=== PATIENT | female | born 1945 | race Caucasian/White ===

== ENCOUNTER → 2016-10-04 | Outpatient (CLI) | payer OTHER, BC ==
[~2016-10-04] MED LIST: ASCAUNK PO; ASCO100061 PO; ASCO500T16 PO; ASPI-461 PO; ATOR-22 PO; B-COTAB18 PO; BNC/20125 PO; CALCTAB65 PO; CARB1TAB15 PO; CHOL100027 PO; CIPR-255 PO; COEN10CA5 PO; FERR1TAB13 PO; FERR325T18 PO; HYDR-3983 PO; KLN5X PO; MELO7.5T5 PO; OXYC1TAB3 PO; SULF800T23 PO; TRAZ50TA35 PO; VITA400C3 PO; ZOLE5INJ INJ
--- NOTE | 2016-10-06 14:33 | EEG Procedure Note ---
EEG Procedure Note Date of Service Oct 04, 2016. Start / End Times Start Time: 2:24 PM End Time: 2:45 PM Referring Physician Jennifer Welch History This is a 71-year-old female with focal epilepsy with impairment of consciousness. EEG for further evaluation of seizures. Home Medication List Scheduled Ascorbic Acid (Vitamin C Unknown Dose), 1,000 MG PO DAILY Aspirin (Aspirin), 81 MG PO DAILY Carbamazepine (Tegretol Xr), 400 MG PO HS Cholecalciferol (Vitamin D 1000 Unit), 5,000 INTER.UNIT PO DAILY Ciprofloxacin Hcl (Cipro), 500 MG PO BID Clonazepam (Clonazepam), 0.5 MG PO BID Coenzyme Q10 (Ubidecarenone) (Co Q 10), Unknown Dose PO Q2D Ferrous Gluconate (Ferrous Gluconate), 324 MG PO DAILY Meloxicam (Mobic), 7.5 MG PO prn Olmesartan/Hctz (Benicar Hct 20/12.5), 1 TAB PO DAILY Vitamin E (Vitamin E 400 Iu), 400 INTER.UNIT PO DAILY Scheduled PRN Hydrocodone/Acetaminophen 7.5MG/325MG ([place] 7.5MG/325MG), 1 TAB PO for Pain Description This is a 21 electrode EEG with a single channel dedicated to limited EKG. The electrodes were placed in accordance with the International 10-20 system. At the start of the recording the patient was in an awake state. Background was well organized and composed of symmetric mixed alpha and beta frequencies. There was a symmetric well-formed moderate amplitude 8-9 Hz posterior dominant rhythm that was reactive to eye opening and closure. Hyperventilation was not done. Intermittent photic stimulation at various frequencies produced no abnormalities. There was no state changes or sleep transients. Interpretation This is a normal awake only routine EEG. There was no electrographic seizures or epileptiform discharges. Clinical Correlation A normal EEG does not rule out epilepsy if there is a strong clinical suspicion.
== END | disposition home or self-care (01) ==
LOC: C.NEUR 14:04
PROVIDERS: ATTEND Psychiatry & Neurology Neurology
DX: G40.109 Localization-related (focal) (partial) symptomatic epilepsy and epileptic syndromes with simple partial seizures, not intractable, without status epilepticus (principal)

== ENCOUNTER → 2016-11-24 | Outpatient (CLI) | payer OTHER, BC | END | disposition home or self-care (01) | LOC: C.NEUR 09:27 | PROVIDERS: ATTEND Psychiatry & Neurology Neurology | DX: G40.109 Localization-related (focal) (partial) symptomatic epilepsy and epileptic syndromes with simple partial seizures, not intractable, without status epilepticus (principal) ==

== ENCOUNTER 2017-01-21 19:45 | Emergency (ER) | payer OTHER, BC ==
[~2017-01-21] VITALS: Ht 152.4 cm; Wt 55.3 kg
[~2017-01-21 19:45] MED LIST changes: -ASCO100061 PO; -ASCO500T16 PO; -ASPI-461 PO; -ATOR-22 PO; -B-COTAB18 PO; -CALCTAB65 PO; -FERR1TAB13 PO; -OXYC1TAB3 PO; -SULF800T23 PO; -TRAZ50TA35 PO; -ZOLE5INJ INJ
[2017-01-21 19:50] VITALS: TEMP 36.9; Ht 152.4 cm; Wt 55.3 kg
[2017-01-21] MEDS ORDERED: OXYCODONE HCL IR 5 MG TAB (IMMEDIATE RELEASE) PO STA (21:10)
--- NOTE | 2017-01-21 21:12 | EMERGENCY ROOM VISIT NOTE ---
History Report prepared by Serena: Melody Brock Under the Supervision of: Dr. Derick Phillips M.D. First contact with patient: 20:59 Chief Complaint: FALL Stated Complaint: FALL, HEAD INJURY History of Present Illness The patient is a 71 year old female who presents to the Emergency Room with complaints of constant head pain from fall that occurred just prior to arrival. Per the patient's family, the patient was walking out to her car when she lost her balance. The patient does have bad balance and uses a cane. She fell backwards and hit her head. She complains of a headache at this time and has an abrasion to the top of the head. The patient denies any other symptoms at this time. Source of History: patient Onset: just W[employer] Position: head Timing: constant Associated Symptoms: + headache Note: The patient denies any other symptoms at this time. Review of Systems See HPI for pertinent positives & negatives. A total of 10 systems reviewed and were otherwise negative. Past Medical & Surgical Medical Problems: (1) Anxiety (2) Depressive Disorder Nec (3) Hypertension (4) Intestinal Infection Due To Clostridium Difficile (5) Osteoporosis (6) Seizure disorder (7) Syncope Surgical Problems: (1) H/O ileostomy Family History Omitted secondary to age. Social History Smoking Status: Former Smoker Alcohol Use: none Marital Status: Housing Status: lives with family Occupation Status: retired Current/Historical Medications Scheduled Ascorbic Acid (Vitamin C Unknown Dose), 1,000 MG PO DAILY Aspirin (Aspirin), 81 MG PO DAILY Carbamazepine (Tegretol Xr), 400 MG PO HS Cholecalciferol (Vitamin D 1000 Unit), 5,000 INTER.UNIT PO DAILY Ciprofloxacin Hcl (Cipro), 500 MG PO BID Clonazepam (Clonazepam), 0.5 MG PO BID Coenzyme Q10 (Ubidecarenone) (Co Q 10), Unknown Dose PO Q2D Ferrous Gluconate (Ferrous Gluconate), 324 MG PO DAILY Meloxicam (Mobic), 7.5 MG PO prn Olmesartan/Hctz (Benicar Hct 20/12.5), 1 TAB PO DAILY Vitamin E (Vitamin E 400 Iu), 400 INTER.UNIT PO DAILY Scheduled PRN Hydrocodone/Acetaminophen 7.5MG/325MG ([place] 7.5MG/325MG), 1 TAB PO for Pain Allergies Coded Allergies: Fentanyl (Verified Adverse Reaction, Unknown, nausea, fearfulness, unsettled thoughts, 08/13/16) Physical Exam Vital Signs Date Time Temp Pulse Resp B/P Pulse Ox O2 Delivery O2 Flow Rate FiO2 01/21/17 22:32 78 18 156/80 96 Room Air 01/21/17 21:29 90 18 147/85 98 Room Air 01/21/17 19:50 36.9 99 18 178/88 98 Room Air Physical Exam GENERAL: Patient is elderly appearing, kyphotic and in no acute distress. HEENT: 2.5 cm curving laceration left posterior scalp with underlying hematoma and surrounding abrasion, mucous membranes moist, no nasal congestion, no scleral icterus. NECK: No stridor, no adenopathy, no meningismus, trachea is midline. LUNGS: No dyspnea. Clear to auscultation and equal bilaterally. No wheeze, no rhonchi. HEART: Regular rate and rhythm. No murmurs, rubs, gallops appreciated. ABDOMEN: Soft, nontender, bowel sounds positive, no masses appreciated, no peritonitis. BACK: No midline tenderness, no CVA tenderness EXTREMITIES: Frozen left shoulder chronic, unremarkable otherwise. no cyanosis, no edema. NEUROLOGIC: Alert and oriented, no acute motor or sensory deficits, no focal weakness, cranial nerves grossly intact. SKIN: No rash, no jaundice, no diaphoresis. Medical Decision & Procedures ER Provider Diagnostic Interpretation: CT results as stated below per interpretation by me and the radiologist: HEAD CT NONCONTRAST CT DOSE: HISTORY: Fall. posterior head injury TECHNIQUE: Multiaxial CT images of the head were performed without the use of intravenous contrast. Automated exposure control was utilized for this study. Comparison: Head CT 06/12/2016. Findings: Paranasal sinuses are clear. There are few chronically opacified bilateral inferior mastoid air cells. The calvarium and skull base are intact. There is no mass, hematoma, midline shift, acute infarct. White matter hypodensity is nonspecific but suggestive of microvascular ischemic change. The ventricles and sulci demonstrate mild age-related involutional changes. Old right-sided post craniotomy changes with stable encephalomalacia within the right posterior temporal lobe. Left posterior scalp swelling. Impression: Left posterior scalp swelling. Otherwise, no significant change compared to the prior study. No acute intracranial abnormality. Electronically signed by: Lino Julian M.D. 01/21/2017 9:34 PM Dictated Date/Time: 01/21/2017 9:[address] DOSE: 1035.66 mGy.cm HISTORY: Neck pain. Fall. posterior head injury TECHNIQUE: Multiaxial CT images of the cervical spine were performed and reformatted in the sagittal and coronal plane without the use of contrast. COMPARISON: None. FINDINGS: Mild anterior wedge-shaped compression deformities at C4, C7, T1, T2, T3, T4. These are technically age indeterminate but likely represent old fractures given the lack of significant paravertebral soft tissue swelling. No definite acute fractures identified within the cervical spine. Small lucent lesions at the C5 vertebral body favors hemangiomas. No subluxation. Prevertebral soft tissues and the C1-C2 interval are intact. No pneumothorax. Mild disc space narrowing within the mid to lower cervical spine. IMPRESSION: Multiple mild compression deformities within the cervical and upper thoracic spine as described above. These are technically age indeterminate but likely represent old fractures given the lack of paravertebral soft tissue swelling. No definite acute fracture or subluxation within the cervical spine. Electronically signed by: Lino Julian M.D. 01/21/2017 9:43 PM Dictated Date/Time: 01/21/2017 9:34 PM Medications Administered Medications (Trade) Dose Ordered Sig/Ba Route Start Time Stop Time Status Last Admin Dose Admin Oxycodone HCl (Roxicodone Immediate Rel Tab) 5 mg NOW STAT PO 01/21/17 21:10 01/21/17 21:11 DC 01/21/17 21:29 5 MG Procedure Location: Posterior Left Scalp Total length: 2.5 cm curve Complexity: Simple Verbal consent was obtained after the risks and benefits were explained, including but not limited to bleeding, scarring, infection, pain, and bone/ nerve damage. At this time, the risks of the procedure are less than the risks of NOT performing the procedure. A time out was taken and the correct patient and site identified. The scalp was prepped with betadine. Copious irrigation was performed using saline. The skin was re-prepped with betadine, the hair cleared from the wound, and a sterile field set. The wound was explored for foreign bodies and none found. Debridement was not performed. The wound edges were approximated using 3 surgical zia in the standard fashion. Hemostasis and excellent approximation was achieved. Antibacterial ointment and a sterile dressing applied. Detailed wound care instructions and signs and symptoms of infection reviewed with the the patient. No complications and the patient tolerated the procedure well. ED Course 2102: The patient was evaluated in room C12. A complete history and physical exam was performed. 2109: Roxicodone Immediate Rel Tab 5 mg PO. 2224: Reevaluated the patient. Discussed results and discharge instructions: She verbalized understanding and agreement. The patient is ready for discharge. Medical Decision Very pleasant 71 yr old female with chronic issues with ambulation who had mechanical fall at home. Small lac to back of head. No acute injury found. No midline neck TTP and I do not feel that these are acute compression fractures given her chronic spine issues. Stables to scalp. CT's negative for acute findings. Comfortable and wanting to get home. Impression Primary Impression: Fall Additional Impressions: Head injury, closed Scalp laceration Scribe Attestation The scribe's documentation has been prepared under my direction and personally reviewed by me in its entirety. I confirm that the note above accurately reflects all work, treatment, procedures, and medical decision making performed by me. Departure Information Dispostion Home / Self-Care Referrals Ulises Chowdary M.D. (PCP) Forms HOME CARE DOCUMENTATION FORM, IMPORTANT VISIT INFORMATION Patient Instructions ED Laceration Scalp Stitch Or Stap, [facility] Additional Instructions Zia will need to be removed in 1 week by either ED or your PCP. Problem Qualifiers Primary Impression: Fall Encounter type: initial encounter Qualified Codes: W19.XXXA - Unspecified fall, initial encounter Additional Impressions: Head injury, closed Encounter type: initial encounter Qualified Codes: S09.90XA - Unspecified injury of head, initial encounter Scalp laceration Encounter type: initial encounter Qualified Codes: S01.01XA - Laceration without foreign body of scalp, initial encounter
--- NOTE | 2017-01-21 21:35 | DIAGNOSTIC IMAGING REPORT ---
HEAD CT NONCONTRAST CT DOSE: HISTORY: Fall. posterior head injury TECHNIQUE: Multiaxial CT images of the head were performed without the use of intravenous contrast. Automated exposure control was utilized for this study. Comparison: Head CT 06/12/2016. Findings: Paranasal sinuses are clear. There are few chronically opacified bilateral inferior mastoid air cells. The calvarium and skull base are intact. There is no mass, hematoma, midline shift, acute infarct. White matter hypodensity is nonspecific but suggestive of microvascular ischemic change. The ventricles and sulci demonstrate mild age-related involutional changes. Old right-sided post craniotomy changes with stable encephalomalacia within the right posterior temporal lobe. Left posterior scalp swelling. Impression: Left posterior scalp swelling. Otherwise, no significant change compared to the prior study. No acute intracranial abnormality. Electronically signed by: Lino Julian M.D. 01/21/2017 9:34 PM Dictated Date/Time: 01/21/2017 9:29 PM
--- NOTE | 2017-01-21 21:45 | DIAGNOSTIC IMAGING REPORT ---
CERVICAL SPINE CT CT DOSE: 1035.66 mGy.cm HISTORY: Neck pain. Fall. posterior head injury TECHNIQUE: Multiaxial CT images of the cervical spine were performed and reformatted in the sagittal and coronal plane without the use of contrast. COMPARISON: None. FINDINGS: Mild anterior wedge-shaped compression deformities at C4, C7, T1, T2, T3, T4. These are technically age indeterminate but likely represent old fractures given the lack of significant paravertebral soft tissue swelling. No definite acute fractures identified within the cervical spine. Small lucent lesions at the C5 vertebral body favors hemangiomas. No subluxation. Prevertebral soft tissues and the C1-C2 interval are intact. No pneumothorax. Mild disc space narrowing within the mid to lower cervical spine. IMPRESSION: Multiple mild compression deformities within the cervical and upper thoracic spine as described above. These are technically age indeterminate but likely represent old fractures given the lack of paravertebral soft tissue swelling. No definite acute fracture or subluxation within the cervical spine. Electronically signed by: Lion Julian M.D. 01/21/2017 9:43 PM Dictated Date/Time: 01/21/2017 9:34 PM
[2017-01-21 22:32] VITALS: BP 156/80; PULSE 78; O2SAT 96
[2017-03-06] MEDS ORDERED: SULF800T23 PO (11:10)
[2017-06-13] MEDS ORDERED: QUET1TAB91 PO (09:45)
[2017-08-05] MEDS ORDERED: LACT1CAP6 PO (01:05)
[2017-08-05] MEDS ORDERED: CRAN1TAB4 PO (01:05)
[2017-08-05] MEDS ORDERED: ZOLE5INJ INJ (03:50)
[2017-08-05] MEDS ORDERED: ATOR-22 PO ×2 (04:49→17:32)
[2017-08-05] MEDS ORDERED: ASCO100061 PO (04:52)
[2017-08-05] MEDS ORDERED: CALCTAB65 PO (04:55)
[2017-08-05] MEDS ORDERED: FERR1TAB13 PO (05:00)
[2017-08-05] MEDS ORDERED: ASPI-461 PO (16:01)
[2017-08-12] MEDS ORDERED: DIVA1CAP PO (13:57)
[2017-08-12] MEDS ORDERED: LPR25 PO (13:57)
[2017-08-12] MEDS ORDERED: CIPR250T3 PO (13:57)
== END 2017-01-21 23:14 | disposition home or self-care (01) ==
LOC: C.EDC 19:45 → EDBD 19:45 → C.EDC 23:14
DX: S01.01XA Laceration without foreign body of scalp, initial encounter (principal); S00.01XA Abrasion of scalp, initial encounter; S09.8XXA Other specified injuries of head, initial encounter; R51 Headache; W18.39XA Other fall on same level, initial encounter; Y93.01 Activity, walking, marching and hiking; I10 Essential (primary) hypertension; G40.909 Epilepsy, unspecified, not intractable, without status epilepticus; M81.0 Age-related osteoporosis without current pathological fracture

== ENCOUNTER 2017-01-28 18:18 | Emergency (ER) | payer OTHER, BC ==
[~2017-01-28] VITALS: Ht 149.9 cm; Wt 56.0 kg
[2017-01-28 18:28] VITALS: Ht 149.9 cm; Wt 56.0 kg
--- NOTE | 2017-01-28 18:36 | EMERGENCY ROOM VISIT NOTE ---
ED Visit Note First contact with patient: 18:31 CHIEF COMPLAINT: Staple removal HISTORY OF PRESENT ILLNESS: This 71-year-old female patient returns to the ED today for removal of margarito that were placed 7 days ago. There has been no swelling, redness, or drainage from the wound. The patient feels like the laceration is healing well. REVIEW OF SYSTEMS: A 6 system review of systems was completed with positives and pertinent negatives listed in the HPI. PMH: Unchanged from previous visit. ALLERGIES: Fentanyl PHYSICAL EXAM: Vital Signs: Reviewed Nurse's notes, vital signs stable. GENERAL : This is a 71-year-old female, in no acute distress. SKIN: There is a stapled wound on the scalp with no signs of infection. There is no erythema, swelling, or tenderness. EMERGENCY DEPARTMENT COURSE: 3 margarito were removed without any difficulty and there was no separation of the wound edges. The patient was discharged home in good condition. DIAGNOSIS: Healing laceration and staple removal DISCHARGE INSTRUCTIONS AND TREATMENT: Wash any remaining crusts off of the wound today and resume your normal activities. Problem List Medical Problems: (1) Anxiety Status: Chronic (2) Depressive Disorder Nec Status: Chronic (3) Hypertension Status: Chronic (4) Intestinal Infection Due To Clostridium Difficile Status: Resolved (5) Osteoporosis Status: Chronic (6) Seizure disorder Status: Chronic Surgical Problems: (1) H/O ileostomy Status: Resolved Current/Historical Medications Scheduled Ascorbic Acid (Vitamin C Unknown Dose), 1,000 MG PO DAILY Aspirin (Aspirin), 81 MG PO DAILY Carbamazepine (Tegretol Xr), 400 MG PO HS Cholecalciferol (Vitamin D 1000 Unit), 5,000 INTER.UNIT PO DAILY Ciprofloxacin Hcl (Cipro), 500 MG PO BID Clonazepam (Clonazepam), 0.5 MG PO BID Coenzyme Q10 (Ubidecarenone) (Co Q 10), Unknown Dose PO Q2D Ferrous Gluconate (Ferrous Gluconate), 324 MG PO DAILY Meloxicam (Mobic), 7.5 MG PO prn Olmesartan/Hctz (Benicar Hct 20/12.5), 1 TAB PO DAILY Vitamin E (Vitamin E 400 Iu), 400 INTER.UNIT PO DAILY Scheduled PRN Hydrocodone/Acetaminophen 7.5MG/325MG ([place] 7.5MG/325MG), 1 TAB PO for Pain Allergies Coded Allergies: Fentanyl (Verified Adverse Reaction, Unknown, nausea, fearfulness, unsettled thoughts, 08/13/16) Vital Signs Date Time Temp Pulse Resp B/P Pulse Ox O2 Delivery O2 Flow Rate FiO2 01/28/17 18:43 36.3 78 20 100 01/28/17 18:28 36.3 78 20 165/80 100 Room Air Departure Information Impression Primary Impression: Encounter for removal of margarito Dispostion Home / Self-Care Condition GOOD Referrals Ulises Chowdary M.D. (PCP) Patient Instructions My [facility] Additional Instructions Wash any remaining crusts off of the wound today and resume your normal activities.
[2017-01-28 18:43] VITALS: BP 165/80; PULSE 78; TEMP 36.3; O2SAT 100
[2017-03-06] MEDS ORDERED: SULF800T23 PO (11:10)
[2017-06-13] MEDS ORDERED: QUET1TAB91 PO (09:45)
[2017-08-05] MEDS ORDERED: LACT1CAP6 PO (01:05)
[2017-08-05] MEDS ORDERED: CRAN1TAB4 PO (01:05)
[2017-08-05] MEDS ORDERED: ZOLE5INJ INJ (03:50)
[2017-08-05] MEDS ORDERED: ATOR-22 PO ×2 (04:49→17:32)
[2017-08-05] MEDS ORDERED: ASCO100061 PO (04:52)
[2017-08-05] MEDS ORDERED: CALCTAB65 PO (04:55)
[2017-08-05] MEDS ORDERED: FERR1TAB13 PO (05:00)
[2017-08-05] MEDS ORDERED: ASPI-461 PO (16:01)
[2017-08-12] MEDS ORDERED: DIVA1CAP PO (13:57)
[2017-08-12] MEDS ORDERED: CIPR250T3 PO (13:57)
[2017-08-12] MEDS ORDERED: LPR25 PO (13:57)
== END 2017-01-28 18:42 | disposition home or self-care (01) ==
LOC: C.EDB 18:19 → C.EDD 18:42
DX: S01.01XD Laceration without foreign body of scalp, subsequent encounter (principal); X58.XXXD Exposure to other specified factors, subsequent encounter; F41.9 Anxiety disorder, unspecified; F32.9 Major depressive disorder, single episode, unspecified; I10 Essential (primary) hypertension; M81.0 Age-related osteoporosis without current pathological fracture; G40.909 Epilepsy, unspecified, not intractable, without status epilepticus; Z79.82 Long term (current) use of aspirin

== ENCOUNTER 2017-03-04 03:26 | Inpatient (IN) | payer OTHER, BC ==
[~2017-03-04] VITALS: Ht 149.9 cm; Wt 52.8 kg
[~2017-03-04 03:26] MED LIST changes: +ASPI-461 PO
[2017-03-04] MEDS ORDERED: ZOLE5INJ INJ (03:50)
--- NOTE | 2017-03-04 04:31 | EMERGENCY ROOM VISIT NOTE ---
History Report prepared by Serena: Catrina Skaggs Under the Supervision of: Dr. Radha Alvares D.O. First contact with patient: 03:31 Chief Complaint: OTHER COMPLAINT Stated Complaint: OTHER COMPLAINT History of Present Illness The patient is a 71 year old female who presents to the Emergency Room with a persistent change in mental status that began several hours prior to arrival. The patient's daughter reports that the patient has a history of seizures and has been on Tegretol for several years. She states that the patient was recently started on Trazodone for her sleeping disturbances. The patient's daughter states that the patient was found this evening sitting in a chair on- top of clothes. She states that this was abnormal for the patient. The patient 's daughter states that typically the patient is independent about taking her medications, but states that over the last several days the patient has not been fully compliant with her medications. She states that the patient appears very tired and fatigued this morning. The patient states that she doesn't remember sitting in the chair this evening and is unsure if she went to sleep in her bed this evening. The patient's daughter states that the patient was still up around midnight this evening. She additionally notes that the patient has been increasingly forgetful. The patient's daughter states that the patient has had spells similar to this in the past, but notes that today is much more intense. She states that the spell would only last a short amount of time and notes that the patient would be back to normal in a few minutes. The patient's daughter denies the patient having any other medication change. The patient notes that she has been recently constipated, but denies any chest pain , shortness of breath, headache, or urinary symptoms. Source of History: patient, family (daughter) Onset: several hours prior to arrival Position: other (global) Quality: other (change in mental status) Timing: other (persistent) Associated Symptoms: + fatigue, No headache, No chest pain, No SOB, No urinary symptoms Note: Associated Symptoms: forgetful, constipated, tired Review of Systems See HPI for pertinent positives & negatives. A total of 10 systems reviewed and were otherwise negative. Past Medical & Surgical Medical Problems: (1) Anxiety (2) Depressive Disorder Nec (3) Hypertension (4) Intestinal Infection Due To Clostridium Difficile (5) Osteoporosis (6) Seizure disorder (7) Syncope Surgical Problems: (1) H/O ileostomy Family History Omitted secondary to age. Social History Smoking Status: Former Smoker Alcohol Use: none Marital Status: Housing Status: lives with family Occupation Status: retired Current/Historical Medications Scheduled Ascorbic Acid (Ascorbic Acid), 1,000 MG PO DAILY Aspirin (Aspirin), 81 MG PO DAILY Atorvastatin (Lipitor), 20 MG PO DAILY B-Complex Vitamins (Vitamin B Complex), 1 TAB PO DAILY Calcium Carbonate-Vitamin D (Calcium 500 + D), 1 TAB PO DAILY Carbamazepine (Tegretol Xr), 400 MG PO HS Cholecalciferol (Vitamin D 1000 Unit), 5,000 INTER.UNIT PO DAILY Clonazepam (Clonazepam), 1 MG PO HS Ferrous Sulfate (Kp Ferrous Sulfate), 325 MG PO DAILY Meloxicam (Mobic), 7.5 MG PO prn Olmesartan/Hctz (Benicar Hct 20/12.5), 1 TAB PO DAILY Trazodone Hcl (Trazodone), 50 MG PO HS Vitamin E (Vitamin E 400 Iu), 400 INTER.UNIT PO DAILY Zoledronic Acid (Reclast), 5 MG INJ YEARLY Scheduled PRN Oxycodone Ir (Roxicodone Ir), 10 MG PO Q8 PRN for Pain Allergies Coded Allergies: Fentanyl (Verified Adverse Reaction, Unknown, nausea, fearfulness, unsettled thoughts, 08/13/16) Physical Exam Vital Signs Date Time Temp Pulse Resp B/P (MAP) Pulse Ox O2 Delivery O2 Flow Rate FiO2 03/04/17 09:22 82 18 111/56 97 Room Air 03/04/17 08:41 99 123/61 97 Room Air 03/04/17 07:01 83 14 93/55 96 Room Air 03/04/17 07:00 97 Room Air 03/04/17 06:52 80 03/04/17 06:06 86 15 98 03/04/17 06:01 94/56 03/04/17 05:51 86 10 96 03/04/17 05:46 116/63 03/04/17 05:40 126/72 03/04/17 05:36 91 17 03/04/17 05:25 95 03/04/17 05:21 99 16 03/04/17 05:16 105/59 03/04/17 05:11 102 14 03/04/17 05:01 115/60 03/04/17 04:56 100 12 03/04/17 04:46 118/62 03/04/17 04:41 98 15 03/04/17 04:39 125/67 03/04/17 04:19 117/67 03/04/17 04:11 96 15 03/04/17 04:08 97 Room Air 03/04/17 03:56 102 20 99 03/04/17 03:33 104 03/04/17 03:33 37.1 103 18 123/104 99 Room Air Physical Exam General: Appears slow to answer questions but would follow commands. HEENT: Head - normocephalic and atraumatic. Pupils are equal, round, and reactive to light. Extraocular eye muscles are intact and sclera are anicteric. Ears - bilaterally patent canals with noninjected tympanic membranes and no evidence of hemotympanum. Nose - moist nasal mucosa without discharge. Mouth - moist buccal mucosa. Oropharynx is nonerythematous and there is no tonsillar exudate or edema noted. Neck: Supple; no JVD, nuchal rigidity, cervical lymphadenopathy, or auscultated bruits. Heart: Regular rate and rhythm. There is a normal S1 and S2 with no murmurs, clicks, or gallops appreciated. Lungs: Clear to auscultation bilaterally with no wheezes, rales, or rhonchi. Abdomen: Soft, completely nontender, nondistended, with good bowel sounds. There are no palpable pulsatile masses or hepatosplenomegaly. There is no guarding, rigidity, or rebound noted. Extremities: No evidence of cyanosis, clubbing, or edema. There are easily palpable peripheral pulses. Skin: Turgor was poor, lower extremity skin changes consistent with peripheral vascular disease. Neuro:The patient is awake and alert, oriented to person and place, but not time. Muscle strength is 5/5 in all 4 extremities. 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 There are no cerebellar signs. Medical Decision & Procedures ER Provider Diagnostic Interpretation: CT results as stated below per my review and radiologist interpretation: CT HEAD: Compared to CT head 01/21/2017 No ICH, mass effect or edema. No evidence of acute cortical stroke. Other findings are similar to prior. Radiologist: Nighat Nj MD Study ready at [id number] and initial results transmitted at [id number] Laboratory Results Test 03/04/17 04:15 03/04/17 04:18 03/04/17 05:00 03/04/17 08:45 Bedside Glucose 109 mg/dl (70-90) Immature Granulocyte % (Auto) 0.2 % White Blood Count 9.63 K/uL (4.8-10.8) Red Blood Count 3.49 M/uL (4.2-5.4) Hemoglobin 12.1 g/dL (12.0-16.0) Hematocrit 34.8 % (37-47) Mean Corpuscular Volume 99.7 fL (80-100) Mean Corpuscular Hemoglobin 34.7 pg (25-34) Mean Corpuscular Hemoglobin Concent 34.8 g/dl (32-36) Platelet Count 198 K/uL (130-400) Mean Platelet Volume 8.3 fL (7.4-10.4) Neutrophils (%) (Auto) 87.2 % Lymphocytes (%) (Auto) 4.0 % Monocytes (%) (Auto) 8.1 % Eosinophils (%) (Auto) 0.3 % Basophils (%) (Auto) 0.2 % Neutrophils # (Auto) 8.39 K/uL (1.4-6.5) Lymphocytes # (Auto) 0.39 K/uL (1.2-3.4) Monocytes # (Auto) 0.78 K/uL (0.11-0.59) Eosinophils # (Auto) 0.03 K/uL (0-0.5) Basophils # (Auto) 0.02 K/uL (0-0.2) Immature Granulocyte # (Auto) 0.02 K/uL (0.00-0.02) Red Blood Cell Morphology Unremarkable Prothrombin Time 10.6 SECONDS (9.0-12.0) Prothromb Time International Ratio 1.0 (0.9-1.1) Activated Partial Thromboplast Time 25.7 SECONDS (21.0-31.0) Partial Thromboplastin Ratio 1.0 Phosphorus Level 4.1 mg/dl (2.5-4.9) Magnesium Level 2.3 mg/dl (1.8-2.4) Total Creatine Kinase 309 U/L (26-192) Creatine Kinase MB 4.2 ng/ml (0.5-3.6) Creatine Kinase MB Ratio 1.4 (0-3.0) Troponin I < 0.015 ng/ml (0-0.045) Thyroid Stimulating Hormone (TSH) 4.700 uIu/ml (0.300-4.500) Carbamazepine (Tegretol) Level 10.7 mcg/ml (4-12) Urine Color DK YELLOW Urine Appearance CLOUDY (CLEAR) Urine pH 6.0 (4.5-7.5) Urine Specific [place] 1.023 (1.000-1.030) Urine Protein 2+ (NEG) Urine Glucose (UA) NEG (NEG) Urine Ketones TRACE (NEG) Urine Occult Blood 1+ (NEG) Urine Nitrite NEG (NEG) Urine Bilirubin NEG (NEG) Urine Urobilinogen NEG (NEG) Urine Leukocyte Esterase TRACE (NEG) Urine WBC (Auto) 10-30 /hpf (0-5) Urine RBC (Auto) 0-4 /hpf (0-4) Urine Hyaline Casts (Auto) 10-30 /lpf (0-5) Urine Epithelial Cells (Auto) >30 /lpf (0-5) Urine Bacteria (Auto) 4+ (NEG) Urine Renal Epithelial Cells /lpf (0-5) Vitamin B12 Level 764 pg/mL (211-911) Folate 9.79 ng/mL (>5.38) Laboratory results per my review. Medications Administered Medications (Trade) Dose Ordered Sig/Ba Route Start Time Stop Time Status Last Admin Dose Admin Aspirin (Ecotrin Tab) 81 mg DAILY PO 03/04/17 09:00 04/03/17 08:59 03/04/17 11:14 81 MG Atorvastatin Calcium (Lipitor Tab) 20 mg DAILY PO 03/04/17 09:00 04/03/17 08:59 03/04/17 11:14 20 MG Cholecalciferol (Vitamin D Tab) 5,000 inter.unit DAILY PO 03/04/17 09:00 04/03/17 08:59 03/04/17 11:16 5,000 INTER.UNIT Olmesartan (Benicar Tab) 20 mg QAM PO 03/04/17 09:00 04/03/17 08:59 03/04/17 11:14 20 MG Hydrochlorothiazide (Hydrochlorothiazide Tab) 12.5 mg DAILY PO 03/04/17 09:00 04/03/17 08:59 03/04/17 11:14 12.5 MG ECG Indication: altered mental status Rate (beats per minute): 95 Rhythm: normal sinus Findings: no acute ischemic change, no ectopy ED Course 0344: Past medical records reviewed. The patient was evaluated in room A10. A complete history and physical exam was performed. The patient was evaluated in room A10. A complete history and physical examination were performed. Nursing notes ad previous electronic medical records were reviewed. IV lock was established and labs were drawn as above. Towards the end of the physical exam , the patient appeared to stave off into space and more confused. 0550: I reevaluated the patient and she is resting comfortably. 0600: I discussed the exam findings with the patients daughter and I discussed the treatment plan. She verbalized complete understanding and agreement. The patient will be evaluated for further treatment. 0722: I discussed the patients case with BRIAN Cardoso. He is going to evaluate the patient for further treatment. Medical Decision The patient is a 71 year old female who presents to the ED with a change in mental status. Differential diagnosis includes TIA, stroke, hypoglycemia, seizures, UTI, medication side effects. Lab interpretation: normal white count, stable H&H, sodium 130, chloride 93, glucose 124, normal renal function, normal phosphorus and magnesium, negative troponin, normal Tegretol level, urinalysis was positive 1+ blood and trace leukocyte esterase, ketones, 4+ bacteria and 10-30 white cells. I attest that I have personally reviewed the patient's current medication list. Patient was found to have low blood pressure on screening and does not require follow-up. This 71-year-old female patient was found by her daughter to have an altered mental status this morning. She believes that she has had some increased confusion and forgetfulness since starting trazodone. The patient does already take Tegretol as an anticonvulsant and Klonopin for anxiety. The patient has a normal-appearing CT scan. At this time, on physical exam, the patient appears sleepy. She is somewhat slow to answer questions. She had no further seizure activity here in the emergency department. At times, it seems that the patient might be having staring episodes or may have just been slow to answer questions. I discussed the case with the [facility]ist and they will evaluate for further management. Consults Time Called: 06 Consulting Physician: BRIAN Cardoso Returned Call: 07 I discussed the patients case with BRIAN Cardoso. He is going to evaluate the patient for further treatment. Impression Primary Impression: Altered mental status Additional Impression: Medication side effects Scribe Attestation The scribe's documentation has been prepared under my direction and personally reviewed by me in its entirety. I confirm that the note above accurately reflects all work, treatment, procedures, and medical decision making performed by me. Departure Information Dispostion Being Evaluated By Hospitalist Referrals Ulises Chowdary M.D. (PCP) Problem Qualifiers
[2017-03-04 04:44] LABS: PROTHROMBIN TIME (PATIENT) 10.6 SECONDS (9.0-12.0)
[2017-03-04] MEDS ORDERED: ATOR-22 PO (04:49)
[2017-03-04] MEDS ORDERED: ASCO500T16 PO (04:52)
[2017-03-04] MEDS ORDERED: ASCO100061 PO (04:52)
[2017-03-04] MEDS ORDERED: CALCTAB65 PO (04:55)
[2017-03-04 04:56] LABS: BLOOD UREA NITROGEN 15 mg/dl (7-18); BUN/CREATININE RATIO 14.7 (10-20); CALCIUM 9.5 mg/dl (8.5-10.1); CARBON DIOXIDE 30 mmol/L (21-32); CHLORIDE 93 mmol/L (98-107); GLUCOSE 124 mg/dl (70-99); POTASSIUM 4.3 mmol/L (3.5-5.1); SODIUM 130 mmol/L (136-145)
[2017-03-04] MEDS ORDERED: OXYC1TAB3 PO (04:56)
[2017-03-04] MEDS ORDERED: TRAZ50TA35 PO (04:57)
[2017-03-04] MEDS ORDERED: B-COTAB18 PO (04:58)
[2017-03-04] MEDS ORDERED: FERR1TAB13 PO (05:00)
[2017-03-04 05:01] LABS: CKMB/CK RATIO 1.4 (0-3.0)
[2017-03-04 05:42] LABS: URINE APPEARANCE CLOUDY (CLEAR); URINE BILIRUBIN NEG (NEG); URINE COLOR DK YELLOW; URINE EPITHELIAL CELL AUTO >30 /lpf (0-5); URINE NITRITE NEG (NEG); URINE SPECIFIC GRAVITY 1.023 (1.000-1.030); UROBILINOGEN NEG (NEG); ZZURINE CULT IF INDIC CATH YES
[2017-03-04 05:44] LABS: HEMATOCRIT 34.8 % (37-47); MEAN CELL VOLUME 99.7 fL (80-100); MEAN CORPUSCULAR HEMOGLOBIN 34.7 pg (25-34); MEAN CORPUSCULAR HGB CONC 34.8 g/dl (32-36); MEAN PLATELET VOLUME 8.3 fL (7.4-10.4); PLATELET COUNT 198 K/uL (130-400); RED BLOOD COUNT 3.49 M/uL (4.2-5.4); WHITE BLOOD COUNT 9.63 K/uL (4.8-10.8)
[2017-03-04 05:45] LABS: BASO % 0.2 %; BASO ABS # 0.02 K/uL (0-0.2); COMPLETE YES; EOS % 0.3 %; IG% 0.2 %; LYMPH ABS # 0.39 K/uL (1.2-3.4); MONO % 8.1 %; NEUT % 87.2 %
[2017-03-04 05:52] LABS: MAGNESIUM 2.3 mg/dl (1.8-2.4); PHOSPHORUS 4.1 mg/dl (2.5-4.9)
[2017-03-04 06:01] LABS: MANUAL MICROSCOPIC REQUIRED? NO; REVIEW REQ? YES
[2017-03-04 07:00] VITALS: O2SAT 97; Ht 149.9 cm; Wt 52.8 kg
--- NOTE | 2017-03-04 07:15 | DIAGNOSTIC IMAGING REPORT ---
HEAD CT NONCONTRAST CT DOSE: 614.27 mGy.cm HISTORY: Stroke symptoms. Stroke TECHNIQUE: Multiaxial CT images of the head were performed without the use of intravenous contrast. Automated exposure control was utilized for this study. Comparison: Head CT 01/21/2017. Findings: The paranasal sinuses and mastoid air cells are clear. The calvarium and skull base are intact. There is no mass, hematoma, midline shift, acute infarct. White matter hypodensity is nonspecific but suggestive of microvascular ischemic change. The ventricles and sulci demonstrate mild age-related involutional changes. Old right-sided post craniotomy changes with stable encephalomalacia within the right posterior temporal lobe. Impression: No significant change compared to the prior study. No acute intracranial abnormality. Electronically signed by: Lino Julian M.D. 03/04/2017 7:13 AM Dictated Date/Time: 03/04/2017 7:11 AM
[2017-03-04] MEDS ORDERED: POLYETHYLENE (MIRALAX) 17 GM PACK PO PRN (08:15)
[2017-03-04] MEDS ORDERED: ONDANSETRON INJ 2 MG/ML 2 ML VIAL IV PRN (08:15)
[2017-03-04] MEDS ORDERED: ALUMINUM/MAGNESIUM/SIMETH (MAALOX MAX) 30 ML UDC PO PRN (08:15)
[2017-03-04] MEDS ORDERED: MAGNESIUM HYDROXIDE SUSP 30 ML UDC PO PRN (08:15)
[2017-03-04] MEDS ORDERED: MELOXICAM 7.5 MG TAB PO PRN (08:15)
[2017-03-04] MEDS ORDERED: ACETAMINOPHEN 325 MG TAB PO PRN (08:15)
--- NOTE | 2017-03-04 08:47 | History and Physical ---
History & Physical Date & Time of Service: Mar 04, 2017 at 08:28 Chief Complaint: Other Complaint Primary Care Physician: Ulises Chowdary M.D. History of Present Illness Source: patient, family (daughter at bedside), clinic records, hospital records This is a 71 y/o female with a history of focal epilepsy, HTN, HLD, osteoporosis , osteoarthritis and chronic pain who presented to the ED on 03/04 with altered mental status. The patient lives with her daughter who provides most of the history. She states that the patient has been having intermittent episodes of altered mental status over the last 6 months. These episodes consist of the patient appearing to "space out" for a few minutes before resolving. The patient then becomes somewhat confused after these events before completely returning to normal. The patient does have a history of seizures and has been in the process of further working this up with outpatient neurology. The patient has also been having near falls recently, but the daughter has been able to catch her prior to falling. Last night the patient's daughter found her slumped awkwardly in a chair on top of a pile of clean clothes with her dentures still in, which is unusual for her. The patient does not recall this event or any associated symptoms at that time. The daughter states the patient has been increasingly forgetful the last 2 days. The daughter notes that the patient was recently started on trazodone 1 week ago to help her sleep, but this has not been effective. The patient has not been sleeping despite taking trazodone and clonazepam. She complains of fatigue. The patient denies fevers , chills, sweats, chest pain, palpitations, claudication, cough, wheezing, shortness of breath, nausea, vomiting, abdominal pain, dysuria, hematuria, urinary retention, paralysis, weakness, numbness and tingling. Past Medical/Surgical History Medical Problems: Hypertension Status: Chronic Intestinal Infection Due To Clostridium Difficile Status: Resolved Osteoporosis Status: Chronic Seizure disorder Status: Chronic HLD Chronic pain Surgical Problems: (1) H/O ileostomy Status: Resolved Family History Lung cancer Stroke Social History Smoking Status: Former Smoker Smokeless Tobacco Use: No Alcohol Use: none Drug Use: none Marital Status: Housing status: lives with family Occupational Status: retired Immunizations History of Influenza Vaccine: Yes Influenza Vaccine Date: January 25, 2012 History of Tetanus Vaccine?: Unknown History of Pneumococcal: Yes Pneumococcal Date: Aug 26, 2012 History of Hepatitis B Vaccine: Unknown Multi-Drug Resistant Organisms History of MDRO: No Allergies Coded Allergies: Fentanyl (Verified Adverse Reaction, Unknown, nausea, fearfulness, unsettled thoughts, 08/13/16) Home Medications Scheduled Ascorbic Acid (Ascorbic Acid), 1,000 MG PO DAILY Aspirin (Aspirin), 81 MG PO DAILY Atorvastatin (Lipitor), 20 MG PO DAILY B-Complex Vitamins (Vitamin B Complex), 1 TAB PO DAILY Calcium Carbonate-Vitamin D (Calcium 500 + D), 1 TAB PO DAILY Carbamazepine (Tegretol Xr), 400 MG PO HS Cholecalciferol (Vitamin D 1000 Unit), 5,000 INTER.UNIT PO DAILY Clonazepam (Clonazepam), 1 MG PO HS Ferrous Sulfate (Kp Ferrous Sulfate), 325 MG PO DAILY Meloxicam (Mobic), 7.5 MG PO prn Olmesartan/Hctz (Benicar Hct 20/12.5), 1 TAB PO DAILY Trazodone Hcl (Trazodone), 50 MG PO HS Vitamin E (Vitamin E 400 Iu), 400 INTER.UNIT PO DAILY Zoledronic Acid (Reclast), 5 MG INJ YEARLY Scheduled PRN Oxycodone Ir (Roxicodone Ir), 10 MG PO Q8 PRN for Pain Review of Systems Constitutional: + fatigue, No fever, No chills, No sweats, No weakness Eyes: No worsening of vision, No eye pain, No diplopia ENT: No hearing loss, No sore throat, No trouble swallowing Respiratory: No cough, No wheezing, No shortness of breath Cardiovascular: No chest pain, No claudication, No palpitations Abdomen: No pain, No nausea, No vomiting Musculoskeletal: + joint pain (chronic, arthritis), No muscle pain, No swelling Genitourinary - Female: No dysuria, No urinary frequency, No urinary urgency, No urinary retention, No hematuria Neurologic: No paralysis, No weakness, No numbness/tingling Integumentary: No rash, No itch, No color change Physical Exam Vital Signs Date Time Temp Pulse Resp B/P (MAP) Pulse Ox O2 Delivery O2 Flow Rate FiO2 03/04/17 07:01 83 14 93/55 96 Room Air 03/04/17 06:52 80 03/04/17 06:06 86 15 98 03/04/17 06:01 94/56 03/04/17 05:51 86 10 96 03/04/17 05:46 116/63 03/04/17 05:40 126/72 03/04/17 05:36 91 17 03/04/17 05:25 95 03/04/17 05:21 99 16 03/04/17 05:16 105/59 03/04/17 05:11 102 14 03/04/17 05:01 115/60 03/04/17 04:56 100 12 03/04/17 04:46 118/62 03/04/17 04:41 98 15 03/04/17 04:39 125/67 03/04/17 04:19 117/67 03/04/17 04:11 96 15 03/04/17 04:08 97 Room Air 03/04/17 03:56 102 20 99 03/04/17 03:33 104 03/04/17 03:33 37.1 103 18 123/104 99 Room Air General Appearance: WD/WN, no apparent distress Head: normocephalic, atraumatic Eyes: normal inspection, PERRL, EOMI ENT: normal ENT inspection, hearing grossly normal, pharynx normal Neck: supple, no JVD, trachea midline Respiratory/Chest: lungs clear, normal breath sounds, no respiratory distress Cardiovascular: regular rate, rhythm, no gallop, no murmur Abdomen/GI: normal bowel sounds, non tender, soft Extremities/Musculoskelatal: normal inspection, no calf tenderness, no pedal edema Neurologic/Psych: alert, normal mood/affect, + disoriented (disoriented to time ) Skin: normal color, warm/dry, no rash Diagnostics Laboratory Results Results Past 24 Hours Test 03/04/17 04:15 03/04/17 04:18 03/04/17 05:00 Range/Units Bedside Glucose 109 70-90 mg/dl White Blood Count 9.63 4.8-10.8 K/uL Red Blood Count 3.49 4.2-5.4 M/uL Hemoglobin 12.1 12.0-16.0 g/dL Hematocrit 34.8 37-47 % Mean Corpuscular Volume 99.7 80-100 fL Mean Corpuscular Hemoglobin 34.7 25-34 pg Mean Corpuscular Hemoglobin Concent 34.8 32-36 g/dl Platelet Count 198 130-400 K/uL Mean Platelet Volume 8.3 7.4-10.4 fL Neutrophils (%) (Auto) 87.2 % Lymphocytes (%) (Auto) 4.0 % Monocytes (%) (Auto) 8.1 % Eosinophils (%) (Auto) 0.3 % Basophils (%) (Auto) 0.2 % Neutrophils # (Auto) 8.39 1.4-6.5 K/uL Lymphocytes # (Auto) 0.39 1.2-3.4 K/uL Monocytes # (Auto) 0.78 0.11-0.59 K/uL Eosinophils # (Auto) 0.03 0-0.5 K/uL Basophils # (Auto) 0.02 0-0.2 K/uL RDW Standard Deviation 44.6 36.4-46.3 fL RDW Coefficient of Variation 12.3 11.5-14.5 % Immature Granulocyte % (Auto) 0.2 % Immature Granulocyte # (Auto) 0.02 0.00-0.02 K/uL Red Blood Cell Morphology Unremarkable Prothrombin Time 10.6 9.0-12.0 SECONDS Prothromb Time International Ratio 1.0 0.9-1.1 Activated Partial Thromboplast Time 25.7 21.0-31.0 SECONDS Partial Thromboplastin Ratio 1.0 Sodium Level 130 136-145 mmol/L Potassium Level 4.3 3.5-5.1 mmol/L Chloride Level 93 98-107 mmol/L Carbon Dioxide Level 30 21-32 mmol/L Anion Gap 7.0 3-11 mmol/L Blood Urea Nitrogen 15 7-18 mg/dl Creatinine 1.00 0.60-1.20 mg/dl Est Creatinine Clear Calc Drug Dose 39.3 ml/min Estimated GFR () 66.1 Estimated GFR (Non- 57.0 BUN/Creatinine Ratio 14.7 10-20 Random Glucose 124 70-99 mg/dl Calcium Level 9.5 8.5-10.1 mg/dl Phosphorus Level 4.1 2.5-4.9 mg/dl Magnesium Level 2.3 1.8-2.4 mg/dl Total Creatine Kinase 309 26-192 U/L Creatine Kinase MB 4.2 0.5-3.6 ng/ml Creatine Kinase MB Ratio 1.4 0-3.0 Troponin I < 0.015 0-0.045 ng/ml Carbamazepine (Tegretol) Level 10.7 4-12 mcg/ml Urine Color DK YELLOW Urine Appearance CLOUDY CLEAR Urine pH 6.0 4.5-7.5 Urine Specific [place] 1.023 1.000-1.030 Urine Protein 2+ NEG Urine Glucose (UA) NEG NEG Urine Ketones TRACE NEG Urine Occult Blood 1+ NEG Urine Nitrite NEG NEG Urine Bilirubin NEG NEG Urine Urobilinogen NEG NEG Urine Leukocyte Esterase TRACE NEG Urine WBC (Auto) 10-30 0-5 /hpf Urine RBC (Auto) 0-4 0-4 /hpf Urine Hyaline Casts (Auto) 10-30 0-5 /lpf Urine Epithelial Cells (Auto) >30 0-5 /lpf Urine Bacteria (Auto) 4+ NEG Urine Renal Epithelial Cells 0-5 /lpf Microbiology Results 03/04/17 Urine Culture, Received Pending Diagnostic Radiology Reviewed the following studies and agree with interpretation as follows: Patient Name: SARA HARTMAN Unit Number: [id number] Dictated: 03/04/17710 Transcribed: 03/04/17710 [facility] Printed Date/Time: [~ rep prt dt]/[~ rep prt tm] [~ rep ct labl] - [~ rep ct ivnm] [facility] [place] [address] Dictated: 03/04/17710 Transcribed: 03/04/17710 [facility] Printed Date/Time: [~ rep prt dt]/[~ rep prt tm] [~ rep ct labl] - [~ rep ct ivnm] Patient: SARA HARTMAN Address1: [address] [place] [address] 2012 Med Rec: [id number] Address2: Acct ID: [id number] [facility] Zip: [place] [address] Date: 1945 Sex: F Room/Bed: Ref Phy: Ulises Chowdary M.D. SC: MAI Forrester Phy: Report #: [id number] Demetria Phy: Ulises Chowdary M.D. Test: HWO Admit Phy: Podiatrist Orthopedic: NIDIA Interpreting Phy: Lino Julian MD Diagnosis: OTHER COMPLAINT Ordering Phy: Radha Alvares D.O. Service Date: 03/04/17 Admit Date: 03/04/17 MNE: [id number] CONF: DICTATED BY: Lino Julian M.D.]] CC: Radha Alvares D.O. Pandolph, Stephen J., M.D. Endcc: [~ rep ct add3]] HEAD CT NONCONTRAST CT DOSE: 614.27 mGy.cm HISTORY: Stroke symptoms. Stroke TECHNIQUE: Multiaxial CT images of the head were performed without the use of intravenous contrast. Automated exposure control was utilized for this study. Comparison: Head CT 01/21/2017. Findings: The paranasal sinuses and mastoid air cells are clear. The calvarium and skull base are intact. There is no mass, hematoma, midline shift, acute infarct. White matter hypodensity is nonspecific but suggestive of microvascular ischemic change. The ventricles and sulci demonstrate mild age-related involutional changes. Old right-sided post craniotomy changes with stable encephalomalacia within the right posterior temporal lobe. Impression: No significant change compared to the prior study. No acute intracranial abnormality. Electronically signed by: Lino Julian M.D. 03/04/2017 7:13 AM Dictated Date/Time: 03/04/2017 7:11 AM The status of this report is Signed. Draft = Not yet reviewed or approved by Radiologist. Signed = Reviewed and approved by Radiologist. <AttendingPhy></AttendingPhy> <FamilyPhy>Ulises Chowdary M.D.</FamilyPhy> < PrimaryPhy>Ulises Chowdary M.D.</PrimaryPhy> <UnitNumber>[id number]</ UnitNumber> <VisitNumber>[id number]</VisitNumber> <PatientName>SARA HARTMAN</PatientName> <DateOfBirth>1945</DateOfBirth> <Location>[facility]</ Location> <ServiceDate>03/04/17</ServiceDate> <MNE>ESINDI</MNE> <OrderingPhy> Radha Alvares D.O.</OrderingPhy> <OrderingPhyMNE>f rep ord dr chow</ OrderingPhyMNE> <DictatingPhyMNE>f rep dict dr chow</DictatingPhyMNE> <CCListMNE> f rep ct mne</CCListMNE> <AdmittingPhyMNE>f pt admit dr chow</AdmittingPhyMNE> < AttendingPhyMNE>f pt attend dr chow</AttendingPhyMNE> <ConsultingPhyMNE>f pt consult dr chow</ConsultingPhyMNE> <FamilyPhyMNE>f pt fam dr chow</FamilyPhyMNE> <OtherPhyMNE>f pt other dr chow</OtherPhyMNE> < PrimaryPhyMNE>f pt prim care dr chow</PrimaryPhyMNE> <ReferringPhyMNE>f pt referring dr chow</ReferringPhyMNE> EKG Reviewed EKG and agree with interpretation as follows: 95 bpm, NSR Impression Assessment and Plan 71 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 Head CT negative for acute intracranial findings. EKG NSR, no ischemic changes. Pt afebrile, VSS. No leukocytosis. Troponin negative. Sodium 130, which appears to be baseline. Carbamazepine level WNL. Altered mental status, possibly secondary to seizure activity--pt was supposed to get outpatient EEG, but daughter states there was "faulty equipment" -Admit to telemetry -Consult neurology, appreciate res. Pt follows with Dr. Welch -Awake/drowsy EEG -Check vitamin B12, folate, and TSH for other possible causes -UA dirty but with high epithelial cell count. Urine culture pending -Hold trazodone as can lower seizure threshold H/o focal epilepsy per outpatient neuro records -Continue carbamazepine 400 mg PO qhs and clonazepam 1 mg PO qhs HTN--stable -Continue olmesartan/HCTZ 20/12.5 mg PO qd HLD -Continue atorvastatin 20 mg PO qd Osteoarthritis/chronic pain -Continue oxycodone 10 mg PO q8h prn and Mobic 7.5 mg qd prn DVT prophylaxis -Enoxaparin 40 mg SC q24h -JAYDEN hose and SCDs Code Status -Level I, FULL RESUSCITATION STATUS Dispo -Pt lives with daughter, usually independent with ADLs but uses walker to get around -PT/OT evaluate and treat Level of Care Telemetry Resuscitation Status FULL RESUSCITATION VTE Prophylaxis VTE Risk Assessment Done? Y/N: Yes Risk Level: Moderate Given or contraindicated: Enoxaparin (Lovenox)SQ, T.E.D. Stockings, SCD's
[2017-03-04 10:09] VITALS: BP 123/74; PULSE 94; TEMP 37.4; O2SAT 98
[2017-03-04] MEDS: ASPIRIN 81 MG ECTAB PO SCH (11:14)
[2017-03-04] MEDS: OLMESARTAN MEDOXOMIL 20 MG TAB PO SCH (11:14)
[2017-03-04] MEDS: ATORVASTATIN 20 MG TAB PO SCH (11:14)
[2017-03-04] MEDS: HYDROCHLOROTHIAZIDE 25 MG TAB PO SCH (11:14)
[2017-03-04] MEDS: CHOLECALCIFEROL 1000 INTER.UNIT TAB PO SCH (11:16)
[2017-03-04] MEDS: ENOXAPARIN 40 MG/0.4 ML SYR SC SCH (11:21)
[2017-03-04 11:30] VITALS: BP 128/73; PULSE 88; TEMP 36.9; O2SAT 95
--- NOTE | 2017-03-04 12:14 | Neurology Consultation ---
Neurology Consultation Date of Consultation: Mar 04, 2017. Attending Physician: Navjot Reeves D.O. Primary Care Physician: Ulises Chowdary M.D. Reason for Consultation: Consultation for altered mental status and concern for seizures History of Present Illness Source: patient, clinic records, hospital records This is a 71-year-old female who has been evaluated by myself in August 2016 in October 2016 for unresponsive spells concerning for seizures. Spell history: The patient initially had what sounds like a generalized seizure in the after intraparenchymal brain hemorrhage. Daughter reports that the time the patient had a problem with alcoholism and is uncertain if the hemorrhage was due to head trauma or not. The patient had a single generalized seizure after the bleed. She was placed initially on Dilantin but had trouble with bleeding gums. After that she was placed on Tegretol and has been on that medication ever since then. She used to see Dr. Hays. No definitive seizures since she was initially put on Tegretol. She denies any medication side effects. Denies any significant dizziness. Patient's sodium has been noted to be on the low side. Last sodium level checked earlier this month was 130. Daughter reports unresponsive episodes that she has been evaluated for through the emergency room and cardiology. Daughter reports that much of the time the patient has had a UTI in association but is not clear if this is the cause or not. The daughter reports the first episode happened for 5 years ago. She reports that she was sitting in the chair. She had a stare. She seemed to pass out for a few minutes. By the time the daughter called 911, the patient had returned to consciousness and was responding appropriately. There has been no clear postictal confusion. She was taken in the emergency room and was felt to likely be secondary to UTI and dehydration. Second event happened in June 2016. She reports that the patient became unresponsive and had stare. She was not responding to the daughter. She was in a seated position in the car. She reports that then her head went back and her eyes closed. There was a couple of shoulder jerks. No clear seizure activity. Patient was evaluated by cardiology after the second episode. Patient had echocardiogram and LASHANDA performed. Mild atherosclerotic disease but otherwise no significant findings. Cardiology decreased her hypertensive medication in the event that these episodes were orthostatic. With the least a few of these episodes of the patient reports that she was feeling sweaty and clammy afterwards. Third episode happened Aug 2016. Again she had a stare. It was associated with severe back pain. The patient was found to have a UTI. She was unresponsive for a few seconds to minutes. Patient reports that she could hear her daughter talking to her but was not able to respond due to the pain. [place] sweaty and clammy afterwards. Denies any changes in her vision. [place] generally weak during many of these episodes. She denies any clear dizziness beforehand. She does report that she feels funny and feels like she may pass out. She denies any chest pain or heart palpitations. Denies any shortness of breath. No urinary incontinence. 4th episode on October 01 2016. Described as calling out for her daughter. Feeling weak all over. Feeling warm and flushed. Feeling nauseous. Daughter reports a few seconds of the stare response. She was responsive through the episode. Lasted a few minutes. She slowly fell to the floor. No syncope or presyncopal symptoms. [place] tired afterwards. MRI of the brain report and images from August 2016 were reviewed and noted right temporal encephalomalacia and T2 hyperintensities in the subcortical white matter but otherwise no acute findings EEG from September 2016 was a normal awake only. Past AED trials have included Dilantin and Tegretol Current presentation: Partially was not able to speak to the daughter about her most recent episodes. Per review of ER and admission notes, it appeared that the patient was having more episodes of altered mental status over the last 6 months. Spells described as spacing out for a few minutes. Also seems more forgetful over the last 2 days. Trazodone was recently started a week ago ( Patient also takes clonazepam). When I last saw the patient in October I had prescribed Keppra to empirically see if this would decrease her spells. The patient reports that she didn't take it because I had instructed her to start after she got the ambulatory EEG and she has not gotten the ambulatory EEG yet. Not clear why this is happened and will check with our staff. She continues on Tegretol XL 400 mg daily without any reported side effects. Mild hyponatremia remained stable. Labs reviewed. Mildly elevated TSH of 4.7. Folate and B12 were within normal limits. Carbamazepine level was 10.7 (4-12). UA had positive WBCs and trace leuk esterase. Culture is pending. CT of the head was unremarkable for any acute changes Past Medical/Surgical History Medical Problems: (1) Altered mental status Status: Acute (2) Anxiety Status: Chronic (3) Depressive Disorder Nec Status: Chronic (4) Encounter for removal of margarito Status: Acute (5) Fall Status: Acute (6) Head injury, closed Status: Acute (7) Hypertension Status: Chronic (8) Hyponatremia Status: Acute (9) Medication side effects Status: Acute (10) Near syncope Status: Acute (11) Osteoporosis Status: Chronic (12) Scalp laceration Status: Acute (13) Seizure disorder Status: Chronic (14) UTI (urinary tract infection) Status: Acute Significant for hypertension, single generalized seizure after brain hematoma in association with alcoholism at the time, left femur fracture and repair, multiple UTIs Family History Denies any family history of seizures or epilepsy. Social History Patient lives with her daughter. Walks with the assistance of a walker. No tobacco or alcohol use. (Patient has a remote past history of alcoholism), no illegal drug use or herbal supplement use. Smoking Status: Never smoker Smokeless Tobacco Use: No Alcohol Use: none Drug Use: none Marital Status: Housing Status: lives with family Occupation Status: retired Allergies Coded Allergies: Fentanyl (Verified Adverse Reaction, Unknown, nausea, fearfulness, unsettled thoughts, 08/13/16) Current Inpatient Medications Current Inpatient Medications Medications (Trade) Dose Ordered Sig/Ba Route Start Time Stop Time Status Last Admin Dose Admin Enoxaparin Sodium (Lovenox Inj) 40 mg Q24H SC 03/04/17 11:00 04/03/17 10:59 03/04/17 11:21 40 MG Acetaminophen (Tylenol Tab) 650 mg Q4H PRN PO 03/04/17 08:15 04/03/17 08:14 Al Hydrox/Mg Hydrox/Simethicone (Maalox Max Susp) 15 ml Q4H PRN PO 03/04/17 08:15 04/03/17 08:14 Magnesium Hydroxide (Milk Of Magnesia Susp) 30 ml Q12H PRN PO 03/04/17 08:15 04/03/17 08:14 Ondansetron HCl (Zofran Inj) 4 mg Q6H PRN IV 03/04/17 08:15 04/03/17 08:14 Polyethylene (Miralax Powder Packet) 17 gm DAILY PRN PO 03/04/17 08:15 04/03/17 08:14 Aspirin (Ecotrin Tab) 81 mg DAILY PO 03/04/17 09:00 04/03/17 08:59 03/04/17 11:14 81 MG Atorvastatin Calcium (Lipitor Tab) 20 mg DAILY PO 03/04/17 09:00 04/03/17 08:59 03/04/17 11:14 20 MG Cholecalciferol (Vitamin D Tab) 5,000 inter.unit DAILY PO 03/04/17 09:00 04/03/17 08:59 03/04/17 11:16 5,000 INTER.UNIT Clonazepam (Klonopin Tab) 1 mg HS PO 03/04/17 21:00 04/03/17 20:59 Meloxicam (Mobic Tab) 7.5 mg DAILY PRN PO 03/04/17 08:15 04/03/17 08:14 Oxycodone HCl (Roxicodone Immediate Rel Tab) 10 mg Q8 PRN PO 03/04/17 08:15 03/18/17 08:14 Carbamazepine (Tegretol-Xr (Do Not Crush)) 400 mg HS PO 03/04/17 21:00 04/03/17 20:59 Olmesartan (Benicar Tab) 20 mg QAM PO 03/04/17 09:00 04/03/17 08:59 03/04/17 11:14 20 MG Hydrochlorothiazide (Hydrochlorothiazide Tab) 12.5 mg DAILY PO 03/04/17 09:00 04/03/17 08:59 03/04/17 11:14 12.5 MG Review of Systems Complete review of systems otherwise negative except for the above noted Physical Exam Vital Signs (Past 24 Hrs): Date Time Temp Pulse Resp B/P (MAP) Pulse Ox O2 Delivery O2 Flow Rate FiO2 03/04/17 11:30 36.9 88 16 128/73 (91) 95 Room Air 03/04/17 10:09 37.4 94 18 123/74 (90) 98 03/04/17 09:22 82 18 111/56 97 Room Air 03/04/17 08:41 99 123/61 97 Room Air 03/04/17 07:01 83 14 93/55 96 Room Air 03/04/17 07:00 97 Room Air 03/04/17 06:52 80 03/04/17 06:06 86 15 98 03/04/17 06:01 94/56 03/04/17 05:51 86 10 96 03/04/17 05:46 116/63 03/04/17 05:40 126/72 03/04/17 05:36 91 17 03/04/17 05:25 95 03/04/17 05:21 99 16 03/04/17 05:16 105/59 03/04/17 05:11 102 14 03/04/17 05:01 115/60 03/04/17 04:56 100 12 03/04/17 04:46 118/62 03/04/17 04:41 98 15 03/04/17 04:39 125/67 03/04/17 04:19 117/67 03/04/17 04:11 96 15 03/04/17 04:08 97 Room Air 03/04/17 03:56 102 20 99 03/04/17 03:33 104 03/04/17 03:33 37.1 103 18 123/104 99 Room Air Gen.: Patient is alert and oriented in no acute distress lying in bed Heart: Regular rate and rhythm Extremities: No gross deformities or rashes noted Neurological examination: Mental status: Patient is alert and oriented to person and place only (stated that the year was 1969 ). Able to give her own history. Attention concentration normal for the situation. Speech is fluent without any dysarthria or aphasia noted Cranial nerves: Funduscopic examination was difficult to visualize. Pupils equally round and reactive to light. Extraocular muscles intact without nystagmus. No facial asymmetry noted. Facial sensation intact. Tongue midline. Good palatal elevation. Good shoulder shrug bilaterally. Hearing grossly intact voice. Strength: Strength 5/5 both proximal and distally with the exception of bilateral hip flexion 4/5. Patient also has some limitation in shoulder movement due to structural shoulder impingements. Sensation: Grossly intact to light touch in all extremities Deep tendon reflexes: +1 in bilateral biceps and patellar. Coordination: Patient has good finger to nose without dysmetria Station within the bed is normal. (does have a significant flexion posture) Laboratory Results Past 24 Hours: 03/04/17 04:18 Red Blood Count 3.49, Mean Corpuscular Volume 99.7, Mean Corpuscular Hemoglobin 34.7, Mean Corpuscular Hemoglobin Concent 34.8, Mean Platelet Volume 8.3, Neutrophils (%) (Auto) 87.2, Lymphocytes (%) (Auto) 4.0, Monocytes (%) (Auto) 8.1, Eosinophils (%) (Auto) 0.3, Basophils (%) (Auto) 0.2, Neutrophils # (Auto) 8.39, Lymphocytes # (Auto) 0.39, Monocytes # (Auto) 0.78, Eosinophils # (Auto) 0.03, Basophils # (Auto) 0.02 03/04/17 04:18 Test 03/04/17 04:15 03/04/17 04:18 03/04/17 05:00 03/04/17 08:45 Bedside Glucose 109 mg/dl (70-90) White Blood Count 9.63 K/uL (4.8-10.8) Red Blood Count 3.49 M/uL (4.2-5.4) Hemoglobin 12.1 g/dL (12.0-16.0) Hematocrit 34.8 % (37-47) Mean Corpuscular Volume 99.7 fL (80-100) Mean Corpuscular Hemoglobin 34.7 pg (25-34) Mean Corpuscular Hemoglobin Concent 34.8 g/dl (32-36) Platelet Count 198 K/uL (130-400) Mean Platelet Volume 8.3 fL (7.4-10.4) Neutrophils (%) (Auto) 87.2 % Lymphocytes (%) (Auto) 4.0 % Monocytes (%) (Auto) 8.1 % Eosinophils (%) (Auto) 0.3 % Basophils (%) (Auto) 0.2 % Neutrophils # (Auto) 8.39 K/uL (1.4-6.5) Lymphocytes # (Auto) 0.39 K/uL (1.2-3.4) Monocytes # (Auto) 0.78 K/uL (0.11-0.59) Eosinophils # (Auto) 0.03 K/uL (0-0.5) Basophils # (Auto) 0.02 K/uL (0-0.2) RDW Standard Deviation 44.6 fL (36.4-46.3) RDW Coefficient of Variation 12.3 % (11.5-14.5) Immature Granulocyte % (Auto) 0.2 % Immature Granulocyte # (Auto) 0.02 K/uL (0.00-0.02) Red Blood Cell Morphology Unremarkable Prothrombin Time 10.6 SECONDS (9.0-12.0) Prothromb Time International Ratio 1.0 (0.9-1.1) Activated Partial Thromboplast Time 25.7 SECONDS (21.0-31.0) Partial Thromboplastin Ratio 1.0 Anion Gap 7.0 mmol/L (3-11) Est Creatinine Clear Calc Drug Dose 39.3 ml/min Estimated GFR () 66.1 Estimated GFR (Non- 57.0 BUN/Creatinine Ratio 14.7 (10-20) Calcium Level 9.5 mg/dl (8.5-10.1) Phosphorus Level 4.1 mg/dl (2.5-4.9) Magnesium Level 2.3 mg/dl (1.8-2.4) Total Creatine Kinase 309 U/L (26-192) Creatine Kinase MB 4.2 ng/ml (0.5-3.6) Creatine Kinase MB Ratio 1.4 (0-3.0) Troponin I < 0.015 ng/ml (0-0.045) Thyroid Stimulating Hormone (TSH) 4.700 uIu/ml (0.300-4.500) Carbamazepine (Tegretol) Level 10.7 mcg/ml (4-12) Urine Color DK YELLOW Urine Appearance CLOUDY (CLEAR) Urine pH 6.0 (4.5-7.5) Urine Specific [place] 1.023 (1.000-1.030) Urine Protein 2+ (NEG) Urine Glucose (UA) NEG (NEG) Urine Ketones TRACE (NEG) Urine Occult Blood 1+ (NEG) Urine Nitrite NEG (NEG) Urine Bilirubin NEG (NEG) Urine Urobilinogen NEG (NEG) Urine Leukocyte Esterase TRACE (NEG) Urine WBC (Auto) 10-30 /hpf (0-5) Urine RBC (Auto) 0-4 /hpf (0-4) Urine Hyaline Casts (Auto) 10-30 /lpf (0-5) Urine Epithelial Cells (Auto) >30 /lpf (0-5) Urine Bacteria (Auto) 4+ (NEG) Urine Renal Epithelial Cells /lpf (0-5) Vitamin B12 Level 764 pg/mL (211-911) Folate 9.79 ng/mL (>5.38) Test 03/04/17 11:14 03/04/17 11:37 Ammonia < 10.0 umol/L (11-32) Imaging As noted above in history of present illness Impression This is an 71-year-old female with episodes of altered mental status/ unresponsiveness. Overall I'm not clear whether she is having focal seizures versus nonepileptic events (such as from cardiogenic source or some other metabolic source, (TSH is mildly elevated)). Potentially her worsening confusion could have been secondary to recent addition of trazodone. As far as I know the patient is only had one documented generalized seizure in the past in the setting of a brain hematoma and alcoholism. Aspects of her spells concerning for possible cardiogenic etiology include feeling sweaty, clamminess, and presyncopal symptoms before the events. Patient denies any side effects to Tegretol. Mild hyponatremia likely secondary to Tegretol. Plan I have ordered LFTs, ammonia level, alcohol and drug screen, thiamine for evaluation of other causes for acute encephalopathy EEG is pending I agree with stopping trazodone as this could be related to her worsening condition recently. Recommend obtaining an MRI of the brain to rule out stroke if family still feels that she is significantly different from her baseline. I will look into the reason why her ambulatory EEG was not done and we'll try to reschedule this for further evaluation as an outpatient If the above workup is unremarkable, I may empirically try starting Keppra to see if this improves or stops her unresponsive events. In the past I have also recommended considering a 30 day cardiac event monitor since some of her spells are concerning for possible cardiogenic source ( descriptions of sweating and diaphoresis). If there is any questions or concerns, feel free to call/page me
[2017-03-04 15:25] VITALS: BP 101/65; PULSE 83; TEMP 36.9; O2SAT 96
--- NOTE | 2017-03-04 17:40 | EEG Procedure Note ---
EEG Procedure Note Date of Service Mar 04, 2017. Start / End Times Start Time: 10:26 AM End Time: 10:47 AM Referring Physician Francisco History This is a 8-year-old female who presents with frequent episodes of altered mental status. EEG for further evaluation of possible seizure etiology. Home Medication List Scheduled Ascorbic Acid (Ascorbic Acid), 1,000 MG PO DAILY Aspirin (Aspirin), 81 MG PO DAILY Atorvastatin (Lipitor), 20 MG PO DAILY B-Complex Vitamins (Vitamin B Complex), 1 TAB PO DAILY Calcium Carbonate-Vitamin D (Calcium 500 + D), 1 TAB PO DAILY Carbamazepine (Tegretol Xr), 400 MG PO HS Cholecalciferol (Vitamin D 1000 Unit), 5,000 INTER.UNIT PO DAILY Clonazepam (Clonazepam), 1 MG PO HS Ferrous Sulfate (Kp Ferrous Sulfate), 325 MG PO DAILY Meloxicam (Mobic), 7.5 MG PO prn Olmesartan/Hctz (Benicar Hct 20/12.5), 1 TAB PO DAILY Trazodone Hcl (Trazodone), 50 MG PO HS Vitamin E (Vitamin E 400 Iu), 400 INTER.UNIT PO DAILY Zoledronic Acid (Reclast), 5 MG INJ YEARLY Scheduled PRN Oxycodone Ir (Roxicodone Ir), 10 MG PO Q8 PRN for Pain Inpatient Medication List Current Inpatient Medications Medications (Trade) Dose Ordered Sig/Ba Route Start Time Stop Time Status Last Admin Dose Admin Enoxaparin Sodium (Lovenox Inj) 40 mg Q24H SC 03/04/17 11:00 04/03/17 10:59 03/04/17 11:21 40 MG Acetaminophen (Tylenol Tab) 650 mg Q4H PRN PO 03/04/17 08:15 04/03/17 08:14 Al Hydrox/Mg Hydrox/Simethicone (Maalox Max Susp) 15 ml Q4H PRN PO 03/04/17 08:15 04/03/17 08:14 Magnesium Hydroxide (Milk Of Magnesia Susp) 30 ml Q12H PRN PO 03/04/17 08:15 04/03/17 08:14 Ondansetron HCl (Zofran Inj) 4 mg Q6H PRN IV 03/04/17 08:15 04/03/17 08:14 Polyethylene (Miralax Powder Packet) 17 gm DAILY PRN PO 03/04/17 08:15 04/03/17 08:14 Aspirin (Ecotrin Tab) 81 mg DAILY PO 03/04/17 09:00 04/03/17 08:59 03/04/17 11:14 81 MG Atorvastatin Calcium (Lipitor Tab) 20 mg DAILY PO 03/04/17 09:00 04/03/17 08:59 03/04/17 11:14 20 MG Cholecalciferol (Vitamin D Tab) 5,000 inter.unit DAILY PO 03/04/17 09:00 04/03/17 08:59 03/04/17 11:16 5,000 INTER.UNIT Clonazepam (Klonopin Tab) 1 mg HS PO 03/04/17 21:00 04/03/17 20:59 Meloxicam (Mobic Tab) 7.5 mg DAILY PRN PO 03/04/17 08:15 04/03/17 08:14 Oxycodone HCl (Roxicodone Immediate Rel Tab) 10 mg Q8 PRN PO 03/04/17 08:15 03/18/17 08:14 Carbamazepine (Tegretol-Xr (Do Not Crush)) 400 mg HS PO 03/04/17 21:00 04/03/17 20:59 Olmesartan (Benicar Tab) 20 mg QAM PO 03/04/17 09:00 04/03/17 08:59 03/04/17 11:14 20 MG Hydrochlorothiazide (Hydrochlorothiazide Tab) 12.5 mg DAILY PO 03/04/17 09:00 04/03/17 08:59 03/04/17 11:14 12.5 MG Description This is a 21 electrode EEG with a single channel dedicated to limited EKG. The electrodes were placed in accordance with the International 10-20 system. At the start of this recording the patient was in an awake state/altered mental status. Background was asymmetric and poorly organized with no well-formed anterior to posterior gradient. Background was composed of moderate amplitude predominantly 5-6 Hz theta frequencies with intermixed delta and alpha frequencies. There was near continuous slowing over the right hemisphere. Hyperventilation and photic stimulation were not done. There was no stage changes or sleep transients. Interpretation This is an abnormal routine EEG secondary to: 1) moderate diffuse background disorganization and slowing 2) moderate near continuous slowing over the right hemisphere There was no electrographic seizures or epileptiform discharges. Clinical Correlation This EEG indicates: 1) moderate encephalopathy of nonspecific etiology. 2) a structural or functional cerebral dysfunction over the right hemisphere.
[2017-03-04 18:03] LABS: BENZODIAZEPINE, URINE NEG (NEG); COCAINE,URINE NEG (NEG); PHENCYCLIDINE, URINE NEG (NEG)
[2017-03-04] MEDS: CARBAMAZEPINE 200 MG TABCR PO SCH (20:06)
[2017-03-04] MEDS: CLONAZEPAM 1 MG TAB PO SCH (20:07)
[2017-03-04 20:41] VITALS: BP 126/72; PULSE 87; TEMP 36.8; O2SAT 97
[2017-03-05] VITALS (8 sets, daily range): BP systolic 120–151; BP diastolic 69–78; PULSE 82–89; TEMP 36.7–37.5; O2SAT 94–97
[2017-03-05 05:48] LABS: BUN/CREATININE RATIO 24.4 (10-20); CREATININE 0.38 mg/dl (0.60-1.20); POTASSIUM 3.7 mmol/L (3.5-5.1)
[2017-03-05 05:53] LABS: HEMATOCRIT 30.8 % (37-47); MEAN CELL VOLUME 97.5 fL (80-100); MEAN CORPUSCULAR HEMOGLOBIN 34.2 pg (25-34); MEAN CORPUSCULAR HGB CONC 35.1 g/dl (32-36); MEAN PLATELET VOLUME 10.3 fL (7.4-10.4); PLATELET COUNT 189 K/uL (130-400); RED BLOOD COUNT 3.16 M/uL (4.2-5.4)
[2017-03-05 06:02] LABS: CALCIUM 8.7 mg/dl (8.5-10.1)
[2017-03-05] MEDS: ASPIRIN 81 MG ECTAB PO SCH (09:24)
[2017-03-05] MEDS: ATORVASTATIN 20 MG TAB PO SCH (09:24)
[2017-03-05] MEDS: HYDROCHLOROTHIAZIDE 25 MG TAB PO SCH (09:24)
[2017-03-05] MEDS: CHOLECALCIFEROL 1000 INTER.UNIT TAB PO SCH (09:24)
[2017-03-05] MEDS: OLMESARTAN MEDOXOMIL 20 MG TAB PO SCH (09:24)
[2017-03-05] MEDS: ENOXAPARIN 40 MG/0.4 ML SYR SC SCH (11:19)
--- NOTE | 2017-03-05 12:19 | Progress Note ---
Subjective Date of Service: Mar 05, 2017. Subjective Pt evaluation today including: conversation w/ patient, physical exam, chart review, lab review, review of studies, review of inpatient medication list Resting comfortably in bed Undergoing physical therapy No acute events overnight Problem List Medical Problems: (1) Altered mental status Status: Acute (2) Anxiety Status: Chronic (3) Depressive Disorder Nec Status: Chronic (4) Encounter for removal of margarito Status: Acute (5) Fall Status: Acute (6) Head injury, closed Status: Acute (7) Hypertension Status: Chronic (8) Hyponatremia Status: Acute (9) Medication side effects Status: Acute (10) Near syncope Status: Acute (11) Osteoporosis Status: Chronic (12) Scalp laceration Status: Acute (13) Seizure disorder Status: Chronic (14) UTI (urinary tract infection) Status: Acute Review of Systems Constitutional: + weakness, + fatigue, No fever, No chills, No sweats, No weight loss Eyes: No worsening of vision, No eye pain, No redness Respiratory: No cough, No sputum, No wheezing, No shortness of breath, No dyspnea on exertion Cardiac: No chest pain, No orthopnea, No PND, No edema Abdomen: No pain, No nausea, No vomiting, No diarrhea, No constipation Musculoskeletal: No joint pain, No muscle pain Female : No dysuria, No urinary frequency, No hematuria, No incontinence Psychiatric: No depression symptoms, No anhedonism, No anxiety, No insomnia Skin: No rash, No itch Objective Vital Signs Date Time Temp Pulse Resp B/P (MAP) Pulse Ox O2 Delivery O2 Flow Rate FiO2 03/05/17 11:42 36.7 87 18 137/78 (97) 94 Room Air 03/05/17 11:05 Room Air 03/05/17 07:45 Nasal Cannula 2.0 03/05/17 07:26 36.9 82 18 120/70 (87) 95 Room Air 03/05/17 04:08 37.0 83 17 146/72 (96) 94 Room Air 03/05/17 04:00 94 Room Air 03/05/17 00:00 94 Room Air 03/05/17 00:00 37.5 87 20 136/69 (91) 94 Room Air 03/04/17 20:41 36.8 87 16 126/72 (90) 97 Room Air 03/04/17 20:00 Room Air 03/04/17 16:00 Room Air 03/04/17 15:25 36.9 83 16 101/65 (77 96 Room Air Physical Exam General Appearance: WD/WN, no apparent distress Neck: supple, no adenopathy Respiratory/Chest: chest non-tender, lungs clear, normal breath sounds, no respiratory distress Cardiovascular: regular rate, rhythm, no gallop, no JVD, no murmur Abdomen: normal bowel sounds, non tender, soft, no organomegaly Extremities: normal range of motion, non-tender, normal inspection, no pedal edema Neurologic/Psychiatric: alert, normal mood/affect, + disoriented Laboratory Results Last 24 Hours Test 03/04/17 17:25 03/05/17 05:07 Urine Opiates Screen POS Urine Methadone, Qualitative NEG Urine Barbiturates NEG Urine Phencyclidine (PCP) Level NEG Ur Amphetamine/Methamphetamine NEG MDMA (Ecstasy) Screen NEG Urine Benzodiazepines Screen NEG Urine Cocaine Metabolite NEG Urine Marijuana (THC) NEG White Blood Count 7.00 K/uL Red Blood Count 3.16 M/uL Hemoglobin 10.8 g/dL Hematocrit 30.8 % Mean Corpuscular Volume 97.5 fL Mean Corpuscular Hemoglobin 34.2 pg Mean Corpuscular Hemoglobin Concent 35.1 g/dl RDW Standard Deviation 43.3 fL RDW Coefficient of Variation 12.0 % Platelet Count 189 K/uL Mean Platelet Volume 10.3 fL Sodium Level 131 mmol/L Potassium Level 3.7 mmol/L Chloride Level 97 mmol/L Carbon Dioxide Level 27 mmol/L Anion Gap 7.0 mmol/L Blood Urea Nitrogen 9 mg/dl Creatinine 0.38 mg/dl Est Creatinine Clear Calc Drug Dose 103.5 ml/min Estimated GFR () 124.4 Estimated GFR (Non- 107.3 BUN/Creatinine Ratio 24.4 Random Glucose 98 mg/dl Calcium Level 8.7 mg/dl Free Thyroxine 1.00 ng/dl Assessment and Plan 71 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 Head CT negative for acute intracranial findings. EKG NSR, no ischemic changes. Pt afebrile, VSS. No leukocytosis. Troponin negative. Sodium 130, which appears to be baseline. Carbamazepine level WNL. Altered mental status, possibly secondary to seizure activity, resolving - Likely still trazodone was contributing to AMS - EEG completed, abnormal, ?addition of mauricio -Consult neurology, appreciate res. Pt follows with Dr. Welch -B12, folate WNL and TSH increased but T4 WNL -UA dirty but with high epithelial cell count. Urine culture pending H/o focal epilepsy per outpatient neuro records -Continue carbamazepine 400 mg PO qhs and clonazepam 1 mg PO qhs HTN--stable -Continue olmesartan/HCTZ 20/12.5 mg PO qd HLD -Continue atorvastatin 20 mg PO qd Osteoarthritis/chronic pain -Continue oxycodone 10 mg PO q8h prn and Mobic 7.5 mg qd prn DVT prophylaxis -Enoxaparin 40 mg SC q24h -JAYDEN Elizondo Code Status -Level I, FULL RESUSCITATION STATUS
--- NOTE | 2017-03-05 12:27 | Neurology Progress Notes ---
Neurology Progress Note Date of Service Mar 05, 2017. Subjective No new complaints or neurological issues. EEG was similar to previous EEG with slowing over the right hemisphere. No epileptiform discharges. Tox screen negative. Negative alcohol. Carbamazepine level in therapeutic range of 10. Free T4 unremarkable. LFTs and ammonia unremarkable Objective Date Time Temp Pulse Resp B/P (MAP) Pulse Ox O2 Delivery O2 Flow Rate FiO2 03/05/17 11:42 36.7 87 18 137/78 (97) 94 Room Air 03/05/17 11:05 Room Air 03/05/17 07:45 Nasal Cannula 2.0 03/05/17 07:26 36.9 82 18 120/70 (87) 95 Room Air 03/05/17 04:08 37.0 83 17 146/72 (96) 94 Room Air 03/05/17 04:00 94 Room Air 03/05/17 00:00 94 Room Air 03/05/17 00:00 37.5 87 20 136/69 (91) 94 Room Air 03/04/17 20:41 36.8 87 16 126/72 (90) 97 Room Air 03/04/17 20:00 Room Air 03/04/17 16:00 Room Air 03/04/17 15:25 36.9 83 16 101/65 (77) 96 Room Air Last 24 Hours Test 03/04/17 17:25 03/05/17 05:07 Urine Opiates Screen POS Urine Methadone, Qualitative NEG Urine Barbiturates NEG Urine Phencyclidine (PCP) Level NEG Ur Amphetamine/Methamphetamine NEG MDMA (Ecstasy) Screen NEG Urine Benzodiazepines Screen NEG Urine Cocaine Metabolite NEG Urine Marijuana (THC) NEG White Blood Count 7.00 K/uL Red Blood Count 3.16 M/uL Hemoglobin 10.8 g/dL Hematocrit 30.8 % Mean Corpuscular Volume 97.5 fL Mean Corpuscular Hemoglobin 34.2 pg Mean Corpuscular Hemoglobin Concent 35.1 g/dl RDW Standard Deviation 43.3 fL RDW Coefficient of Variation 12.0 % Platelet Count 189 K/uL Mean Platelet Volume 10.3 fL Sodium Level 131 mmol/L Potassium Level 3.7 mmol/L Chloride Level 97 mmol/L Carbon Dioxide Level 27 mmol/L Anion Gap 7.0 mmol/L Blood Urea Nitrogen 9 mg/dl Creatinine 0.38 mg/dl Est Creatinine Clear Calc Drug Dose 103.5 ml/min Estimated GFR () 124.4 Estimated GFR (Non- 107.3 BUN/Creatinine Ratio 24.4 Random Glucose 98 mg/dl Calcium Level 8.7 mg/dl Free Thyroxine 1.00 ng/dl Exam: Gen.: Patient is alert and oriented in no acute distress lying in bed Extremities: No gross deformities or rashes noted Neurological examination: Mental status: Patient is alert and oriented to person and place only. Able to give her own history. Attention concentration normal for the situation. Speech is fluent without any dysarthria or aphasia noted Cranial nerves: No facial asymmetry noted. Hearing grossly intact voice. Strength: Moving all extremities antigravity Station within the bed is normal. (does have a significant flexion posture) Current Inpatient Medications Medications (Trade) Dose Ordered Sig/Ba Route Start Time Stop Time Status Last Admin Dose Admin Enoxaparin Sodium (Lovenox Inj) 40 mg Q24H SC 03/04/17 11:00 04/03/17 10:59 03/05/17 11:19 40 MG Acetaminophen (Tylenol Tab) 650 mg Q4H PRN PO 03/04/17 08:15 04/03/17 08:14 Al Hydrox/Mg Hydrox/Simethicone (Maalox Max Susp) 15 ml Q4H PRN PO 03/04/17 08:15 04/03/17 08:14 Magnesium Hydroxide (Milk Of Magnesia Susp) 30 ml Q12H PRN PO 03/04/17 08:15 04/03/17 08:14 Ondansetron HCl (Zofran Inj) 4 mg Q6H PRN IV 03/04/17 08:15 04/03/17 08:14 Polyethylene (Miralax Powder Packet) 17 gm DAILY PRN PO 03/04/17 08:15 04/03/17 08:14 Aspirin (Ecotrin Tab) 81 mg DAILY PO 03/04/17 09:00 04/03/17 08:59 03/05/17 09:24 81 MG Atorvastatin Calcium (Lipitor Tab) 20 mg DAILY PO 03/04/17 09:00 04/03/17 08:59 03/05/17 09:24 20 MG Cholecalciferol (Vitamin D Tab) 5,000 inter.unit DAILY PO 03/04/17 09:00 04/03/17 08:59 03/05/17 09:24 5,000 INTER.UNIT Clonazepam (Klonopin Tab) 1 mg HS PO 03/04/17 21:00 04/03/17 20:59 03/04/17 20:07 1 MG Meloxicam (Mobic Tab) 7.5 mg DAILY PRN PO 03/04/17 08:15 04/03/17 08:14 Oxycodone HCl (Roxicodone Immediate Rel Tab) 10 mg Q8 PRN PO 03/04/17 08:15 03/18/17 08:14 Carbamazepine (Tegretol-Xr (Do Not Crush)) 400 mg HS PO 03/04/17 21:00 04/03/17 20:59 03/04/17 20:06 400 MG Olmesartan (Benicar Tab) 20 mg QAM PO 03/04/17 09:00 04/03/17 08:59 03/05/17 09:24 20 MG Hydrochlorothiazide (Hydrochlorothiazide Tab) 12.5 mg DAILY PO 03/04/17 09:00 04/03/17 08:59 03/05/17 09:24 12.5 MG Impression This is an 71-year-old female with episodes of altered mental status/ unresponsiveness. Overall I'm not clear whether she is having focal seizures versus nonepileptic events (such as from cardiogenic source or some other metabolic source). Potentially her worsening confusion could have been secondary to recent addition of trazodone. As far as I know the patient has only had one documented generalized seizure in the past in the setting of a brain hematoma and alcoholism. Aspects of her spells concerning for possible cardiogenic etiology include feeling sweaty, clamminess, and presyncopal symptoms before the events. Patient denies any side effects to Tegretol. Mild hyponatremia likely secondary to Tegretol. Plan No additional neurological recommendations at this time. Patient should follow- up with myself in neurology clinic for further evaluation of these periodic unresponsive spells. Recommend obtaining an MRI of the brain to rule out stroke if family still feels that she is significantly different from her baseline. I will reschedule outpatient ambulatory EEG for further evaluation of unresponsive episodes If workup is unremarkable, I may empirically try starting Keppra to see if this improves or stops her unresponsive events. In the past I have also recommended considering a 30 day cardiac event monitor since some of her spells are concerning for possible cardiogenic source ( descriptions of sweating and diaphoresis). Thank you for allowing me to participate in this patient's care. If there is any questions or concerns, feel free to call/page me
[2017-03-05] MEDS: CLONAZEPAM 1 MG TAB PO SCH (20:57)
[2017-03-05] MEDS: OXYCODONE HCL IR 5 MG TAB (IMMEDIATE RELEASE) PO PRN (20:58)
[2017-03-05] MEDS: CARBAMAZEPINE 200 MG TABCR PO SCH (20:58)
[2017-03-06 03:19] VITALS: BP 145/81; PULSE 76; TEMP 36.7; O2SAT 97
[2017-03-06 06:48] LABS: BUN/CREATININE RATIO 19.8 (10-20); CALCIUM 8.5 mg/dl (8.5-10.1); CREATININE 0.38 mg/dl (0.60-1.20); POTASSIUM 3.2 mmol/L (3.5-5.1)
[2017-03-06 06:52] LABS: HEMATOCRIT 29.3 % (37-47); MEAN CORPUSCULAR HEMOGLOBIN 34.4 pg (25-34); MEAN CORPUSCULAR HGB CONC 35.5 g/dl (32-36); MEAN PLATELET VOLUME 10.4 fL (7.4-10.4); PLATELET COUNT 170 K/uL (130-400); RED BLOOD COUNT 3.02 M/uL (4.2-5.4); WHITE BLOOD COUNT 5.72 K/uL (4.8-10.8)
[2017-03-06 07:48] VITALS: BP 163/76; PULSE 82; TEMP 36.5; O2SAT 94
[2017-03-06] MEDS: ASPIRIN 81 MG ECTAB PO SCH (08:47)
[2017-03-06] MEDS: OLMESARTAN MEDOXOMIL 20 MG TAB PO SCH (08:47)
[2017-03-06] MEDS: ATORVASTATIN 20 MG TAB PO SCH (08:47)
[2017-03-06] MEDS: CHOLECALCIFEROL 1000 INTER.UNIT TAB PO SCH (08:48)
[2017-03-06] MEDS: HYDROCHLOROTHIAZIDE 25 MG TAB PO SCH (08:48)
[2017-03-06] MEDS: ENOXAPARIN 40 MG/0.4 ML SYR SC SCH (08:50)
[2017-03-06] MEDS: OXYCODONE HCL IR 5 MG TAB (IMMEDIATE RELEASE) PO PRN (08:56)
--- NOTE | 2017-03-06 09:55 | Discharge Instructions ---
Discharge Instructions Date of Service Mar 06, 2017. Admission Reason for Admission: Altered Mental Status Discharge Discharge Diagnosis / Problem: Altered mental status Discharge Goals Goal(s): Decrease discomfort, Improve function, Increase independence, Improve disease control, Learn about illness, Diagnostic testing, Therapeutic intervention Activity Recommendations Activity Limitations: resume your previous activity Shower/Bathe: no limitations . Instructions / Follow-Up Instructions / Follow-Up Patient to be discharged home Please stop taking trazodone Please note addition of antibiotic bactrim take twice a day for 5 days for urinary tract infection Will follow up with Dr Gardiner in 1-2 weeks Please follow up with Dr Chowdary in 1-2 weeks If worsening pain, fever, numbness or weakness please report to ER Current Hospital Diet Patient's current hospital diet: AHA Diet (Heart Healthy) Discharge Diet Recommended Diet: AHA Diet (Heart Healthy) Pending Studies Studies pending at discharge: no Medical Emergencies . Who to Call and When: Medical Emergencies: If at any time you feel your situation is an emergency, please call 911 immediately. . Non-Emergent Contact Non-Emergency issues call your: Primary Care Provider Call Non-Emergent contact if: you have a fever, your pain is worsening . . "Provider Documentation" section prepared by Navjot Reeves. . VTE Core Measure Inpt VTE Proph given/why not?: Enoxaparin (Lovenox)JAMIE, T.EErvin. Fouzia, SCD's
[2017-03-06 10:04] VITALS: BP 163/76; PULSE 82; TEMP 36.5; O2SAT 94
[2017-03-06] MEDS ORDERED: SULF800T23 PO (11:10)
--- NOTE | 2017-03-06 11:10 | Discharge Summary ---
Discharge Summary Date of Service Mar 06, 2017. Discharge Summary Admission Date: Mar 04, 2017 at 09:39 Discharge Date: Mar 06, 2017 Discharge Disposition: Home Principal Diagnosis: Altered mental status Problems/Secondary Diagnoses: (1) Anxiety Status: Chronic (2) Depressive Disorder Nec Status: Chronic (3) Hypertension Status: Chronic (4) Osteoporosis Status: Chronic (5) Seizure disorder Status: Chronic Immunizations: Have You Had Influenza Vaccine: Yes Influenza Vaccine Date: January 25, 2012 History of Tetanus Vaccine?: Unknown History of Pneumococcal: Yes Pneumococcal Date: Aug 26, 2012 History of Hepatitis B Vaccine: Unknown Consultations: Neurology Medication Reconciliation Continued Medications: Ascorbic Acid (Ascorbic Acid) 1,000 Mg Tab 1000 MG PO DAILY Aspirin (Aspirin) 81 Mg Tab 81 MG PO DAILY Atorvastatin (Lipitor) 20 Mg Tab 20 MG PO DAILY, TAB B-Complex Vitamins (Vitamin B Complex) 1 Tab Tab 1 TAB PO DAILY Calcium Carbonate-Vitamin D (Calcium 500 + D) 1 Tab Tab 1 TAB PO DAILY Carbamazepine (Tegretol Xr) 400 Mg Tab 400 MG PO HS Cholecalciferol (Vitamin D 1000 Unit) 1,000 Unit Cap 5000 INTER.UNIT PO DAILY, CAP Clonazepam (Clonazepam) 0.5 Mg Tab 1 MG PO HS Ferrous Sulfate (Kp Ferrous Sulfate) 325 Mg Tab 325 MG PO DAILY, TAB Meloxicam (Mobic) 7.5 Mg Tab 7.5 MG PO prn, TAB Olmesartan/Hctz (Benicar Hct 20/12.5) Tab 1 TAB PO DAILY, TAB Oxycodone Ir (Roxicodone Ir) 5 Mg Tab 10 MG PO Q8 PRN for Pain, TAB Vitamin E (Vitamin E 400 Iu) 400 Unit Cap 400 INTER.UNIT PO DAILY, CAP Zoledronic Acid (Reclast) 5 Mg/100 Ml Inj 5 MG INJ YEARLY Discontinued Medications: Trazodone Hcl (Trazodone) 50 Mg Tab 50 MG PO HS, TAB Discharge Exam Review of Systems: Constitutional: + fatigue, No fever, No chills, No sweats, No weakness ENT: No hearing loss, No unusual epistaxis, No nasal symptoms, No sore throat Respiratory: No cough, No sputum, No wheezing, No shortness of breath Cardiovascular: No chest pain, No orthopnea, No PND, No edema Abdomen: No pain, No nausea, No vomiting, No diarrhea Musculoskeletal: No joint pain, No muscle pain, No swelling, No calf pain Genitourinary - Female: No dysuria, No urinary frequency, No urinary urgency , No urinary incontinence Neurologic: No memory loss, No paralysis, No weakness, No numbness/tingling Psychiatric: No depression symptoms, No anhedonism, No anxiety, No insomnia Endocrine: No fatigue, No excessive thirst, No excessive urination Integumentary: No rash, No itch Physical Exam: General Appearance: WD/WN, no apparent distress Eyes: normal inspection, PERRL, EOMI, sclerae normal Neck: supple, no adenopathy, thyroid normal, no JVD Respiratory/Chest: chest non-tender, lungs clear, normal breath sounds, no respiratory distress Cardiovascular: regular rate, rhythm, no edema, no gallop, no JVD Abdomen / GI: normal bowel sounds, non tender, soft, no organomegaly Neurologic/Psychiatric: alert, normal mood/affect, normal reflexes, + depressed affect Skin: normal color, warm/dry, no rash Lymphatic: no adenopathy Hospital Course 71 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 Head CT negative for acute intracranial findings. EKG NSR, no ischemic changes. Pt afebrile, VSS. No leukocytosis. Troponin negative. Sodium 130, which appears to be baseline. Carbamazepine level WNL. Altered mental status, possibly secondary to seizure activity, resolved - Likely still trazodone was contributing to AMS - Will stop on discharge - EEG completed, abnormal, neurology consulted. Pt follows with Dr. Welch and will foloow on discharge -B12, folate WNL and TSH increased but T4 WNL -UA dirty but with high epithelial cell count. Urine culture pos for ecoli, tx with bactrim DS BID for 5 days total UTI see above H/o focal epilepsy per outpatient neuro records -Continue carbamazepine 400 mg PO qhs and clonazepam 1 mg PO qhs HTN--stable -Continue olmesartan/HCTZ 20/12.5 mg PO qd HLD -Continue atorvastatin 20 mg PO qd Osteoarthritis/chronic pain -Continue oxycodone 10 mg PO q8h prn and Mobic 7.5 mg qd prn DVT prophylaxis -Enoxaparin 40 mg SC q24h -JAYDEN hose and SCDs Code Status -Level I, FULL RESUSCITATION STATUS Total Time Spent: Greater than 30 minutes This includes examination of the patient, discharge planning, medication reconciliation, and communication with other providers. Discharge Instructions Please refer to the electronic Patient Visit Report (Discharge Instructions) for additional information. Additional Copies To Ulises Chowdary M.D.
[2017-03-07 01:07] LABS: COD UR NEGATIVE NG/ML (CUTOFF=50); HYDROCOD UR NEGATIVE NG/ML (CUTOFF=50); HYDROMOR UR NEGATIVE NG/ML (CUTOFF=50); MORPHINE UR NEGATIVE NG/ML (CUTOFF=50); NORHYDROCODONE CONF UR NEGATIVE NG/ML (CUTOFF=50); OXYMORPH UR 4930 NG/ML (CUTOFF=50)
[2017-06-13] MEDS ORDERED: QUET1TAB91 PO (09:45)
== END 2017-03-06 12:00 | disposition home or self-care (01) | DRG 101 ==
LOC: EDBD 03:26 → C.EDA 03:27 → EDBEDREQ 08:30 → ENRESERV 08:43 → UNDOADMIN 09:39 → C.2T 09:39
PROVIDERS: ADMIT Hospitalist; ATTEND Hospitalist
DX: G40.109 Localization-related (focal) (partial) symptomatic epilepsy and epileptic syndromes with simple partial seizures, not intractable, without status epilepticus (principal); N39.0 Urinary tract infection, site not specified; T43.215A Adverse effect of selective serotonin and norepinephrine reuptake inhibitors, initial encounter; R41.82 Altered mental status, unspecified; B96.20 Unspecified Escherichia coli [E. coli] as the cause of diseases classified elsewhere; I10 Essential (primary) hypertension; M19.90 Unspecified osteoarthritis, unspecified site; M81.0 Age-related osteoporosis without current pathological fracture; F32.9 Major depressive disorder, single episode, unspecified; F41.9 Anxiety disorder, unspecified; G89.29 Other chronic pain; Z51.81 Encounter for therapeutic drug level monitoring; Z79.899 Other long term (current) drug therapy; Z79.82 Long term (current) use of aspirin; Z79.1 Long term (current) use of non-steroidal anti-inflammatories (NSAID); Z86.19 Personal history of other infectious and parasitic diseases; Z87.891 Personal history of nicotine dependence

== ENCOUNTER 2017-06-11 00:11 | Emergency (ER) | payer OTHER, BC ==
[~2017-06-11] VITALS: Ht 147.3 cm; Wt 50.0 kg
[~2017-06-11 00:11] MED LIST changes: -ASCAUNK PO; +ASCO100061 PO; +ATOR-22 PO; +B-COTAB18 PO; +CALCTAB65 PO; -CIPR-255 PO; -COEN10CA5 PO; +FERR1TAB13 PO; -FERR325T18 PO; -HYDR-3983 PO; +OXYC1TAB3 PO; +ZOLE5INJ INJ
[2017-06-11 00:20] VITALS: TEMP 36.8; Ht 147.3 cm; Wt 50.0 kg
[2017-06-11] MEDS ORDERED: LACT1CAP6 PO (01:05)
[2017-06-11] MEDS ORDERED: CRAN1TAB4 PO (01:05)
[2017-06-11] MEDS ORDERED: MILK150C PO (01:05)
[2017-06-11 02:22] VITALS: BP 148/84; PULSE 85; O2SAT 96
--- NOTE | 2017-06-11 02:24 | EMERGENCY ROOM VISIT NOTE ---
History Report prepared by Serena: Tiffanie Cannon Under the Supervision of: Dr. Radha Pardo D.O. First contact with patient: 00:45 Chief Complaint: OVERDOSE (ACCIDENTAL) Stated Complaint: OVERDOSE Nursing Triage Summary: Pt accidently took double her bedtime medication tonight. Lipitor, tegretol, and Clonipin. Denies any side effects at this time. Daughter unable to monitor pt tomorrow. Requesting pt be admitted. History of Present Illness The patient is a 72 year old female who presents to the Emergency Room with complaints of an episode of unintentional overdose on her medication beginning 1 hour ago. The patient's daughter states that her mother experienced a previous overdose 5 days ago and became unstable the day following the incident. She states that she discovered her mother in the bathroom following the overdose, but was able to reach her in time before she fell and rushed her here. The daughter states that the patient has a history of balance issues but was more weak and unsteady after the fall and was seen in the ED multiple times for symptoms. She notes that her mother had another unintentional overdose on her medication tonight and took two times the number of pills that the was required to take. The daughter reports that the patient is on Klonopin, Benicar , Lipitor, and Tegretol. She states that the patient should take 1 pill of each of the medications but took 2 tonight instead by mistake after the pills were left on the counter in a weekly pill box. The patient denies any pain, nausea, lethargy, and dizziness following the overdose tonight. The daughter notes that the patient has a previous history of seizures. Source of History: patient Onset: 1 hour ago Position: other (global) Quality: other (medication overdose) Timing: other (episode) Associated Symptoms: No nausea Note: The patient denies any pain, lethargy, and dizziness following the overdose tonight. Review of Systems See HPI for pertinent positives & negatives. A total of 10 systems reviewed and were otherwise negative. Past Medical & Surgical Medical Problems: (1) Anxiety (2) Depressive Disorder Nec (3) Hypertension (4) Intestinal Infection Due To Clostridium Difficile (5) Lethargy (6) Osteoporosis (7) Seizure disorder (8) Syncope Surgical Problems: (1) H/O ileostomy Family History Lung cancer Stroke Social History Smoking Status: Never Smoker Alcohol Use: none Drug Use: none Marital Status: Housing Status: lives with family Occupation Status: retired Current/Historical Medications Scheduled Ascorbic Acid (Ascorbic Acid), 1,000 MG PO DAILY Aspirin (Aspirin), 81 MG PO DAILY Atorvastatin (Lipitor), 20 MG PO DAILY Calcium Carbonate-Vitamin D (Calcium 500 + D), 1 TAB PO DAILY Carbamazepine (Tegretol Xr), 400 MG PO HS Clonazepam (Clonazepam), 1 MG PO HS Cranberry (Vaccinium Macrocarp (Cranberry), 1 CAP PO DAILY Ferrous Sulfate (Kp Ferrous Sulfate), 325 MG PO DAILY Lactobacillus (Probiotic), 1 CAP PO DAILY Milk Thistle (Silybum Marianum (Milk Thistle), 1 CAP PO DAILY Olmesartan/Hctz (Benicar Hct 20/12.5), 1 TAB PO DAILY Zoledronic Acid (Reclast), 5 MG INJ YEARLY Scheduled PRN Meloxicam (Mobic), 7.5 MG PO DAILY PRN for Pain Oxycodone Ir (Roxicodone Ir), 10 MG PO Q8 PRN for Pain Allergies Coded Allergies: Fentanyl (Verified Adverse Reaction, Unknown, nausea, fearfulness, unsettled thoughts, 06/11/17) Physical Exam Vital Signs Date Time Temp Pulse Resp B/P (MAP) Pulse Ox O2 Delivery O2 Flow Rate FiO2 06/11/17 02:22 85 148/84 96 06/11/17 00:20 36.8 88 18 164/86 96 Room Air Physical Exam GENERAL: alert, well appearing, well nourished, no distress, non-toxic EYE EXAM: normal conjunctiva, PERRL and EOM's grossly intact OROPHARYNX: no exudate, no erythema, lips, buccal mucosa, and tongue normal and mucous membranes are moist NECK: supple, no nuchal rigidity, no adenopathy, non-tender LUNGS: Clear to auscultation. Normal chest wall mechanics HEART: no murmurs, S1 normal and S2 normal ABDOMEN: abdomen soft, non-tender, normo-active bowel sounds, no masses, no rebound or guarding. BACK: Back is symmetrical on inspection and there is no deformity, no midline tenderness, no CVA tenderness. SKIN: no rashes and no bruising UPPER EXTREMITIES: upper extremities are grossly normal. LOWER EXTREMITIES: No pitting edema. NEURO EXAM: Normal sensorium, cranial nerves II-XII grossly intact, normal speech, no gross weakness of arms, no gross weakness of legs. Medical Decision & Procedures ED Course 0045: The patient was evaluated in room C9. A complete history and physical exam was performed. 0214: I reevaluated and updated the patient. She is feeling fine and her blood pressure is okay. 0229: Upon reevaluation, the patient is feeling better. I discussed the findings and the treatment plan with the patient. She verbalizes agreement and understanding. The patient was discharged home. Medical Decision Differential diagnosis: Etiologies such as toxicologic, infection, hypoglycemia, electrolyte abnormalities, cardiac sources, intracerebral event, neurologic, as well as others were entertained. Pt well appearing here and without complaints. Monitored as a precaution. VS stable. Case discussed with poison control who agreed pt stable for dc and advised pt may be slightly more sleepy or feel weaker and shouldn't be alone as a precaution. Pt lives with daughter. She plans to have someone stay with her mom tomorrow while she is at work. Discussed ways to avoid accidental overdose with pt and family. Stressed importance of taking meds only as prescribed. Discussed sx to watch/return for, continued use of her walker at all times and especially if she feels weak/dizzy/drowsy. Pt and family verbalized understanding and were agreeable with plan. Medication Reconcilliation Current Medication List: was personally reviewed by me Blood Pressure Screening Patient's blood pressure: Elevated blood pressure Blood pressure disposition: Referred to PCP Impression Primary Impression: Contusion Additional Impression: Ambulatory dysfunction Scribe Attestation The scribe's documentation has been prepared under my direction and personally reviewed by me in its entirety. I confirm that the note above accurately reflects all work, treatment, procedures, and medical decision making performed by me. Departure Information Dispostion Home / Self-Care Referrals Ulises Chowdary M.D. (PCP) Patient Instructions My [facility] Additional Instructions Please do not take extra medications and only take the medications for one day at a time. Please eat and drink normally. Please use your walker at all times. If you have any dizziness, worsening difficulty walking, develop vision changes, trouble breathing, vomiting, chest pain, or you have any other new concerns, please return to the emergency room. Problem Qualifiers Primary Impression: Contusion Encounter type: initial encounter Contusion area: lower leg Laterality: left Qualified Codes: S80.12XA - Contusion of left lower leg, initial encounter
[2017-06-13] MEDS ORDERED: QUET1TAB91 PO (09:45)
== END 2017-06-11 02:34 | disposition home or self-care (01) ==
LOC: EDBD 00:11 → C.EDC 00:12
DX: S80.12XA Contusion of left lower leg, initial encounter (principal); R26.9 Unspecified abnormalities of gait and mobility; W19.XXXA Unspecified fall, initial encounter; Y92.012 Bathroom of single-family (private) house as the place of occurrence of the external cause; F41.9 Anxiety disorder, unspecified; F32.9 Major depressive disorder, single episode, unspecified; I10 Essential (primary) hypertension; M81.0 Age-related osteoporosis without current pathological fracture; G40.909 Epilepsy, unspecified, not intractable, without status epilepticus; Z80.9 Family history of malignant neoplasm, unspecified; Z82.49 Family history of ischemic heart disease and other diseases of the circulatory system; Z79.82 Long term (current) use of aspirin; Z79.899 Other long term (current) drug therapy

== ENCOUNTER 2017-06-11 12:01 | Observation (INO) | payer OTHER, BC ==
[~2017-06-11] VITALS: Ht 152.4 cm; Wt 51.6 kg
[~2017-06-11 12:01] MED LIST changes: +CRAN1TAB4 PO; +LACT1CAP6 PO; +MILK150C PO
[2017-06-11] MEDS ORDERED: SODIUM CHLORIDE 0.9% 1000ML 1,000 ML IV STA (12:58)
--- NOTE | 2017-06-11 13:06 | EMERGENCY ROOM VISIT NOTE ---
History Report prepared by Serena: Leonid Owen Under the Supervision of: Dr. Marcellus Frye M.D. First contact with patient: 12:39 Chief Complaint: LETHARGIC Stated Complaint: Lethargic Nursing Triage Summary: Pt here last night because DTR gave her an accidental double dose of her meds: benicar, tegretol. lipitor, and klonopin. Pt was watched and released last night after no change in mental status, now back in via ALS because pt is lethargic. Per dtr, this has happened in the past and it takes 12 hours for the meds to start affecting her. Pt is confused, slurred speech, lethargic. History of Present Illness The patient is a 72 year old female who presents to the Emergency Room with complaints of worsening lethargy starting last night. Per nursing, the patient was here last night because her daughter accidentally gave the patient an extra dose of Benicar, Tegretol, Lipitor, and Klonopin. They report that she was released after she was watched to make sure she was stable. The patient's daughter reports that the patient was lethargic and confused today, which prompted her to take the patient to the ED. She states that this has happened in the past and that it typically takes 12 hours to affect the patient. The patient denies any pain. The HPI is limited due to the patient's condition. Source of History: family, nursing staff Onset: yesterday Position: other (global) Quality: other (global) Timing: worsening Associated Symptoms: + fatigue Review of Systems The ROS is limited due to the patient's condition. Past Medical & Surgical Medical Problems: (1) Anxiety (2) Depressive Disorder Nec (3) Hypertension (4) Intestinal Infection Due To Clostridium Difficile (5) Lethargy (6) Osteoporosis (7) Seizure disorder (8) Syncope Surgical Problems: (1) H/O ileostomy Family History Lung cancer Stroke Social History Smoking Status: Unknown if Ever Smoked Alcohol Use: none Drug Use: none Marital Status: Housing Status: lives with family Occupation Status: retired Current/Historical Medications Scheduled Ascorbic Acid (Ascorbic Acid), 1,000 MG PO DAILY Aspirin (Aspirin), 81 MG PO DAILY Atorvastatin (Lipitor), 20 MG PO DAILY Calcium Carbonate-Vitamin D (Calcium 500 + D), 1 TAB PO DAILY Carbamazepine (Tegretol Xr), 400 MG PO HS Clonazepam (Clonazepam), 1 MG PO HS Cranberry (Vaccinium Macrocarp (Cranberry), 1 CAP PO DAILY Ferrous Sulfate (Kp Ferrous Sulfate), 325 MG PO DAILY Lactobacillus (Probiotic), 1 CAP PO DAILY Milk Thistle (Silybum Marianum (Milk Thistle), 1 CAP PO DAILY Olmesartan/Hctz (Benicar Hct 20/12.5), 1 TAB PO DAILY Zoledronic Acid (Reclast), 5 MG INJ YEARLY Scheduled PRN Meloxicam (Mobic), 7.5 MG PO DAILY PRN for Pain Oxycodone Ir (Roxicodone Ir), 10 MG PO Q8 PRN for Pain Allergies Coded Allergies: Fentanyl (Verified Adverse Reaction, Unknown, nausea, fearfulness, unsettled thoughts, 06/11/17) Physical Exam Vital Signs Date Time Temp Pulse Resp B/P (MAP) Pulse Ox O2 Delivery O2 Flow Rate FiO2 06/11/17 15:04 90 18 178/88 97 Room Air 06/11/17 13:21 76 18 137/75 94 Room Air 06/11/17 12:33 76 06/11/17 12:09 36.8 83 16 172/80 96 Room Air Physical Exam GENERAL: Awake, alert, chronically ill-appearing, in no distress HENT: Normocephalic, atraumatic. Oropharynx unremarkable. Dry mucous membranes. EYES: Normal conjunctiva. Sclera non-icteric. NECK: Supple. No nuchal rigidity. FROM. No JVD. RESPIRATORY: Clear to auscultation. CARDIAC: Regular rate, normal rhythm. Extremities warm and well perfused. Pulses equal. ABDOMEN: Soft, non-distended. No tenderness to palpation. No rebound or guarding. No masses. RECTAL: Deferred. MUSCULOSKELETAL: Chest examination reveals no tenderness. The back is symmetrical on inspection without obvious abnormality. There is no CVA tenderness to palpation. No joint edema. LOWER EXTREMITIES: Calves are equal size bilaterally and non-tender. No edema. No discoloration. NEURO: Alert to self. Moving all extremities. 4/5 generalized weakness SKIN: No rash or jaundice noted. Medical Decision & Procedures ER Provider Diagnostic Interpretation: X-ray: Per my interpretation, radiologist review. CHEST ONE VIEW PORTABLE HISTORY: 72 years-old Female malaise acute malaise COMPARISON: Chest radiograph 08/13/2016 TECHNIQUE: Portable upright AP view of the chest FINDINGS: Patient is rotated to the left and slightly side bent to the right. Left lung apex is partially obscured by patient's chin. Cardiac silhouette is mildly enlarged. There is atherosclerosis of the aorta. No pneumothorax, pleural effusion or focal airspace consolidation. Chronic interstitial coarsening. Bones are grossly intact. Severe degenerative changes of the left shoulder. Lateral plate and screw fixation of the proximal left humerus. IMPRESSION: Cardiomegaly without acute cardiopulmonary process. The above report was generated using voice recognition software. It may contain grammatical, syntax or spelling errors. Electronically signed by: Nicolas Mcnair M.D. 06/11/2017 2:02 PM Dictated Date/Time: 06/11/2017 1:59 PM Laboratory Results 06/11/17 13:35 Red Blood Count 3.20, Mean Corpuscular Volume 100.0, Mean Corpuscular Hemoglobin 34.4, Mean Corpuscular Hemoglobin Concent 34.4, Mean Platelet Volume 9.7, Neutrophils (%) (Auto) 67.6, Lymphocytes (%) (Auto) 12.9, Monocytes (%) ( Auto) 14.5, Eosinophils (%) (Auto) 1.3, Basophils (%) (Auto) 2.8, Neutrophils # (Auto) 2.15, Lymphocytes # (Auto) 0.41, Monocytes # (Auto) 0.46, Eosinophils # ( Auto) 0.04, Basophils # (Auto) 0.09 06/11/17 13:35 Test 06/11/17 13:34 06/11/17 13:35 06/11/17 13:40 Influenza Type A (RT-PCR) Neg for Influ A (NEG) Influenza Type A Antigen Neg for Influ A (NEG) Influenza Type B Antigen Neg for Influ B (NEG) Influenza Type B (RT-PCR) Neg for Influ B (NEG) White Blood Count 3.18 K/uL (4.8-10.8) Red Blood Count 3.20 M/uL (4.2-5.4) Hemoglobin 11.0 g/dL (12.0-16.0) Hematocrit 32.0 % (37-47) Mean Corpuscular Volume 100.0 fL (80-100) Mean Corpuscular Hemoglobin 34.4 pg (25-34) Mean Corpuscular Hemoglobin Concent 34.4 g/dl (32-36) Platelet Count 223 K/uL (130-400) Mean Platelet Volume 9.7 fL (7.4-10.4) Neutrophils (%) (Auto) 67.6 % Lymphocytes (%) (Auto) 12.9 % Monocytes (%) (Auto) 14.5 % Eosinophils (%) (Auto) 1.3 % Basophils (%) (Auto) 2.8 % Neutrophils # (Auto) 2.15 K/uL (1.4-6.5) Lymphocytes # (Auto) 0.41 K/uL (1.2-3.4) Monocytes # (Auto) 0.46 K/uL (0.11-0.59) Eosinophils # (Auto) 0.04 K/uL (0-0.5) Basophils # (Auto) 0.09 K/uL (0-0.2) RDW Standard Deviation 47.9 fL (36.4-46.3) RDW Coefficient of Variation 13.1 % (11.5-14.5) Immature Granulocyte % (Auto) 0.9 % Immature Granulocyte # (Auto) 0.03 K/uL (0.00-0.02) Anion Gap 7.0 mmol/L (3-11) Est Creatinine Clear Calc Drug Dose 86.2 ml/min Estimated GFR () 118.6 Estimated GFR (Non- 102.3 BUN/Creatinine Ratio 11.4 (10-20) Calcium Level 8.6 mg/dl (8.5-10.1) Total Bilirubin 0.3 mg/dl (0.2-1) Direct Bilirubin 0.1 mg/dl (0-0.2) Aspartate Amino Transf (AST/SGOT) 12 U/L (15-37) Alanine Aminotransferase (ALT/SGPT) 14 U/L (12-78) Alkaline Phosphatase 83 U/L (45-117) Total Protein 6.7 gm/dl (6.4-8.2) Albumin 3.7 gm/dl (3.4-5.0) Carbamazepine (Tegretol) Level 19.0 mcg/ml (4-12) Urine Color YELLOW Urine Appearance CLOUDY (CLEAR) Urine pH 7.5 (4.5-7.5) Urine Specific [place] 1.017 (1.000-1.030) Urine Protein NEG (NEG) Urine Glucose (UA) NEG (NEG) Urine Ketones NEG (NEG) Urine Occult Blood NEG (NEG) Urine Nitrite NEG (NEG) Urine Bilirubin NEG (NEG) Urine Urobilinogen NEG (NEG) Urine Leukocyte Esterase NEG (NEG) Urine WBC (Auto) 0 /hpf (0-5) Urine RBC (Auto) 0-4 /hpf (0-4) Urine Hyaline Casts (Auto) 1-5 /lpf (0-5) Urine Epithelial Cells (Auto) 10-20 /lpf (0-5) Urine Bacteria (Auto) NEG (NEG) Laboratory results reviewed by me Medications Administered Medications (Trade) Dose Ordered Sig/Ba Route Start Time Stop Time Status Last Admin Dose Admin Sodium Chloride 1,000 ml @ 999 mls/hr Q1H1M STAT IV 06/11/17 12:58 06/11/17 13:58 DC 06/11/17 13:48 999 MLS/HR ECG Indication: altered mental status Rate (beats per minute): 77 Rhythm: normal sinus Findings: nonspecific-ST abn (V2), no acute ischemic change, other (Normal axis and intervals) Comparison ECG Date: 03/06/17 Change: no significant change (Nonspecific-ST abnormality different) ED Course 1252: The patient was evaluated in room C04. A complete history and physical exam was performed. 1258: Ordered Sodium Chloride 1000 ml @ 999 mls/hr IV. 1508: I reevaluated the patient and her daughter reports that the patient is improved but not at baseline. 1520: I discussed the patient's case with Dr. Dodge, [facility] Hospitalist. She understands the patient's condition and agrees to accept the patient. The patient will be further evaluated. Medical Decision I reviewed the patient's past medical history, medications, and the nursing notes as described above. The patient's presentation and history were concerning for dehydration, electrolyte abnormality, PNA, bronchitis, UTI, accidental medication overdose. The patient is a 72-year-old woman with pmhx of sz d/o on tegretol who presents emergency Department after being seen yesterday for observation after daughter accidentally gave double dose of her medications including Tegretol and meloxicam this morning daughter felt patient was more fatigued than normal. History of present illness. On arrival the patient is alert to self but otherwise confused she is afebrile with stable vital signs. EKG unremarkable with normal intervals. Chest x-ray negative for pneumonia. UA negative for infection. Tegretol level returns supratherapeutic at 19. Of note, daughter reports a similar episode of a double dose last weekend that left her mother confused and weak but not as severe and resolved. Labs otherwise unremarkable. Patient reassessed and showed slight improvement from arrival however with daughter at the bedside she reports that she is still not at her baseline which is normally alert and oriented and able to function independently with her walker. Thus, given the unpredictability of Tegretol extended release metabolism in this elderly patient will admit the patient for further monitoring until returns to baseline. Case discussed with Yany Dodge, [facility] hospitalist, who will admit the patient for further management. Medication Reconcilliation Current Medication List: was personally reviewed by me Blood Pressure Screening Patient's blood pressure: Elevated blood pressure Blood pressure disposition: Elevated BP felt to be situational Consults Time Called: 1520 Consulting Physician: Dr. Dodge, [facility] Hospitalist Returned Call: 1520 I discussed the patient's case with Dr. Dodge, [facility] Hospitalist. She understands the patient's condition and agrees to accept the patient. The patient will be further evaluated. Impression Primary Impression: Accidental overdose Scribe Attestation The scribe's documentation has been prepared under my direction and personally reviewed by me in its entirety. I confirm that the note above accurately reflects all work, treatment, procedures, and medical decision making performed by me. Departure Information Dispostion Being Evaluated By Hospitalist Referrals Ulises Chowdary M.D. (PCP) Patient Instructions My [facility]
[2017-06-11 14:03] LABS: URINE APPEARANCE CLOUDY (CLEAR); URINE BILIRUBIN NEG (NEG); URINE COLOR YELLOW; URINE NITRITE NEG (NEG); URINE PH 7.5 (4.5-7.5); URINE SPECIFIC GRAVITY 1.017 (1.000-1.030); UROBILINOGEN NEG (NEG)
--- NOTE | 2017-06-11 14:03 | DIAGNOSTIC IMAGING REPORT ---
CHEST ONE VIEW PORTABLE HISTORY: 72 years-old Female malaise acute malaise COMPARISON: Chest radiograph 08/13/2016 TECHNIQUE: Portable upright AP view of the chest FINDINGS: Patient is rotated to the left and slightly side bent to the right. Left lung apex is partially obscured by patient's chin. Cardiac silhouette is mildly enlarged. There is atherosclerosis of the aorta. No pneumothorax, pleural effusion or focal airspace consolidation. Chronic interstitial coarsening. Bones are grossly intact. Severe degenerative changes of the left shoulder. Lateral plate and screw fixation of the proximal left humerus. IMPRESSION: Cardiomegaly without acute cardiopulmonary process. The above report was generated using voice recognition software. It may contain grammatical, syntax or spelling errors. Electronically signed by: Nicolas Mcnair M.D. 06/11/2017 2:02 PM Dictated Date/Time: 06/11/2017 1:59 PM
[2017-06-11 14:05] LABS: MANUAL MICROSCOPIC REQUIRED? NO; REVIEW REQ? NO
[2017-06-11 14:10] LABS: BUN/CREATININE RATIO 11.4 (10-20); CALCIUM 8.6 mg/dl (8.5-10.1); CREATININE 0.43 mg/dl (0.60-1.20); POTASSIUM 3.8 mmol/L (3.5-5.1)
[2017-06-11 14:34] LABS: BASO % 2.8 %; BASO ABS # 0.09 K/uL (0-0.2); COMPLETE YES; EOS % 1.3 %; IG% 0.9 %; LYMPH % 12.9 %; LYMPH ABS # 0.41 K/uL (1.2-3.4); MEAN CORPUSCULAR HEMOGLOBIN 34.4 pg (25-34); MEAN CORPUSCULAR HGB CONC 34.4 g/dl (32-36); MEAN PLATELET VOLUME 9.7 fL (7.4-10.4); MONO % 14.5 %; NEUT % 67.6 %; PLATELET COUNT 223 K/uL (130-400); WHITE BLOOD COUNT 3.18 K/uL (4.8-10.8)
[2017-06-11 16:16] LABS: INFLUENZA A PCR Neg for Influ A (NEG); INFLUENZA B PCR Neg for Influ B (NEG)
[2017-06-11] MEDS ORDERED: IV FLUIDS COMPLETED PRN (16:30)
[2017-06-11] MEDS ORDERED: MAGNESIUM HYDROXIDE SUSP 30 ML UDC PO PRN (16:30)
[2017-06-11] MEDS ORDERED: ACETAMINOPHEN 325 MG TAB PO PRN (16:30)
[2017-06-11] MEDS ORDERED: ONDANSETRON INJ 2 MG/ML 2 ML VIAL IV PRN (16:30)
[2017-06-11] MEDS ORDERED: MELOXICAM 7.5 MG TAB PO PRN (16:30)
--- NOTE | 2017-06-11 16:33 | History and Physical ---
History & Physical Date & Time of Service: Jun 11, 2017 at 16:20 Chief Complaint: Lethargic Primary Care Physician: Ulises Chowdary M.D. History of Present Illness Source: patient, family 72 y/o F who was brought here by her daughter for worsening fatigue and weakness. Daughter states that last week pt accidentally took her HS medications twice. This includes tegratol XR and klonipin. She seemed to recover the next day and had been her usual self. Pt did this again last night. This time, daughter brought pt to the ED. She was evaluated and it was felt that she was safe to return home, however this AM pt's mentation, ambulatory status, and general strength had worsened, so daughter brought the pt back to the ED for further evaluation given medication did not seem to be clearing as quickly. Pt has no other concerns at this time. Pt denies fever, SOB, chest pain, abd pain, n/v/c/d, LE pain or swelling. Daughter states that pt had recently been started on trazodone for sleep, but she stopped giving this to the pt a few weeks ago due to confusion and concerns that "it was too much for her". Daughter states that pt has been on tegratol for 30 years after developing seizures s/p a brain hematoma. She has also been on klonapin for about the same amount of time, however daughter is not certain if this is related to seizures or more for anxiety. Pt had been on vidodin for many years for many different [facility] issues including hardware placed for fractures at different points in life. Daughter had requested this be changed to oxy in the last few months, which PCP supplied. Daughter recently found out that oxy is stronger than vicodin and feels that this is too much for the pt as well. Daughter states she moved to [place] to help care for the pt after pt's . Daughter arranges the pt's pill box. Daughter does work during the day and pt is home alone. Daughter does not generally have concerns about this, however she is uncertain why pt would take her medications x2 on two separate occasions. Past Medical/Surgical History Medical Problems: (1) Anxiety Status: Chronic (2) Depressive Disorder Nec Status: Chronic (3) Hypertension Status: Chronic (4) Intestinal Infection Due To Clostridium Difficile Status: Resolved (5) Osteoporosis Status: Chronic (6) Seizure disorder Status: Chronic Surgical Problems: (1) H/O ileostomy Status: Resolved Hyperlipidemia Family History Family history was reviewed; no changes noted. Social History Smoking Status: Never Smoker Alcohol Use: hx of heavy use, quit 30 years ago Drug Use: none Marital Status: Housing status: lives with family Occupational Status: retired Immunizations History of Influenza Vaccine: Yes Influenza Vaccine Date: January 25, 2012 History of Tetanus Vaccine?: Unknown History of Pneumococcal: Yes Pneumococcal Date: Aug 26, 2012 History of Hepatitis B Vaccine: Unknown Multi-Drug Resistant Organisms History of MDRO: No Allergies Coded Allergies: Fentanyl (Verified Adverse Reaction, Unknown, nausea, fearfulness, unsettled thoughts, 06/11/17) Home Medications Scheduled Ascorbic Acid (Ascorbic Acid), 1,000 MG PO DAILY Aspirin (Aspirin), 81 MG PO DAILY Atorvastatin (Lipitor), 20 MG PO DAILY Calcium Carbonate-Vitamin D (Calcium 500 + D), 1 TAB PO DAILY Carbamazepine (Tegretol Xr), 400 MG PO HS Clonazepam (Clonazepam), 1 MG PO HS Cranberry (Vaccinium Macrocarp (Cranberry), 1 CAP PO DAILY Ferrous Sulfate (Kp Ferrous Sulfate), 325 MG PO DAILY Lactobacillus (Probiotic), 1 CAP PO DAILY Milk Thistle (Silybum Marianum (Milk Thistle), 1 CAP PO DAILY Olmesartan/Hctz (Benicar Hct 20/12.5), 1 TAB PO DAILY Zoledronic Acid (Reclast), 5 MG INJ YEARLY Scheduled PRN Meloxicam (Mobic), 7.5 MG PO DAILY PRN for Pain Oxycodone Ir (Roxicodone Ir), 10 MG PO Q8 PRN for Pain Review of Systems Pertinent positives and negatives reviewed in HPI--all others negative Physical Exam Vital Signs Date Time Temp Pulse Resp B/P (MAP) Pulse Ox O2 Delivery O2 Flow Rate FiO2 06/11/17 15:04 90 18 178/88 97 Room Air 06/11/17 13:21 76 18 137/75 94 Room Air 06/11/17 12:33 76 06/11/17 12:09 36.8 83 16 172/80 96 Room Air General Appearance: WD/WN, no apparent distress Head: normocephalic, atraumatic Eyes: normal inspection, EOMI ENT: hearing grossly normal Neck: supple Respiratory/Chest: normal breath sounds, no respiratory distress Cardiovascular: regular rate, rhythm, no edema Abdomen/GI: non tender, soft Extremities/Musculoskelatal: no calf tenderness, no pedal edema Neurologic/Psych: alert, + pertinent finding (oriented to person and place, knows the month but not the year, follows basic commands, speech is slow but not slurred) Skin: normal color, warm/dry Diagnostics Laboratory Results Results Past 24 Hours Test 06/11/17 13:34 06/11/17 13:35 06/11/17 13:40 Range/Units Influenza Type A (RT-PCR) Neg for Influ A NEG Influenza Type A Antigen Neg for Influ A NEG Influenza Type B Antigen Neg for Influ B NEG Influenza Type B (RT-PCR) Neg for Influ B NEG White Blood Count 3.18 4.8-10.8 K/uL Red Blood Count 3.20 4.2-5.4 M/uL Hemoglobin 11.0 12.0-16.0 g/dL Hematocrit 32.0 37-47 % Mean Corpuscular Volume 100.0 80-100 fL Mean Corpuscular Hemoglobin 34.4 25-34 pg Mean Corpuscular Hemoglobin Concent 34.4 32-36 g/dl Platelet Count 223 130-400 K/uL Mean Platelet Volume 9.7 7.4-10.4 fL Neutrophils (%) (Auto) 67.6 % Lymphocytes (%) (Auto) 12.9 % Monocytes (%) (Auto) 14.5 % Eosinophils (%) (Auto) 1.3 % Basophils (%) (Auto) 2.8 % Neutrophils # (Auto) 2.15 1.4-6.5 K/uL Lymphocytes # (Auto) 0.41 1.2-3.4 K/uL Monocytes # (Auto) 0.46 0.11-0.59 K/uL Eosinophils # (Auto) 0.04 0-0.5 K/uL Basophils # (Auto) 0.09 0-0.2 K/uL RDW Standard Deviation 47.9 36.4-46.3 fL RDW Coefficient of Variation 13.1 11.5-14.5 % Immature Granulocyte % (Auto) 0.9 % Immature Granulocyte # (Auto) 0.03 0.00-0.02 K/uL Sodium Level 131 136-145 mmol/L Potassium Level 3.8 3.5-5.1 mmol/L Chloride Level 97 98-107 mmol/L Carbon Dioxide Level 27 21-32 mmol/L Anion Gap 7.0 3-11 mmol/L Blood Urea Nitrogen 5 7-18 mg/dl Creatinine 0.43 0.60-1.20 mg/dl Est Creatinine Clear Calc Drug Dose 86.2 ml/min Estimated GFR () 118.6 Estimated GFR (Non- 102.3 BUN/Creatinine Ratio 11.4 10-20 Random Glucose 94 70-99 mg/dl Calcium Level 8.6 8.5-10.1 mg/dl Total Bilirubin 0.3 0.2-1 mg/dl Direct Bilirubin 0.1 0-0.2 mg/dl Aspartate Amino Transf (AST/SGOT) 12 15-37 U/L Alanine Aminotransferase (ALT/SGPT) 14 12-78 U/L Alkaline Phosphatase 83 45-117 U/L Total Protein 6.7 6.4-8.2 gm/dl Albumin 3.7 3.4-5.0 gm/dl Carbamazepine (Tegretol) Level 19.0 4-12 mcg/ml Urine Color YELLOW Urine Appearance CLOUDY CLEAR Urine pH 7.5 4.5-7.5 Urine Specific [place] 1.017 1.000-1.030 Urine Protein NEG NEG Urine Glucose (UA) NEG NEG Urine Ketones NEG NEG Urine Occult Blood NEG NEG Urine Nitrite NEG NEG Urine Bilirubin NEG NEG Urine Urobilinogen NEG NEG Urine Leukocyte Esterase NEG NEG Urine WBC (Auto) 0 0-5 /hpf Urine RBC (Auto) 0-4 0-4 /hpf Urine Hyaline Casts (Auto) 1-5 0-5 /lpf Urine Epithelial Cells (Auto) 10-20 0-5 /lpf Urine Bacteria (Auto) NEG NEG Microbiology Results 06/11/17 Urine Culture, Received Pending CXR normal Impression Assessment and Plan 72 y/o F who was admitted on 06/11 for observation after accidental overdose Weakness/confusion: Likely related to accidental overdose: tegratol XR and klonapin IVF and monitor Will hold both of these medications, as well as oxy IR No s/sx of infection Electrolytes WNL Flu neg PT/OT HTN: stable, continue home meds Seizure disorder: Will resume tegratorl if AM levels are WNL Chronic pain: Pt should likely be switched back to vicodin for her pain given current issues Anxiety: given pt's age, should likely attempt weaning from klonapin Other: Full code however does not want prolonged mechanical life support or feeding tubes Reg diet Ambulation for DVT proph given likely short duration of admission CM c/s for possible HH vs placement pending PT/OT Level of Care Med/Surg Resuscitation Status FULL RESUSCITATION VTE Prophylaxis VTE Risk Assessment Done? Y/N: Yes Risk Level: Low
[2017-06-11 20:13] VITALS: BP 178/63; PULSE 75; TEMP 36.5; O2SAT 98; Ht 152.4 cm; Wt 51.6 kg
[2017-06-11] MEDS: SODIUM CHLORIDE 0.9% 1000ML 1,000 ML IV SCH (21:17)
[2017-06-11] MEDS: ATORVASTATIN 20 MG TAB PO SCH (21:17)
[2017-06-12 00:21] VITALS: BP 161/82; PULSE 73; TEMP 36.7; O2SAT 97
[2017-06-12 00:25] VITALS: BP 147/70; PULSE 82; TEMP 36.9; O2SAT 98
[2017-06-12 07:39] VITALS: BP 154/80; PULSE 67; TEMP 36.4; O2SAT 95
[2017-06-12] MEDS: FERROUS SULFATE 325 MG TAB PO SCH (08:05)
[2017-06-12] MEDS: ASCORBIC ACID 500 MG TAB PO SCH (08:05)
[2017-06-12] MEDS: SODIUM CHLORIDE 0.9% 1000ML 1,000 ML IV SCH ×2 (08:05→21:26)
[2017-06-12] MEDS: ASPIRIN 81 MG ECTAB PO SCH (08:05)
[2017-06-12] MEDS: OLMESARTAN MEDOXOMIL 20 MG TAB PO SCH (08:05)
[2017-06-12] MEDS: HYDROCHLOROTHIAZIDE 25 MG TAB PO SCH (08:05)
[2017-06-12] MEDS: CALCIUM 600MG + VIT D 400 IU TAB PO SCH (08:05)
[2017-06-12] MEDS ORDERED: FERROUS SULFATE 325 MG TAB PO SCH (09:00)
[2017-06-12] MEDS ORDERED: NON-FORMULARY MEDICATION (Cranberry (Vaccinium Macrocarp (Cranberry) 1 CAP) PO SCH (09:00)
[2017-06-12] MEDS ORDERED: LACTOBACILLUS PO SCH (09:00)
[2017-06-12] MEDS ORDERED: MILK THISTLE PO SCH (09:00)
[2017-06-12] MEDS ORDERED: ACETAMINOPHEN 500 MG TAB PO PRN (13:45)
[2017-06-12] MEDS ORDERED: KETOROLAC TROMETHAMINE 15 MG/ML VIAL IV PRN (13:45)
--- NOTE | 2017-06-12 13:50 | Progress Note ---
Subjective Date of Service: Jun 12, 2017. Subjective this pt is laying in bed, has persona of being frail , states she feels weaker than her normal state and also feels is assured that she took too much of her scheduled medications at home, will need Pt /Ot evaluation today Problem List Medical Problems: (1) Accidental overdose Status: Acute (2) Altered mental status Status: Acute (3) Ambulatory dysfunction Status: Acute (4) Anxiety Status: Chronic (5) Contusion Status: Acute (6) Depressive Disorder Nec Status: Chronic (7) Encounter for removal of margarito Status: Acute (8) Fall Status: Acute (9) Head injury, closed Status: Acute (10) Hypertension Status: Chronic (11) Hyponatremia Status: Acute (12) Medication side effects Status: Acute (13) Near syncope Status: Acute (14) Osteoporosis Status: Chronic (15) Scalp laceration Status: Acute (16) Seizure disorder Status: Chronic (17) UTI (urinary tract infection) Status: Acute Review of Systems Constitutional: + weakness, No fever, No chills, No fatigue Respiratory: No cough, No shortness of breath Cardiac: No chest pain, No edema Abdomen: No pain, No nausea, No vomiting, No diarrhea Neurologic: + weakness, + balance problems Objective Vital Signs Date Time Temp Pulse Resp B/P (MAP) Pulse Ox O2 Delivery O2 Flow Rate FiO2 06/12/17 07:39 36.4 67 17 154/80 (104) 95 06/12/17 04:00 Room Air 06/12/17 00:21 36.7 73 17 161/82 (108) 97 Room Air 06/12/17 00:00 Room Air 06/11/17 20:13 36.5 75 16 178/63 98 Room Air 06/11/17 17:47 86 16 172/88 98 Room Air 06/11/17 17:02 63 18 146/73 98 Room Air 06/11/17 15:04 90 18 178/88 97 Room Air 06/11/17 13:21 76 18 137/75 94 Room Air 06/11/17 12:33 76 06/11/17 12:09 36.8 83 16 172/80 96 Room Air Physical Exam General Appearance: + mild distress, + thin Eyes: PERRL, EOMI Respiratory/Chest: chest non-tender, lungs clear, normal breath sounds Cardiovascular: regular rate, rhythm, no murmur Abdomen: normal bowel sounds, non tender, soft Extremities: no pedal edema, no calf tenderness Neurologic/Psychiatric: alert, oriented x 3 Laboratory Results Last 24 Hours Test 06/11/17 13:34 06/11/17 13:35 06/11/17 13:40 06/12/17 05:11 Influenza Type A (RT-PCR) Neg for Influ A Influenza Type A Antigen Neg for Influ A Influenza Type B Antigen Neg for Influ B Influenza Type B (RT-PCR) Neg for Influ B White Blood Count 3.18 K/uL Red Blood Count 3.20 M/uL Hemoglobin 11.0 g/dL Hematocrit 32.0 % Mean Corpuscular Volume 100.0 fL Mean Corpuscular Hemoglobin 34.4 pg Mean Corpuscular Hemoglobin Concent 34.4 g/dl Platelet Count 223 K/uL Mean Platelet Volume 9.7 fL Neutrophils (%) (Auto) 67.6 % Lymphocytes (%) (Auto) 12.9 % Monocytes (%) (Auto) 14.5 % Eosinophils (%) (Auto) 1.3 % Basophils (%) (Auto) 2.8 % Neutrophils # (Auto) 2.15 K/uL Lymphocytes # (Auto) 0.41 K/uL Monocytes # (Auto) 0.46 K/uL Eosinophils # (Auto) 0.04 K/uL Basophils # (Auto) 0.09 K/uL RDW Standard Deviation 47.9 fL RDW Coefficient of Variation 13.1 % Immature Granulocyte % (Auto) 0.9 % Immature Granulocyte # (Auto) 0.03 K/uL Sodium Level 131 mmol/L Potassium Level 3.8 mmol/L Chloride Level 97 mmol/L Carbon Dioxide Level 27 mmol/L Anion Gap 7.0 mmol/L Blood Urea Nitrogen 5 mg/dl Creatinine 0.43 mg/dl Est Creatinine Clear Calc Drug Dose 86.2 ml/min Estimated GFR () 118.6 Estimated GFR (Non- 102.3 BUN/Creatinine Ratio 11.4 Random Glucose 94 mg/dl Calcium Level 8.6 mg/dl Total Bilirubin 0.3 mg/dl Direct Bilirubin 0.1 mg/dl Aspartate Amino Transf (AST/SGOT) 12 U/L Alanine Aminotransferase (ALT/SGPT) 14 U/L Alkaline Phosphatase 83 U/L Total Protein 6.7 gm/dl Albumin 3.7 gm/dl Carbamazepine (Tegretol) Level 19.0 mcg/ml 10.4 mcg/ml Urine Color YELLOW Urine Appearance CLOUDY Urine pH 7.5 Urine Specific [place] 1.017 Urine Protein NEG Urine Glucose (UA) NEG Urine Ketones NEG Urine Occult Blood NEG Urine Nitrite NEG Urine Bilirubin NEG Urine Urobilinogen NEG Urine Leukocyte Esterase NEG Urine WBC (Auto) 0 /hpf Urine RBC (Auto) 0-4 /hpf Urine Hyaline Casts (Auto) 1-5 /lpf Urine Epithelial Cells (Auto) 10-20 /lpf Urine Bacteria (Auto) NEG Assessment and Plan 72 y/o F who was admitted on 06/11 for observation after accidental overdose Weakness/confusion: Likely related to accidental overdose: tegratol XR, klonapin, and oxy IR. her tegretol level has returned to normal will resume usual dose HTN: stable, continue home meds Seizure disorder: resume Tegretol as AM levels are WNL Chronic pain: may consider a less potent agent and pain management referral Anxiety: given pt's age, attempt weaning from klonapin Other: Full code however does not want prolonged mechanical life support or feeding tubes Ambulation for DVT proph given likely short duration of admission CM c/s for possible HH vs placement pending PT/OT
[2017-06-12 15:05] VITALS: BP 145/75; PULSE 70; TEMP 36.6; O2SAT 98
[2017-06-12 16:00] VITALS: O2SAT 98
[2017-06-12] MEDS ORDERED: CARBAMAZEPINE 200 MG TABCR PO SCH (21:00)
[2017-06-12] MEDS: ATORVASTATIN 20 MG TAB PO SCH (21:27)
[2017-06-12 23:59] VITALS: BP 156/80; PULSE 80; TEMP 36.4; O2SAT 97
[2017-06-13 07:19] VITALS: BP 153/80; PULSE 66; TEMP 36.5; O2SAT 94
[2017-06-13] MEDS: FERROUS SULFATE 325 MG TAB PO SCH (07:54)
[2017-06-13] MEDS: ASCORBIC ACID 500 MG TAB PO SCH (07:54)
[2017-06-13] MEDS: OLMESARTAN MEDOXOMIL 20 MG TAB PO SCH (07:54)
[2017-06-13] MEDS: HYDROCHLOROTHIAZIDE 25 MG TAB PO SCH (07:54)
[2017-06-13] MEDS: ASPIRIN 81 MG ECTAB PO SCH (07:54)
[2017-06-13] MEDS: CALCIUM 600MG + VIT D 400 IU TAB PO SCH (07:55)
[2017-06-13] MEDS ORDERED: QUET1TAB91 PO (09:45)
--- NOTE | 2017-06-13 09:46 | Discharge Instructions ---
Discharge Instructions Date of Service Jun 13, 2017. Admission Reason for Admission: Lethargy Discharge Discharge Diagnosis / Problem: un intentional overdose Discharge Goals Goal(s): Diagnostic testing, Therapeutic intervention Activity Recommendations Activity Limitations: resume your previous activity . Current Hospital Diet Patient's current hospital diet: Regular Diet, Low Lactose Diet Discharge Diet Recommended Diet: Regular Diet Pending Studies Studies pending at discharge: no Medical Emergencies . Who to Call and When: Medical Emergencies: If at any time you feel your situation is an emergency, please call 911 immediately. . Non-Emergent Contact Non-Emergency issues call your: Primary Care Provider Call Non-Emergent contact if: temperature is above 101, your pain is unusual for you . . "Provider Documentation" section prepared by Cosmo Henriquez. . VTE Core Measure Inpt VTE Proph given/why not?: Unfractionated heparin SQ
[2017-06-13 10:22] VITALS: BP 153/80; PULSE 66; TEMP 36.5; O2SAT 94
[2017-06-13] MEDS: SODIUM CHLORIDE 0.9% 1000ML 1,000 ML IV SCH (10:43)
--- NOTE | 2017-06-13 17:23 | Discharge Summary ---
Discharge Summary Date of Service Jun 13, 2017. Discharge Summary Admission Date: Jun 11, 2017 at 16:19 Discharge Date: Jun 13, 2017 Discharge Disposition: Home with services Principal Diagnosis: non intentional overdose Problems/Secondary Diagnoses: (1) Anxiety Status: Chronic (2) Depressive Disorder Nec Status: Chronic (3) Hypertension Status: Chronic (4) Osteoporosis Status: Chronic (5) Seizure disorder Status: Chronic Immunizations: Have You Had Influenza Vaccine: Yes Influenza Vaccine Date: January 25, 2012 History of Tetanus Vaccine?: Unknown History of Pneumococcal: Yes Pneumococcal Date: Aug 26, 2012 History of Hepatitis B Vaccine: Unknown Medication Reconciliation New Medications: Quetiapine Fumarate (Seroquel) 25 Mg Tab 1 TAB PO HS for 30 Days, #30 TAB 2 Refills if too strong cut pill in one half Continued Medications: Ascorbic Acid (Ascorbic Acid) 1,000 Mg Tab 1000 MG PO DAILY Aspirin (Aspirin) 81 Mg Tab 81 MG PO DAILY Atorvastatin (Lipitor) 20 Mg Tab 20 MG PO DAILY, TAB Calcium Carbonate-Vitamin D (Calcium 500 + D) 1 Tab Tab 1 TAB PO DAILY Carbamazepine (Tegretol Xr) 400 Mg Tab 400 MG PO HS Cranberry (Vaccinium Macrocarp (Cranberry) Unknown Strength Tab 1 CAP PO DAILY Ferrous Sulfate (Kp Ferrous Sulfate) 325 Mg Tab 325 MG PO DAILY, TAB Lactobacillus (Probiotic) 1 Cap Cap 1 CAP PO DAILY Meloxicam (Mobic) 7.5 Mg Tab 7.5 MG PO DAILY PRN for Pain, TAB Milk Thistle (Silybum Marianum (Milk Thistle) Unknown Strength Cap 1 CAP PO DAILY Olmesartan/Hctz (Benicar Hct 20/12.5) Tab 1 TAB PO DAILY, TAB Zoledronic Acid (Reclast) 5 Mg/100 Ml Inj 5 MG INJ YEARLY Discontinued Medications: Clonazepam (Clonazepam) 0.5 Mg Tab 1 MG PO HS Oxycodone Ir (Roxicodone Ir) 5 Mg Tab 10 MG PO Q8 PRN for Pain, TAB Discharge Exam Review of Systems: Constitutional: No fever, No chills Abdomen: No pain, No nausea, No diarrhea Musculoskeletal: No joint pain, No muscle pain, No swelling Physical Exam: General Appearance: WD/WN, + mild distress Eyes: PERRL, EOMI Neck: supple, no JVD Respiratory/Chest: chest non-tender, lungs clear Cardiovascular: regular rate, rhythm, no murmur Hospital Course 72 y/o F who was admitted on 06/11 for observation after accidental overdose Weakness/confusion: Likely related to accidental overdose: completely resolved, tegratol XR, her tegretol level has returned to normal will resume usual dose HTN: stable, continue home meds Seizure disorder: resume Tegretol as AM levels are WNL Chronic pain: has done well off oxycodone, will stop and ask for pcp follow up Anxiety: given pt's age, attempt weaning from klonapin did very well with PT/OT will have home with home health and pcp follow up Total Time Spent: Greater than 30 minutes This includes examination of the patient, discharge planning, medication reconciliation, and communication with other providers. Discharge Instructions Please refer to the electronic Patient Visit Report (Discharge Instructions) for additional information.
== END 2017-06-13 11:45 | disposition home or self-care (01) ==
LOC: EDBD 12:01 → C.EDC 12:02 → C.MS2W 16:19 → ENRESERV 16:46
PROVIDERS: ADMIT Family Medicine; ATTEND Internal Medicine
DX: T42.1X1A Poisoning by iminostilbenes, accidental (unintentional), initial encounter (principal); R53.83 Other fatigue; R53.1 Weakness; R41.0 Disorientation, unspecified; I10 Essential (primary) hypertension; F32.9 Major depressive disorder, single episode, unspecified; M81.0 Age-related osteoporosis without current pathological fracture; G40.909 Epilepsy, unspecified, not intractable, without status epilepticus; Z79.82 Long term (current) use of aspirin; Z82.3 Family history of stroke; Z80.1 Family history of malignant neoplasm of trachea, bronchus and lung

== ENCOUNTER 2017-06-25 17:25 | Emergency (ER) | payer OTHER, BC ==
[~2017-06-25] VITALS: Ht 149.9 cm; Wt 51.1 kg
[~2017-06-25 17:25] MED LIST changes: -B-COTAB18 PO; -CHOL100027 PO; -KLN5X PO; -OXYC1TAB3 PO; +QUET1TAB91 PO; -VITA400C3 PO
[2017-06-25 17:35] VITALS: TEMP 37.1; Ht 149.9 cm; Wt 51.1 kg
[2017-06-25] MEDS ORDERED: SODIUM CHLORIDE 0.9% 1000ML 1,000 ML IV STA (17:44)
[2017-06-25] MEDS ORDERED: LEVETIRACETAM IV 500 MG in DEXTROSE 5% 100ML 100 ML IV STA (17:44)
[2017-06-25] MEDS ORDERED: LEVE500T13 PO (17:53)
--- NOTE | 2017-06-25 17:53 | EMERGENCY ROOM VISIT NOTE ---
History Report prepared by Serena: Gatito Kumar Under the Supervision of: Dr. Mj Cheek M.D. 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 She has a past medical history of a seizure disorder for the last 30 years. Per the patient's daughter, she was unresponsive for about 5 minutes, which is longer than usual. She was seen in the ER 1.5 weeks ago for similar symptoms and followed up with her PCP. They took her off of her Tegretol and placed her onto Keppra. She is also weening off of her Klonopin. Today, she did not lose control of her bladder. She did not vomit either. The patient notes that she is battling a "GI bug" that includes nausea and diarrhea. She denies any fevers. 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 A total of 10 systems reviewed and were otherwise negative. Past Medical & Surgical Medical Problems: (1) Anxiety (2) Depressive Disorder Nec (3) Hypertension (4) Intestinal Infection Due To Clostridium Difficile (5) Lethargy (6) Osteoporosis (7) Seizure disorder (8) Syncope Surgical Problems: (1) H/O ileostomy Family History Lung cancer Stroke Social History Smoking Status: Never Smoker Alcohol Use: none Drug Use: none Marital Status: Housing Status: lives with family Occupation Status: retired Current/Historical Medications Scheduled Ascorbic Acid (Ascorbic Acid), 1,000 MG PO DAILY Aspirin (Aspirin), 81 MG PO DAILY Atorvastatin (Lipitor), 20 MG PO DAILY Calcium Carbonate-Vitamin D (Calcium 500 + D), 1 TAB PO DAILY Cranberry (Vaccinium Macrocarp (Cranberry), 1 CAP PO DAILY Ferrous Sulfate (Kp Ferrous Sulfate), 325 MG PO DAILY Lactobacillus (Probiotic), 1 CAP PO DAILY Levetiracetam (Keppra), 500 MG PO BID Olmesartan/Hctz (Benicar Hct 20/12.5), 1 TAB PO DAILY Zoledronic Acid (Reclast), 5 MG INJ YEARLY Scheduled PRN Meloxicam (Mobic), 7.5 MG PO DAILY PRN for Pain Allergies Coded Allergies: Fentanyl (Verified Adverse Reaction, Unknown, nausea, fearfulness, unsettled thoughts, 06/25/17) Physical Exam Vital Signs Date Time Temp Pulse Resp B/P (MAP) Pulse Ox O2 Delivery O2 Flow Rate FiO2 06/25/17 18:09 100 Room Air 06/25/17 17:41 79 06/25/17 17:35 37.1 77 16 151/85 Room Air Physical Exam GENERAL: Patient is in no acute distress. HEENT: No acute trauma, normocephalic atraumatic, mucous membranes moist, no nasal congestion, no scleral icterus. NECK: No stridor, no adenopathy, no meningismus, trachea is midline. LUNGS: Clear to auscultation bilaterally, no wheeze, no rhonchi, breath sounds equal. HEART: 3/6 systolic murmur present. Regular rate and rhythm. ABDOMEN: Soft, nontender, bowel sounds positive, no hernias, no peritonitis. EXTREMITIES: No cyanosis or edema, full range of motion of all the joints without pain or difficulty, no signs for acute trauma. NEUROLOGIC: Oriented x 3, no acute motor or sensory deficits, no focal weakness. SKIN: No rash, no jaundice, no diaphoresis. Medical Decision & Procedures ER Provider Diagnostic Interpretation: Radiology results as stated below per my review and radiologist interpretation: SINGLE VIEW CHEST CLINICAL HISTORY: Weakness. FINDINGS: An AP, portable, upright chest radiograph is compared to study dated 06/11/2017. The examination is degraded by portable technique and patient rotation. The heart is enlarged and there is atherosclerotic calcification of the thoracic aorta. The pulmonary vasculature is noncongested. Chronic interstitial thickening is unchanged. There is no airspace consolidation or large pleural effusion. No pneumothorax is seen. The skeletal structures are osteopenic. Degenerative change and scoliosis is noted in the thoracic spine. Posterior matter deformity and postoperative change is seen in the left proximal humerus. There are healed left-sided rib fractures. IMPRESSION: Cardiomegaly with no acute cardiopulmonary abnormality. Electronically signed by: Mj Dillon M.D. 06/25/2017 6:19 PM Dictated Date/Time: 06/25/2017 6:18 PM Laboratory Results 06/25/17 17:57 Red Blood Count 3.16, Mean Corpuscular Volume 103.8, Mean Corpuscular Hemoglobin 35.8, Mean Corpuscular Hemoglobin Concent 34.5, Mean Platelet Volume 10.4, Neutrophils (%) (Auto) 90.6, Lymphocytes (%) (Auto) 4.1, Monocytes (%) ( Auto) 4.8, Eosinophils (%) (Auto) 0.1, Basophils (%) (Auto) 0.3, Neutrophils # ( Auto) 8.34, Lymphocytes # (Auto) 0.38, Monocytes # (Auto) 0.44, Eosinophils # ( Auto) 0.01, Basophils # (Auto) 0.03 06/25/17 17:57 Test 06/25/17 17:57 06/25/17 18:56 White Blood Count 9.21 K/uL (4.8-10.8) Red Blood Count 3.16 M/uL (4.2-5.4) Hemoglobin 11.3 g/dL (12.0-16.0) Hematocrit 32.8 % (37-47) Mean Corpuscular Volume 103.8 fL (80-100) Mean Corpuscular Hemoglobin 35.8 pg (25-34) Mean Corpuscular Hemoglobin Concent 34.5 g/dl (32-36) Platelet Count 206 K/uL (130-400) Mean Platelet Volume 10.4 fL (7.4-10.4) Neutrophils (%) (Auto) 90.6 % Lymphocytes (%) (Auto) 4.1 % Monocytes (%) (Auto) 4.8 % Eosinophils (%) (Auto) 0.1 % Basophils (%) (Auto) 0.3 % Neutrophils # (Auto) 8.34 K/uL (1.4-6.5) Lymphocytes # (Auto) 0.38 K/uL (1.2-3.4) Monocytes # (Auto) 0.44 K/uL (0.11-0.59) Eosinophils # (Auto) 0.01 K/uL (0-0.5) Basophils # (Auto) 0.03 K/uL (0-0.2) RDW Standard Deviation 49.8 fL (36.4-46.3) RDW Coefficient of Variation 13.0 % (11.5-14.5) Immature Granulocyte % (Auto) 0.1 % Immature Granulocyte # (Auto) 0.01 K/uL (0.00-0.02) Anion Gap 6.0 mmol/L (3-11) Est Creatinine Clear Calc Drug Dose 64.0 ml/min Estimated GFR () 109.4 Estimated GFR (Non- 94.4 BUN/Creatinine Ratio 12.5 (10-20) Calcium Level 8.5 mg/dl (8.5-10.1) Total Bilirubin 0.2 mg/dl (0.2-1) Aspartate Amino Transf (AST/SGOT) 11 U/L (15-37) Alanine Aminotransferase (ALT/SGPT) 13 U/L (12-78) Alkaline Phosphatase 104 U/L (45-117) Troponin I < 0.015 ng/ml (0-0.045) Total Protein 6.9 gm/dl (6.4-8.2) Albumin 3.7 gm/dl (3.4-5.0) Globulin 3.2 gm/dl (2.5-4.0) Albumin/Globulin Ratio 1.2 (0.9-2) Carbamazepine (Tegretol) Level < 0.5 mcg/ml (4-12) Urine Color YELLOW Urine Appearance CLEAR (CLEAR) Urine pH 8.5 (4.5-7.5) Urine Specific [place] 1.012 (1.000-1.030) Urine Protein NEG (NEG) Urine Glucose (UA) NEG (NEG) Urine Ketones NEG (NEG) Urine Occult Blood NEG (NEG) Urine Nitrite NEG (NEG) Urine Bilirubin NEG (NEG) Urine Urobilinogen NEG (NEG) Urine Leukocyte Esterase TRACE (NEG) Urine WBC (Auto) 1-5 /hpf (0-5) Urine RBC (Auto) 5-10 /hpf (0-4) Urine Hyaline Casts (Auto) 1-5 /lpf (0-5) Urine Epithelial Cells (Auto) 10-20 /lpf (0-5) Urine Bacteria (Auto) NEG (NEG) Laboratory results reviewed by me. Medications Administered Medications (Trade) Dose Ordered Sig/Ba Route Start Time Stop Time Status Last Admin Dose Admin Levetiracetam 500 mg/Dextrose 105 ml @ 420 mls/hr NOW STAT IV 06/25/17 17:44 06/25/17 17:58 DC 06/25/17 18:22 420 MLS/HR Sodium Chloride 1,000 ml @ 999 mls/hr Q1H1M STAT IV 06/25/17 17:44 06/25/17 18:44 DC 06/25/17 18:10 999 MLS/HR Ondansetron HCl (Zofran Inj) 4 mg NOW STAT IV 06/25/17 18:30 06/25/17 18:32 DC 06/25/17 18:35 4 MG Acetaminophen/ Hydrocodone Bitart ([place] 5/325 Tab) 1 tab NOW STAT PO 06/25/17 18:30 06/25/17 18:32 DC 06/25/17 18:35 1 TAB ECG Indication: other (Seizure) Rate (beats per minute): 67 Rhythm: normal sinus Findings: no acute ischemic change, no ectopy ED Course 1735: The patient was evaluated in room A2. A complete history and physical exam was performed. 174: Ordered Sodium Chloride 1000 ml @ 999 mls/hr IV, Levetiracetam 500 mg/ Dextrose 105 ml @ 420 mls/hr IV 1830: Ordered Hydrocodone Bitart/Acetaminophen 1 tab PO, Zofran Inj 4 mg IV 1900: The patient's urine drip was negative per the nurses. 5: Reevaluated the patient. Discussed results and discharge instructions: She verbalized understanding and agreement. The patient is ready for discharge. Medical Decision Differential diagnosis includes but is not limited to breakthrough seizure, missed medication dosing, UTI, electrolyte imbalance, anemia, and dehydration. There is no leukocytosis or concerning anemia. No significant electrolyte abnormality, kidney failure or hepatitis. Urinalysis shows some contamination, no obvious infection. Tegretol level is undetectable. EKG shows a sinus rhythm , no acute ischemia. Cardiac enzyme testing 1 is not consistent with acute cardiac injury. Chest film shows some chronic findings, no pneumonia or CHF. Keppra level is still pending. On exam, the patient was awake, she had no focal neurologic deficits. She was not toxic or febrile. The patient received IV saline, IV Zofran. She was given oral [place] for her chronic back pain. The patient was given a dose of IV Keppra, 500 mg. The patient presents with a witnessed seizure-like event. She has known seizures. She recently had her Tegretol stopped and is now on Keppra. The directions on the bottle state that she should be taking 500 mg twice a day. Apparently, she has only been taking 500 mg once a day. The patient is being discharged to start her Keppra twice a day as originally directed. She will follow with her doctors office and return here for worsening symptoms. Medication Reconcilliation Current Medication List: was personally reviewed by me Blood Pressure Screening Patient's blood pressure: Elevated blood pressure Blood pressure disposition: Elevated BP felt to be situational Impression Primary Impression: Seizure Scribe Attestation The scribe's documentation has been prepared under my direction and personally reviewed by me in its entirety. I confirm that the note above accurately reflects all work, treatment, procedures, and medical decision making performed by me. Departure Information Dispostion Home / Self-Care Referrals Ulises Chowdary M.D. (PCP) Forms HOME CARE DOCUMENTATION FORM, IMPORTANT VISIT INFORMATION Patient Instructions My [facility] Additional Instructions Keppra 2x per day see manny boyd and neurology this week for a recheck return for worsening symptoms lab testing today was all ok
[2017-06-25 18:09] VITALS: O2SAT 100
--- NOTE | 2017-06-25 18:21 | DIAGNOSTIC IMAGING REPORT ---
SINGLE VIEW CHEST CLINICAL HISTORY: Weakness. FINDINGS: An AP, portable, upright chest radiograph is compared to study dated 06/11/2017. The examination is degraded by portable technique and patient rotation. The heart is enlarged and there is atherosclerotic calcification of the thoracic aorta. The pulmonary vasculature is noncongested. Chronic interstitial thickening is unchanged. There is no airspace consolidation or large pleural effusion. No pneumothorax is seen. The skeletal structures are osteopenic. Degenerative change and scoliosis is noted in the thoracic spine. Posterior matter deformity and postoperative change is seen in the left proximal humerus. There are healed left-sided rib fractures. IMPRESSION: Cardiomegaly with no acute cardiopulmonary abnormality. Electronically signed by: Mj Dillon M.D. 06/25/2017 6:19 PM Dictated Date/Time: 06/25/2017 6:18 PM
[2017-06-25] MEDS ORDERED: ONDANSETRON INJ 2 MG/ML 2 ML VIAL IV STA (18:30)
[2017-06-25] MEDS ORDERED: HYDROCODONE/ACETAMOPHEN 5/325MG TAB PO STA (18:30)
[2017-06-25 18:33] LABS: ALT/SGPT 13 U/L (12-78); BLOOD UREA NITROGEN 7 mg/dl (7-18); BUN/CREATININE RATIO 12.5 (10-20); CALCIUM 8.5 mg/dl (8.5-10.1); CARBON DIOXIDE 28 mmol/L (21-32); CHLORIDE 99 mmol/L (98-107); CREATININE 0.55 mg/dl (0.60-1.20); GLUCOSE 114 mg/dl (70-99); POTASSIUM 3.8 mmol/L (3.5-5.1); SODIUM 133 mmol/L (136-145)
[2017-06-25 18:38] LABS: ALB/GLOB RATIO 1.2 (0.9-2); ALKALINE PHOSPHATASE 104 U/L (45-117); AST/SGOT 11 U/L (15-37); HEMATOCRIT 32.8 % (37-47); MEAN CELL VOLUME 103.8 fL (80-100); MEAN CORPUSCULAR HEMOGLOBIN 35.8 pg (25-34); MEAN CORPUSCULAR HGB CONC 34.5 g/dl (32-36); MEAN PLATELET VOLUME 10.4 fL (7.4-10.4); PLATELET COUNT 206 K/uL (130-400); RED BLOOD COUNT 3.16 M/uL (4.2-5.4); WHITE BLOOD COUNT 9.21 K/uL (4.8-10.8)
[2017-06-25 18:39] LABS: BASO % 0.3 %; BASO ABS # 0.03 K/uL (0-0.2); COMPLETE YES; EOS % 0.1 %; IG% 0.1 %; LYMPH % 4.1 %; LYMPH ABS # 0.38 K/uL (1.2-3.4); MONO % 4.8 %; NEUT % 90.6 %
[2017-06-25 19:12] LABS: URINE APPEARANCE CLEAR (CLEAR); URINE BILIRUBIN NEG (NEG); URINE COLOR YELLOW; URINE NITRITE NEG (NEG); URINE PH 8.5 (4.5-7.5); URINE SPECIFIC GRAVITY 1.012 (1.000-1.030); UROBILINOGEN NEG (NEG); ZZURINE CULT IF INDIC CATH NO
[2017-06-25 19:22] LABS: MANUAL MICROSCOPIC REQUIRED? NO; REVIEW REQ? NO
[2017-06-25 19:41] VITALS: BP 122/78; PULSE 68; O2SAT 98
== END 2017-06-25 19:44 | disposition home or self-care (01) ==
LOC: EDBD 17:25 → C.EDA 17:26
DX: G40.909 Epilepsy, unspecified, not intractable, without status epilepticus (principal); I10 Essential (primary) hypertension; F41.9 Anxiety disorder, unspecified; F32.9 Major depressive disorder, single episode, unspecified; M81.0 Age-related osteoporosis without current pathological fracture; Z86.19 Personal history of other infectious and parasitic diseases; Z93.2 Ileostomy status; Z79.82 Long term (current) use of aspirin; Z79.899 Other long term (current) drug therapy; Z88.8 Allergy status to other drugs, medicaments and biological substances; Z82.3 Family history of stroke

== ENCOUNTER 2017-06-26 04:54 | Inpatient (IN) | payer OTHER, BC ==
[~2017-06-26] VITALS: Ht 154.9 cm; Wt 50.2 kg
[~2017-06-26 04:54] MED LIST changes: -CARB1TAB15 PO; +LEVE500T13 PO; -MILK150C PO; -QUET1TAB91 PO
[2017-06-26] MEDS ORDERED: SODIUM CHLORIDE 0.9% 1000ML 1,000 ML IV STA (06:36)
[2017-06-26] MEDS ORDERED: ONDANSETRON INJ 2 MG/ML 2 ML VIAL IV STA (06:36)
[2017-06-26] MEDS ORDERED: SODIUM CHLORIDE 0.9% 250ML 250 ML IV STA (06:36)
--- NOTE | 2017-06-26 06:56 | EMERGENCY ROOM VISIT NOTE ---
History Report prepared by Serena: Carlos Hall Under the Supervision of: Dr. Malissa Titus M.D. First contact with patient: 06:14 Chief Complaint: BACK PAIN Stated Complaint: BACK PAIN History of Present Illness The patient is a 72 year old female who presents to the Emergency Room with complaints of constant lower back pain beginning today. Per daughter, the patient began to feel back pain prior to a seizure this morning. She notes that the patient's seizure may have been caused by a change in medication. She reports that the patient is experiencing symptoms of vomiting but denies any pain when taking a deep breath. She reports that she has never seen the patient in this amount of pain. Source of History: patient, family Onset: today Position: back (lower) Timing: constant Modifying Factors (Worsening): other (the patient does not experience any worsening symptoms from taking a deep breath) Associated Symptoms: + vomiting Note: the patient denies any pain when taking a deep breath Review of Systems See HPI for pertinent positives & negatives. A total of 10 systems reviewed and were otherwise negative. Past Medical & Surgical Medical Problems: (1) Anxiety (2) Depressive Disorder Nec (3) Hypertension (4) Intestinal Infection Due To Clostridium Difficile (5) Lethargy (6) Osteoporosis (7) SBO (small bowel obstruction) (8) Seizure disorder (9) Syncope Surgical Problems: (1) H/O ileostomy Family History Lung cancer Stroke Social History Smoking Status: Former Smoker Alcohol Use: none Drug Use: none Marital Status: Housing Status: lives with family Occupation Status: retired Current/Historical Medications Scheduled Ascorbic Acid (Ascorbic Acid), 1,000 MG PO DAILY Aspirin (Aspirin), 81 MG PO DAILY Atorvastatin (Lipitor), 20 MG PO DAILY Calcium Carbonate-Vitamin D (Calcium 500 + D), 1 TAB PO DAILY Cranberry (Vaccinium Macrocarp (Cranberry), 1 CAP PO DAILY Ferrous Sulfate (Kp Ferrous Sulfate), 325 MG PO DAILY Lactobacillus (Probiotic), 1 CAP PO DAILY Levetiracetam (Keppra), 500 MG PO BID Olmesartan/Hctz (Benicar Hct 20/12.5), 1 TAB PO DAILY Zoledronic Acid (Reclast), 5 MG INJ YEARLY Scheduled PRN Meloxicam (Mobic), 7.5 MG PO DAILY PRN for Pain Allergies Coded Allergies: Fentanyl (Verified Adverse Reaction, Unknown, nausea, fearfulness, unsettled thoughts, 06/26/17) Physical Exam Vital Signs Date Time Temp Pulse Resp B/P (MAP) Pulse Ox O2 Delivery O2 Flow Rate FiO2 06/26/17 12:21 79 06/26/17 12:11 Room Air 06/26/17 11:41 81 16 149/73 96 Room Air 06/26/17 09:51 73 20 161/75 97 Room Air 06/26/17 08:33 82 20 173/83 97 Room Air 06/26/17 08:26 86 06/26/17 07:39 92 16 154/86 98 Room Air 06/26/17 06:52 73 18 146/81 94 Room Air 06/26/17 05:47 87 18 184/91 98 Room Air 06/26/17 05:01 93 Room Air 06/26/17 05:00 88 06/26/17 04:59 36.7 82 19 156/72 93 Room Air Physical Exam Vital signs reviewed. General: Elderly, chronically ill appearing, in no significant distress, no active vomiting, minimally verbal. HEENT: No scleral icterus, PERRLA, neck supple. Atraumatic. Cardiovascular: Regular rate and rhythm, no extra sounds. Pulmonary: Clear to auscultation bilaterally, normal work of breathing. Abdomen: Soft, nontender, nondistended, positive bowel sounds. Musculoskeletal: Atraumatic, no peripheral edema, no tenderness to palpation to thoracic or lumbar spine Neurologic: Patient awake alert and answers most questions appropriately with simple answers. Skin: Warm, dry, no rash Medical Decision & Procedures ER Provider Diagnostic Interpretation: Radiology results as stated below per my review and radiologist interpretation: CT SCAN OF THE ABDOMEN AND PELVIS WITHOUT CONTRAST FINDINGS: Lower chest: The heart is enlarged. There is a small pericardial effusion. There are trace bilateral pleural effusions. There are bibasal atelectatic changes. Liver: The unenhanced liver is normal in size, contour, and attenuation. There is no intrahepatic biliary ductal dilatation. Gallbladder: Unremarkable. Spleen: Normal in size and attenuation. Pancreas: Unremarkable. Adrenal glands: Unremarkable. Kidneys: No renal, ureteral, or bladder calculi are visualized. Bowel: Evaluation the bowel is limited given the lack of intravenous and oral contrast. Given the prior surgery, the lack of oral contrast, and the paucity of intra-abdominal fat, is difficult to distinguish small bowel loops with colon. There is gastric and duodenal distention. There are dilated left mid abdominal small bowel loops, likely small bowel. There is a sigmoid anastomosis. There is a moderate amount of stool within the sigmoid colon. The distal small bowel is decompressed. A small bowel obstruction is suspected. Peritoneum: There is minimal free fluid. No free intraperitoneal air is visualized. Vasculature: The abdominal aorta is normal in course and caliber. Adenopathy: None. Pelvic viscera: The bladder, and pelvic viscera are unremarkable. Skeletal structures: Postsurgical changes involve the left hip. There is an old left inferior pubic ramus fracture. The bones are osteopenic. There is a scoliosis. Degenerative changes are present within the spine. IMPRESSION: 1. Very difficult study to interpret from a technical standpoint secondary to the lack of intravenous and orally administered contrast, and the paucity of intra-abdominal fat 2. Suspected proximal small bowel obstruction. Clinical and imaging follow-up is recommended Electronically signed by: Anthony Chavarria M.D. 06/26/2017 7:[address] ABD/PELVIS IV AND ORAL CONT FINDINGS: Lower chest: There are bibasal atelectatic changes. Liver: The contrast-enhanced liver is normal in size, contour, and attenuation. There is no intrahepatic biliary ductal dilatation. The hepatic veins and portal veins are patent. Gallbladder: No calculi are visualized. There is minimal pericholecystic edema. Spleen: Normal in size and attenuation. Pancreas: Unremarkable. Adrenal glands: Unremarkable. Kidneys: There is symmetric renal cortical enhancement. The kidneys are normal in size without hydronephrosis. Bowel: There are dilated jejunal loops. Distal small bowel is of normal caliber. The findings are consistent with a small bowel obstruction. There is a left midabdominal transition zone. No mass is visualized on CT scanning. There are postsurgical changes involving the sigmoid. There is moderate stool within the sigmoid. Peritoneum: There is trace free pelvic fluid. No free air is visualized. Vasculature: The abdominal aorta is normal in course and caliber. Adenopathy: None. Pelvic viscera: The bladder, and pelvic viscera are unremarkable. Skeletal structures: No destructive osseous lesions are seen. IMPRESSION: 1. Proximal small bowel obstruction, with a left midabdominal transition zone. 2. No evidence of free air 3. Minimal pericholecystic edema Electronically signed by: Anthony Chavarria M.D. 06/26/2017 11:32 AM Laboratory Results 06/26/17 06:05 Red Blood Count 3.41, Mean Corpuscular Volume 102.9, Mean Corpuscular Hemoglobin 35.2, Mean Corpuscular Hemoglobin Concent 34.2, Mean Platelet Volume 10.9, Neutrophils (%) (Auto) 89.0, Lymphocytes (%) (Auto) 6.2, Monocytes (%) ( Auto) 4.1, Eosinophils (%) (Auto) 0.2, Basophils (%) (Auto) 0.3, Neutrophils # ( Auto) 5.48, Lymphocytes # (Auto) 0.38, Monocytes # (Auto) 0.25, Eosinophils # ( Auto) 0.01, Basophils # (Auto) 0.02 Test 06/26/17 06:05 White Blood Count 6.15 K/uL (4.8-10.8) Red Blood Count 3.41 M/uL (4.2-5.4) Hemoglobin 12.0 g/dL (12.0-16.0) Hematocrit 35.1 % (37-47) Mean Corpuscular Volume 102.9 fL (80-100) Mean Corpuscular Hemoglobin 35.2 pg (25-34) Mean Corpuscular Hemoglobin Concent 34.2 g/dl (32-36) Platelet Count 203 K/uL (130-400) Mean Platelet Volume 10.9 fL (7.4-10.4) Neutrophils (%) (Auto) 89.0 % Lymphocytes (%) (Auto) 6.2 % Monocytes (%) (Auto) 4.1 % Eosinophils (%) (Auto) 0.2 % Basophils (%) (Auto) 0.3 % Neutrophils # (Auto) 5.48 K/uL (1.4-6.5) Lymphocytes # (Auto) 0.38 K/uL (1.2-3.4) Monocytes # (Auto) 0.25 K/uL (0.11-0.59) Eosinophils # (Auto) 0.01 K/uL (0-0.5) Basophils # (Auto) 0.02 K/uL (0-0.2) RDW Standard Deviation 48.7 fL (36.4-46.3) RDW Coefficient of Variation 13.0 % (11.5-14.5) Immature Granulocyte % (Auto) 0.2 % Immature Granulocyte # (Auto) 0.01 K/uL (0.00-0.02) Magnesium Level 2.1 mg/dl (1.8-2.4) Total Bilirubin 0.5 mg/dl (0.2-1) Direct Bilirubin mg/dl (0-0.2) Aspartate Amino Transf (AST/SGOT) 16 U/L (15-37) Alanine Aminotransferase (ALT/SGPT) 15 U/L (12-78) Alkaline Phosphatase 113 U/L (45-117) Total Creatine Kinase 165 U/L (26-192) Creatine Kinase MB 1.1 ng/ml (0.5-3.6) Creatine Kinase MB Ratio 0.7 (0-3.0) Troponin I < 0.015 ng/ml (0-0.045) Total Protein 7.6 gm/dl (6.4-8.2) Albumin 4.1 gm/dl (3.4-5.0) Lipase 80 U/L (73-393) Chemistry Specimen Hemolysis Laboratory results per my review. Medications Administered Medications (Trade) Dose Ordered Sig/Ba Route Start Time Stop Time Status Last Admin Dose Admin Sodium Chloride 250 ml @ 999 mls/hr Q16M STAT IV 06/26/17 06:36 06/26/17 06:51 DC 06/26/17 06:36 999 MLS/HR Sodium Chloride 1,000 ml @ 125 mls/hr Q8H STAT IV 06/26/17 06:36 06/26/17 14:35 DC 06/26/17 06:45 125 MLS/HR Ondansetron HCl (Zofran Inj) 4 mg NOW STAT IV 06/26/17 06:36 06/26/17 06:40 DC 06/26/17 06:45 4 MG Lorazepam (Ativan Inj) 0.5 mg NOW STAT IV 06/26/17 08:23 06/26/17 08:24 DC 06/26/17 08:30 0.5 MG ECG Indication: back/shoulder pain Rate (beats per minute): 81 Rhythm: normal sinus Findings: no ectopy, other (nonspecific ST change in inferior leads) ED Course 0633: Past medical records reviewed. The patient was evaluated in room B6. A complete history and physical examination was performed. 0636: Zofran Inj 4mg IV, Sodium Chloride 250 ml @ 999 mls/hr IV 0823: Ativan Inj 0.5mg IV 1156: I reevaluated and updated the patient on her small bowel obstruction. 1202: Upon reevaluation, the patient is resting comfortably. I discussed laboratory and radiographic results with her. She verbalized agreement of the treatment plan. I spoke with Dr. Harris of the [facility]. The patient will be evaluated for further management and care. Medical Decision Differential diagnosis: Etiologies such as metabolic, infection, hypo/hyperglycemia, electrolyte abnormalities, cardiac sources, intracerebral event, toxicologic, neurologic, lumbar compression fracture, kidney stone, small bowel obstruction, anxiety, as well as others were entertained. This pt was evaluated and appeared to be in no distress. She has been to the ED many times this month for various issues. Pt PE was fairly unrevealing. IV access was obtained and lab work was drawn. The etiology of back pain and vomiting was unclear. Noncontrast CT was performed to evaluate for ureteral stone, this study was concerning for SBO, but w/o contrast, the study was unclear. Repeated contrasted study confirmed the suspicion. Pt had been given IV zofran and ativan in the ED as she became nauseous with contrast and a bit anxious. IVF were given. Lab work is fairly unrevealing, UA is pending. Pt case was d/w the hospitalist service who will evaluate for further management. Pt is aware and agrees. Medication Reconcilliation Current Medication List: was personally reviewed by me Blood Pressure Screening Patient's blood pressure: Elevated blood pressure Blood pressure disposition: Referred to PCP (referred to hospitalist) Consults Time Called: 1155 Consulting Physician: Dr. Kimberly Mosher [facility] Returned Call: [phone] I reviewed the patient's case with Dr. Kimberly Mosher [facility]. He will evaluate the patient for further management. Impression Primary Impression: SBO (small bowel obstruction) Scribe Attestation The scribe's documentation has been prepared under my direction and personally reviewed by me in its entirety. I confirm that the note above accurately reflects all work, treatment, procedures, and medical decision making performed by me. Departure Information Referrals Ulises Chowdary M.D. (PCP) Patient Instructions [facility]
[2017-06-26 07:05] LABS: ALKALINE PHOSPHATASE 113 U/L (45-117); ALT/SGPT 15 U/L (12-78); AST/SGOT 16 U/L (15-37); BLOOD UREA NITROGEN 8 mg/dl (7-18); BUN/CREATININE RATIO 14.2 (10-20); CALCIUM 8.8 mg/dl (8.5-10.1); CARBON DIOXIDE 26 mmol/L (21-32); CHLORIDE 98 mmol/L (98-107); CKMB/CK RATIO 0.7 (0-3.0); CREATININE 0.59 mg/dl (0.60-1.20); GLUCOSE 112 mg/dl (70-99); MAGNESIUM 2.1 mg/dl (1.8-2.4); POTASSIUM 4.1 mmol/L (3.5-5.1); SODIUM 134 mmol/L (136-145)
[2017-06-26 07:07] LABS: HEMATOCRIT 35.1 % (37-47); MEAN CELL VOLUME 102.9 fL (80-100); MEAN CORPUSCULAR HEMOGLOBIN 35.2 pg (25-34); MEAN CORPUSCULAR HGB CONC 34.2 g/dl (32-36); MEAN PLATELET VOLUME 10.9 fL (7.4-10.4); PLATELET COUNT 203 K/uL (130-400); RED BLOOD COUNT 3.41 M/uL (4.2-5.4); WHITE BLOOD COUNT 6.15 K/uL (4.8-10.8)
[2017-06-26 07:26] LABS: BASO % 0.3 %; BASO ABS # 0.02 K/uL (0-0.2); COMPLETE YES; EOS % 0.2 %; IG% 0.2 %; LYMPH % 6.2 %; LYMPH ABS # 0.38 K/uL (1.2-3.4); MONO % 4.1 %
--- NOTE | 2017-06-26 07:37 | DIAGNOSTIC IMAGING REPORT ---
CT SCAN OF THE ABDOMEN AND PELVIS WITHOUT CONTRAST CLINICAL HISTORY: Abdominal pain. Back pain. Vomiting. COMPARISON STUDY: 08/13/2016 TECHNIQUE: CT scan of the abdomen and pelvis was performed from the lung bases to the proximal femurs. Images are reviewed in the axial, sagittal, and coronal planes. IV contrast was not administered for this examination. A dose lowering technique was utilized adhering to the principles of ALARA. CT DOSE: 402.91 mGy.cm FINDINGS: Lower chest: The heart is enlarged. There is a small pericardial effusion. There are trace bilateral pleural effusions. There are bibasal atelectatic changes. Liver: The unenhanced liver is normal in size, contour, and attenuation. There is no intrahepatic biliary ductal dilatation. Gallbladder: Unremarkable. Spleen: Normal in size and attenuation. Pancreas: Unremarkable. Adrenal glands: Unremarkable. Kidneys: No renal, ureteral, or bladder calculi are visualized. Bowel: Evaluation the bowel is limited given the lack of intravenous and oral contrast. Given the prior surgery, the lack of oral contrast, and the paucity of intra-abdominal fat, is difficult to distinguish small bowel loops with colon. There is gastric and duodenal distention. There are dilated left mid abdominal small bowel loops, likely small bowel. There is a sigmoid anastomosis. There is a moderate amount of stool within the sigmoid colon. The distal small bowel is decompressed. A small bowel obstruction is suspected. Peritoneum: There is minimal free fluid. No free intraperitoneal air is visualized. Vasculature: The abdominal aorta is normal in course and caliber. Adenopathy: None. Pelvic viscera: The bladder, and pelvic viscera are unremarkable. Skeletal structures: Postsurgical changes involve the left hip. There is an old left inferior pubic ramus fracture. The bones are osteopenic. There is a scoliosis. Degenerative changes are present within the spine. IMPRESSION: 1. Very difficult study to interpret from a technical standpoint secondary to the lack of intravenous and orally administered contrast, and the paucity of intra-abdominal fat 2. Suspected proximal small bowel obstruction. Clinical and imaging follow-up is recommended Electronically signed by: Anthony Chavarria M.D. 06/26/2017 7:35 AM Dictated Date/Time: 06/26/2017 7:24 AM
[2017-06-26] MEDS ORDERED: LORAZEPAM 2 MG/ML 1 ML VIAL IV STA (08:23)
[2017-06-26] MEDS ORDERED: OPTIRAY 320 IV PRN (11:30)
--- NOTE | 2017-06-26 11:33 | DIAGNOSTIC IMAGING REPORT ---
CT ABD/PELVIS IV AND ORAL CONT CLINICAL HISTORY: Small bowel obstruction. COMPARISON STUDY: Earlier in the day TECHNIQUE: Following the IV administration of 93 mL of Optiray-320, CT scan of the abdomen and pelvis was performed from the lung bases to the proximal femurs. Images are reviewed in the axial, sagittal, and coronal planes. IV contrast was administered without complication. A dose lowering technique was utilized adhering to the principles of ALARA. CT DOSE: 276.40 mGy.cm FINDINGS: Lower chest: There are bibasal atelectatic changes. Liver: The contrast-enhanced liver is normal in size, contour, and attenuation. There is no intrahepatic biliary ductal dilatation. The hepatic veins and portal veins are patent. Gallbladder: No calculi are visualized. There is minimal pericholecystic edema. Spleen: Normal in size and attenuation. Pancreas: Unremarkable. Adrenal glands: Unremarkable. Kidneys: There is symmetric renal cortical enhancement. The kidneys are normal in size without hydronephrosis. Bowel: There are dilated jejunal loops. Distal small bowel is of normal caliber. The findings are consistent with a small bowel obstruction. There is a left midabdominal transition zone. No mass is visualized on CT scanning. There are postsurgical changes involving the sigmoid. There is moderate stool within the sigmoid. Peritoneum: There is trace free pelvic fluid. No free air is visualized. Vasculature: The abdominal aorta is normal in course and caliber. Adenopathy: None. Pelvic viscera: The bladder, and pelvic viscera are unremarkable. Skeletal structures: No destructive osseous lesions are seen. IMPRESSION: 1. Proximal small bowel obstruction, with a left midabdominal transition zone. 2. No evidence of free air 3. Minimal pericholecystic edema Electronically signed by: Anthony Chavarria M.D. 06/26/2017 11:32 AM Dictated Date/Time: 06/26/2017 11:26 AM
[2017-06-26 12:11] VITALS: Ht 154.9 cm; Wt 50.2 kg
[2017-06-26] MEDS ORDERED: ACETAMINOPHEN 325 MG TAB PO PRN (12:45)
[2017-06-26] MEDS ORDERED: MAGNESIUM HYDROXIDE SUSP 30 ML UDC PO PRN (12:45)
[2017-06-26] MEDS ORDERED: HydrALAZINE HCL 20 MG/ML VIAL IV. PRN (12:45)
[2017-06-26] MEDS ORDERED: ALUMINUM/MAGNESIUM/SIMETH (MAALOX MAX) 30 ML UDC PO PRN (12:45)
--- NOTE | 2017-06-26 12:58 | History and Physical ---
History & Physical Date & Time of Service: Jun 26, 2017 at 12:42 Chief Complaint: Back Pain Primary Care Physician: Ulises Chowdary M.D. History of Present Illness Source: patient, clinic records, hospital records Patient is a pleasant 72 y/o female, with PMHx of seizure disorder, HTN, HLD, mitral stenosis, aortic sclerosis, pulmonary HTN, h/o recurrent c.diff s/p colectomy w/ ileostomy- resolved, chronic pain, OA, and anxiety/depression, who presented to the ED because of lower back pain since yesterday. Patient was seen in ED on 06/25 due to seizure disorder. She was discharged to home from ED. Per records, patient was to be taking Keppra BID, but was only taking daily. She states when she got home, she was ambulating with her walker, and experienced a mechanical fall landing on her back. Since that time, she has been experiencing severe lower back pain. Non-radiating. Denies numbness/ tingling, weakness, or bowel/bladder incotience. Denies any head injury, LOC/ syncope. In ED, patient was found to have a SBO seen on CT scan. She denies any abdominal discomfort. She states she has been eating and drinking OK. She admits to 1 episode of vomiting yesterday. She admits to an episode of diarrhea yesterday. Patient denies any fever, chills, sweats, lightheadedness, dizziness , vision changes, CP, palpitations, edema, SOB, wheezing, cough, abdominal pain , nausea, vomiting, diarrhea, urinary symptoms, melena, numbness/tingling, weakness, anxiety/depression, active bleeding, or new skin discoloration/ changes. Past Medical/Surgical History Medical Problems: seizure disorder HTN HLD mitral stenosis aortic sclerosis pulmonary HTN h/o recurrent c.diff s/p colectomy w/ ileostomy- resolved chronic pain anxiety/depression OA Surgical Problems: h/o colectomy and ileostomy femur fx s/p repair Family History Lung cancer Stroke Social History Smoking Status: Never Smoker Drug Use: none Marital Status: Housing status: lives with family Occupational Status: retired Immunizations History of Influenza Vaccine: Yes Influenza Vaccine Date: January 25, 2012 History of Tetanus Vaccine?: Unknown History of Pneumococcal: Yes Pneumococcal Date: Aug 26, 2012 History of Hepatitis B Vaccine: Unknown Multi-Drug Resistant Organisms History of MDRO: No Allergies Coded Allergies: Fentanyl (Verified Adverse Reaction, Unknown, nausea, fearfulness, unsettled thoughts, 06/26/17) Home Medications Scheduled Ascorbic Acid (Ascorbic Acid), 1,000 MG PO DAILY Aspirin (Aspirin), 81 MG PO DAILY Atorvastatin (Lipitor), 20 MG PO DAILY Calcium Carbonate-Vitamin D (Calcium 500 + D), 1 TAB PO DAILY Cranberry (Vaccinium Macrocarp (Cranberry), 1 CAP PO DAILY Ferrous Sulfate (Kp Ferrous Sulfate), 325 MG PO DAILY Lactobacillus (Probiotic), 1 CAP PO DAILY Levetiracetam (Keppra), 500 MG PO BID Olmesartan/Hctz (Benicar Hct 24/08.5), 1 TAB PO DAILY Zoledronic Acid (Reclast), 5 MG INJ YEARLY Scheduled PRN Meloxicam (Mobic), 7.5 MG PO DAILY PRN for Pain Physical Exam Vital Signs Date Time Temp Pulse Resp B/P (MAP) Pulse Ox O2 Delivery O2 Flow Rate FiO2 06/26/17 12:21 79 06/26/17 12:11 Room Air 06/26/17 11:41 81 16 149/73 96 Room Air 06/26/17 09:51 73 20 161/75 97 Room Air 06/26/17 08:33 82 20 173/83 97 Room Air 06/26/17 08:26 86 06/26/17 07:39 92 16 154/86 98 Room Air 06/26/17 06:52 73 18 146/81 94 Room Air 06/26/17 05:47 87 18 184/91 98 Room Air 06/26/17 05:01 93 Room Air 06/26/17 05:00 88 06/26/17 04:59 36.7 82 19 156/72 93 Room Air General Appearance: no apparent distress, + thin (frail appearing ) Head: normocephalic, atraumatic Eyes: PERRL ENT: hearing grossly normal Neck: supple Respiratory/Chest: lungs clear, no respiratory distress, no accessory muscle use Cardiovascular: regular rate, rhythm, + systolic murmur Abdomen/GI: normal bowel sounds, non tender, soft Extremities/Musculoskelatal: no calf tenderness, no pedal edema Neurologic/Psych: no motor/sensory deficits, alert, oriented x 3, + depressed affect Skin: normal color, warm/dry, no rash Diagnostics Laboratory Results Results Past 24 Hours Test 06/26/17 06:05 Range/Units White Blood Count 6.15 4.8-10.8 K/uL Red Blood Count 3.41 4.2-5.4 M/uL Hemoglobin 12.0 12.0-16.0 g/dL Hematocrit 35.1 37-47 % Mean Corpuscular Volume 102.9 80-100 fL Mean Corpuscular Hemoglobin 35.2 25-34 pg Mean Corpuscular Hemoglobin Concent 34.2 32-36 g/dl Platelet Count 203 130-400 K/uL Mean Platelet Volume 10.9 7.4-10.4 fL Neutrophils (%) (Auto) 89.0 % Lymphocytes (%) (Auto) 6.2 % Monocytes (%) (Auto) 4.1 % Eosinophils (%) (Auto) 0.2 % Basophils (%) (Auto) 0.3 % Neutrophils # (Auto) 5.48 1.4-6.5 K/uL Lymphocytes # (Auto) 0.38 1.2-3.4 K/uL Monocytes # (Auto) 0.25 0.11-0.59 K/uL Eosinophils # (Auto) 0.01 0-0.5 K/uL Basophils # (Auto) 0.02 0-0.2 K/uL RDW Standard Deviation 48.7 36.4-46.3 fL RDW Coefficient of Variation 13.0 11.5-14.5 % Immature Granulocyte % (Auto) 0.2 % Immature Granulocyte # (Auto) 0.01 0.00-0.02 K/uL Sodium Level 134 136-145 mmol/L Potassium Level 4.1 3.5-5.1 mmol/L Chloride Level 98 98-107 mmol/L Carbon Dioxide Level 26 21-32 mmol/L Anion Gap 10.0 3-11 mmol/L Blood Urea Nitrogen 8 7-18 mg/dl Creatinine 0.59 0.60-1.20 mg/dl Est Creatinine Clear Calc Drug Dose 65.9 ml/min Estimated GFR () 106.9 Estimated GFR (Non- 92.2 BUN/Creatinine Ratio 14.2 10-20 Random Glucose 112 70-99 mg/dl Calcium Level 8.8 8.5-10.1 mg/dl Magnesium Level 2.1 1.8-2.4 mg/dl Total Bilirubin 0.5 0.2-1 mg/dl Direct Bilirubin 0-0.2 mg/dl Aspartate Amino Transf (AST/SGOT) 16 15-37 U/L Alanine Aminotransferase (ALT/SGPT) 15 12-78 U/L Alkaline Phosphatase 113 45-117 U/L Total Creatine Kinase 165 26-192 U/L Creatine Kinase MB 1.1 0.5-3.6 ng/ml Creatine Kinase MB Ratio 0.7 0-3.0 Troponin I < 0.015 0-0.045 ng/ml Total Protein 7.6 6.4-8.2 gm/dl Albumin 4.1 3.4-5.0 gm/dl Lipase 80 73-393 U/L Chemistry Specimen Hemolysis Diagnostic Radiology CT SCAN OF THE ABDOMEN AND PELVIS WITHOUT CONTRAST CLINICAL HISTORY: Abdominal pain. Back pain. Vomiting. COMPARISON STUDY: 08/13/2016 TECHNIQUE: CT scan of the abdomen and pelvis was performed from the lung bases to the proximal femurs. Images are reviewed in the axial, sagittal, and coronal planes. IV contrast was not administered for this examination. A dose lowering technique was utilized adhering to the principles of ALARA. CT DOSE: 402.91 mGy.cm FINDINGS: Lower chest: The heart is enlarged. There is a small pericardial effusion. There are trace bilateral pleural effusions. There are bibasal atelectatic changes. Liver: The unenhanced liver is normal in size, contour, and attenuation. There is no intrahepatic biliary ductal dilatation. Gallbladder: Unremarkable. Spleen: Normal in size and attenuation. Pancreas: Unremarkable. Adrenal glands: Unremarkable. Kidneys: No renal, ureteral, or bladder calculi are visualized. Bowel: Evaluation the bowel is limited given the lack of intravenous and oral contrast. Given the prior surgery, the lack of oral contrast, and the paucity of intra-abdominal fat, is difficult to distinguish small bowel loops with colon. There is gastric and duodenal distention. There are dilated left mid abdominal small bowel loops, likely small bowel. There is a sigmoid anastomosis. There is a moderate amount of stool within the sigmoid colon. The distal small bowel is decompressed. A small bowel obstruction is suspected. Peritoneum: There is minimal free fluid. No free intraperitoneal air is visualized. Vasculature: The abdominal aorta is normal in course and caliber. Adenopathy: None. Pelvic viscera: The bladder, and pelvic viscera are unremarkable. Skeletal structures: Postsurgical changes involve the left hip. There is an old left inferior pubic ramus fracture. The bones are osteopenic. There is a scoliosis. Degenerative changes are present within the spine. IMPRESSION: 1. Very difficult study to interpret from a technical standpoint secondary to the lack of intravenous and orally administered contrast, and the paucity of intra-abdominal fat 2. Suspected proximal small bowel obstruction. Clinical and imaging follow-up is recommended Electronically signed by: Anthony Chavarria M.D. 06/26/2017 7:35 AM Dictated Date/Time: 06/26/2017 7:24 AM The status of this report is Signed. Draft = Not yet reviewed or approved by Radiologist. Signed = Reviewed and approved by Radiologist. CT ABD/PELVIS IV AND ORAL CONT CLINICAL HISTORY: Small bowel obstruction. COMPARISON STUDY: Earlier in the day TECHNIQUE: Following the IV administration of 93 mL of Optiray-320, CT scan of the abdomen and pelvis was performed from the lung bases to the proximal femurs. Images are reviewed in the axial, sagittal, and coronal planes. IV contrast was administered without complication. A dose lowering technique was utilized adhering to the principles of ALARA. CT DOSE: 276.40 mGy.cm FINDINGS: Lower chest: There are bibasal atelectatic changes. Liver: The contrast-enhanced liver is normal in size, contour, and attenuation. There is no intrahepatic biliary ductal dilatation. The hepatic veins and portal veins are patent. Gallbladder: No calculi are visualized. There is minimal pericholecystic edema. Spleen: Normal in size and attenuation. Pancreas: Unremarkable. Adrenal glands: Unremarkable. Kidneys: There is symmetric renal cortical enhancement. The kidneys are normal in size without hydronephrosis. Bowel: There are dilated jejunal loops. Distal small bowel is of normal caliber. The findings are consistent with a small bowel obstruction. There is a left midabdominal transition zone. No mass is visualized on CT scanning. There are postsurgical changes involving the sigmoid. There is moderate stool within the sigmoid. Peritoneum: There is trace free pelvic fluid. No free air is visualized. Vasculature: The abdominal aorta is normal in course and caliber. Adenopathy: None. Pelvic viscera: The bladder, and pelvic viscera are unremarkable. Skeletal structures: No destructive osseous lesions are seen. IMPRESSION: 1. Proximal small bowel obstruction, with a left midabdominal transition zone. 2. No evidence of free air 3. Minimal pericholecystic edema Electronically signed by: Anthony Chavarria M.D. 06/26/2017 11:32 AM Dictated Date/Time: 06/26/2017 11:26 AM The status of this report is Signed. Draft = Not yet reviewed or approved by Radiologist. Signed = Reviewed and approved by Radiologist. EKG SARA HARTMAN ID:[id number] 26-JUN-2017 05:35:48 [facility] Poor data quality, interpretation may be adversely affected Normal sinus rhythm Normal ECG When compared with ECG of 11-JUN-2017 12:25, No significant change was found 25mm/s 10mm/mV 150Hz 8.0 SP2 12SL 241 KEISHA: 3 Referred by: Referred Self Unconfirmed Vent. rate 81 BPM OH interval 166 ms QRS duration 86 ms QT/QTc 386/448 ms P-R-T axes 48 49 58 1945 (72 yr) Female 59in 0lb Room: Loc:15 Spinner Operator:SILVERIO Decker ind: Impression Assessment and Plan Patient is a pleasant 72 y/o female, with PMHx of seizure disorder, HTN, HLD, mitral stenosis, aortic sclerosis, pulmonary HTN, h/o recurrent c.diff s/p colectomy w/ ileostomy- resolved, chronic pain, OA, osteoporosis, and anxiety/ depression, who presented to the ED because of lower back pain since yesterday. SBO: - Admit to med/surg - NPO - IV NSS @ 100 ml/hr - IV Morphine 1 mg q3 hrs PRN pain - Consult general surgery, appreciate recommendations Lumbar pain s/p mechanical fall: - Check lumbar spine x-ray - IV Morphine as above - PT/OT Seizure disorder: IV Keppra 500 mg BID due to NPO HTN: - Hold Benicar daily due to NPO - IV Hydralazine 10 mg q6 hrs PRN sbp >180 or dbp >100 HLD: Hold Lipitor 20 mg daily due to NPO- resume once tolerating PO Mitral stenosis, aortic sclerosis, pulmonary HTN- follows w/ Dr. Barber h/o recurrent c.diff s/p colectomy w/ ileostomy- resolved Chronic pain, OA- - Hold Mobic 7.5 mg daily PRN due to NPO - IV Morphine as above Osteoporosis: Continue Reclast injection yearly DVT prophylaxis: TEDs/SCDs- hold chemical anticoagulation pending surgical evaluation Code Status: LEVEL I, FULL Dispo: From home- PT/OT and CM consulted Level of Care Med/Surg Advanced Directives Existing Living Will: Yes Existing Power of Exhibit Technician: Yes Resuscitation Status FULL RESUSCITATION VTE Prophylaxis VTE Risk Assessment Done? Y/N: Yes Risk Level: Moderate Given or contraindicated: T.E.D. Stockings, SCD's, Contraindicated
[2017-06-26] MEDS ORDERED: MoRPHine SULFATE 2 MG/ML CARP ONE (13:27)
[2017-06-26] MEDS ORDERED: INFLUENZA ADMINISTRATION CHARGE ONE (13:30)
[2017-06-26] MEDS ORDERED: PNEUMOCOCCAL POLYSACCHARIDES 25 MCG/0.5 ML VIAL/SYR IM. ONE (13:30)
[2017-06-26] MEDS ORDERED: PNEUMOCOCCAL ADMINISTRATION CHARGE ONE (13:30)
[2017-06-26] MEDS ORDERED: INFLUENZA VACCINE HIGH DOSE 65+ 0.5 ML SYR IM. ONE (13:30)
[2017-06-26] MEDS ORDERED: POLYETHYLENE (MIRALAX) 17 GM PACK PO PRN (13:45)
[2017-06-26 14:35] VITALS: BP 171/77; PULSE 79; TEMP 36.9; O2SAT 97
[2017-06-26] MEDS: ONDANSETRON INJ 2 MG/ML 2 ML VIAL IV PRN ×2 (15:42→21:29)
[2017-06-26] MEDS: SODIUM CHLORIDE 0.9% 1000ML 1,000 ML IV SCH (15:43)
[2017-06-26 16:02] VITALS: BP 170/80; PULSE 75; TEMP 36.7; O2SAT 96
[2017-06-26] MEDS ORDERED: NURSING VERBAL MED ORDER ONE ×2 (18:00→20:30)
[2017-06-26] MEDS: MoRPHine SULFATE 2 MG/ML CARP IV PRN ×2 (18:20→21:29)
[2017-06-26 19:25] LABS: URINE APPEARANCE CLOUDY (CLEAR); URINE BILIRUBIN NEG (NEG); URINE COLOR YELLOW; URINE EPITHELIAL CELL AUTO 0-5 /lpf (0-5); URINE NITRITE NEG (NEG); URINE PH 6.5 (4.5-7.5); URINE SPECIFIC GRAVITY > 1.045 (1.000-1.030); UROBILINOGEN NEG (NEG); ZZUR CULT IF INDIC CLEAN CATCH YES
--- NOTE | 2017-06-26 19:29 | DIAGNOSTIC IMAGING REPORT ---
LUMBAR SPINE 2 OR 3 VIEWS CLINICAL HISTORY: Low back pain status post trauma COMPARISON STUDY: CT scan dated 06/24/2017 FINDINGS: There is a moderate lumbar levoscoliosis. There are moderately advanced multilevel degenerative changes. No acute fractures are visualized. There is contrast in the bladder. There is a suspected right-sided bladder diverticulum. IMPRESSION: Scoliosis and advanced multilevel degenerative change. No acute fractures identified Electronically signed by: Anthony Chavarria M.D. 06/26/2017 7:28 PM Dictated Date/Time: 06/26/2017 7:26 PM
[2017-06-26 19:36] LABS: MANUAL MICROSCOPIC REQUIRED? NO; REVIEW REQ? NO
[2017-06-26] MEDS ORDERED: KETOROLAC TROMETHAMINE 15 MG/ML VIAL ONE (20:32)
[2017-06-26] MEDS ORDERED: CLONAZEPAM 0.5 MG TAB PO SCH (21:00)
[2017-06-26] MEDS: LEVETIRACETAM IV 500 MG in DEXTROSE 5% 100ML 100 ML IV SCH (21:29)
[2017-06-26 23:00] VITALS: BP 194/85; PULSE 83; TEMP 37.2; O2SAT 96
[2017-06-27] VITALS (12 sets, daily range): BP systolic 136–191; BP diastolic 70–94; PULSE 86–106; TEMP 36.5–36.9; O2SAT 94–96
[2017-06-27] MEDS: SODIUM CHLORIDE 0.9% 1000ML 1,000 ML IV SCH (02:17)
[2017-06-27] MEDS: ONDANSETRON INJ 2 MG/ML 2 ML VIAL IV PRN (05:39)
[2017-06-27 07:22] LABS: BUN/CREATININE RATIO 23.4 (10-20); CALCIUM 8.7 mg/dl (8.5-10.1); CREATININE 0.5 mg/dl (0.60-1.20); POTASSIUM 3.3 mmol/L (3.5-5.1)
[2017-06-27] MEDS: LEVETIRACETAM IV 500 MG in DEXTROSE 5% 100ML 100 ML IV SCH ×2 (08:55→22:18)
--- NOTE | 2017-06-27 08:55 | Pre-Operative Consultation ---
History General Date of Service: Jun 27, 2017. Chief Complaint: low back pain after fall Stated Complaint: low back pain after fall HPI HPI: The patient is a 72 year old female being seen at the request of NAEEM Hoang for small bowel obstruction. She presented to the hospital on Tuesday after a fall. Developed low back pain of moderate severity. This is the setting of chronic pain from osteoarthritis for which she is on medications. CT scan showed a small bowel obstruction. She denies any abdominal pain. On detailed questioning, notes nausea and vomiting which have been going on for 2 days she believes. Had diarrhea which is unusual for her. Her prior abdominal operations include a colectomy and ileostomy for "blown bowel" followed by ileostomy reversal. This happened over 10 yrs ago she believes. Historian: patient (poor historian) Risk Assessment Daily beta lasha use?: No Problem List Medical Problems: (1) Accidental overdose Status: Acute (2) Altered mental status Status: Acute (3) Ambulatory dysfunction Status: Acute (4) Anxiety Status: Chronic (5) Contusion Status: Acute (6) Depressive Disorder Nec Status: Chronic (7) Encounter for removal of margarito Status: Acute (8) Fall Status: Acute (9) Head injury, closed Status: Acute (10) Hypertension Status: Chronic (11) Hyponatremia Status: Acute (12) Medication side effects Status: Acute (13) Near syncope Status: Acute (14) Osteoporosis Status: Chronic (15) Scalp laceration Status: Acute (16) Seizure Status: Acute (17) Seizure disorder Status: Chronic (18) UTI (urinary tract infection) Status: Acute Medical & Surgical History Past Medical History: Medical Problems: seizure disorder HTN HLD mitral stenosis aortic sclerosis pulmonary HTN h/o recurrent c.diff s/p colectomy w/ ileostomy- resolved chronic pain anxiety/depression OA Past Medical History: anxiety, depression, hypertension, seizure Past Surgical History: colectomy, orthopedic surgery Family History Family History: cancer (lung ) Social History Hx Tobacco Use In Past Year?: No Smoking Status: Never Smoker Alcohol: none Drug Use: none Marital status: Housing status: lives with family Occupation status: retired Immunizations Have You Had Influenza Vaccine: Yes Date Of Influenza Vaccine: January 25, 2012 Have You Had Tetanus Vaccine: Unknown History of Pneumococcal: Yes Date of Pneumococcal Vaccine: Aug 26, 2012 History Hepatitis B Vaccine: Unknown Allergies Allergies: Coded Allergies: Fentanyl (Verified Adverse Reaction, Unknown, nausea, fearfulness, unsettled thoughts, 06/26/17) Medications Current Inpatient Medications Current Inpatient Medications Medications (Trade) Dose Ordered Sig/Ba Route Start Time Stop Time Status Last Admin Dose Admin Ioversol (Optiray 320) 100 ml UD PRN IV 06/26/17 11:30 06/30/17 11:29 Acetaminophen (Tylenol Tab) 650 mg Q4H PRN PO 06/26/17 12:45 07/26/17 12:44 Al Hydrox/Mg Hydrox/Simethicone (Maalox Max Susp) 15 ml Q4H PRN PO 06/26/17 12:45 07/26/17 12:44 Magnesium Hydroxide (Milk Of Magnesia Susp) 30 ml Q6H PRN PO 06/26/17 12:45 07/26/17 12:44 Polyethylene (Miralax Powder Packet) 17 gm DAILY PRN PO 06/26/17 13:45 07/26/17 13:44 Ondansetron HCl (Zofran Inj) 4 mg Q6H PRN IV 06/26/17 12:45 07/26/17 12:44 06/27/17 05:39 4 MG Hydralazine HCl (HydrALAZINE INJ) 10 mg Q6H PRN IV. 06/26/17 12:45 07/26/17 12:44 06/27/17 00:02 10 MG Levetiracetam 500 mg/Dextrose 105 ml @ 420 mls/hr Q12 IV 06/26/17 21:00 07/26/17 20:59 06/26/17 21:29 420 MLS/HR Sodium Chloride 1,000 ml @ 100 mls/hr Q10H IV 06/26/17 15:00 07/26/17 14:59 06/27/17 02:17 100 MLS/HR Morphine Sulfate (MoRPHine SULFATE INJ) 1 mg Q3H PRN IV 06/26/17 12:45 07/10/17 12:44 06/26/17 21:29 1 MG Clonazepam (Klonopin Tab) 0.5 mg HS PO 06/26/17 21:00 07/26/17 20:59 06/26/17 21:29 0.5 MG Review of Systems Review of Systems Constitutional: denies chills, denies fever, weakness Eyes: reports: no symptoms ENT: reports: no symptoms reported Cardiovascular: reports: no symptoms reported Respiratory: reports: no symptoms reported Gastrointestinal: diarrhea, nausea, vomiting Genitourinary - Female: reports: no symptoms Musculoskeletal: back pain Neurologic: reports: headache, seizure Psychiatric: reports: anxiety Endocrine: no symptoms Hematologic / Lymphatic: no symptoms Physical Exam Physical Exam General Appearance: No distress Ears, Nose, Throat: + normal ENT inspection Neck: No tracheal deviation Respiratory: No chest tenderness, No accessory muscle use Cardiovascular: + systolic murmur (over mitral area), No abnormal rate Abdomen: + other (well healed midline and RLQ incisions), No abnormal bowel sounds, No rebound, No tenderness, No distension, No guarding Extremities: No edema Neurologic/Psychiatric: No abnormal art teacher II-XII Diagnostics Labs Labs Results Past 24 Hours Test 06/26/17 18:20 06/27/17 06:30 Range/Units Urine Color YELLOW Urine Appearance CLOUDY CLEAR Urine pH 6.5 4.5-7.5 Urine Specific [place] > 1.045 1.000-1.030 Urine Protein NEG NEG Urine Glucose (UA) NEG NEG Urine Ketones 1+ NEG Urine Occult Blood TRACE NEG Urine Nitrite NEG NEG Urine Bilirubin NEG NEG Urine Urobilinogen NEG NEG Urine Leukocyte Esterase SMALL NEG Urine WBC (Auto) >30 0-5 /hpf Urine RBC (Auto) 10-30 0-4 /hpf Urine Hyaline Casts (Auto) 5-10 0-5 /lpf Urine Epithelial Cells (Auto) 0-5 0-5 /lpf Urine Bacteria (Auto) 2+ NEG Sodium Level 135 136-145 mmol/L Potassium Level 3.3 3.5-5.1 mmol/L Chloride Level 99 98-107 mmol/L Carbon Dioxide Level 26 21-32 mmol/L Anion Gap 10.0 3-11 mmol/L Blood Urea Nitrogen 12 7-18 mg/dl Creatinine 0.50 0.60-1.20 mg/dl Est Creatinine Clear Calc Drug Dose 77.8 ml/min Estimated GFR () 112.9 Estimated GFR (Non- 97.4 BUN/Creatinine Ratio 23.4 10-20 Random Glucose 117 70-99 mg/dl Calcium Level 8.7 8.5-10.1 mg/dl Microbiology Results 06/26/17 Urine Culture - Preliminary, Resulted Streptococcus Species Lab Interpretation Lab Interpretation: labs were reviewed Diagnostic Radiology Diagnostic Radiology CT scan personally reviewed - dilated proximal small bowel with decompressed distal small bowel Impression Assessment and Plan Assessment and Plan 72 yr old woman with multiple other medical issues presents with low back pain after fall and incidental finding of small bowel obstruction on CT scan. On further questioning, admits to nausea and vomiting for the past few days. No acute abdomen. Normal labs. Most likely obstruction is related to adhesions and should hopefully resolve nonoperatively. I would recommend ng placement given her persistent nausea/ vomiting. Can follow abdominal xrays to look for progression of PO contrast. Continue IVF, bowel rest. Will follow. Thank you for the consult.
[2017-06-27] MEDS: NSS + 20MEQ KCL 1000ML 1,000 ML IV SCH ×2 (09:52→19:32)
[2017-06-27] MEDS: AMPICILLIN/SULBACTAM SOD INJ 3,000 MG in SODIUM CHLORIDE 0.9% 100ML 100 ML IV SCH ×3 (11:18→22:50)
[2017-06-27] MEDS: MoRPHine SULFATE 2 MG/ML CARP IV PRN ×2 (12:23→20:00)
--- NOTE | 2017-06-27 12:27 | DIAGNOSTIC IMAGING REPORT ---
KUB CLINICAL HISTORY: sob, ng tube placement pain. Tube position. COMPARISON STUDY: CT 06/26/2017 FINDINGS: Nasogastric tube placed within the mid stomach. Nonobstructive bowel pattern. Contrast within the urinary bladder. Degenerative change and scoliosis of the lumbar spine. IMPRESSION: Nasogastric tube placed mid stomach. Nonobstructive bowel pattern. The above report was generated using voice recognition software. It may contain grammatical, syntax or spelling errors. Electronically signed by: Kike Yarbrough M.D. 06/27/2017 12:26 PM Dictated Date/Time: 06/27/2017 12:25 PM
--- NOTE | 2017-06-27 12:40 | Hospitalist Progress Note ---
Hospitalist Progress Note Date of Service Jun 27, 2017. (Lauren Ryan .ADINA) Subjective Pt evaluation today including: conversation w/ patient, conversation w/ family , physical exam, lab review, review of studies, review of inpatient medication list Pain: 03/14 - per family patient has not been asking for pain meds Voiding: no voiding problems Ms. Rollins is very soft spoken and stoic, however per family she has been having a lot of neck and back pain. No nausea or abdominal pain. Respiratory: + cough (moist), No shortness of breath Cardiovascular: No chest pain, No edema Abdomen: + see HPI Musculoskeletal: + see HPI All Other Systems: Reviewed and Negative (Lauren Ryan CRNP) Medications Medications Administered Medications (Trade) Dose Ordered Sig/Ba Route Start Time Stop Time Status Last Admin Dose Admin Sodium Chloride 250 ml @ 999 mls/hr Q16M STAT IV 06/26/17 06:36 06/26/17 06:51 DC 06/26/17 06:36 999 MLS/HR Sodium Chloride 1,000 ml @ 125 mls/hr Q8H STAT IV 06/26/17 06:36 06/26/17 14:35 DC 06/26/17 06:45 125 MLS/HR Ondansetron HCl (Zofran Inj) 4 mg NOW STAT IV 06/26/17 06:36 06/26/17 06:40 DC 06/26/17 06:45 4 MG Lorazepam (Ativan Inj) 0.5 mg NOW STAT IV 06/26/17 08:23 06/26/17 08:24 DC 06/26/17 08:30 0.5 MG Ondansetron HCl (Zofran Inj) 4 mg Q6H PRN IV 06/26/17 12:45 07/26/17 12:44 06/27/17 05:39 4 MG Hydralazine HCl (HydrALAZINE INJ) 10 mg Q6H PRN IV. 06/26/17 12:45 07/26/17 12:44 06/27/17 00:02 10 MG Levetiracetam 500 mg/Dextrose 105 ml @ 420 mls/hr Q12 IV 06/26/17 21:00 07/26/17 20:59 06/27/17 08:55 420 MLS/HR Sodium Chloride 1,000 ml @ 100 mls/hr Q10H IV 06/26/17 15:00 06/27/17 09:07 DC 06/27/17 02:17 100 MLS/HR Morphine Sulfate (MoRPHine SULFATE INJ) 1 mg Q3H PRN IV 06/26/17 12:45 07/10/17 12:44 06/27/17 12:23 1 MG Morphine Sulfate (MoRPHine SULFATE INJ) 2 mg STK-MED ONCE .ROUTE 06/26/17 13:27 06/26/17 13:28 DC 06/26/17 13:32 1 MG Clonazepam (Klonopin Tab) 0.5 mg HS PO 06/26/17 21:00 07/26/17 20:59 06/26/17 21:29 0.5 MG Ketorolac Tromethamine (Toradol Inj) 15 mg STK-MED ONCE .ROUTE 06/26/17 20:32 06/26/17 20:33 DC 06/26/17 20:35 15 MG Potassium Chloride/Sodium Chloride 1,000 ml @ 100 mls/hr Q10H IV 06/27/17 09:30 07/27/17 09:29 06/27/17 09:52 100 MLS/HR Ampicillin Sodium/ Sulbactam Sodium 3000 mg/Sodium Chloride 108 ml @ 200 mls/hr Q6H IV 06/27/17 10:00 07/02/17 09:59 06/27/17 11:18 200 MLS/HR (Lauren Ryan CRNP) Objective Vital Signs Date Time Temp Pulse Resp B/P (MAP) Pulse Ox O2 Delivery O2 Flow Rate FiO2 06/27/17 08:59 98 176/76 (109) 06/27/17 07:20 95 Room Air 06/27/17 06:58 36.8 106 15 175/76 (109) 95 Room Air 06/27/17 05:27 167/76 (106) 06/27/17 00:21 169/78 (108) 06/27/17 00:00 95 Room Air 06/27/17 00:00 88 191/94 (126) 95 Room Air 06/26/17 23:00 37.2 83 16 194/85 (121) 96 Room Air 06/26/17 16:02 36.7 75 16 170/80 (110) 96 Room Air 06/26/17 15:30 Room Air 06/26/17 14:35 36.9 79 12 171/77 (108) 97 Room Air 06/26/17 13:32 85 16 149/94 96 Room Air 06/26/17 13:01 83 16 164/69 95 Room Air (Lauren Ryan CRNP) Physical Exam Notes: General: no distress Eyes: normal inspection, PERLL Respiratory: chest non tender, clear to auscultation, normal breath sounds, no respiratory distress, no accessory muscle use, moist cough Cardiac: regular rate and rhythm, no rub or gallop, holosystolic murmur, no edema, no jvd GI/: active bowel sounds, no abd pain or tenderness, soft, non distended Extremities: normal range of motion, generalized weakness, non tender Neuro/Psych: alert and oriented x 3, normal mood and affect Skin: normal color, dry (Lauren Ryan CRNP) Laboratory Results Last 24 Hours Test 06/26/17 18:20 06/27/17 06:30 Urine Color YELLOW Urine Appearance CLOUDY Urine pH 6.5 Urine Specific Comfort > 1.045 Urine Protein NEG Urine Glucose (UA) NEG Urine Ketones 1+ Urine Occult Blood TRACE Urine Nitrite NEG Urine Bilirubin NEG Urine Urobilinogen NEG Urine Leukocyte Esterase SMALL Urine WBC (Auto) >30 /hpf Urine RBC (Auto) 10-30 /hpf Urine Hyaline Casts (Auto) 5-10 /lpf Urine Epithelial Cells (Auto) 0-5 /lpf Urine Bacteria (Auto) 2+ Sodium Level 135 mmol/L Potassium Level 3.3 mmol/L Chloride Level 99 mmol/L Carbon Dioxide Level 26 mmol/L Anion Gap 10.0 mmol/L Blood Urea Nitrogen 12 mg/dl Creatinine 0.50 mg/dl Est Creatinine Clear Calc Drug Dose 77.8 ml/min Estimated GFR () 112.9 Estimated GFR (Non- 97.4 BUN/Creatinine Ratio 23.4 Random Glucose 117 mg/dl Calcium Level 8.7 mg/dl (Lauren Ryan CRNP) Assessment and Plan Patient is a pleasant 72 y/o female, with PMHx of seizure disorder, HTN, HLD, mitral stenosis, aortic sclerosis, pulmonary HTN, h/o recurrent c.diff s/p colectomy w/ ileostomy- resolved, chronic pain, OA, osteoporosis, and anxiety/ depression, who presented to the ED because of lower back pain since yesterday. SBO: - Admit to med/surg - NPO - IV NSS @ 100 ml/hr - IV Morphine 1 mg q3 hrs PRN pain - Consult general surgery, appreciate recommendations - NG tube with 500 ml in canister since placed this morning around 0900 Lumbar pain s/p mechanical fall: - Check lumbar spine x-ray - no acute finding - IV Morphine as above - encouraged to tell nurse when she is in pain since per family she has not been asking for any pain medication - Heating pad - PT/OT Low urine output - retaining almost 400 mls on bladder scan per nursing - 500 ml bolus - merlos catheter Seizure disorder: IV Keppra 500 mg BID due to NPO HTN: - Hold Benicar daily due to NPO - IV Hydralazine 10 mg q6 hrs PRN sbp >180 or dbp >100 Hypokalemia - repleated HLD: Hold Lipitor 20 mg daily due to NPO- resume once tolerating PO Mitral stenosis, aortic sclerosis, pulmonary HTN- follows w/ Dr. Barber h/o recurrent c.diff s/p colectomy w/ ileostomy- resolved Chronic pain, OA- - Hold Mobic 7.5 mg daily PRN due to NPO - IV Morphine as above - Ketorlac while npo Osteoporosis: Continue Reclast injection yearly DVT prophylaxis: TEDs/SCDs- hold chemical anticoagulation pending surgical evaluation Code Status: LEVEL I, FULL Dispo: From home- PT/OT and CM consulted (Lauren Ryan ., ADINA) Attending Attestation: Pt seen/examined, chart reviewed, care plan d/w ADINA Ryan. I agree w/ the [place] components of her documentation. Pt w/o complaints during my visit. Prior to NG tube insertion was having abd pain, nausea, and persistent vomiting. NG tube during my visit draining bile. Denied any dyspnea during my visit. VSS although BPs elevated gen - frail appearing, but NAD neck - JVD present mouth - MM dry heart - RRR, s1, s2, 2/6 early systolic murmur LUSB lungs - mild rales left lung, none on right abd - soft, minimally distended, BS+, NT ext - no edema A/P: 1. SBO - conservative Rx for now - NG tube, fluids, NPO. Appreciate gen surg consultation. 2. urinary difficulty - this afternoon the patient finally voided spontaneously - at least 500cc of urine output. 3. strep UTI - unasyn, follow cx 4. hypokalemia - replete. 5. pulmonary HTN - noted; could be cause of JVD. 6. HTN - if BPs remain elevated then hydralazine 10mg IV q8h scheduled. in light of heart history will have to be cautious about IVF. David Castillo MD (David Castillo MD)
[2017-06-27] MEDS: POTASSIUM CHLR 10 MEQ / WTR 10 MEQ in PREMIXED WATER 100 ML IV SCH ×2 (12:44→14:02)
[2017-06-27] MEDS ORDERED: SODIUM CHLORIDE 0.9% 500ML 500 ML IV SCH (13:00)
[2017-06-27] MEDS: KETOROLAC TROMETHAMINE 15 MG/ML VIAL IV PRN (15:25)
[2017-06-27] MEDS: HydrALAZINE HCL 20 MG/ML VIAL IV. SCH (18:09)
[2017-06-27] MEDS ORDERED: NURSING VERBAL MED ORDER ONE (21:00)
[2017-06-27] MEDS: LORAZEPAM INJ 0.5 MG in SYRINGE 0.75 ML IV SCH (22:17)
[2017-06-28] VITALS (8 sets, daily range): BP systolic 132–162; BP diastolic 58–75; PULSE 85–95; TEMP 36.3–36.8; O2SAT 94–95
[2017-06-28] MEDS: MoRPHine SULFATE 2 MG/ML CARP IV PRN ×4 (00:32→22:26)
[2017-06-28] MEDS: HydrALAZINE HCL 20 MG/ML VIAL IV. SCH ×3 (02:09→18:49)
[2017-06-28] MEDS: AMPICILLIN/SULBACTAM SOD INJ 3,000 MG in SODIUM CHLORIDE 0.9% 100ML 100 ML IV SCH ×4 (03:46→22:26)
[2017-06-28] MEDS: NSS + 20MEQ KCL 1000ML 1,000 ML IV SCH ×3 (05:45→23:19)
[2017-06-28 08:11] LABS: BUN/CREATININE RATIO 36.2 (10-20); CALCIUM 8.2 mg/dl (8.5-10.1); CREATININE 0.37 mg/dl (0.60-1.20); POTASSIUM 3.5 mmol/L (3.5-5.1)
[2017-06-28 08:33] LABS: HEMATOCRIT 29.7 % (37-47); MEAN CELL VOLUME 104.9 fL (80-100); MEAN CORPUSCULAR HEMOGLOBIN 34.3 pg (25-34); MEAN CORPUSCULAR HGB CONC 32.7 g/dl (32-36); MEAN PLATELET VOLUME 10.3 fL (7.4-10.4); PLATELET COUNT 144 K/uL (130-400); PLT ESTIMATE NORMAL; RED BLOOD COUNT 2.83 M/uL (4.2-5.4)
[2017-06-28] MEDS: LEVETIRACETAM IV 500 MG in DEXTROSE 5% 100ML 100 ML IV SCH ×2 (08:35→21:29)
--- NOTE | 2017-06-28 10:07 | Surgery Progress Note ---
Surgery Progress Note Date of Service Jun 28, 2017. Subjective Post OP Day: HD # 2 "back pain" NO abdominal pain, nausea or vomiting Feeling better since the NGT was placed Not passing flatus , no bowel movement Objective Vital Signs: Date Time Temp Pulse Resp B/P (MAP) Pulse Ox O2 Delivery O2 Flow Rate FiO2 06/28/17 07:22 36.5 85 16 132/71 (91) 94 Room Air 06/28/17 07:06 36.5 85 16 132/71 (91) 94 Nasal Cannula 2.0 06/28/17 02:08 87 133/71 (91) 06/28/17 00:05 Room Air 06/27/17 23:40 36.5 87 16 136/70 (92) 94 Room Air 06/27/17 20:10 96 Room Air 06/27/17 18:07 86 150/74 (99) 06/27/17 16:30 Room Air 06/27/17 15:40 36.9 104 16 176/76 (109) 96 Room Air 06/27/17 14:05 93 157/80 (105) 06/27/17 13:55 153/78 (103) General Appearance: WD/WN, no apparent distress Head: normocephalic, atraumatic Neck: trachea midline Respiratory/Chest: no respiratory distress, no accessory muscle use Abdomen: normal bowel sounds, non tender, non distended, soft, no organomegaly , no pulsatile mass Laboratory Results: Results Past 24 Hours Test 06/28/17 07:28 Range/Units White Blood Count 5.50 4.8-10.8 K/uL Red Blood Count 2.83 4.2-5.4 M/uL Hemoglobin 9.7 12.0-16.0 g/dL Hematocrit 29.7 37-47 % Mean Corpuscular Volume 104.9 80-100 fL Mean Corpuscular Hemoglobin 34.3 25-34 pg Mean Corpuscular Hemoglobin Concent 32.7 32-36 g/dl RDW Standard Deviation 51.6 36.4-46.3 fL RDW Coefficient of Variation 13.5 11.5-14.5 % Platelet Count 144 130-400 K/uL Mean Platelet Volume 10.3 7.4-10.4 fL Platelet Estimate NORMAL Sodium Level 140 136-145 mmol/L Potassium Level 3.5 3.5-5.1 mmol/L Chloride Level 107 98-107 mmol/L Carbon Dioxide Level 25 21-32 mmol/L Anion Gap 8.0 3-11 mmol/L Blood Urea Nitrogen 13 7-18 mg/dl Creatinine 0.37 0.60-1.20 mg/dl Est Creatinine Clear Calc Drug Dose 105.2 ml/min Estimated GFR () 124.6 Estimated GFR (Non- 107.5 BUN/Creatinine Ratio 36.2 10-20 Random Glucose 88 70-99 mg/dl Calcium Level 8.2 8.5-10.1 mg/dl Magnesium Level 2.0 1.8-2.4 mg/dl Assessment & Plan 72 year-old female with history of exploratory laparotomy, colectomy, ileostomy and ileostomy reversal who presented to emergency department post fall and was found to incidentally have a partial small bowel obstruction on ct scan of abdomen and pelvis. NGT placed yesterday with 1400 cc output, bilious. No return of bowel function as of yet. No abdominal pain, nausea or vomiting. Plan: Continue conservative management at this time: NPO, NGT to LIS, IV fluids, IV pain medication as needed and IV Zofran Await return of bowel function continue current medical management will follow Discussed with Dr. Nagel who agrees with above Pt seen and examined by myself. Abdominal exam is benign - soft,nontender, no further distention. AXR shows normal bowel gas pattern. NG output has slowed. Nursing reports a bowel movement yesterday. All c/w resolving small bowel obstruction. Will plan on removing ng tube tomorrow.
--- NOTE | 2017-06-28 12:40 | Hospitalist Progress Note ---
Hospitalist Progress Note Date of Service Jun 28, 2017. (Lauren Ryan CRNP) Subjective Pt evaluation today including: conversation w/ patient, physical exam, chart review, lab review, review of inpatient medication list Voiding: voiding difficulty Ms. Rollins does not feel any better this morning. She feels unwell generally although her back pain is better controlled today. She is passing gas but no bowel movement yet Respiratory: + cough, + sputum, + shortness of breath Cardiovascular: + chest pain Abdomen: No pain, No nausea All Other Systems: Reviewed and Negative (Lauren Ryan CRNP) Medications Medications Administered Medications (Trade) Dose Ordered Sig/Ba Route Start Time Stop Time Status Last Admin Dose Admin Sodium Chloride 250 ml @ 999 mls/hr Q16M STAT IV 06/26/17 06:36 06/26/17 06:51 DC 06/26/17 06:36 999 MLS/HR Sodium Chloride 1,000 ml @ 125 mls/hr Q8H STAT IV 06/26/17 06:36 06/26/17 14:35 DC 06/26/17 06:45 125 MLS/HR Ondansetron HCl (Zofran Inj) 4 mg NOW STAT IV 06/26/17 06:36 06/26/17 06:40 DC 06/26/17 06:45 4 MG Lorazepam (Ativan Inj) 0.5 mg NOW STAT IV 06/26/17 08:23 06/26/17 08:24 DC 06/26/17 08:30 0.5 MG Ondansetron HCl (Zofran Inj) 4 mg Q6H PRN IV 06/26/17 12:45 07/26/17 12:44 06/27/17 05:39 4 MG Hydralazine HCl (HydrALAZINE INJ) 10 mg Q6H PRN IV. 06/26/17 12:45 06/27/17 16:10 DC 06/27/17 00:02 10 MG Levetiracetam 500 mg/Dextrose 105 ml @ 420 mls/hr Q12 IV 06/26/17 21:00 07/26/17 20:59 06/28/17 08:35 420 MLS/HR Sodium Chloride 1,000 ml @ 100 mls/hr Q10H IV 06/26/17 15:00 06/27/17 09:07 DC 06/27/17 02:17 100 MLS/HR Morphine Sulfate (MoRPHine SULFATE INJ) 1 mg Q3H PRN IV 06/26/17 12:45 07/10/17 12:44 06/28/17 11:29 1 MG Influenza Virus Vaccine (Fluzone High-Dose Pf 0.5 ml) 0.5 ml ONCE ONCE IM. 06/26/17 13:30 06/26/17 14:41 DC 06/27/17 19:07 0.5 ML Pneumococcal Polysaccharide Vaccine (Pneumovax-23 Inj) 25 mcg ONCE ONCE IM. 06/26/17 13:30 06/26/17 14:47 DC 06/27/17 19:19 25 MCG Morphine Sulfate (MoRPHine SULFATE INJ) 2 mg STK-MED ONCE .ROUTE 06/26/17 13:27 06/26/17 13:28 DC 06/26/17 13:32 1 MG Clonazepam (Klonopin Tab) 0.5 mg HS PO 06/26/17 21:00 07/26/17 20:59 Future Hold 06/26/17 21:29 0.5 MG Ketorolac Tromethamine (Toradol Inj) 15 mg STK-MED ONCE .ROUTE 06/26/17 20:32 06/26/17 20:33 DC 06/26/17 20:35 15 MG Potassium Chloride/Sodium Chloride 1,000 ml @ 100 mls/hr Q10H IV 06/27/17 09:30 07/27/17 09:29 06/28/17 05:45 100 MLS/HR Ampicillin Sodium/ Sulbactam Sodium 3000 mg/Sodium Chloride 108 ml @ 200 mls/hr Q6H IV 06/27/17 10:00 07/02/17 09:59 06/28/17 09:45 200 MLS/HR Potassium Chloride 10 meq/ Prmx 100 ml @ 100 mls/hr Q1H IV 06/27/17 11:00 06/27/17 13:59 DC 06/27/17 14:02 100 MLS/HR Ketorolac Tromethamine (Toradol Inj) 15 mg Q6H PRN IV 06/27/17 12:45 07/02/17 12:44 06/27/17 15:25 15 MG Sodium Chloride 500 ml @ 1,000 mls/hr Q30M IV 06/27/17 13:00 06/27/17 13:29 DC 06/27/17 14:02 1,000 MLS/HR Hydralazine HCl (HydrALAZINE INJ) 10 mg Q8H IV. 06/27/17 18:00 07/27/17 17:59 06/28/17 09:46 10 MG Lorazepam 0.5 mg/ Syringe 1 ml @ 1 mls/min HS IV 06/27/17 21:00 07/27/17 20:59 06/27/17 22:17 1 MLS/MIN (Lauren Ryan CRNP) Objective Vital Signs Date Time Temp Pulse Resp B/P (MAP) Pulse Ox O2 Delivery O2 Flow Rate FiO2 06/28/17 08:00 94 Nasal Cannula 2.0 06/28/17 07:22 36.5 85 16 132/71 (91) 94 Room Air 06/28/17 07:06 36.5 85 16 132/71 (91) 94 Nasal Cannula 2.0 06/28/17 07:00 94 Nasal Cannula 2.0 06/28/17 02:08 87 133/71 (91) 06/28/17 00:05 Room Air 06/27/17 23:40 36.5 87 16 136/70 (92) 94 Room Air 06/27/17 20:10 96 Room Air 06/27/17 18:07 86 150/74 (99) 06/27/17 16:30 Room Air 06/27/17 15:40 36.9 104 16 176/76 (109) 96 Room Air 06/27/17 14:05 93 157/80 (105) 06/27/17 13:55 153/78 (103) (Lauren Ryan CRNP) Physical Exam Notes: General: no distress Eyes: normal inspection, PERLL Respiratory: chest non tender, faint crackles left base otherwise clear to auscultation, normal breath sounds, no respiratory distress, no accessory muscle use Cardiac: regular rate and rhythm, no rub or gallop, III/IV systolic murmur, no edema, no jvd GI/: active bowel sounds, no abd pain or tenderness, soft, non distended Extremities: normal range of motion, normal strength, non tender Neuro/Psych: alert and oriented x 3, normal mood and affect Skin: normal color, dry (Lauren Ryan ., ADINA) Laboratory Results Last 24 Hours Test 06/28/17 07:28 White Blood Count 5.50 K/uL Red Blood Count 2.83 M/uL Hemoglobin 9.7 g/dL Hematocrit 29.7 % Mean Corpuscular Volume 104.9 fL Mean Corpuscular Hemoglobin 34.3 pg Mean Corpuscular Hemoglobin Concent 32.7 g/dl RDW Standard Deviation 51.6 fL RDW Coefficient of Variation 13.5 % Platelet Count 144 K/uL Mean Platelet Volume 10.3 fL Platelet Estimate NORMAL Sodium Level 140 mmol/L Potassium Level 3.5 mmol/L Chloride Level 107 mmol/L Carbon Dioxide Level 25 mmol/L Anion Gap 8.0 mmol/L Blood Urea Nitrogen 13 mg/dl Creatinine 0.37 mg/dl Est Creatinine Clear Calc Drug Dose 105.2 ml/min Estimated GFR () 124.6 Estimated GFR (Non- 107.5 BUN/Creatinine Ratio 36.2 Random Glucose 88 mg/dl Calcium Level 8.2 mg/dl Magnesium Level 2.0 mg/dl (Lauren Ryan, ADINA) Assessment and Plan Patient is a pleasant 72 y/o female, with PMHx of seizure disorder, HTN, HLD, mitral stenosis, aortic sclerosis, pulmonary HTN, h/o recurrent c.diff s/p colectomy w/ ileostomy- resolved, chronic pain, OA, osteoporosis, and anxiety/ depression, who presented to the ED because of lower back pain since yesterday. SBO: - Admit to med/surg - NPO - IV NSS 20k @ 100 ml/hr - Consult general surgery, medical management for now - NG tube put out a little over a liter yesterday, around 75 ml for today so slowing down however there appeared to be ground coffee emesis in tube and reduced Hgb so occult blood for gastric contents ordered Lumbar pain s/p mechanical fall: - Check lumbar spine x-ray - no acute finding - IV Morphine as above - encouraged to tell nurse when she is in pain since per family she has not been asking for any pain medication, toradol added - Heating pad - PT/OT Low urine output - retaining almost 400 mls on bladder scan per nursing again today - merlos catheter Seizure disorder: IV Keppra 500 mg BID due to NPO HTN: - Hold Benicar daily due to NPO - IV Hydralazine 10 mg q6 hrs PRN sbp >180 or dbp >100 Hypokalemia - repleated - potassium in fluids HLD: Hold Lipitor 20 mg daily due to NPO- resume once tolerating PO Mitral stenosis, aortic sclerosis, pulmonary HTN- follows w/ Dr. Barber h/o recurrent c.diff s/p colectomy w/ ileostomy- resolved Chronic pain, OA- - Hold Mobic 7.5 mg daily PRN due to NPO - IV Morphine as above - Ketorlac while npo Osteoporosis: Continue Reclast injection yearly DVT prophylaxis: TEDs/SCDs- hold chemical anticoagulation pending surgical evaluation Code Status: LEVEL I, FULL Dispo: From home- PT/OT and CM consulted (Lauren Ryan ., ADINA) Attending Attestation: Pt seen/examined, chart reviewed, care plan d/w LAYOUT TECHNICIANGRACIELA Ryan. I agree w/ the [place] components of her documentation. Pt reports feeling "a little better." She thinks she passed some gas this am. No other complaints VSS no fever gen - frail appearing, but NAD nose - NG tube in place; mouth - MMM neck - JVD present - unchanged heart - RRR, s1, s2, 2/6 early systolic murmur LLSB lungs - CTA b/l, rales heard previously are improved abd - soft, NT, ND, BS+ ext - no edema A/P: 1. SBO - conservative Rx - NG tube, fluids, NPO. Appreciate gen surg consultation. No change in management today. 2. urinary retention - s/p merlos insertion; likely due to UTI. 3. enterococcal UTI - unasyn. 4. hypokalemia - repleted. 5. pulmonary HTN - noted; could be cause of JVD. 6. HTN - continue hydralazine 10mg IV q8h scheduled. Contraol acceptable. 7. gastric occult + from NG tube - start zantac 50 IV q8h. Probably has element of gastritis. left message for family on answering machine 06/28 David Castillo MD (David Castillo MD)
[2017-06-28] MEDS: KETOROLAC TROMETHAMINE 15 MG/ML VIAL IV PRN (18:50)
[2017-06-28] MEDS: LORAZEPAM INJ 0.5 MG in SYRINGE 0.75 ML IV SCH (21:30)
[2017-06-28 23:28] LABS: GASTRIC OCCULT BLOOD POS (NEG); GASTRIC OCCULT BLOOD PH 2
[2017-06-29 01:58] VITALS: BP 153/71
[2017-06-29] MEDS: HydrALAZINE HCL 20 MG/ML VIAL IV. SCH ×3 (01:59→18:01)
[2017-06-29] MEDS: AMPICILLIN/SULBACTAM SOD INJ 3,000 MG in SODIUM CHLORIDE 0.9% 100ML 100 ML IV SCH ×4 (03:48→22:00)
[2017-06-29] MEDS: RANITIDINE IV 50 MG in DEXTROSE 5% 100ML 100 ML IV SCH ×2 (06:07→13:45)
[2017-06-29 07:26] VITALS: BP 166/68; PULSE 79; TEMP 36.6; O2SAT 94
[2017-06-29 07:46] LABS: BUN/CREATININE RATIO 43.3 (10-20); CALCIUM 7.5 mg/dl (8.5-10.1); CREATININE 0.29 mg/dl (0.60-1.20); POTASSIUM 3.3 mmol/L (3.5-5.1)
--- NOTE | 2017-06-29 09:00 | Surgery Progress Note ---
Surgery Progress Note Date of Service Jun 29, 2017. Subjective Passing flatus. No abdominal pain. No further nausea. Objective Vital Signs: Date Time Temp Pulse Resp B/P (MAP) Pulse Ox O2 Delivery O2 Flow Rate FiO2 06/29/17 07:26 36.6 79 16 166/68 (100) 94 Room Air 06/29/17 01:58 153/71 (98) 06/29/17 00:25 Room Air 06/28/17 23:20 36.8 95 16 157/58 (91) 95 Room Air 06/28/17 18:46 88 162/75 (104) 06/28/17 15:45 Room Air 06/28/17 15:15 36.3 92 16 144/71 (95) 95 Room Air Physical Exam: nasogastric drainage (350 cc yesterday, 50 cc last shift) General Appearance: WD/WN, no apparent distress Head: normocephalic, atraumatic Respiratory/Chest: normal breath sounds, no respiratory distress Cardiovascular: regular rate, rhythm Abdomen: normal bowel sounds, non tender, non distended, soft Laboratory Results: Results Past 24 Hours Test 06/29/17 07:00 Range/Units Sodium Level 144 136-145 mmol/L Potassium Level 3.3 3.5-5.1 mmol/L Chloride Level 113 98-107 mmol/L Carbon Dioxide Level 22 21-32 mmol/L Anion Gap 9.0 3-11 mmol/L Blood Urea Nitrogen 13 7-18 mg/dl Creatinine 0.29 0.60-1.20 mg/dl Est Creatinine Clear Calc Drug Dose 134.3 ml/min Estimated GFR () 135.0 Estimated GFR (Non- 116.5 BUN/Creatinine Ratio 43.3 10-20 Random Glucose 83 70-99 mg/dl Calcium Level 7.5 8.5-10.1 mg/dl Assessment & Plan 72 year-old female with history of exploratory laparotomy, colectomy, ileostomy and ileostomy reversal who presented to emergency department post fall and was found to incidentally have a partial small bowel obstruction on ct scan of abdomen and pelvis. Doing well with signs that the bowel obstruction is resolving. OK to d/c ng tube today and start clear liquids. If tolerates, advance diet.
[2017-06-29] MEDS: LEVETIRACETAM IV 500 MG in DEXTROSE 5% 100ML 100 ML IV SCH ×2 (10:00→21:06)
[2017-06-29] MEDS: NSS + 20MEQ KCL 1000ML 1,000 ML IV SCH ×2 (10:02→21:06)
[2017-06-29] MEDS ORDERED: POTASSIUM CHLORIDE 10 MEQ TABCR PO ONE (10:30)
[2017-06-29] MEDS: KETOROLAC TROMETHAMINE 15 MG/ML VIAL IV PRN (11:12)
[2017-06-29] MEDS: MoRPHine SULFATE 2 MG/ML CARP IV PRN ×2 (11:13→19:20)
[2017-06-29 11:26] LABS: HEMATOCRIT 28.4 % (37-47); MEAN CORPUSCULAR HEMOGLOBIN 34.7 pg (25-34); MEAN CORPUSCULAR HGB CONC 32.7 g/dl (32-36); PLATELET COUNT 126 K/uL (130-400); RED BLOOD COUNT 2.68 M/uL (4.2-5.4)
[2017-06-29 11:28] LABS: PLT ESTIMATE NORMAL
[2017-06-29] MEDS ORDERED: GI COCKTAIL PO PRN (13:15)
[2017-06-29] MEDS ORDERED: ALUMINUM/MAGNESIUM SUSP 72 ML, LIDOCAINE HCL 2% VISCOUS SOLN 24 ML, BARCODE IDENTIFIER ... PO PRN ×2 (13:30)
--- NOTE | 2017-06-29 13:31 | Hospitalist Progress Note ---
Hospitalist Progress Note Date of Service Jun 29, 2017. (Lauren Ryan CRNP) Subjective Pt evaluation today including: conversation w/ patient, physical exam, chart review, lab review, review of inpatient medication list Voiding: no voiding problems Ms. Rollins reports that her back pain is much worse today then yesterday and felt that it worsened after having the NG removed and eating breakfast. She is not nauseas, no vomiting, passing gas. Constitutional: No fever, No chills Respiratory: No cough, No shortness of breath Cardiovascular: No chest pain Abdomen: No pain, No nausea, No vomiting, No diarrhea Female : No dysuria All Other Systems: Reviewed and Negative (Lauren Ryan CRNP) Medications Medications Administered Medications (Trade) Dose Ordered Sig/Ba Route Start Time Stop Time Status Last Admin Dose Admin Sodium Chloride 250 ml @ 999 mls/hr Q16M STAT IV 06/26/17 06:36 06/26/17 06:51 DC 06/26/17 06:36 999 MLS/HR Sodium Chloride 1,000 ml @ 125 mls/hr Q8H STAT IV 06/26/17 06:36 06/26/17 14:35 DC 06/26/17 06:45 125 MLS/HR Ondansetron HCl (Zofran Inj) 4 mg NOW STAT IV 06/26/17 06:36 06/26/17 06:40 DC 06/26/17 06:45 4 MG Lorazepam (Ativan Inj) 0.5 mg NOW STAT IV 06/26/17 08:23 06/26/17 08:24 DC 06/26/17 08:30 0.5 MG Ondansetron HCl (Zofran Inj) 4 mg Q6H PRN IV 06/26/17 12:45 07/26/17 12:44 06/27/17 05:39 4 MG Hydralazine HCl (HydrALAZINE INJ) 10 mg Q6H PRN IV. 06/26/17 12:45 06/27/17 16:10 DC 06/27/17 00:02 10 MG Levetiracetam 500 mg/Dextrose 105 ml @ 420 mls/hr Q12 IV 06/26/17 21:00 07/26/17 20:59 06/29/17 10:00 420 MLS/HR Sodium Chloride 1,000 ml @ 100 mls/hr Q10H IV 06/26/17 15:00 06/27/17 09:07 DC 06/27/17 02:17 100 MLS/HR Morphine Sulfate (MoRPHine SULFATE INJ) 1 mg Q3H PRN IV 06/26/17 12:45 06/29/17 11:28 DC 06/29/17 11:13 1 MG Influenza Virus Vaccine (Fluzone High-Dose Pf 0.5 ml) 0.5 ml ONCE ONCE IM. 06/26/17 13:30 06/26/17 14:41 DC 06/27/17 19:07 0.5 ML Pneumococcal Polysaccharide Vaccine (Pneumovax-23 Inj) 25 mcg ONCE ONCE IM. 06/26/17 13:30 06/26/17 14:47 DC 06/27/17 19:19 25 MCG Morphine Sulfate (MoRPHine SULFATE INJ) 2 mg STK-MED ONCE .ROUTE 06/26/17 13:27 06/26/17 13:28 DC 06/26/17 13:32 1 MG Clonazepam (Klonopin Tab) 0.5 mg HS PO 06/26/17 21:00 07/26/17 20:59 Future Hold 06/26/17 21:29 0.5 MG Ketorolac Tromethamine (Toradol Inj) 15 mg STK-MED ONCE .ROUTE 06/26/17 20:32 06/26/17 20:33 DC 06/26/17 20:35 15 MG Potassium Chloride/Sodium Chloride 1,000 ml @ 100 mls/hr Q10H IV 06/27/17 09:30 07/27/17 09:29 06/29/17 10:02 100 MLS/HR Ampicillin Sodium/ Sulbactam Sodium 3000 mg/Sodium Chloride 108 ml @ 200 mls/hr Q6H IV 06/27/17 10:00 07/02/17 09:59 06/29/17 10:37 200 MLS/HR Potassium Chloride 10 meq/ Prmx 100 ml @ 100 mls/hr Q1H IV 06/27/17 11:00 06/27/17 13:59 DC 06/27/17 14:02 100 MLS/HR Ketorolac Tromethamine (Toradol Inj) 15 mg Q6H PRN IV 06/27/17 12:45 07/02/17 12:44 06/29/17 11:12 15 MG Sodium Chloride 500 ml @ 1,000 mls/hr Q30M IV 06/27/17 13:00 06/27/17 13:29 DC 06/27/17 14:02 1,000 MLS/HR Hydralazine HCl (HydrALAZINE INJ) 10 mg Q8H IV. 06/27/17 18:00 07/27/17 17:59 06/29/17 10:08 10 MG Lorazepam 0.5 mg/ Syringe 1 ml @ 1 mls/min HS IV 06/27/17 21:00 07/27/17 20:59 06/28/17 21:30 1 MLS/MIN Ranitidine HCl 50 mg/Dextrose 102 ml @ 200 mls/hr Q8H IV 06/29/17 06:00 07/29/17 05:59 06/29/17 06:07 200 MLS/HR Potassium Chloride (Klor-Con M10) 40 meq NOW ONCE PO 06/29/17 10:30 06/29/17 10:31 DC 06/29/17 10:37 40 MEQ (Lauren Ryan, [employer] WORKER) Objective Vital Signs Date Time Temp Pulse Resp B/P (MAP) Pulse Ox O2 Delivery O2 Flow Rate FiO2 06/29/17 07:40 Room Air 06/29/17 07:26 36.6 79 16 166/68 (100) 94 Room Air 06/29/17 01:58 153/71 (98) 06/29/17 00:25 Room Air 06/28/17 23:20 36.8 95 16 157/58 (91) 95 Room Air 06/28/17 18:46 88 162/75 (104) 06/28/17 15:45 Room Air 06/28/17 15:15 36.3 92 16 144/71 (95) 95 Room Air (Lauren Ryan [employer] FA[employer] WORKER) Physical Exam Notes: General: no distress Eyes: normal inspection, PERLL Respiratory: chest non tender, clear to auscultation, normal breath sounds, no respiratory distress, no accessory muscle use Cardiac: regular rate and rhythm, no rub or gallop, no murmur, no edema, no jvd GI/: active bowel sounds, no abd pain or tenderness, soft, non distended Extremities: normal range of motion, generalized weakness, non tender Neuro/Psych: alert and oriented x 3, normal mood and affect Skin: normal color, dry (Lauren Ryan CRNP) Laboratory Results Last 24 Hours Test 06/29/17 04:44 06/29/17 07:00 White Blood Count 5.30 K/uL Red Blood Count 2.68 M/uL Hemoglobin 9.3 g/dL Hematocrit 28.4 % Mean Corpuscular Volume 106.0 fL Mean Corpuscular Hemoglobin 34.7 pg Mean Corpuscular Hemoglobin Concent 32.7 g/dl RDW Standard Deviation 51.6 fL RDW Coefficient of Variation 13.3 % Platelet Count 126 K/uL Mean Platelet Volume 11.0 fL Platelet Estimate NORMAL Sodium Level 144 mmol/L Potassium Level 3.3 mmol/L Chloride Level 113 mmol/L Carbon Dioxide Level 22 mmol/L Anion Gap 9.0 mmol/L Blood Urea Nitrogen 13 mg/dl Creatinine 0.29 mg/dl Est Creatinine Clear Calc Drug Dose 134.3 ml/min Estimated GFR () 135.0 Estimated GFR (Non- 116.5 BUN/Creatinine Ratio 43.3 Random Glucose 83 mg/dl Calcium Level 7.5 mg/dl (Lauren Ryan CRNP) Assessment and Plan Patient is a pleasant 72 y/o female, with PMHx of seizure disorder, HTN, HLD, mitral stenosis, aortic sclerosis, pulmonary HTN, h/o recurrent c.diff s/p colectomy w/ ileostomy- resolved, chronic pain, OA, osteoporosis, and anxiety/ depression, who presented to the ED because of lower back pain since yesterday. SBO: - Admit to med/surg - NPO - IV NSS 20k @ 100 ml/hr - Consult general surgery, medical management for now - NG tube out yesterday, some coffee ground emesis in tube - increased back pain similar to admission after eating - 2 view abdomen, pepcid , GI cocktail Lumbar pain s/p mechanical fall: - Check lumbar spine x-ray - no acute finding - IV Morphine increased to 2 mg q3h, continue prn toradol - Heating pad - PT/OT Low urine output - retaining almost 400 mls on bladder scan per nursing again 06/28 - merlos catheter out today Seizure disorder: IV Keppra 500 mg BID due to NPO HTN: - Hold Benicar daily due to NPO - IV Hydralazine 10 mg q6 hrs PRN sbp >180 or dbp >100 Hypokalemia - repleated - potassium in fluids HLD: Hold Lipitor 20 mg daily due to NPO- resume once tolerating PO Mitral stenosis, aortic sclerosis, pulmonary HTN- follows w/ Dr. Barber h/o recurrent c.diff s/p colectomy w/ ileostomy- resolved Chronic pain, OA- - Hold Mobic 7.5 mg daily PRN due to NPO - IV Morphine as above - Ketorlac while npo Osteoporosis: Continue Reclast injection yearly DVT prophylaxis: TEDs/SCDs- hold chemical anticoagulation pending surgical evaluation Code Status: LEVEL I, FULL Dispo: From home- PT/OT and CM consulted (Lauren Ryan ., ADINA) SITE LEASING AGENT Physician Supervision Note: I interviewed and examined the patient. Discussed with Lauren Ryan SITE LEASING AGENT and agree with findings and plan as documented in the note. Any exceptions or clarifications are listed here: None Patient's partial small bowel obstruction has resolved her back pain has returned it appears he musculoskeletal as the patient has severe scoliosis. Pain control cannot be achieved pain management consult was considered Vital signs are stable Patient is point tender to the lumbar spine is is not reproducible from outside pressure although she can localize the pain very precisely next Small bowel suction is resolved with mechanical back pain attempts to be treated with medications pain management may be involved for a injection Documented By: Cosmo Henriquez (Cosmo Henriquez M.D.)
[2017-06-29] MEDS: ACETAMINOPHEN 500 MG TAB PO SCH ×2 (13:42→22:00)
[2017-06-29] MEDS: LACTOBACILLUS ACIDOPHILUS (FLORANEX) TAB PO SCH ×2 (13:43→17:13)
--- NOTE | 2017-06-29 14:45 | DIAGNOSTIC IMAGING REPORT ---
ABDOMEN 2VIEW W/PA CHEST RTN CLINICAL HISTORY: sob pain. Obstruction. COMPARISON STUDY: 06/27/2017 FINDINGS: Mild stable cardiomegaly. Lungs are grossly clear. Slight chronic basilar interstitial prominence. Nonobstructive bowel pattern. Unremarkable fecal load within the colon. Considerable degenerative change of the lumbar spine nasogastric tube has been removed. IMPRESSION: 1. Chronic changes chest with no acute process. 2. Nonobstructive bowel pattern. The above report was generated using voice recognition software. It may contain grammatical, syntax or spelling errors. Electronically signed by: Kike Yarbrough M.D. 06/29/2017 2:43 PM Dictated Date/Time: 06/29/2017 2:41 PM
[2017-06-29 15:00] VITALS: BP 161/74; PULSE 83; TEMP 36.3; O2SAT 98
[2017-06-29 15:55] LABS: BUN/CREATININE RATIO 26.9 (10-20); CALCIUM 7.7 mg/dl (8.5-10.1); CREATININE 0.44 mg/dl (0.60-1.20); POTASSIUM 3.7 mmol/L (3.5-5.1)
[2017-06-29] MEDS: ONDANSETRON INJ 2 MG/ML 2 ML VIAL IV PRN (19:26)
[2017-06-29] MEDS: LORAZEPAM INJ 0.5 MG in SYRINGE 0.75 ML IV SCH (21:00)
[2017-06-29] MEDS ORDERED: PANTOprazole INJ 40 MG in SYRINGE 0 ML IV SCH (21:00)
[2017-06-29] MEDS: FAMOTIDINE IV INJ 20 MG in SYRINGE 3 ML IV SCH (21:09)
[2017-06-29 23:20] VITALS: BP 175/76; PULSE 89; TEMP 37.5; O2SAT 93
[2017-06-30] VITALS (8 sets, daily range): BP systolic 164–187; BP diastolic 69–89; PULSE 83–86; TEMP 36.4–36.8; O2SAT 93–94
[2017-06-30] MEDS: HydrALAZINE HCL 20 MG/ML VIAL IV. SCH ×3 (01:37→17:30)
[2017-06-30] MEDS: ONDANSETRON INJ 2 MG/ML 2 ML VIAL IV PRN ×2 (02:25→10:12)
[2017-06-30] MEDS: MoRPHine SULFATE 2 MG/ML CARP IV PRN ×2 (03:05→21:56)
[2017-06-30] MEDS: AMPICILLIN/SULBACTAM SOD INJ 3,000 MG in SODIUM CHLORIDE 0.9% 100ML 100 ML IV SCH ×4 (03:48→22:39)
[2017-06-30] MEDS: NSS + 20MEQ KCL 1000ML 1,000 ML IV SCH ×2 (05:40→17:15)
[2017-06-30] MEDS: ACETAMINOPHEN 500 MG TAB PO SCH ×3 (05:40→21:53)
[2017-06-30 08:08] LABS: HEMATOCRIT 31.3 % (37-47); MEAN CELL VOLUME 104.7 fL (80-100); MEAN CORPUSCULAR HEMOGLOBIN 34.4 pg (25-34); MEAN CORPUSCULAR HGB CONC 32.9 g/dl (32-36); MEAN PLATELET VOLUME 10.6 fL (7.4-10.4); PLATELET COUNT 144 K/uL (130-400); RED BLOOD COUNT 2.99 M/uL (4.2-5.4); WHITE BLOOD COUNT 6.16 K/uL (4.8-10.8)
[2017-06-30] MEDS: LACTOBACILLUS ACIDOPHILUS (FLORANEX) TAB PO SCH ×3 (08:30→16:49)
[2017-06-30] MEDS: FAMOTIDINE IV INJ 20 MG in SYRINGE 3 ML IV SCH ×2 (09:30→21:56)
[2017-06-30] MEDS: LEVETIRACETAM IV 500 MG in DEXTROSE 5% 100ML 100 ML IV SCH ×2 (09:30→21:56)
--- NOTE | 2017-06-30 09:31 | Hospitalist Progress Note ---
Hospitalist Progress Note Date of Service Jun 30, 2017. (Lauren Ryan CRNP) Subjective Pt evaluation today including: conversation w/ patient, physical exam, review of inpatient medication list Voiding: no voiding problems Ms. Rollins is nauseas this morning with one emesis. Her back pain has improved since yesterday. Respiratory: No cough Cardiovascular: No chest pain Abdomen: + nausea, + vomiting, No pain Female : No dysuria All Other Systems: Reviewed and Negative (Lauren Ryan CRNP) Medications Medications Administered Medications (Trade) Dose Ordered Sig/Ba Route Start Time Stop Time Status Last Admin Dose Admin Sodium Chloride 250 ml @ 999 mls/hr Q16M STAT IV 06/26/17 06:36 06/26/17 06:51 DC 06/26/17 06:36 999 MLS/HR Sodium Chloride 1,000 ml @ 125 mls/hr Q8H STAT IV 06/26/17 06:36 06/26/17 14:35 DC 06/26/17 06:45 125 MLS/HR Ondansetron HCl (Zofran Inj) 4 mg NOW STAT IV 06/26/17 06:36 06/26/17 06:40 DC 06/26/17 06:45 4 MG Lorazepam (Ativan Inj) 0.5 mg NOW STAT IV 06/26/17 08:23 06/26/17 08:24 DC 06/26/17 08:30 0.5 MG Ondansetron HCl (Zofran Inj) 4 mg Q6H PRN IV 06/26/17 12:45 07/26/17 12:44 06/30/17 02:25 4 MG Hydralazine HCl (HydrALAZINE INJ) 10 mg Q6H PRN IV. 06/26/17 12:45 06/27/17 16:10 DC 06/27/17 00:02 10 MG Levetiracetam 500 mg/Dextrose 105 ml @ 420 mls/hr Q12 IV 06/26/17 21:00 07/26/17 20:59 06/29/17 21:06 420 MLS/HR Sodium Chloride 1,000 ml @ 100 mls/hr Q10H IV 06/26/17 15:00 06/27/17 09:07 DC 06/27/17 02:17 100 MLS/HR Morphine Sulfate (MoRPHine SULFATE INJ) 1 mg Q3H PRN IV 06/26/17 12:45 06/29/17 11:28 DC 06/29/17 11:13 1 MG Influenza Virus Vaccine (Fluzone High-Dose Pf 0.5 ml) 0.5 ml ONCE ONCE IM. 06/26/17 13:30 06/26/17 14:41 DC 06/27/17 19:07 0.5 ML Pneumococcal Polysaccharide Vaccine (Pneumovax-23 Inj) 25 mcg ONCE ONCE IM. 06/26/17 13:30 06/26/17 14:47 DC 06/27/17 19:19 25 MCG Morphine Sulfate (MoRPHine SULFATE INJ) 2 mg STK-MED ONCE .ROUTE 06/26/17 13:27 06/26/17 13:28 DC 06/26/17 13:32 1 MG Clonazepam (Klonopin Tab) 0.5 mg HS PO 06/26/17 21:00 07/26/17 20:59 Future Hold 06/26/17 21:29 0.5 MG Ketorolac Tromethamine (Toradol Inj) 15 mg STK-MED ONCE .ROUTE 06/26/17 20:32 06/26/17 20:33 DC 06/26/17 20:35 15 MG Potassium Chloride/Sodium Chloride 1,000 ml @ 100 mls/hr Q10H IV 06/27/17 09:30 07/27/17 09:29 06/30/17 05:40 100 MLS/HR Ampicillin Sodium/ Sulbactam Sodium 3000 mg/Sodium Chloride 108 ml @ 200 mls/hr Q6H IV 06/27/17 10:00 07/02/17 09:59 06/30/17 03:48 200 MLS/HR Potassium Chloride 10 meq/ Prmx 100 ml @ 100 mls/hr Q1H IV 06/27/17 11:00 06/27/17 13:59 DC 06/27/17 14:02 100 MLS/HR Ketorolac Tromethamine (Toradol Inj) 15 mg Q6H PRN IV 06/27/17 12:45 07/02/17 12:44 06/29/17 11:12 15 MG Sodium Chloride 500 ml @ 1,000 mls/hr Q30M IV 06/27/17 13:00 10/23/17 13:29 DC 06/27/17 14:02 1,000 MLS/HR Hydralazine HCl (HydrALAZINE INJ) 10 mg Q8H IV. 06/27/17 18:00 07/27/17 17:59 06/30/17 01:37 10 MG Lorazepam 0.5 mg/ Syringe 1 ml @ 1 mls/min HS IV 06/27/17 21:00 07/27/17 20:59 06/28/17 21:30 1 MLS/MIN Ranitidine HCl 50 mg/Dextrose 102 ml @ 200 mls/hr Q8H IV 06/29/17 06:00 06/29/17 15:10 DC 06/29/17 13:45 200 MLS/HR Potassium Chloride (Klor-Con M10) 40 meq NOW ONCE PO 06/29/17 10:30 06/29/17 10:31 DC 06/29/17 10:37 40 MEQ Morphine Sulfate (MoRPHine SULFATE INJ) 2 mg Q3H PRN IV 06/29/17 11:30 07/13/17 11:29 06/30/17 03:05 2 MG Acetaminophen (Tylenol Tab) 1,000 mg Q8 PO 06/29/17 14:00 07/29/17 13:59 06/30/17 05:40 1,000 MG Lactobacillus Acidophilus (Floranex Tab) 4 tab TIDM PO 06/29/17 12:30 07/29/17 12:29 06/29/17 17:13 4 TAB Famotidine 20 mg/ Syringe 5 ml @ 2.5 mls/min Q12 IV 06/29/17 21:00 07/29/17 20:59 06/29/17 21:09 2.5 MLS/MIN (Lauren Ryan CRNP) Objective Vital Signs Date Time Temp Pulse Resp B/P (MAP) Pulse Ox O2 Delivery O2 Flow Rate FiO2 06/30/17 07:07 36.7 86 19 175/89 (117) 94 Room Air 06/30/17 07:05 Room Air 06/30/17 05:45 168/69 (102) 06/30/17 01:30 173/75 (107) 06/29/17 23:20 Room Air 06/29/17 23:20 37.5 89 16 175/76 (109) 93 Room Air 06/29/17 16:20 Room Air 06/29/17 15:00 36.3 83 16 161/74 (103) 98 Room Air (Lauren Ryan CRNP) Physical Exam Notes: General: no distress Eyes: normal inspection, PERLL Respiratory: chest non tender, faint crackles in bases to auscultation, normal breath sounds, no respiratory distress, no accessory muscle use Cardiac: regular rate and rhythm, no rub or gallop, III/ systolic murmur, no edema, no jvd GI/: active bowel sounds, no abd pain or tenderness, firm and distended Extremities: normal range of motion, normal strength, non tender Neuro/Psych: alert and oriented x 3, normal mood and affect Skin: normal color, dry (Lauren Ryan CRNP) Laboratory Results Last 24 Hours Test 06/29/17 15:22 06/30/17 07:04 Sodium Level 141 mmol/L Potassium Level 3.7 mmol/L Chloride Level 113 mmol/L Carbon Dioxide Level 18 mmol/L Anion Gap 10.0 mmol/L Blood Urea Nitrogen 12 mg/dl Creatinine 0.44 mg/dl Est Creatinine Clear Calc Drug Dose 88.5 ml/min Estimated GFR () 117.7 Estimated GFR (Non- 101.6 BUN/Creatinine Ratio 26.9 Random Glucose 146 mg/dl Calcium Level 7.7 mg/dl White Blood Count 6.16 K/uL Red Blood Count 2.99 M/uL Hemoglobin 10.3 g/dL Hematocrit 31.3 % Mean Corpuscular Volume 104.7 fL Mean Corpuscular Hemoglobin 34.4 pg Mean Corpuscular Hemoglobin Concent 32.9 g/dl RDW Standard Deviation 51.6 fL RDW Coefficient of Variation 13.4 % Platelet Count 144 K/uL Mean Platelet Volume 10.6 fL (Lauren Ryan CRNP) Assessment and Plan Patient is a pleasant 72 y/o female, with PMHx of seizure disorder, HTN, HLD, mitral stenosis, aortic sclerosis, pulmonary HTN, h/o recurrent c.diff s/p colectomy w/ ileostomy- resolved, chronic pain, OA, osteoporosis, and anxiety/ depression, who presented to the ED because of lower back pain since yesterday. SBO: - Admit to med/surg - IV NSS 20k @ 100 ml/hr - Consult general surgery, medical management for now - NG tube out 06/28, some coffee ground emesis in tube - increased back pain similar to admission after eating - 2 view abdomen, pepcid , GI cocktail - Vomiting again 06/30 - 2 view abdomen - Consult GI - EGD/colonoscopy tomorrow Lumbar pain s/p mechanical fall: - Check lumbar spine x-ray - no acute finding - IV Morphine increased to 2 mg q3h, continue prn toradol - Heating pad - PT/OT Low urine output - retaining almost 400 mls on bladder scan per nursing again 06/28 - merlos catheter out today Seizure disorder: IV Keppra 500 mg BID due to NPO HTN: - Hold Benicar daily due to NPO - IV Hydralazine 10 mg q6 hrs PRN sbp >180 or dbp >100 Hypokalemia - repleated - potassium in fluids HLD: Hold Lipitor 20 mg daily due to NPO- resume once tolerating PO Mitral stenosis, aortic sclerosis, pulmonary HTN- follows w/ Dr. Barber h/o recurrent c.diff s/p colectomy w/ ileostomy- resolved Chronic pain, OA- - Hold Mobic 7.5 mg daily PRN due to NPO - IV Morphine as above - Ketorlac while npo Osteoporosis: Continue Reclast injection yearly DVT prophylaxis: TEDs/SCDs- hold chemical anticoagulation pending surgical evaluation Code Status: LEVEL I, FULL Dispo: From home- PT/OT and CM consulted (Lauren Ryan ., ADINA) BUDGET CONTROLLER Physician Supervision Note: I interviewed and examined the patient. Discussed with Lauren Ryan NP and agree with findings and plan as documented in the note. Any exceptions or clarifications are listed here: None Patient has persistent abdominal pain and back pain gastroenterology consultation is planning on endoscopy on 07/01 Patient's vitals are stable Patient is focal back pain near her L5-S1 across her lower back click a band chest was epigastric abdominal pain with some voluntary guarding Abdominal pain with previous history of significant intra-abdominal processes initial bowel obstruction resolved persistent pain concern for ulcer disease gastric outlet or colonic issue awaiting endoscopy 07/01 Documented By: Cosmo Henriquez (Cosmo Henriquez M.D.)
--- NOTE | 2017-06-30 10:33 | DIAGNOSTIC IMAGING REPORT ---
ABDOMEN 2 VIEWS CLINICAL HISTORY: vomiting, sob nausea COMPARISON STUDY: No previous studies for comparison. FINDINGS: Nonobstructive bowel pattern. Degenerative changes lumbar spine. No evidence for free air. IMPRESSION: Nonobstructive bowel pattern. The above report was generated using voice recognition software. It may contain grammatical, syntax or spelling errors. Electronically signed by: Kike Yarbrough M.D. 06/30/2017 10:32 AM Dictated Date/Time: 06/30/2017 10:31 AM
--- NOTE | 2017-06-30 10:49 | Surgery Progress Note ---
Surgery Progress Note Date of Service Jun 30, 2017. Subjective Feels miserable with more nausea and vomiting. Objective Vital Signs: Date Time Temp Pulse Resp B/P (MAP) Pulse Ox O2 Delivery O2 Flow Rate FiO2 06/30/17 07:07 36.7 86 19 175/89 (117) 94 Room Air 06/30/17 07:05 Room Air 06/30/17 05:45 168/69 (102) 06/30/17 01:30 173/75 (107) 06/29/17 23:20 Room Air 06/29/17 23:20 37.5 89 16 175/76 (109) 93 Room Air 06/29/17 16:20 Room Air 06/29/17 15:00 36.3 83 16 161/74 (103) 98 Room Air General Appearance: no apparent distress Respiratory/Chest: no respiratory distress, no accessory muscle use Cardiovascular: regular rate, rhythm Abdomen: normal bowel sounds, non tender, soft, + distended (mild) Laboratory Results: Results Past 24 Hours Test 06/29/17 15:22 06/30/17 07:04 Range/Units Sodium Level 141 136-145 mmol/L Potassium Level 3.7 3.5-5.1 mmol/L Chloride Level 113 98-107 mmol/L Carbon Dioxide Level 18 21-32 mmol/L Anion Gap 10.0 3-11 mmol/L Blood Urea Nitrogen 12 7-18 mg/dl Creatinine 0.44 0.60-1.20 mg/dl Est Creatinine Clear Calc Drug Dose 88.5 ml/min Estimated GFR () 117.7 Estimated GFR (Non- 101.6 BUN/Creatinine Ratio 26.9 10-20 Random Glucose 146 70-99 mg/dl Calcium Level 7.7 8.5-10.1 mg/dl White Blood Count 6.16 4.8-10.8 K/uL Red Blood Count 2.99 4.2-5.4 M/uL Hemoglobin 10.3 12.0-16.0 g/dL Hematocrit 31.3 37-47 % Mean Corpuscular Volume 104.7 80-100 fL Mean Corpuscular Hemoglobin 34.4 25-34 pg Mean Corpuscular Hemoglobin Concent 32.9 32-36 g/dl RDW Standard Deviation 51.6 36.4-46.3 fL RDW Coefficient of Variation 13.4 11.5-14.5 % Platelet Count 144 130-400 K/uL Mean Platelet Volume 10.6 7.4-10.4 fL Assessment & Plan 72 yr old woman with small bowel obstruction which appeared to be resolving. Her xray looked better and ng output was low - ng removed yesterday. Now she has recurrent nausea and vomiting. However, her xray has a nonobstructive bowel gas pattern. ?constipation, pain med induced nausea, gastroparesis. Will try dulcolax suppository to help with bowel function. Consider replacing ng if her vomiting persists. Minimize narcotics. No urgent need for surgical intervention as it is not clear that her nausea/ vomiting is caused by a persisten SBO.
[2017-06-30] MEDS ORDERED: BISACODYL 10 MG SUPP PR ONE (11:00)
--- NOTE | 2017-06-30 11:37 | Gastrointestinal Consultation ---
Gastrointestinal Consultation Date of Consultation: Jun 30, 2017 Attending Physician: Shelby Consulting Physician: Robe Reason for Consultation: N/V, hx SBO History of Present Illness Patient is a 72 year old female w/ PMH of c.diff s/p colectomy w/ ileostomy, seizure disorder, HTN, pulmonary HTN, dyslipidemia and others listed below who presented to the ED for evaluation of lower back pain and vomiting. CT in ED with evidence of proximal small bowel obstruction w/ transition zone. She was evaluated by surgery, who suggested NG, bowel rest and daily abdominal imaging. Repeat KUB on 06/28/17 with improved bowel pattern. NG was removed and pt was started on clear with dietary advanced on 06/29/17 per surgery, however, N/V returned. Repeat imaging without evidence of obstructive bowel gas pattern. Was re-evaluated by surgery, Dr. Drea Nagel this AM who questioned if symptoms could be secondary to other cause. Consult to GI from Lauren Ryan. Pt was seen and evaluated, chart reviewed. Pt is a poor historian. Per staff nurse , pt just received Dulcolax suppository and had a small BM. Pt reports constant nausea w/ bouts of vomiting "can you put the tube back in my nose" Symptoms are worse after PO intake, but has not been taking much PO. There is no abdominal pain, specifically no epigastric pain or RUQ pain. Symptoms unchanged with BM. Passing gas. KUB 06/30/17: Nonobstructive bowel pattern. Degenerative changes lumbar spine. No evidence for free air. KUB 06/29/17: Chronic changes chest with no acute process. Nonobstructive bowel pattern KUB 06/28/17: Nasogastric tube placed mid stomach. Nonobstructive bowel pattern. CT ABD/PEL w/ contrast 06/26/17: Proximal small bowel obstruction, with a left midabdominal transition zone. No evidence of free air. Minimal pericholecystic edema CT ABD/PEL w/o contrast 06/26/17: Very difficult study to interpret from a technical standpoint secondary to the lack of intravenous and orally administered contrast, and the paucity of intra-abdominal fat Suspected proximal small bowel obstruction. Clinical and imaging follow-up is recommended EGD: none Colonoscopy: none Past Medical/Surgical History Medical Problems: (1) Accidental overdose Status: Acute (2) Altered mental status Status: Acute (3) Ambulatory dysfunction Status: Acute (4) Anxiety Status: Chronic (5) Contusion Status: Acute (6) Depressive Disorder Nec Status: Chronic (7) Encounter for removal of margarito Status: Acute (8) Fall Status: Acute (9) Head injury, closed Status: Acute (10) Hypertension Status: Chronic (11) Hyponatremia Status: Acute (12) Medication side effects Status: Acute (13) Near syncope Status: Acute (14) Osteoporosis Status: Chronic (15) Scalp laceration Status: Acute (16) Seizure Status: Acute (17) Seizure disorder Status: Chronic (18) UTI (urinary tract infection) Status: Acute Past Medical History: mitral stenosis, aortic sclerosis, pulmonary HTN, chronic pain, OA, and anxiety /depression, HTN, dyslipidemia, recurrent c.diff, seizures Past Surgical History: colectomy w/ ileostomy, femur fracture Family History Lung cancer Stroke Social History Smoking Status: Never Smoker Alcohol Use: none Drug Use: none Marital Status: Housing Status: lives with family Occupation Status: retired Allergies Coded Allergies: Fentanyl (Verified Adverse Reaction, Unknown, nausea, fearfulness, unsettled thoughts, 06/26/17) Current Medications Home Meds and Scripts Medications Dose Route/Sig Max Daily Dose Days Date Category Keppra (Levetiracetam) 500 Mg Tab 500 Mg PO BID 06/25/17 Reported Probiotic (Lactobacillus) 1 Cap Cap 1 Cap PO DAILY 06/11/17 Reported Cranberry (Cranberry (Vaccinium Macrocarp) Unknown Strength Tab 1 Cap PO DAILY 06/11/17 Reported Kp Ferrous Sulfate (Ferrous Sulfate) 325 Mg Tab 325 Mg PO DAILY 03/04/17 Reported Calcium 500 + D (Calcium Carbonate-Vitamin D) 1 Tab Tab 1 Tab PO DAILY 03/04/17 Reported Ascorbic Acid 1,000 Mg Tab 1,000 Mg PO DAILY 03/04/17 Reported Lipitor (Atorvastatin Calcium) 20 Mg Tab 20 Mg PO DAILY 03/04/17 Reported Reclast (Zoledronic Acid) 5 Mg/100 Ml Inj 5 Mg INJ YEARLY 03/04/17 Reported Mobic (Meloxicam) 7.5 Mg Tab 7.5 Mg PO DAILY PRN 08/13/16 Reported Benicar Hct 20/12.5 (Olmesartan/HCTZ) Tab 1 Tab PO DAILY 08/13/16 Reported Aspirin 81 Mg Tab 81 Mg PO DAILY 06/12/16 Reported Review of Systems Constitutional: No fever, No chills Respiratory: No cough Cardiac: No chest pain Abdomen: + nausea, + vomiting, No pain, No diarrhea, No constipation Physical Exam Date Time Temp Pulse Resp B/P (MAP) Pulse Ox O2 Delivery O2 Flow Rate FiO2 06/30/17 07:07 36.7 86 19 175/89 (117) 94 Room Air 06/30/17 07:05 Room Air 06/30/17 05:45 168/69 (102) 06/30/17 01:30 173/75 (107) 06/29/17 23:20 Room Air 06/29/17 23:20 37.5 89 16 175/76 (109) 93 Room Air 06/29/17 16:20 Room Air 06/29/17 15:00 36.3 83 16 161/74 (103) 98 Room Air General Appearance: no apparent distress, + pertinent finding (pt appears disinterested in bed) Eyes: PERRL ENT: hearing grossly normal Neck: supple Respiratory/Chest: lungs clear, + decreased breath sounds Cardiovascular: regular rate, rhythm, + systolic murmur Abdomen: normal bowel sounds, soft, no organomegaly Neurologic/Psych: alert, oriented x 3, + depressed affect Skin: normal color Laboratory Results Last 24 Hours Test 06/29/17 15:22 06/30/17 07:04 Sodium Level 141 mmol/L Potassium Level 3.7 mmol/L Chloride Level 113 mmol/L Carbon Dioxide Level 18 mmol/L Anion Gap 10.0 mmol/L Blood Urea Nitrogen 12 mg/dl Creatinine 0.44 mg/dl Est Creatinine Clear Calc Drug Dose 88.5 ml/min Estimated GFR () 117.7 Estimated GFR (Non- 101.6 BUN/Creatinine Ratio 26.9 Random Glucose 146 mg/dl Calcium Level 7.7 mg/dl White Blood Count 6.16 K/uL Red Blood Count 2.99 M/uL Hemoglobin 10.3 g/dL Hematocrit 31.3 % Mean Corpuscular Volume 104.7 fL Mean Corpuscular Hemoglobin 34.4 pg Mean Corpuscular Hemoglobin Concent 32.9 g/dl RDW Standard Deviation 51.6 fL RDW Coefficient of Variation 13.4 % Platelet Count 144 K/uL Mean Platelet Volume 10.6 fL Impression Patient is a 72 year old female admitted with back pain following a fall, CT/ ABD pelvis with evidence of proximal small bowel obstruction w/ transition zone , thought secondary to adhesive disease from right sided colectomy w/ ileostomy which was reversed. SBO resolved but N/V persisted, GI consulted for additional recommendations. Fecal retention vs gastritis vs PUD vs gastroparesis vs biliary. Plan - clear liquids - NPO after midnight - KUB today - EGD/Colonoscopy tomorrow - RUQ US - relistor today - 2 fleets enemas today - miralax 119 GM PO 1700 - dulcolax 20 mg PO 1700 - miralax 119 GM PO 2100 - Additional recommendations pending results of EGD/Colonoscopy, could consider outpatient GES if symptoms I saw and evaluated the patient. We are asked to see the patient for refractory nausea and vomiting. Review of the record indicates that she was admitted for small bowel obstruction which appears to have resolved. She does have a history of C. difficile infection over 5 years ago resulting in a subtotal colectomy. Her imaging study does seem to indicate a large amount of stool within the residual colon. Physical examination No obvious distress, frail appearing female Impression: Patient with recurrent nausea I wonder if this may be related to fecal impaction based on her imaging studies. I would suggest that we have the patient undergo several fleets enemas today and a bowel prep so we can evaluate her colon and anastomosis tomorrow. I would also suggest further evaluation with upper endoscopy to evaluate for evidence of upper digestive pathology such as peptic ulcer. Recommendations Fleets enema ordered KUB today Right upper quadrant ultrasound ordered to evaluate for gallstones Relistor 1 today Upper endoscopy and colonoscopy to be performed on Tuesday unless the patient has difficulty with bowel prep tonight
[2017-06-30] MEDS ORDERED: ONDANSETRON INJ 2 MG/ML 2 ML VIAL IV SCH (12:00)
[2017-06-30] MEDS: METHYLNALTREXONE BROMIDE INJ 12 MG/0.6 ML SYR SQ SCH (12:54)
[2017-06-30] MEDS ORDERED: SOD PHOSPHATE/SOD BIPHOSPHATE ENEMA 132 ML BTL PR SCH (13:00)
[2017-06-30] MEDS ORDERED: SOD PHOSPHATE/SOD BIPHOSPHATE ENEMA 132 ML BTL PR ONE (13:00)
--- NOTE | 2017-06-30 14:36 | DIAGNOSTIC IMAGING REPORT ---
ULTRASOUND RIGHT UPPER QUADRANT ABDOMEN CLINICAL HISTORY: Nausea and vomiting. COMPARISON STUDY: Abdominal CT dated 06/26/2017. TECHNIQUE: Real-time, grayscale, and color flow sonography of the right upper quadrant of the abdomen was performed. Images are reviewed in the transverse and longitudinal planes. The examination is significantly degraded bilateral calf patient cooperation. FINDINGS: Liver: The liver is normal in size and echotexture. There is no intrahepatic biliary ductal dilatation. The main portal vein is patent. Gallbladder: The gallbladder is mildly distended but otherwise normal in appearance. No gallstones are identified. There is no gallbladder wall thickening or pericholecystic fluid. A sonographic Farrell's sign is reportedly absent. The common bile duct measures up to 1.0 cm in diameter. Pancreas: Not well visualized due to overlying bowel gas. Right kidney: Survey images of the right kidney demonstrate normal size and echotexture. There is no hydronephrosis. Ascites: No ascites is identified. The stomach appears distended and fluid-filled. Pleural spaces: There is a trace right pleural effusion. IMPRESSION: 1. No gallstones are identified and there is no sonographic evidence of acute cholecystitis. 2. Trace right pleural effusion. 3. The stomach is distended and fluid-filled. 4. The pancreas was not visualized. Electronically signed by: Mj Dillon M.D. 06/30/2017 2:34 PM Dictated Date/Time: 06/30/2017 2:32 PM
--- NOTE | 2017-06-30 14:59 | Progress Note ---
Progress Note Date of Service Jun 30, 2017. Progress Note RUQ US 06/30/17: No gallstones are identified and there is no sonographic evidence of acute cholecystitis. Trace right pleural effusion. The stomach is distended and fluid-filled. The pancreas was not visualized. Stomach is distended and fluid-filled. Please arrange NG to intermittent suction. Hold bowel prep. Make NPO after midnight for EGD tomorrow for evaluation. ?gastric outlet obstruction.
[2017-06-30] MEDS: SOD PHOSPHATE/SOD BIPHOSPHATE ENEMA 132 ML BTL PR SCH (16:16)
[2017-06-30] MEDS ORDERED: POLYETHYLENE (MIRALAX) 17 GM PACK PO SCH (17:00)
[2017-06-30] MEDS ORDERED: BISACODYL 5 MG TABEC PO ONE (17:00)
[2017-06-30] MEDS ORDERED: POLYETHYLENE (MIRALAX) 17 GM PACK PO ONE (21:00)
[2017-06-30] MEDS: LORAZEPAM INJ 0.5 MG in SYRINGE 0.75 ML IV SCH (21:56)
[2017-07-01] VITALS (10 sets, daily range): BP systolic 162–177; BP diastolic 71–77; PULSE 76–87; TEMP 36.4–37.3; O2SAT 93–99
[2017-07-01] MEDS: HydrALAZINE HCL 20 MG/ML VIAL IV. SCH ×3 (02:07→17:25)
[2017-07-01] MEDS: NSS + 20MEQ KCL 1000ML 1,000 ML IV SCH ×3 (03:31→23:30)
[2017-07-01] MEDS: AMPICILLIN/SULBACTAM SOD INJ 3,000 MG in SODIUM CHLORIDE 0.9% 100ML 100 ML IV SCH ×4 (03:31→21:42)
[2017-07-01] MEDS: ACETAMINOPHEN 500 MG TAB PO SCH ×3 (05:35→21:52)
[2017-07-01] MEDS: LACTOBACILLUS ACIDOPHILUS (FLORANEX) TAB PO SCH ×3 (08:30→16:39)
[2017-07-01] MEDS: SOD PHOSPHATE/SOD BIPHOSPHATE ENEMA 132 ML BTL PR SCH (09:00)
[2017-07-01] MEDS: LEVETIRACETAM IV 500 MG in DEXTROSE 5% 100ML 100 ML IV SCH ×2 (09:01→20:30)
[2017-07-01] MEDS: FAMOTIDINE IV INJ 20 MG in SYRINGE 3 ML IV SCH ×2 (09:01→20:30)
--- NOTE | 2017-07-01 09:32 | Surgery Progress Note ---
Surgery Progress Note Date of Service Jul 01, 2017. Subjective Feels much better since ng placement. 1750 out of ng tube. No abdominal pain but back pain continues. Passed flatus and had bowel movements with enemas. Objective Vital Signs: Date Time Temp Pulse Resp B/P (MAP) Pulse Ox O2 Delivery O2 Flow Rate FiO2 07/01/17 07:50 Room Air 07/01/17 07:46 36.4 79 20 164/75 (104) 93 Room Air 07/01/17 07:12 37.0 78 16 164/71 (102) 98 Room Air 06/30/17 23:02 36.4 84 16 164/75 (104) 94 Room Air 06/30/17 20:00 Room Air 06/30/17 18:30 93 Room Air 06/30/17 18:28 36.6 84 16 164/70 (101) 93 Room Air 06/30/17 17:20 182/80 (114) 06/30/17 15:30 36.8 83 16 187/81 (116) 94 Room Air Physical Exam: nasogastric drainage (1750 cc) Head: normocephalic, atraumatic Abdomen: non tender, non distended, soft, + abnormal bowel sounds (hypoactive) Assessment & Plan 72 yr old woman with small bowel obstruction which appeared to be resolving but developed recurrent nausea/ vomiting with high ng outputs. ? gastric dysmotility vs gastric obstruction. Possibly still small bowel obstruction but her xray showed a nonobstructing pattern and she is passing flatus/ having bowel movements. Discussed with Huong ([facility] [place]) - as Dr. Garza had performed all her operations in the past, will see is he is willing to take over her care on Tuesday. Dr. Chandler to follow over the weekend. No urgent need for surgical intervention - await results of endoscopy.
[2017-07-01] MEDS: MoRPHine SULFATE 2 MG/ML CARP IV PRN ×2 (09:39→23:49)
[2017-07-01] MEDS ORDERED: MoRPHine SULFATE 10 MG/ML CARP/VIAL IV PRN (11:45)
[2017-07-01] MEDS ORDERED: ONDANSETRON INJ 2 MG/ML 2 ML VIAL IV PRN (11:45)
[2017-07-01] MEDS ORDERED: ATROPINE SULFATE 0.1 MG/ML 5ML SYR IV PRN (11:45)
[2017-07-01] MEDS ORDERED: PROMETHAZINE HCL INJ 12.5 MG in SODIUM CHLORIDE 0.9% 50ML 50 ML IV PRN (11:45)
[2017-07-01] MEDS ORDERED: MIDAZOLAM HCL 1 MG/ML 2ML VIAL ONE (12:14)
[2017-07-01] MEDS ORDERED: PROPOFOL IV EMULSION 10 MG/ML 20 ML VIAL IV ONE (12:15)
[2017-07-01] MEDS ORDERED: ONDANSETRON INJ 2 MG/ML 2 ML VIAL ONE (12:15)
[2017-07-01] MEDS ORDERED: LIDOCAINE HCL 2% 2 ML VIAL (20MG/ML) ONE (12:18)
[2017-07-01] MEDS ORDERED: LARYING-O-JET KIT (LTA) ONE ×2 (12:18)
--- NOTE | 2017-07-01 12:19 | History & Physical Bridge Note ---
H&P Re-Evaluation Bridge Note: I have examined the patient, reviewed the History & Physical and in the interval since the performance of the History & Physical I have noted the following changes of clinical significance: NG tube placed and stomach is decompressed. Will perform EGD today to r/o Gastric outlet obstruction. I explained to the patient the risk, benefit and alternatives of the procedure, risk of aspiration, bleeding and perforation. Verbalized understanding and agreed. She is in stable condition for the EGD.
--- NOTE | 2017-07-01 13:13 | [facility] Post Operative Brief Note ---
Immediate Operative Summary Operative Date Jul 01, 2017. Pre-Operative Diagnosis rule out gastric outlet obstruction Post-Operative Diagnosis normal stomach and normal duodenoum Procedure(s) Performed Esophagogastroduodenoscopy Surgeon Dr. Ulises Gandhi [employer] Plant Dispatcher Surgeon(s) Dr. Ulises Nagel Estimated Blood Loss 0mL Findings Normal Esophagus. Normal stomach with no evidence of obstruction. Normal duodenum. Small amount of residual secretion in the stomach and duodenum. Specimens none per surgeon Drains None Anesthesia General Complication(s) None Disposition Recovery Room / PACU
[2017-07-01] MEDS ORDERED: MoRPHine SULFATE 4 MG/ML 1 ML CARP\\VIAL ONE (13:20)
--- NOTE | 2017-07-01 13:57 | Anesthesiology Progress Note ---
Anesthesia Post Op Note Date & Time Jul 01, 2017 at 13:57 Vital Signs Pain Intensity: 3 Vital Signs Past 12 Hours Date Time Temp Pulse Resp B/P (MAP) Pulse Ox O2 Delivery O2 Flow Rate FiO2 07/01/17 13:50 36.2 73 16 155/77 100 Nasal Cannula 2 07/01/17 13:40 77 16 155/81 100 Nasal Cannula 2 07/01/17 13:30 77 16 159/93 100 Oxymask 10 07/01/17 13:20 81 16 159/79 100 Oxymask 10 07/01/17 13:12 36.5 91 16 157/74 100 Oxymask 10 07/01/17 11:21 36.8 79 20 169/75 (106) 93 Room Air 07/01/17 08:00 Room Air 07/01/17 07:50 Room Air 07/01/17 07:46 36.4 79 20 164/75 (104) 93 Room Air 07/01/17 07:12 37.0 78 16 164/71 (102) 98 Room Air Notes Mental Status: alert / awake / arousable, participated in evaluation Pt Amnestic to Procedure: Yes Nausea / Vomiting: adequately controlled Pain: adequately controlled Airway Patency, RR, SpO2: stable & adequate BP & HR: stable & adequate Hydration State: stable & adequate Anesthetic Complications: no major complications apparent
--- NOTE | 2017-07-01 16:00 | Progress Note ---
Progress Note Date of Service Jul 01, 2017. Progress Note EGD done this afternoon notable for some retained liquid in the stomach and duodenum. No evidence of gastric outlet obstruction. Recomendaitons NGT to LIS Consider an MR enterography to evaluate the small bowel for a stricture or mass.
--- NOTE | 2017-07-01 16:12 | Hospitalist Progress Note ---
Hospitalist Progress Note Date of Service Jul 01, 2017. (Lauren Ryan .ADINA) Subjective Pt evaluation today including: conversation w/ patient, physical exam, chart review, lab review, review of inpatient medication list Voiding: no incontinence Ms. Rollins has had relief of her nausea with her NG tube. She continues to have back pain. Constitutional: no chills, aches, sweats or fever Respiratory: no sob,cough, sputum, or wheezing Cardiac: no chest pain, palpitations, edema, orthopnea or lightheadedness GI: no abdominal pain, nausea, vomiting, diarrhea or constipation : no dysuria or hesitancy Extremities: see hpi Skin: no rash All Other Systems: Reviewed and Negative (Lauren Ryan CRNP) Medications Medications Administered Medications (Trade) Dose Ordered Sig/Ba Route Start Time Stop Time Status Last Admin Dose Admin Sodium Chloride 250 ml @ 999 mls/hr Q16M STAT IV 06/26/17 06:36 06/26/17 06:51 DC 06/26/17 06:36 999 MLS/HR Sodium Chloride 1,000 ml @ 125 mls/hr Q8H STAT IV 06/26/17 06:36 06/26/17 14:35 DC 06/26/17 06:45 125 MLS/HR Ondansetron HCl (Zofran Inj) 4 mg NOW STAT IV 06/26/17 06:36 06/26/17 06:40 DC 06/26/17 06:45 4 MG Lorazepam (Ativan Inj) 0.5 mg NOW STAT IV 06/26/17 08:23 06/26/17 08:24 DC 06/26/17 08:30 0.5 MG Ondansetron HCl (Zofran Inj) 4 mg Q6H PRN IV 06/26/17 12:45 07/26/17 12:44 06/30/17 10:12 4 MG Hydralazine HCl (HydrALAZINE INJ) 10 mg Q6H PRN IV. 06/26/17 12:45 06/27/17 16:10 DC 06/27/17 00:02 10 MG Levetiracetam 500 mg/Dextrose 105 ml @ 420 mls/hr Q12 IV 06/26/17 21:00 07/26/17 20:59 07/01/17 09:01 420 MLS/HR Sodium Chloride 1,000 ml @ 100 mls/hr Q10H IV 06/26/17 15:00 06/27/17 09:07 DC 06/27/17 02:17 100 MLS/HR Morphine Sulfate (MoRPHine SULFATE INJ) 1 mg Q3H PRN IV 06/26/17 12:45 06/29/17 11:28 DC 06/29/17 11:13 1 MG Influenza Virus Vaccine (Fluzone High-Dose Pf 0.5 ml) 0.5 ml ONCE ONCE IM. 06/26/17 13:30 06/26/17 14:41 DC 06/27/17 19:07 0.5 ML Pneumococcal Polysaccharide Vaccine (Pneumovax-23 Inj) 25 mcg ONCE ONCE IM. 06/26/17 13:30 06/26/17 14:47 DC 06/27/17 19:19 25 MCG Morphine Sulfate (MoRPHine SULFATE INJ) 2 mg STK-MED ONCE .ROUTE 06/26/17 13:27 06/26/17 13:28 DC 06/26/17 13:32 1 MG Clonazepam (Klonopin Tab) 0.5 mg HS PO 06/26/17 21:00 07/26/17 20:59 Future Hold 06/26/17 21:29 0.5 MG Ketorolac Tromethamine (Toradol Inj) 15 mg STK-MED ONCE .ROUTE 06/26/17 20:32 06/26/17 20:33 DC 06/26/17 20:35 15 MG Potassium Chloride/Sodium Chloride 1,000 ml @ 100 mls/hr Q10H IV 06/27/17 09:30 07/27/17 09:29 07/01/17 03:31 100 MLS/HR Ampicillin Sodium/ Sulbactam Sodium 3000 mg/Sodium Chloride 108 ml @ 200 mls/hr Q6H IV 06/27/17 10:00 07/02/17 09:59 07/01/17 09:40 200 MLS/HR Potassium Chloride 10 meq/ Prmx 100 ml @ 100 mls/hr Q1H IV 06/27/17 11:00 06/27/17 13:59 DC 06/27/17 14:02 100 MLS/HR Ketorolac Tromethamine (Toradol Inj) 15 mg Q6H PRN IV 06/27/17 12:45 07/02/17 12:44 06/29/17 11:12 15 MG Sodium Chloride 500 ml @ 1,000 mls/hr Q30M IV 06/27/17 13:00 06/27/17 13:29 DC 06/27/17 14:02 1,000 MLS/HR Hydralazine HCl (HydrALAZINE INJ) 10 mg Q8H IV. 06/27/17 18:00 07/27/17 17:59 07/01/17 09:39 10 MG Lorazepam 0.5 mg/ Syringe 1 ml @ 1 mls/min HS IV 06/27/17 21:00 07/27/17 20:59 06/30/17 21:56 1 MLS/MIN Ranitidine HCl 50 mg/Dextrose 102 ml @ 200 mls/hr Q8H IV 06/29/17 06:00 06/29/17 15:10 DC 06/29/17 13:45 200 MLS/HR Potassium Chloride (Klor-Con M10) 40 meq NOW ONCE PO 06/29/17 10:30 06/29/17 10:31 DC 06/29/17 10:37 40 MEQ Morphine Sulfate (MoRPHine SULFATE INJ) 2 mg Q3H PRN IV 06/29/17 11:30 07/13/17 11:29 07/01/17 09:39 2 MG Acetaminophen (Tylenol Tab) 1,000 mg Q8 PO 06/29/17 14:00 07/29/17 13:59 06/30/17 14:30 1,000 MG Lactobacillus Acidophilus (Floranex Tab) 4 tab TIDM PO 06/29/17 12:30 07/29/17 12:29 06/30/17 12:42 4 TAB Famotidine 20 mg/ Syringe 5 ml @ 2.5 mls/min Q12 IV 06/29/17 21:00 07/29/17 20:59 07/01/17 09:01 2.5 MLS/MIN Bisacodyl (Dulcolax Supp) 10 mg NOW ONCE ME 06/30/17 11:00 06/30/17 11:01 DC 06/30/17 11:07 10 MG Methylnaltrexone Clarence (Relistor Inj) 12 mg Q2D@0900 SQ 06/30/17 13:00 07/30/17 12:59 06/30/17 12:54 12 MG Sodium Biphosphate/ Sodium Phosphate (Fleet Enema) 132 ml NOW ONCE ME 06/30/17 13:00 06/30/17 13:01 DC 06/30/17 12:40 132 ML Sodium Biphosphate/ Sodium Phosphate (Fleet Enema) 132 ml DAILY ME 06/30/17 16:00 07/01/17 09:01 DC 06/30/17 16:16 132 ML (Lauren Ryan CRNP) Objective Vital Signs Date Time Temp Pulse Resp B/P (MAP) Pulse Ox O2 Delivery O2 Flow Rate FiO2 07/01/17 14:50 36.4 76 18 177/77 (110) 98 Nasal Cannula 2.0 07/01/17 14:20 99 Nasal Cannula 2.0 07/01/17 14:20 37.0 78 16 165/71 (102) 99 Nasal Cannula 2.0 07/01/17 14:00 36.2 74 16 160/89 100 Nasal Cannula 2 07/01/17 13:50 36.2 73 16 155/77 100 Nasal Cannula 2 07/01/17 13:40 77 16 155/81 100 Nasal Cannula 2 07/01/17 13:30 77 16 159/93 100 Oxymask 10 07/01/17 13:20 81 16 159/79 100 Oxymask 10 07/01/17 13:12 36.5 91 16 157/74 100 Oxymask 10 07/01/17 11:21 36.8 79 20 169/75 (106) 93 Room Air 07/01/17 08:00 Room Air 07/01/17 07:50 Room Air 07/01/17 07:46 36.4 79 20 164/75 (104) 93 Room Air 07/01/17 07:12 37.0 78 16 164/71 (102) 98 Room Air 06/30/17 23:02 36.4 84 16 164/75 (104) 94 Room Air 06/30/17 20:00 Room Air 06/30/17 18:30 93 Room Air 06/30/17 18:28 36.6 84 16 164/70 (101) 93 Room Air 06/30/17 17:20 182/80 (114) 06/30/17 15:30 36.8 83 16 187/81 (116) 94 Room Air (Lauren Ryan CRNP) Physical Exam Notes: General: no distress Eyes: normal inspection, PERLL Respiratory: chest non tender, clear to auscultation, normal breath sounds, no respiratory distress, no accessory muscle use Cardiac: regular rate and rhythm, no rub or gallop, systolic murmur, no edema, no jvd GI/: active bowel sounds, no abd pain or tenderness, soft, non distended, NG tube in place Extremities: normal range of motion, normal strength, non tender Neuro/Psych: drowsy and oriented x 3, normal mood and affect Skin: normal color, dry (Lauren Ryan CRNP) Assessment and Plan Patient is a pleasant 72 y/o female, with PMHx of seizure disorder, HTN, HLD, mitral stenosis, aortic sclerosis, pulmonary HTN, h/o recurrent c.diff s/p colectomy w/ ileostomy- resolved, chronic pain, OA, osteoporosis, and anxiety/ depression, who presented to the ED because of lower back pain since 1 day before admission. SBO: - Admit to med/surg - IV NSS 20k @ 100 ml/hr - Consult general surgery, medical management for now - NG tube out 06/28, some coffee ground emesis in tube - increased back pain similar to admission after eating - 2 view abdomen, pepcid , GI cocktail - Vomiting again 06/30 - 2 view abdomen - reinserted NG and she put out 1 L fluid - Consult GI - EGD was normal - await GI input Lumbar pain s/p mechanical fall: - Check lumbar spine x-ray - no acute finding - IV Morphine increased to 2 mg q3h, continue prn toradol - Heating pad - PT/OT Low urine output - retaining almost 400 mls on bladder scan per nursing again 06/28 - merlos catheter out 06/29 UTI - continue Seizure disorder: IV Keppra 500 mg BID due to NPO HTN: - Hold Benicar daily due to NPO - IV Hydralazine 10 mg q6 hrs PRN sbp >180 or dbp >100 Hypokalemia - repleated - potassium in fluids HLD: Hold Lipitor 20 mg daily due to NPO- resume once tolerating PO Mitral stenosis, aortic sclerosis, pulmonary HTN- follows w/ Dr. Barber h/o recurrent c.diff s/p colectomy w/ ileostomy- resolved Chronic pain, OA- - Hold Mobic 7.5 mg daily PRN due to NPO - IV Morphine as above - Ketorlac while npo Osteoporosis: Continue Reclast injection yearly DVT prophylaxis: TEDs/SCDs- hold chemical anticoagulation pending surgical evaluation Code Status: LEVEL I, FULL Dispo: From home- PT/OT and CM consulted (Lauren Ryan ., ADINA) IRONWORKER MACHINE OPERATOR Physician Supervision Note: I interviewed and examined the patient. Discussed with Lauren Ryan IRONWORKER MACHINE OPERATOR and agree with findings and plan as documented in the note. Any exceptions or clarifications are listed here: None This patient had recurrence of abdominal discomfort and an NG tube was placed draining copious amounts of fluid she does not have overt small bowel traction signs seen on her x-rays however she's had extensive intra-abdominal surgeries given a episode of C. difficile in the past with with significant complications. The patient had upper or lower endoscopy today without any evidence to determine the origin of this recurrent abdominal pain is clear that she is having issues with ileus and obstruction discussions with surgery now that her endoscopy is performed may be to perform a small bowel follow-through to determine if there is a mechanical narrowing but could be attributed to her symptoms After the procedure she is still slightly sedated and NG tube was placed and was draining clear to cloudy liquid Her abdomen was with hypoactive bowel sounds she is soft mildly distended Ileus of undetermined significance likely mechanical given her previous abdominal surgeries will discuss with GI surgery on-call but likely consider small bowel study to determine if a mechanical obstruction will need to be addressed until that time we'll support her with IV fluids pain control and antiemetics Documented By: Cosmo Henriquez (Cosmo Henriquez M.D.)
[2017-07-01] MEDS: LORAZEPAM INJ 0.5 MG in SYRINGE 0.75 ML IV SCH (20:30)
[2017-07-02] VITALS (8 sets, daily range): BP systolic 158–184; BP diastolic 69–88; PULSE 82–103; TEMP 36.5–37.1; O2SAT 94–96
[2017-07-02] MEDS: HydrALAZINE HCL 20 MG/ML VIAL IV. SCH ×3 (02:07→18:03)
[2017-07-02] MEDS: AMPICILLIN/SULBACTAM SOD INJ 3,000 MG in SODIUM CHLORIDE 0.9% 100ML 100 ML IV SCH ×4 (03:48→23:22)
[2017-07-02] MEDS: ACETAMINOPHEN 500 MG TAB PO SCH ×4 (06:00→14:00)
[2017-07-02] MEDS: NSS + 20MEQ KCL 1000ML 1,000 ML IV SCH (07:41)
[2017-07-02 08:53] LABS: HEMATOCRIT 29.2 % (37-47); MEAN CELL VOLUME 106.2 fL (80-100); MEAN CORPUSCULAR HEMOGLOBIN 34.2 pg (25-34); MEAN CORPUSCULAR HGB CONC 32.2 g/dl (32-36); MEAN PLATELET VOLUME 10.7 fL (7.4-10.4); PLATELET COUNT 123 K/uL (130-400); RED BLOOD COUNT 2.75 M/uL (4.2-5.4); WHITE BLOOD COUNT 7.17 K/uL (4.8-10.8)
[2017-07-02] MEDS: MoRPHine SULFATE 2 MG/ML CARP IV PRN ×3 (09:38→23:35)
[2017-07-02] MEDS ORDERED: SOD PHOSPHATE/SOD BIPHOSPHATE ENEMA 132 ML BTL PR STA (09:47)
--- NOTE | 2017-07-02 09:47 | Gastroenterology Progress Note ---
Progress Note Date of Service: Jul 02, 2017 Subjective Pt evaluation today including: conversation w/ patient, physical exam The patient underwent upper endoscopy yesterday due to a question of gastric outlet obstruction. There is no evidence of gastric outlet obstruction yesterday. There was evidence of fluid within the duodenum and stomach suggestive of a persistent small bowel obstruction. The patient notes that she is tolerating NG tube well seems to be passing some gas but presently having no stool output. Review of Systems Constitutional: No fever, No weight loss, No fatigue Respiratory: No cough, No wheezing Cardiac: No chest pain, No PND, No palpitations Medications Current Inpatient Medications Medications (Trade) Dose Ordered Sig/Ba Route Start Time Stop Time Status Last Admin Dose Admin Al Hydrox/Mg Hydrox/Simethicone (Maalox Max Susp) 15 ml Q4H PRN PO 06/26/17 12:45 07/26/17 12:44 Magnesium Hydroxide (Milk Of Magnesia Susp) 30 ml Q6H PRN PO 06/26/17 12:45 07/26/17 12:44 Ondansetron HCl (Zofran Inj) 4 mg Q6H PRN IV 06/26/17 12:45 07/26/17 12:44 06/30/17 10:12 4 MG Levetiracetam 500 mg/Dextrose 105 ml @ 420 mls/hr Q12 IV 06/26/17 21:00 07/26/17 20:59 07/01/17 20:30 420 MLS/HR Clonazepam (Klonopin Tab) 0.5 mg HS PO 06/26/17 21:00 07/26/17 20:59 Future Hold 06/26/17 21:29 0.5 MG Potassium Chloride/Sodium Chloride 1,000 ml @ 100 mls/hr Q10H IV 06/27/17 09:30 07/27/17 09:29 07/02/17 07:41 100 MLS/HR Ampicillin Sodium/ Sulbactam Sodium 3000 mg/Sodium Chloride 108 ml @ 200 mls/hr Q6H IV 06/27/17 10:00 07/04/17 09:59 07/02/17 03:48 200 MLS/HR Ketorolac Tromethamine (Toradol Inj) 15 mg Q6H PRN IV 06/27/17 12:45 07/02/17 12:44 06/29/17 11:12 15 MG Hydralazine HCl (HydrALAZINE INJ) 10 mg Q8H IV. 06/27/17 18:00 07/27/17 17:59 07/02/17 02:07 10 MG Lorazepam 0.5 mg/ Syringe 1 ml @ 1 mls/min HS IV 06/27/17 21:00 07/27/17 20:59 07/01/17 20:30 1 MLS/MIN Morphine Sulfate (MoRPHine SULFATE INJ) 2 mg Q3H PRN IV 06/29/17 11:30 07/13/17 11:29 07/02/17 09:38 2 MG Acetaminophen (Tylenol Tab) 1,000 mg Q8 PO 06/29/17 14:00 07/29/17 13:59 06/30/17 14:30 1,000 MG Lactobacillus Acidophilus (Floranex Tab) 4 tab TIDM PO 06/29/17 12:30 07/29/17 12:29 06/30/17 12:42 4 TAB Al Hydroxide/Mg Hydroxide/ Lidocaine HCl/ Barcode TID PRN PO 06/29/17 13:30 07/29/17 13:29 Famotidine 20 mg/ Syringe 5 ml @ 2.5 mls/min Q12 IV 06/29/17 21:00 07/29/17 20:59 07/01/17 20:30 2.5 MLS/MIN Methylnaltrexone [place] (Relistor Inj) 12 mg Q2D@0900 SQ 06/30/17 13:00 07/30/17 12:59 06/30/17 12:54 12 MG Objective Vital Signs Date Time Temp Pulse Resp B/P (MAP) Pulse Ox O2 Delivery O2 Flow Rate FiO2 07/02/17 07:04 37.1 91 17 160/69 (99) 94 Room Air 07/01/17 23:40 Room Air 07/01/17 23:05 36.7 84 18 164/73 (103) 94 Room Air 07/01/17 20:08 36.7 87 16 163/76 (105) 94 Room Air 07/01/17 19:10 Room Air 07/01/17 17:31 37.3 86 16 162/77 (105) 95 Room Air 07/01/17 17:00 Room Air 07/01/17 16:34 37.1 81 16 163/74 (103) 97 Room Air 07/01/17 15:22 36.9 80 18 173/72 (105) 99 Nasal Cannula 1.0 07/01/17 14:50 36.4 76 18 177/77 (110) 98 Nasal Cannula 2.0 07/01/17 14:20 99 Nasal Cannula 2.0 07/01/17 14:20 37.0 78 16 165/71 (102) 99 Nasal Cannula 2.0 07/01/17 14:00 36.2 74 16 160/89 100 Nasal Cannula 2 07/01/17 13:50 36.2 73 16 155/77 100 Nasal Cannula 2 07/01/17 13:40 77 16 155/81 100 Nasal Cannula 2 07/01/17 13:30 77 16 159/93 100 Oxymask 10 07/01/17 13:20 81 16 159/79 100 Oxymask 10 07/01/17 13:12 36.5 91 16 157/74 100 Oxymask 10 07/01/17 11:21 36.8 79 20 169/75 (106) 93 Room Air Physical Exam General Appearance: no apparent distress Eyes: PERRL Respiratory/Chest: lungs clear Cardiovascular: no edema, no murmur Abdomen: soft Neurologic/Psych: alert Skin: no jaundice Laboratory Results Last 24 Hours Test 07/02/17 07:04 White Blood Count 7.17 K/uL Red Blood Count 2.75 M/uL Hemoglobin 9.4 g/dL Hematocrit 29.2 % Mean Corpuscular Volume 106.2 fL Mean Corpuscular Hemoglobin 34.2 pg Mean Corpuscular Hemoglobin Concent 32.2 g/dl RDW Standard Deviation 51.0 fL RDW Coefficient of Variation 13.2 % Platelet Count 123 K/uL Mean Platelet Volume 10.7 fL Assessment and Plan Patient presented with small bowel obstruction with recurrent symptoms after removal of NG tube. Upper endoscopy without any evidence of gastric outlet obstruction. I wonder if she may have persistent small bowel obstruction related to her prior surgeries or perhaps an anastomotic stricture. Recommendations Fleets enema today Continue NG tube to low intermittent suction MR enterography ordered Further recommendations per general surgery (patient normally sees Dr. Zurita
[2017-07-02] MEDS: LEVETIRACETAM IV 500 MG in DEXTROSE 5% 100ML 100 ML IV SCH ×2 (09:51→22:40)
[2017-07-02] MEDS: FAMOTIDINE IV INJ 20 MG in SYRINGE 3 ML IV SCH ×2 (09:51→21:27)
[2017-07-02] MEDS: LACTOBACILLUS ACIDOPHILUS (FLORANEX) TAB PO SCH ×4 (09:51→18:11)
[2017-07-02] MEDS: METHYLNALTREXONE BROMIDE INJ 12 MG/0.6 ML SYR SQ SCH (10:03)
--- NOTE | 2017-07-02 10:40 | DIAGNOSTIC IMAGING REPORT ---
ABDOMEN 2VIEW W/PA CHEST RTN CLINICAL HISTORY: hisotory of SBO pain. Obstruction. COMPARISON STUDY: 06/30/2017 FINDINGS: Mild cardiomegaly. Mild prominence the pulmonary vasculature. Nasogastric tube within the distal stomach. Nonobstructive bowel pattern. Several slightly distended loops of small bowel suggesting a mild nonobstructive ileus. IMPRESSION: Mild nonobstructive ileus. Nasogastric tube within the distal stomach. Moderate emphysematous change in the chest. The above report was generated using voice recognition software. It may contain grammatical, syntax or spelling errors. Electronically signed by: Kike Yarbrough M.D. 07/02/2017 10:39 AM Dictated Date/Time: 07/02/2017 10:37 AM
--- NOTE | 2017-07-02 10:40 | SURGERY PROGRESS NOTE ---
DATE: 07/02/[address] Drea Nagel. Andra has been here 6 days with pretty much NG decompression and very little progress was made in reestablishing her GI function. She appears to have what appears to be a transition zone in jejunal area. Yesterday, she underwent an EGD which showed no gastric outlet obstruction. This morning, her NG tube is still in place and she had about 270 overnight. Her last vitals shows a temperature of 37.1, pulse 91, respirations 17, blood pressure 160/69, O2 sats 94 on room air. Her abdomen is softly distended. She is thin, so you could basically see some small bowel distention appreciated. She had no bowel movement in the last 48 hours and not passing any flatus, although she said she feels some rumbling. In summary, at this time I think she will probably end up being explored. At this point, what I would recommend is probably either putting a PICC line and start her on some cut her nutrition, she has not had anything for 6 days and then see how she does clinically to consider exploration. Hopefully this will resolve by itself, but I think it is not going to evolve into going to surgery. [facility]
[2017-07-02] MEDS ORDERED: CONSULT PHARMACY STA (10:55)
[2017-07-02] MEDS ORDERED: DEXTROSE 10% 1,000 ML IV PRN (10:55)
[2017-07-02] MEDS ORDERED: TPN/PPN CONSULT PHARMACY PRN (11:00)
[2017-07-02 11:57] LABS: MAGNESIUM 1.6 mg/dl (1.8-2.4); PHOSPHORUS 2.3 mg/dl (2.5-4.9); PREALBUMIN 10.6 mg/dl (20-40)
--- NOTE | 2017-07-02 15:05 | Progress Note ---
Subjective Date of Service: Jul 02, 2017. Subjective Patient is persistently uncomfortable did excellently remove her NG tube which was replaced is being followed by surgery who are now beginning to consider surgical expiration of her abdomen she is on for MRI enterography on 07/04. She is agreeable to PICC line and king Problem List Medical Problems: (1) Accidental overdose Status: Acute (2) Altered mental status Status: Acute (3) Ambulatory dysfunction Status: Acute (4) Anxiety Status: Chronic (5) Contusion Status: Acute (6) Depressive Disorder Nec Status: Chronic (7) Encounter for removal of margarito Status: Acute (8) Fall Status: Acute (9) Head injury, closed Status: Acute (10) Hypertension Status: Chronic (11) Hyponatremia Status: Acute (12) Medication side effects Status: Acute (13) Near syncope Status: Acute (14) Osteoporosis Status: Chronic (15) Scalp laceration Status: Acute (16) Seizure Status: Acute (17) Seizure disorder Status: Chronic (18) UTI (urinary tract infection) Status: Acute Review of Systems Constitutional: No fever, No chills Respiratory: No cough, No sputum, No wheezing Abdomen: + pain, + nausea, + constipation, No vomiting, No diarrhea Musculoskeletal: No joint pain, No muscle pain Objective Vital Signs Date Time Temp Pulse Resp B/P (MAP) Pulse Ox O2 Delivery O2 Flow Rate FiO2 07/02/17 14:48 36.5 103 18 181/80 (113) 95 Room Air 07/02/17 07:40 Room Air 07/02/17 07:04 37.1 91 17 160/69 (99) 94 Room Air 07/01/17 23:40 Room Air 07/01/17 23:05 36.7 84 18 164/73 (103) 94 Room Air 07/01/17 20:08 36.7 87 16 163/76 (105) 94 Room Air 07/01/17 19:10 Room Air 07/01/17 17:31 37.3 86 16 162/77 (105) 95 Room Air 07/01/17 17:00 Room Air 07/01/17 16:34 37.1 81 16 163/74 (103) 97 Room Air 07/01/17 15:22 36.9 80 18 173/72 (105) 99 Nasal Cannula 1.0 Physical Exam General Appearance: WD/WN, + moderate distress Neck: supple, no JVD Respiratory/Chest: chest non-tender, lungs clear, normal breath sounds Cardiovascular: regular rate, rhythm, no murmur Abdomen: + abnormal bowel sounds, + distended, + guarding, + tenderness Neurologic/Psychiatric: alert, oriented x 3 Laboratory Results Last 24 Hours Test 07/02/17 07:04 07/02/17 11:02 White Blood Count 7.17 K/uL Red Blood Count 2.75 M/uL Hemoglobin 9.4 g/dL Hematocrit 29.2 % Mean Corpuscular Volume 106.2 fL Mean Corpuscular Hemoglobin 34.2 pg Mean Corpuscular Hemoglobin Concent 32.2 g/dl RDW Standard Deviation 51.0 fL RDW Coefficient of Variation 13.2 % Platelet Count 123 K/uL Mean Platelet Volume 10.7 fL Phosphorus Level 2.3 mg/dl Magnesium Level 1.6 mg/dl Total Bilirubin 0.4 mg/dl Aspartate Amino Transf (AST/SGOT) 10 U/L Alanine Aminotransferase (ALT/SGPT) 9 U/L Alkaline Phosphatase 62 U/L Prealbumin 10.6 mg/dl Assessment and Plan 72 y/o female with an unusual presentation of what appear to be mechanical back pain and resulted to be abdominal ileus from previous abdominal surgeries feeling attempts at conservative management now requiring NG tube drainage. 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 chronic pain, OA, osteoporosis, and anxiety/depression Recurrent ileus with high NG output - Consult general surgery, continuing medical management but per their note consideration for exploration may be undertaken next week - NG tube did have some some coffee ground but since resolved however occasionally her drainage is black She did have an EGD on 07/01 which not did show any pathology Lumbar pain s/p mechanical fall: No acute lumbar fractures pain control - PT/OT Seizure disorder: IV Keppra 500 mg BID due to NPO HTN: Hold Benicar daily due to NPO, IV Hydralazine 10 mg q6 hrs PRN sbp >180 or dbp >100 HLD: Hold Lipitor 20 mg daily due to NPO- resume once tolerating PO Mitral stenosis, aortic sclerosis, pulmonary HTN- has been stable if needed she does follows w/ Dr. Barber Osteoporosis: Continue Reclast injection yearly DVT prophylaxis: TEDs/SCDs- hold chemical anticoagulation pending surgical evaluation Code Status: LEVEL I, FULL Dispo: From home- PT/OT and CM consulted
[2017-07-02] MEDS ORDERED: POTASSIUM PHOS 3 MMOL/1 ML INFUSION IV STA (15:11)
[2017-07-02] MEDS ORDERED: POTASSIUM PHOSPHATE INJ 15 MMOL in SODIUM CHLORIDE 0.9% 250ML 250 ML IV ONE (15:45)
[2017-07-02] MEDS ORDERED: [UNRECOGNIZED DRUG - REMARK] ONE (16:00)
[2017-07-02] MEDS ORDERED: CUSTOM PERIPHERAL PN 1 BAG IV SCH (16:00)
[2017-07-02] MEDS: MAGNESIUM SULFATE 1GM / D5W 1 GM in PREMIXED IN D5W 100 ML IV SCH ×2 (16:42→21:23)
[2017-07-02] MEDS: LORAZEPAM INJ 0.5 MG in SYRINGE 0.75 ML IV SCH (20:42)
[2017-07-03] VITALS (9 sets, daily range): BP systolic 156–194; BP diastolic 71–85; PULSE 77–102; TEMP 36.7–37.1; O2SAT 92–96
[2017-07-03] MEDS: HydrALAZINE HCL 20 MG/ML VIAL IV. SCH ×3 (02:27→18:26)
[2017-07-03] MEDS: AMPICILLIN/SULBACTAM SOD INJ 3,000 MG in SODIUM CHLORIDE 0.9% 100ML 100 ML IV SCH ×4 (06:25→23:23)
[2017-07-03] MEDS: ACETAMINOPHEN 500 MG TAB PO SCH ×3 (06:29→22:00)
[2017-07-03 07:32] LABS: BUN/CREATININE RATIO 12.7 (10-20); C-REACTIVE PROTEIN 2.33 mg/dl (0-0.29); CALCIUM 7.4 mg/dl (8.5-10.1); CREATININE 0.27 mg/dl (0.60-1.20); MAGNESIUM 2.1 mg/dl (1.8-2.4); PHOSPHORUS 2.2 mg/dl (2.5-4.9); POTASSIUM 2.5 mmol/L (3.5-5.1)
[2017-07-03] MEDS ORDERED: POTASSIUM PHOS 3 MMOL/1 ML INFUSION IV STA (07:36)
[2017-07-03] MEDS: LACTOBACILLUS ACIDOPHILUS (FLORANEX) TAB PO SCH ×3 (07:44→18:23)
[2017-07-03] MEDS: POTASSIUM CHLR 10 MEQ / WTR 10 MEQ in PREMIXED WATER 100 ML IV SCH ×6 (08:45→15:08)
[2017-07-03] MEDS: LEVETIRACETAM IV 500 MG in DEXTROSE 5% 100ML 100 ML IV SCH ×4 (08:54→21:32)
[2017-07-03] MEDS: FAMOTIDINE IV INJ 20 MG in SYRINGE 3 ML IV SCH ×2 (08:54→21:23)
[2017-07-03] MEDS ORDERED: ENALAPRILAT IV 1.25 MG in DEXTROSE 5% 25ML 25 ML IV SCH (09:00)
[2017-07-03] MEDS: MoRPHine SULFATE 2 MG/ML CARP IV PRN ×3 (09:01→23:24)
--- NOTE | 2017-07-03 09:04 | Gastroenterology Progress Note ---
Progress Note Date of Service: Jul 03, 2017 Subjective Pt evaluation today including: conversation w/ patient, physical exam Patient notes her discomfort is improved she is passing minimal amount of flatus and stool at this point in time. Review of Systems Constitutional: No fever, No sweats, No fatigue Respiratory: No cough, No dyspnea at rest Cardiac: No chest pain, No palpitations Medications Current Inpatient Medications Medications (Trade) Dose Ordered Sig/Ba Route Start Time Stop Time Status Last Admin Dose Admin Al Hydrox/Mg Hydrox/Simethicone (Maalox Max Susp) 15 ml Q4H PRN PO 06/26/17 12:45 07/26/17 12:44 Magnesium Hydroxide (Milk Of Magnesia Susp) 30 ml Q6H PRN PO 06/26/17 12:45 07/26/17 12:44 Ondansetron HCl (Zofran Inj) 4 mg Q6H PRN IV 06/26/17 12:45 07/26/17 12:44 06/30/17 10:12 4 MG Levetiracetam 500 mg/Dextrose 105 ml @ 420 mls/hr Q12 IV 06/26/17 21:00 07/26/17 20:59 07/02/17 22:40 420 MLS/HR Clonazepam (Klonopin Tab) 0.5 mg HS PO 06/26/17 21:00 07/26/17 20:59 Future Hold 06/26/17 21:29 0.5 MG Ampicillin Sodium/ Sulbactam Sodium 3000 mg/Sodium Chloride 108 ml @ 200 mls/hr Q6H IV 06/27/17 10:00 07/04/17 09:59 07/03/17 06:25 200 MLS/HR Hydralazine HCl (HydrALAZINE INJ) 10 mg Q8H IV. 06/27/17 18:00 07/27/17 17:59 07/03/17 02:27 10 MG Lorazepam 0.5 mg/ Syringe 1 ml @ 1 mls/min HS IV 06/27/17 21:00 07/27/17 20:59 07/02/17 20:42 1 MLS/MIN Morphine Sulfate (MoRPHine SULFATE INJ) 2 mg Q3H PRN IV 06/29/17 11:30 07/13/17 11:29 07/02/17 23:35 2 MG Acetaminophen (Tylenol Tab) 1,000 mg Q8 PO 06/29/17 14:00 07/29/17 13:59 07/03/17 06:29 1,000 MG Lactobacillus Acidophilus (Floranex Tab) 4 tab TIDM PO 06/29/17 12:30 07/29/17 12:29 07/03/17 07:44 4 TAB Al Hydroxide/Mg Hydroxide/ Lidocaine HCl/ Barcode TID PRN PO 06/29/17 13:30 07/29/17 13:29 Famotidine 20 mg/ Syringe 5 ml @ 2.5 mls/min Q12 IV 06/29/17 21:00 07/29/17 20:59 07/02/17 21:27 2.5 MLS/MIN Methylnaltrexone [place] (Relistor Inj) 12 mg Q2D@0900 SQ 06/30/17 13:00 07/30/17 12:59 07/02/17 10:03 12 MG Miscellaneous Information (Pharmacy Tpn/ Ppn Consult Active) 1 ea UD PRN N/A 07/02/17 11:00 08/01/17 10:59 Nutrition (Parenteral) 0 ml @ 0 mls/hr TODAY@1600 IV 07/02/17 16:00 07/03/17 15:59 07/02/17 16:17 0 MLS/HR Heparin Sodium (Porcine) (Heparin 10 Unit/ ml 5 ml Flush) 5 ml PRN PRN FLUSH 07/03/17 00:45 08/02/17 00:44 Potassium Chloride 10 meq/ Prmx 100 ml @ 100 mls/hr Q1H IV 07/03/17 08:00 07/03/17 10:59 Potassium Phosphate 21 mmol/ Sodium Chloride 507 ml @ 140 mls/hr 1100 ONCE IV 07/03/17 11:00 07/03/17 14:37 Enalaprilat 1.25 mg/Dextrose 26 ml @ 100 mls/hr Q12H IV 07/03/17 09:00 08/02/17 08:59 Objective Vital Signs Date Time Temp Pulse Resp B/P (MAP) Pulse Ox O2 Delivery O2 Flow Rate FiO2 07/03/17 07:15 36.7 93 17 168/77 (107) 95 Room Air 07/03/17 03:22 36.9 102 18 158/71 (100) 92 Room Air 07/02/17 23:20 Room Air 07/02/17 23:15 36.9 92 18 158/76 (103) 96 Room Air 07/02/17 19:03 172/71 (104) 07/02/17 18:00 82 184/81 (115) 07/02/17 16:56 172/73 (106) 07/02/17 15:45 95 Room Air 07/02/17 15:35 172/88 (116) 07/02/17 14:48 36.5 103 18 181/80 (113) 95 Room Air Physical Exam General Appearance: no apparent distress Eyes: PERRL Neck: no JVD Respiratory/Chest: lungs clear Cardiovascular: + systolic murmur Abdomen: soft, + tenderness (mild epigastric tenderness) Skin: no jaundice Laboratory Results Last 24 Hours Test 07/02/17 11:02 07/02/17 17:57 07/02/17 23:44 07/03/17 05:50 Phosphorus Level 2.3 mg/dl Magnesium Level 1.6 mg/dl Total Bilirubin 0.4 mg/dl Aspartate Amino Transf (AST/SGOT) 10 U/L Alanine Aminotransferase (ALT/SGPT) 9 U/L Alkaline Phosphatase 62 U/L Prealbumin 10.6 mg/dl Bedside Glucose 96 mg/dl 123 mg/dl 104 mg/dl Test 07/03/17 06:29 Sodium Level 137 mmol/L Potassium Level 2.5 mmol/L Chloride Level 102 mmol/L Carbon Dioxide Level 27 mmol/L Anion Gap 8.0 mmol/L Blood Urea Nitrogen 3 mg/dl Creatinine 0.27 mg/dl Est Creatinine Clear Calc Drug Dose 144.2 ml/min Estimated GFR () 138.2 Estimated GFR (Non- 119.3 BUN/Creatinine Ratio 12.7 Random Glucose 110 mg/dl Calcium Level 7.4 mg/dl Phosphorus Level 2.2 mg/dl Magnesium Level 2.1 mg/dl C-Reactive Protein 2.33 mg/dl Albumin 2.7 gm/dl Triglycerides Level 66 mg/dl Assessment and Plan Patient presented with small bowel obstruction with recurrent symptoms after removal of NG tube. Upper endoscopy without any evidence of gastric outlet obstruction. I wonder if she may have persistent small bowel obstruction related to her prior surgeries or perhaps an anastomotic stricture. Recommendations Continue NG tube to low intermittent suction Further recommendations per general surgery (patient normally sees Dr. Munguia [facility] to sign off for the present time
[2017-07-03] MEDS ORDERED: [UNRECOGNIZED DRUG - REMARK] ONE (10:00)
[2017-07-03] MEDS ORDERED: POTASSIUM PHOSPHATE INJ 21 MMOL in SODIUM CHLORIDE 0.9% 500ML 500 ML IV ONE (11:00)
--- NOTE | 2017-07-03 11:11 | SURGERY PROGRESS NOTE ---
DATE: 07/03/[address] Drea Nagel. Andra is resting comfortably but really has not had any much changes in her GI function. Last 3 days she has had no bowel movements and her belly is without any complaints, pain or without any distention. Her last vitals showed a temperature of 36.7, pulse 92, respirations 17, blood pressure 140/80, O2 sat is 95 on room air. The abdominal x-ray from yesterday showed what appears is continued proximal small-bowel obstruction. She does have what appeared as a dilated loop of bowel in her left upper quadrant. She may have had some gas in the colonic area, but it was hard to tell. The NG tube appears to be in good position. Potassium this morning is 2.5. The abdomen is soft, there is no localized tenderness. No hernias appreciated. The findings I think are consistent with a proximal small-bowel obstruction Even though the NG output has decreased in the last 24 hours. She has 1370 out the day before. She was started on hyperalimentation yesterday. I suspect that best is to evaluate her with an upper GI with small bowel follow through to see exactly the transit time and if there is high grade obstruction gives us better etiology as far as the site. This was discussed with Dr. Henriquez. He will plan to write for the order tomorrow. We will turnover the care back to Dr. Nagel in the morning. LUCY
--- NOTE | 2017-07-03 12:47 | Progress Note ---
Subjective Date of Service: Jul 03, 2017. Subjective pt is about the same, she still have ng drainage, surgery is following , no other issues except with feeding did develop marked low potassium and phos, will hold feeding and replete Problem List Medical Problems: (1) Accidental overdose Status: Acute (2) Altered mental status Status: Acute (3) Ambulatory dysfunction Status: Acute (4) Anxiety Status: Chronic (5) Contusion Status: Acute (6) Depressive Disorder Nec Status: Chronic (7) Encounter for removal of margarito Status: Acute (8) Fall Status: Acute (9) Head injury, closed Status: Acute (10) Hypertension Status: Chronic (11) Hyponatremia Status: Acute (12) Medication side effects Status: Acute (13) Near syncope Status: Acute (14) Osteoporosis Status: Chronic (15) Scalp laceration Status: Acute (16) Seizure Status: Acute (17) Seizure disorder Status: Chronic (18) UTI (urinary tract infection) Status: Acute Review of Systems Constitutional: + weakness, + fatigue, No fever, No chills Respiratory: No cough, No sputum Cardiac: No chest pain, No PND, No edema Abdomen: + pain, + nausea, No vomiting, No diarrhea, No constipation Neurologic: No memory loss, No paralysis, No weakness Objective Vital Signs Date Time Temp Pulse Resp B/P (MAP) Pulse Ox O2 Delivery O2 Flow Rate FiO2 07/03/17 11:48 36.7 93 16 156/82 (106) 96 Room Air 07/03/17 10:04 77 17 165/79 (107) 94 Room Air 07/03/17 07:15 96 Room Air 07/03/17 07:15 36.7 93 17 168/77 (107) 95 Room Air 07/03/17 03:22 36.9 102 18 158/71 (100) 92 Room Air 07/02/17 23:20 Room Air 07/02/17 23:15 36.9 92 18 158/76 (103) 96 Room Air 07/02/17 19:03 172/71 (104) 07/02/17 18:00 82 184/81 (115) 07/02/17 16:56 172/73 (106) 07/02/17 15:45 95 Room Air 07/02/17 15:35 172/88 (116) 07/02/17 14:48 36.5 103 18 181/80 (113) 95 Room Air Physical Exam General Appearance: WD/WN, + mild distress Eyes: PERRL, EOMI Respiratory/Chest: chest non-tender, lungs clear, normal breath sounds Cardiovascular: regular rate, rhythm, no murmur Abdomen: + abnormal bowel sounds, + guarding, + tenderness Extremities: no pedal edema, no calf tenderness Laboratory Results Last 24 Hours Test 07/02/17 17:57 07/02/17 23:44 07/03/17 05:50 07/03/17 06:29 Bedside Glucose 96 mg/dl 123 mg/dl 104 mg/dl Sodium Level 137 mmol/L Potassium Level 2.5 mmol/L Chloride Level 102 mmol/L Carbon Dioxide Level 27 mmol/L Anion Gap 8.0 mmol/L Blood Urea Nitrogen 3 mg/dl Creatinine 0.27 mg/dl Est Creatinine Clear Calc Drug Dose 144.2 ml/min Estimated GFR () 138.2 Estimated GFR (Non- 119.3 BUN/Creatinine Ratio 12.7 Random Glucose 110 mg/dl Calcium Level 7.4 mg/dl Phosphorus Level 2.2 mg/dl Magnesium Level 2.1 mg/dl C-Reactive Protein 2.33 mg/dl Albumin 2.7 gm/dl Triglycerides Level 66 mg/dl Test 07/03/17 11:40 Bedside Glucose 105 mg/dl Assessment and Plan 72 y/o female with an unusual presentation of what appear to be mechanical back pain and resulted to be abdominal ileus from previous abdominal surgeries feeling attempts at conservative management now requiring NG tube drainage. 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 chronic pain, OA, osteoporosis, and anxiety/depression Recurrent ileus with high NG output - Consult general surgery, continuing medical management but per their note consideration for exploration may be undertaken next week - NG tube did have some some coffee ground but since resolved however occasionally her drainage is black, on ppi iv She did have an EGD on 07/01 which not did show any pathology Lumbar pain s/p mechanical fall: No acute lumbar fractures pain control - PT/OT Seizure disorder: IV Keppra 500 mg BID due to NPO HTN: has been elevated since holding Benicar added iv enalaprilat, increased dose 07/03, IV Hydralazine 10 mg q6 hrs PRN sbp >180 or dbp >100 HLD: Hold Lipitor 20 mg daily due to NPO- resume once tolerating PO Mitral stenosis, aortic sclerosis, pulmonary HTN- has been stable if needed she does follows w/ Dr. Barber Osteoporosis: Reclast injection yearly DVT prophylaxis: TEDs/SCDs- hold chemical anticoagulation pending surgical evaluation Code Status: LEVEL I, FULL Dispo: From home- PT/OT and CM consulted
[2017-07-03 13:47] LABS: BUN/CREATININE RATIO 9.4 (10-20); CALCIUM 7.3 mg/dl (8.5-10.1); CREATININE 0.29 mg/dl (0.60-1.20); POTASSIUM 3.2 mmol/L (3.5-5.1)
[2017-07-03] MEDS ORDERED: CUSTOM CENTRAL PN 1 BAG IV SCH (16:00)
[2017-07-03] MEDS: ENALAPRILAT IV 1.25 MG in DEXTROSE 5% 25ML 25 ML IV SCH (16:50)
[2017-07-03] MEDS: LORAZEPAM INJ 0.5 MG in SYRINGE 0.75 ML IV SCH (21:23)
[2017-07-03 21:42] LABS: BUN/CREATININE RATIO 7.6 (10-20); CALCIUM 7.8 mg/dl (8.5-10.1); CREATININE 0.34 mg/dl (0.60-1.20); POTASSIUM 3.2 mmol/L (3.5-5.1)
[2017-07-04] VITALS (9 sets, daily range): BP systolic 145–169; BP diastolic 74–104; PULSE 78–96; TEMP 36.3–36.8; O2SAT 94–96
[2017-07-04] MEDS: ENALAPRILAT IV 1.25 MG in DEXTROSE 5% 25ML 25 ML IV SCH ×3 (01:38→18:45)
[2017-07-04] MEDS: HydrALAZINE HCL 20 MG/ML VIAL IV. SCH ×3 (01:39→17:41)
[2017-07-04] MEDS: POTASSIUM CHLR 20 MEQ / WTR 20 MEQ in PREMIXED WATER 100 ML IV SCH ×2 (03:26→05:01)
[2017-07-04] MEDS: ACETAMINOPHEN 500 MG TAB PO SCH ×3 (05:42→22:12)
[2017-07-04] MEDS: AMPICILLIN/SULBACTAM SOD INJ 3,000 MG in SODIUM CHLORIDE 0.9% 100ML 100 ML IV SCH (05:42)
[2017-07-04] MEDS: LACTOBACILLUS ACIDOPHILUS (FLORANEX) TAB PO SCH ×4 (05:52→17:47)
--- NOTE | 2017-07-04 07:37 | Anesthesiology Progress Note ---
Anesthesia Post Op Note Date & Time Jul 04, 2017 at 07:37 Vital Signs Pain Intensity: 8.0 Vital Signs Past 12 Hours Date Time Temp Pulse Resp B/P (MAP) Pulse Ox O2 Delivery O2 Flow Rate FiO2 07/04/17 07:15 36.3 81 15 169/104 (125) 96 Room Air 07/04/17 01:39 96 145/82 (103) 07/03/17 23:39 Room Air 07/03/17 23:02 36.7 83 16 168/79 (108) 93 Room Air Notes Mental Status: alert / awake / arousable, participated in evaluation Pt Amnestic to Procedure: Yes Nausea / Vomiting: adequately controlled Pain: adequately controlled Airway Patency, RR, SpO2: stable & adequate BP & HR: stable & adequate Hydration State: stable & adequate Anesthetic Complications: no major complications apparent
--- NOTE | 2017-07-04 08:18 | Surgery Progress Note ---
Surgery Progress Note Date of Service Jul 04, 2017. Subjective pt awake , alert- min abd pain- NG outpt 125 overnight- bilious on tpn, replaced K+ overnight Objective Vital Signs: Date Time Temp Pulse Resp B/P (MAP) Pulse Ox O2 Delivery O2 Flow Rate FiO2 07/04/17 07:55 Room Air 07/04/17 07:15 36.3 81 15 169/104 (125) 96 Room Air 07/04/17 01:39 96 145/82 (103) 07/03/17 23:39 Room Air 07/03/17 23:02 36.7 83 16 168/79 (108) 93 Room Air 07/03/17 18:29 83 194/85 (121) 07/03/17 17:13 171/73 (105) 07/03/17 16:15 95 Room Air 07/03/17 15:14 37.1 83 18 173/77 (109) 95 Room Air 07/03/17 11:48 36.7 93 16 156/82 (106) 96 Room Air 07/03/17 10:04 77 17 165/79 (107) 94 Room Air General Appearance: no apparent distress Respiratory/Chest: no respiratory distress, no accessory muscle use Abdomen: soft (decreased bs, min tenderness) Laboratory Results: Results Past 24 Hours Test 07/03/17 11:40 07/03/17 12:52 07/03/17 17:56 07/03/17 21:16 Range/Units Bedside Glucose 105 101 70-90 mg/dl Sodium Level 136 137 136-145 mmol/L Potassium Level 3.2 3.2 3.5-5.1 mmol/L Chloride Level 102 103 98-107 mmol/L Carbon Dioxide Level 26 25 21-32 mmol/L Anion Gap 8.0 9.0 3-11 mmol/L Blood Urea Nitrogen 3 3 7-18 mg/dl Creatinine 0.29 0.34 0.60-1.20 mg/dl Est Creatinine Clear Calc Drug Dose 134.3 114.5 ml/min Estimated GFR () 135.0 128.1 Estimated GFR (Non- 116.5 110.5 BUN/Creatinine Ratio 9.4 7.6 10-20 Random Glucose 94 107 70-99 mg/dl Calcium Level 7.3 7.8 8.5-10.1 mg/dl Test 07/04/17 00:03 07/04/17 06:00 07/04/17 07:48 Range/Units Bedside Glucose 105 116 70-90 mg/dl Assessment & Plan 07/04/17- pt w/ partial sbo- 04/2012- 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
[2017-07-04] MEDS: MoRPHine SULFATE 2 MG/ML CARP IV PRN ×3 (08:19→23:28)
[2017-07-04] MEDS: FAMOTIDINE IV INJ 20 MG in SYRINGE 3 ML IV SCH ×2 (08:19→20:49)
[2017-07-04] MEDS: LEVETIRACETAM IV 500 MG in DEXTROSE 5% 100ML 100 ML IV SCH ×2 (08:19→20:49)
[2017-07-04] MEDS: METHYLNALTREXONE BROMIDE INJ 12 MG/0.6 ML SYR SQ SCH (08:20)
[2017-07-04 08:43] LABS: BUN/CREATININE RATIO 11.7 (10-20); CALCIUM 8.1 mg/dl (8.5-10.1); CREATININE 0.32 mg/dl (0.60-1.20); MAGNESIUM 2.1 mg/dl (1.8-2.4); PHOSPHORUS 2.6 mg/dl (2.5-4.9); POTASSIUM 3.8 mmol/L (3.5-5.1)
--- NOTE | 2017-07-04 10:24 | Hospitalist Progress Note ---
Hospitalist Progress Note Date of Service Jul 04, 2017. (Lauren Ryan CRNP) Subjective Pt evaluation today including: conversation w/ patient, physical exam, chart review, lab review, review of inpatient medication list PO Intake: npo Voiding: no voiding problems Ms. Rollins is laying in bed following therapy. She continues to have back pain. She does not have belly pain or nausea. Constitutional: no chills, aches, sweats or fever Respiratory: no sob,cough, sputum, or wheezing Cardiac: no chest pain, palpitations, edema, orthopnea or lightheadedness GI: no abdominal pain, nausea, vomiting, diarrhea or constipation : no dysuria or hesitancy Extremities: see HPI Skin: no rash All Other Systems: Reviewed and Negative (Lauren Ryan CRNP) Medications Medications Administered Medications (Trade) Dose Ordered Sig/Ba Route Start Time Stop Time Status Last Admin Dose Admin Sodium Chloride 250 ml @ 999 mls/hr Q16M STAT IV 06/26/17 06:36 06/26/17 06:51 DC 06/26/17 06:36 999 MLS/HR Sodium Chloride 1,000 ml @ 125 mls/hr Q8H STAT IV 06/26/17 06:36 06/26/17 14:35 DC 06/26/17 06:45 125 MLS/HR Ondansetron HCl (Zofran Inj) 4 mg NOW STAT IV 06/26/17 06:36 06/26/17 06:40 DC 06/26/17 06:45 4 MG Lorazepam (Ativan Inj) 0.5 mg NOW STAT IV 06/26/17 08:23 06/26/17 08:24 DC 06/26/17 08:30 0.5 MG Ondansetron HCl (Zofran Inj) 4 mg Q6H PRN IV 06/26/17 12:45 07/26/17 12:44 06/30/17 10:12 4 MG Hydralazine HCl (HydrALAZINE INJ) 10 mg Q6H PRN IV. 06/26/17 12:45 06/27/17 16:10 DC 06/27/17 00:02 10 MG Levetiracetam 500 mg/Dextrose 105 ml @ 420 mls/hr Q12 IV 06/26/17 21:00 07/26/17 20:59 07/04/17 08:19 420 MLS/HR Sodium Chloride 1,000 ml @ 100 mls/hr Q10H IV 06/26/17 15:00 06/27/17 09:07 DC 06/27/17 02:17 100 MLS/HR Morphine Sulfate (MoRPHine SULFATE INJ) 1 mg Q3H PRN IV 06/26/17 12:45 06/29/17 11:28 DC 06/29/17 11:13 1 MG Influenza Virus Vaccine (Fluzone High-Dose Pf 0.5 ml) 0.5 ml ONCE ONCE IM. 06/26/17 13:30 06/26/17 14:41 DC 06/27/17 19:07 0.5 ML Pneumococcal Polysaccharide Vaccine (Pneumovax-23 Inj) 25 mcg ONCE ONCE IM. 06/26/17 13:30 06/26/17 14:47 DC 06/27/17 19:19 25 MCG Morphine Sulfate (MoRPHine SULFATE INJ) 2 mg STK-MED ONCE .ROUTE 06/26/17 13:27 06/26/17 13:28 DC 06/26/17 13:32 1 MG Clonazepam (Klonopin Tab) 0.5 mg HS PO 06/26/17 21:00 07/26/17 20:59 Future Hold 06/26/17 21:29 0.5 MG Ketorolac Tromethamine (Toradol Inj) 15 mg STK-MED ONCE .ROUTE 06/26/17 20:32 06/26/17 20:33 DC 06/26/17 20:35 15 MG Potassium Chloride/Sodium Chloride 1,000 ml @ 100 mls/hr Q10H IV 06/27/17 09:30 07/02/17 15:59 DC 07/02/17 07:41 100 MLS/HR Ampicillin Sodium/ Sulbactam Sodium 3000 mg/Sodium Chloride 108 ml @ 200 mls/hr Q6H IV 06/27/17 10:00 07/04/17 09:59 DC 07/04/17 05:42 200 MLS/HR Potassium Chloride 10 meq/ Prmx 100 ml @ 100 mls/hr Q1H IV 06/27/17 11:00 06/27/17 13:59 DC 06/27/17 14:02 100 MLS/HR Ketorolac Tromethamine (Toradol Inj) 15 mg Q6H PRN IV 06/27/17 12:45 07/02/17 12:44 DC 06/29/17 11:12 15 MG Sodium Chloride 500 ml @ 1,000 mls/hr Q30M IV 06/27/17 13:00 06/27/17 13:29 DC 06/27/17 14:02 1,000 MLS/HR Hydralazine HCl (HydrALAZINE INJ) 10 mg Q8H IV. 06/27/17 18:00 07/27/17 17:59 07/04/17 09:30 10 MG Lorazepam 0.5 mg/ Syringe 1 ml @ 1 mls/min HS IV 06/27/17 21:00 07/27/17 20:59 07/03/17 21:23 1 MLS/MIN Ranitidine HCl 50 mg/Dextrose 102 ml @ 200 mls/hr Q8H IV 06/29/17 06:00 06/29/17 15:10 DC 06/29/17 13:45 200 MLS/HR Potassium Chloride (Klor-Con M10) 40 meq NOW ONCE PO 06/29/17 10:30 06/29/17 10:31 DC 06/29/17 10:37 40 MEQ Morphine Sulfate (MoRPHine SULFATE INJ) 2 mg Q3H PRN IV 06/29/17 11:30 07/13/17 11:29 07/04/17 08:19 2 MG Acetaminophen (Tylenol Tab) 1,000 mg Q8 PO 06/29/17 14:00 07/29/17 13:59 07/04/17 05:42 1,000 MG Lactobacillus Acidophilus (Floranex Tab) 4 tab TIDM PO 06/29/17 12:30 07/29/17 12:29 07/04/17 05:52 4 TAB Famotidine 20 mg/ Syringe 5 ml @ 2.5 mls/min Q12 IV 06/29/17 21:00 07/29/17 20:59 07/04/17 08:19 2.5 MLS/MIN Bisacodyl (Dulcolax Supp) 10 mg NOW ONCE SD 06/30/17 11:00 06/30/17 11:01 DC 06/30/17 11:07 10 MG Methylnaltrexone Patterson (Relistor Inj) 12 mg Q2D@0900 SQ 06/30/17 13:00 07/30/17 12:59 07/04/17 08:20 12 MG Sodium Biphosphate/ Sodium Phosphate (Fleet Enema) 132 ml NOW ONCE SD 06/30/17 13:00 06/30/17 13:01 DC 06/30/17 12:40 132 ML Sodium Biphosphate/ Sodium Phosphate (Fleet Enema) 132 ml DAILY SD 06/30/17 16:00 07/01/17 09:01 DC 06/30/17 16:16 132 ML Sodium Biphosphate/ Sodium Phosphate (Fleet Enema) 132 ml NOW STAT SD 07/02/17 09:47 07/02/17 09:53 DC 07/02/17 11:10 132 ML Miscellaneous (Stop Order) 1 ea TODAY@1600 ONCE N/A 07/02/17 16:00 07/02/17 16:01 DC 07/02/17 16:24 1 EA Nutrition (Parenteral) 0 ml @ 0 mls/hr TODAY@1600 IV 07/02/17 16:00 07/03/17 14:22 DC 07/02/17 16:17 0 MLS/HR Magnesium Sulfate 1 gm/Prmx 100 ml @ 100 mls/hr Q1H IV 07/02/17 16:00 07/02/17 17:59 DC 07/02/17 21:23 100 MLS/HR Potassium Phosphate 15 mmol/ Sodium Chloride 255 ml @ 88 mls/hr ONE ONCE IV 07/02/17 15:45 07/02/17 18:38 DC 07/02/17 18:03 88 MLS/HR Potassium Chloride 10 meq/ Prmx 100 ml @ 100 mls/hr Q1H IV 07/03/17 08:00 07/03/17 10:59 DC 07/03/17 11:14 100 MLS/HR Potassium Phosphate 21 mmol/ Sodium Chloride 507 ml @ 140 mls/hr 1100 ONCE IV 07/03/17 11:00 07/03/17 14:37 DC 07/03/17 10:31 140 MLS/HR Enalaprilat 1.25 mg/Dextrose 26 ml @ 100 mls/hr Q12H IV 07/03/17 09:00 07/03/17 12:47 DC 07/03/17 09:14 100 MLS/HR Potassium Chloride 10 meq/ Prmx 100 ml @ 100 mls/hr Q1H IV 07/03/17 11:00 07/03/17 13:59 DC 07/03/17 15:08 100 MLS/HR Miscellaneous (Stop Order) 1 ea ONE ONCE N/A 07/03/17 10:00 07/03/17 10:01 DC 07/03/17 10:01 1 EA Enalaprilat 1.25 mg/Dextrose 26 ml @ 100 mls/hr Q8H IV 07/03/17 17:00 08/02/17 08:59 07/04/17 09:27 100 MLS/HR Nutrition (Parenteral) 0 ml @ 0 mls/hr TODAY@1600 IV 07/03/17 16:00 07/04/17 15:59 Future hold 07/03/17 16:30 0 MLS/HR Potassium Chloride 20 meq/ Prmx 100 ml @ 50 mls/hr Q2H IV 07/04/17 03:15 07/04/17 07:14 DC 07/04/17 05:01 50 MLS/HR (Lauren Ryan CRNP) Objective Vital Signs Date Time Temp Pulse Resp B/P (MAP) Pulse Ox O2 Delivery O2 Flow Rate FiO2 07/04/17 09:30 78 157/94 (115) 07/04/17 07:55 Room Air 07/04/17 07:15 36.3 81 15 169/104 (125) 96 Room Air 07/04/17 01:39 96 145/82 (103) 07/03/17 23:39 Room Air 07/03/17 23:02 36.7 83 16 168/79 (108) 93 Room Air 07/03/17 18:29 83 194/85 (121) 07/03/17 17:13 171/73 (105) 07/03/17 16:15 95 Room Air 07/03/17 15:14 37.1 83 18 173/77 (109) 95 Room Air 07/03/17 11:48 36.7 93 16 156/82 (106) 96 Room Air (Lauren Ryan CRNP) Physical Exam Notes: General: no distress Eyes: normal inspection, PERLL Respiratory: chest non tender, clear to auscultation, normal breath sounds, no respiratory distress, no accessory muscle use Cardiac: regular rate and rhythm, no rub or gallop, II/IV systolic murmur, no edema, no jvd GI/: active bowel sounds, no abd pain or tenderness, soft, non distended Extremities: normal range of motion, generalized weakness, non tender Neuro/Psych: drowsy and oriented x 3, normal mood and affect Skin: normal color, dry (Lauren Ryan CRNP) Laboratory Results Last 24 Hours Test 07/03/17 11:40 07/03/17 12:52 07/03/17 17:56 07/03/17 21:16 Bedside Glucose 105 mg/dl 101 mg/dl Sodium Level 136 mmol/L 137 mmol/L Potassium Level 3.2 mmol/L 3.2 mmol/L Chloride Level 102 mmol/L 103 mmol/L Carbon Dioxide Level 26 mmol/L 25 mmol/L Anion Gap 8.0 mmol/L 9.0 mmol/L Blood Urea Nitrogen 3 mg/dl 3 mg/dl Creatinine 0.29 mg/dl 0.34 mg/dl Est Creatinine Clear Calc Drug Dose 134.3 ml/min 114.5 ml/min Estimated GFR () 135.0 128.1 Estimated GFR (Non- 116.5 110.5 BUN/Creatinine Ratio 9.4 7.6 Random Glucose 94 mg/dl 107 mg/dl Calcium Level 7.3 mg/dl 7.8 mg/dl Test 07/04/17 00:03 07/04/17 06:00 07/04/17 07:48 Bedside Glucose 105 mg/dl 116 mg/dl Sodium Level 137 mmol/L Potassium Level 3.8 mmol/L Chloride Level 104 mmol/L Carbon Dioxide Level 25 mmol/L Anion Gap 8.0 mmol/L Blood Urea Nitrogen 4 mg/dl Creatinine 0.32 mg/dl Est Creatinine Clear Calc Drug Dose 121.7 ml/min Estimated GFR () 130.7 Estimated GFR (Non- 112.8 BUN/Creatinine Ratio 11.7 Random Glucose 118 mg/dl Calcium Level 8.1 mg/dl Phosphorus Level 2.6 mg/dl Magnesium Level 2.1 mg/dl (Lauren Ryan CRNP) Assessment and Plan Patient is a pleasant 72 y/o female, with PMHx of seizure disorder, HTN, HLD, mitral stenosis, aortic sclerosis, pulmonary HTN, h/o recurrent c.diff s/p colectomy w/ ileostomy- resolved, chronic pain, OA, osteoporosis, and anxiety/ depression, who presented to the ED because of lower back pain since 1 day before admission. Recurrent ileus with high NG output: - IV NSS 20k @ 100 ml/hr - Consult general surgery, medical management for now - NG tube out 06/28, some coffee ground emesis in tube - increased back pain similar to admission after eating - 2 view abdomen, famotidine - Vomiting again 06/30 - 2 view abdomen - reinserted NG and she put out 1 L fluid - Consult GI - EGD was normal - Per surgery CT scan with oral contrast today - per their note 07/02 consideration for exploration may be undertaken this week Moderate malnutrition - Third spacing with mild ascites, pleural effusion and anasarca - TPN Lumbar pain s/p mechanical fall: - Check lumbar spine x-ray - no acute finding - IV Morphine 2 mg q3h - Heating pad - PT/OT Low urine output - retaining almost 400 mls on bladder scan per nursing again 06/28 - merlos catheter out 06/29 UTI - continue Seizure disorder: IV Keppra 500 mg BID due to NPO HTN: - has been elevated since holding Benicar added iv enalaprilat, increased dose 07/03, IV Hydralazine 10 mg q6 hrs PRN sbp >180 or dbp >100 Hypokalemia - repleated - potassium in fluids - continue TPN HLD: Hold Lipitor 20 mg daily due to NPO- resume once tolerating PO Mitral stenosis, aortic sclerosis, pulmonary HTN- follows w/ Dr. Barber h/o recurrent c.diff s/p colectomy w/ ileostomy- resolved Chronic pain, OA- - Hold Mobic 7.5 mg daily PRN due to NPO - IV Morphine as above - Ketorlac while npo Osteoporosis: Continue Reclast injection yearly DVT prophylaxis: TEDs/SCDs- hold chemical anticoagulation pending surgical evaluation Code Status: LEVEL I, FULL Dispo: From home- PT/OT and CM consulted (Lauren Ryan ., ADINA) REFINERY OPERATOR [employer] Physician Supervision Note: I interviewed and examined the patient. Discussed with Lauren Ryan REFINERY OPERATOR [employer] and agree with findings and plan as documented in the note. Any exceptions or clarifications are listed here: None Patient has had repletion of her electrolytes and resumed her hyperalimentation. Surgical evaluation feels that although Pawan is a partial bowel obstruction the degree of bowel distention proximal to this is significant and she will not improve with conservative measures, plan for surgical intervention 07/[address] Darian Garza. Her vitals are stable with exception of slightly elevated blood pressure continuing to modulate her intravenous blood pressure control Her cardiac exam is regular lungs are clear without wheezes or crackles her abdomen has hyperactive bowel sounds soft nontender Support of nutrition and hydration by hyperalimentation, blood pressure control by intravenous enalapril ATT and seizure control with IV Keppra Documented By: Cosmo Henriquez (Cosmo Henriquez M.D.)
--- NOTE | 2017-07-04 11:41 | DIAGNOSTIC IMAGING REPORT ---
CT ABD/PELVIS IV AND ORAL CONT CLINICAL HISTORY: Small bowel obstruction COMPARISON STUDY: 06/26/2017 TECHNIQUE: Following the IV administration of 92 mL of Optiray-320, CT scan of the abdomen and pelvis was performed from the lung bases to the proximal femurs. Images are reviewed in the axial, sagittal, and coronal planes. IV contrast was administered without complication. A dose lowering technique was utilized adhering to the principles of ALARA. CT DOSE: 301.92 mGy.cm FINDINGS: Lower chest: There are bilateral pleural effusions. There are bibasal airspace opacities likely atelectatic there is a small pericardial effusion Liver: The contrast-enhanced liver is normal in size, contour, and attenuation. There is no intrahepatic biliary ductal dilatation. The hepatic veins and portal veins are patent. Gallbladder: The gallbladder is mildly distended. Equivocal mild pericholecystic edema may be artifactual given the motion artifact at this level Spleen: Normal in size and attenuation. Pancreas: Unremarkable. Adrenal glands: Unremarkable. Kidneys: There is symmetric renal cortical enhancement. The kidneys are normal in size without hydronephrosis. Bowel: There are persistent dilated proximal jejunal loops. The mid and distal jejunum, as well as the ileum is of normal caliber. The findings are suggestive of a partial proximal small bowel obstruction Peritoneum: . A droplet of air within the left anterior abdominal wall is likely extraperitoneal. There is trace ascites. There is diffuse abdominal wall edema. Vasculature: The abdominal aorta is normal in course and caliber. Adenopathy: None. Pelvic viscera: The bladder, and pelvic viscera are unremarkable. Skeletal structures: Postsurgical changes involve the proximal left femur. There is an old left inferior pubic ramus fracture. IMPRESSION: 1. Persistent proximal jejunal bowel dilatation with normal caliber distal loops. Contrast is visualized to the level the terminal ileum. The findings are consistent with a low-grade partial small bowel obstruction 2. Generalized body wall edema suggesting anasarca 3. Equivocal pericholecystic edema 4. Bilateral pleural effusions with bibasilar compressive atelectasis 5. Low volume ascites 6. Small droplet of air within the left anterior abdominal wall. This is felt to be extraperitoneal. Electronically signed by: Anthony Chavarria M.D. 07/04/2017 11:39 AM Dictated Date/Time: 07/04/2017 11:30 AM
--- NOTE | 2017-07-04 12:34 | Clinical Documentation Query ---
CLINICAL DOCUMENTATION QUERY 72-y/o female presents with persistent ileus who has been NPO since admission 06/26. In your clinical opinion is this patient being managed for: ( ) Mild Malnutrition ( ) Moderate Malnutrition ( ) Severe Malnutrition ( ) Not Agree ( ) Other explanation of clinical findings (Please Explain) ( ) Unable to determine (Please Define) ( ) Need to Discuss THERMOFORMING MACHINE OPERATOR Sommer Ryan will address in her docutmentation The medical record reflects the following clinical findings, treatment, and risk factors. Clinical Indicators: As above. NPO since admission, Anemia (RBC 2.75, Hgb 9.4, Hct 29.2), declining creatinine 0.32, Albumin 2.7, Phos 2.2, Potassium 2.5, Treatment: PICC line, PPN, NPO since admission 06/26, daily weights Risk Factors: Age, Hx of colectomy, prolonged necessary NPO status. Please clarify and document your clinical opinion in the progress notes and discharge summary. Terms such as "probable", "suspected", "likely", "questionable", "possible", or "still to be ruled out" are acceptable. IF IN AGREEMENT, YOU MUST DOCUMENT ABOVE DIAGNOSTIC STATEMENT IN DAILY PROGRESS NOTES AND DISCHARGE SUMMARY. This document is not part of the patient's record. Malnutrition Characteristics (2 of 6) in Acute Illness/Injury CHARACTERISTICS MODERATE MALNUTRITION SEVERE MALNUTRITION ENERGY INTAKE <75% of estimated energyrequirement for >7 days <50% of estimated energyrequirement for >5 days WEIGHT LOSS 1-2%/1 week 5%/1 month 7.5%/3 months >1-2%/1 week >5%/1 month >7.5%/3 months BODY FAT*loss of SQ fat from the orbits,triceps, or fat overlying the ribs MILD MODERATE MUSCLE MASS*muscle wasting at the temples,clavicles, shoulders, interosseousspaces,scapula, thigh, calf MILD MODERATE FLUID ACCUMULATION*localized or generalized edemaof the extremities, vulva, scrotumweight loss may be masked byedema MILD MODERATE-SEVERE TUG HAND STRENGTH N/A measurably decreased perthe device's standards Malnutrition Characteristics (2 of 6) in Chronic Illness CHARACTERISTICS MODERATE MALNUTRITION SEVERE MALNUTRITION ENERGY INTAKE <75% of estimated energyrequirement for >1 month <75% of estimated energyrequirement for >1 month WEIGHT LOSS 5%/1 month 7.5%/3 months 10%/6 months 20%/1 year > 5%/1 month >7.5%/3 months >10%/6 months >20%/1 year BODY FAT*loss of SQ fat from the orbits,triceps, or fat overlying the ribs MILD SEVERE MUSCLE MASS*muscle wasting at the temples,clavicles, shoulders, interosseousspaces,scapula, thigh, calf MILD SEVERE FLUID ACCUMULATION*localized or generalized edemaof the extremities, vulva, scrotumweight loss may be masked byedema MILD SEVERE TUG HAND STRENGTH N/A measurably decreased perthe device's standards Thank You, Lit Gao RN [phone]
[2017-07-04] MEDS ORDERED: FUROSEMIDE INJ 20 MG in SYRINGE 0 ML IV ONE (13:30)
[2017-07-04] MEDS: CEFOXITIN IV 1,000 MG in DEXTROSE 5% 50ML 50 ML IV SCH (15:56)
[2017-07-04] MEDS ORDERED: CUSTOM CENTRAL PN 1 BAG IV SCH (16:00)
[2017-07-04] MEDS: LORAZEPAM INJ 0.5 MG in SYRINGE 0.75 ML IV SCH (20:49)
[2017-07-05] VITALS (13 sets, daily range): BP systolic 106–157; BP diastolic 56–75; PULSE 74–107; TEMP 36.5–37.1; O2SAT 93–100
[2017-07-05] MEDS: CEFOXITIN IV 1,000 MG in DEXTROSE 5% 50ML 50 ML IV SCH ×4 (00:19→23:41)
[2017-07-05] MEDS: ENALAPRILAT IV 1.25 MG in DEXTROSE 5% 25ML 25 ML IV SCH ×3 (01:13→18:06)
[2017-07-05] MEDS: HydrALAZINE HCL 20 MG/ML VIAL IV. SCH ×3 (01:32→18:06)
[2017-07-05] MEDS: ACETAMINOPHEN 500 MG TAB PO SCH ×3 (05:41→22:00)
--- NOTE | 2017-07-05 06:11 | Surgery Progress Note ---
Surgery Progress Note Date of Service Jul 05, 2017. Subjective vital signs stable Objective Vital Signs: Date Time Temp Pulse Resp B/P (MAP) Pulse Ox O2 Delivery O2 Flow Rate FiO2 07/05/17 01:32 145/73 (97) 07/04/17 23:35 Room Air 07/04/17 23:00 36.8 87 16 160/74 (102) 94 Room Air 07/04/17 18:41 83 159/78 (105) 07/04/17 17:40 162/75 (104) 07/04/17 15:50 96 Room Air 07/04/17 14:57 36.5 83 18 157/79 (105) 96 Room Air 07/04/17 12:19 36.5 83 16 161/79 (106) 96 Room Air 07/04/17 09:30 78 157/94 (115) 07/04/17 07:55 Room Air 07/04/17 07:15 36.3 81 15 169/104 (125) 96 Room Air General Appearance: no apparent distress Respiratory/Chest: no respiratory distress Laboratory Results: Results Past 24 Hours Test 07/04/17 07:48 07/04/17 11:59 07/04/17 18:02 07/04/17 23:53 Range/Units Sodium Level 137 136-145 mmol/L Potassium Level 3.8 3.5-5.1 mmol/L Chloride Level 104 98-107 mmol/L Carbon Dioxide Level 25 21-32 mmol/L Anion Gap 8.0 3-11 mmol/L Blood Urea Nitrogen 4 7-18 mg/dl Creatinine 0.32 0.60-1.20 mg/dl Est Creatinine Clear Calc Drug Dose 121.7 ml/min Estimated GFR () 130.7 Estimated GFR (Non- 112.8 BUN/Creatinine Ratio 11.7 10-20 Random Glucose 118 70-99 mg/dl Calcium Level 8.1 8.5-10.1 mg/dl Phosphorus Level 2.6 2.5-4.9 mg/dl Magnesium Level 2.1 1.8-2.4 mg/dl Bedside Glucose 110 130 115 70-90 mg/dl Test 07/05/17 05:33 Range/Units Assessment & Plan 07/05/17- has persistent small bowel distention and I feel she will have recurrent obstructive sxs w/o NG tube- no acute changes overnight- for abd exploration, lysis of adhesions, possible bowel resection today 07/04/17- pt w/ partial sbo- 04/2012- 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
[2017-07-05 06:39] LABS: BUN/CREATININE RATIO 24.7 (10-20); CREATININE 0.3 mg/dl (0.60-1.20); MAGNESIUM 2.3 mg/dl (1.8-2.4); POTASSIUM 3.8 mmol/L (3.5-5.1)
[2017-07-05 06:43] LABS: PHOSPHORUS 3.7 mg/dl (2.5-4.9)
[2017-07-05] MEDS ORDERED: FENTANYL CITRATE INJ 50 MCG/1 ML 2 ML VIAL ONE (06:46)
[2017-07-05] MEDS ORDERED: CEFOXITIN SOD 1 GM VIAL ONE ×2 (06:59→07:43)
[2017-07-05] MEDS ORDERED: MoRPHine SULFATE 2 MG/ML CARP ONE (07:07)
[2017-07-05] MEDS ORDERED: EpHEDrine SULFATE INJ 50 MG/ML AMP IV PRN (07:30)
[2017-07-05] MEDS ORDERED: ONDANSETRON INJ 2 MG/ML 2 ML VIAL IV PRN (07:30)
[2017-07-05] MEDS ORDERED: MoRPHine SULFATE 10 MG/ML CARP/VIAL IV PRN (07:30)
[2017-07-05] MEDS ORDERED: ATROPINE SULFATE 0.1 MG/ML 5ML SYR IV PRN (07:30)
[2017-07-05] MEDS ORDERED: PROPOFOL IV EMULSION 10 MG/ML 20 ML VIAL IV ONE (07:43)
[2017-07-05] MEDS ORDERED: ROCURONIUM BROMIDE 10 MG/ML 5 ML VIAL IV ONE (07:43)
[2017-07-05] MEDS ORDERED: ONDANSETRON INJ 2 MG/ML 2 ML VIAL ONE (07:43)
[2017-07-05] MEDS ORDERED: SUCCINYLCHOLINE CHLORIDE 20 MG/ML 10 ML VIAL IV ONE (07:43)
[2017-07-05] MEDS ORDERED: LIDOCAINE HCL 2% 2 ML VIAL (20MG/ML) ONE (07:43)
--- NOTE | 2017-07-05 07:53 | Pharmacy Progress Note ---
Parenteral Nutrition Consult Date of Service Jul 05, 2017. [facility] was consulted on 07/02/17 to manage parenteral nutrition orders for this patient. Subjective The patient is currently on day #4 of [facility] parenteral nutrition for SBO/ PROLONGED NPO STATUS >7 DAYS. Objective Height (Feet): 5 Height (Inches): 1.00 Weight (Kilograms): 54.400 Diet: NPO Vascular Access: PICC Intake & Output (Last 72 Hr): 07/04/17 07/05/17 07/06/17 08:00 08:00 08:00 Intake Total 3820 ml 3108 ml Output Total 5925 ml 7425 ml Balance -2105 ml -4317 ml Laboratory Data (Last 24 Hr): Test 07/04/17 07:48 07/05/17 05:33 Blood Urea Nitrogen 4 mg/dl (7-18) 7 mg/dl (7-18) Calcium Level 8.1 mg/dl (8.5-10.1) 8.0 mg/dl (8.5-10.1) Carbon Dioxide Level 25 mmol/L (21-32) 23 mmol/L (21-32) Chloride Level 104 mmol/L (98-107) 105 mmol/L (98-107) Creatinine 0.32 mg/dl (0.60-1.20) 0.30 mg/dl (0.60-1.20) Magnesium Level 2.1 mg/dl (1.8-2.4) 2.3 mg/dl (1.8-2.4) Phosphorus Level 2.6 mg/dl (2.5-4.9) 3.7 mg/dl (2.5-4.9) Potassium Level 3.8 mmol/L (3.5-5.1) 3.8 mmol/L (3.5-5.1) Random Glucose 118 mg/dl (70-99) 113 mg/dl (70-99) Sodium Level 137 mmol/L (136-145) 138 mmol/L (136-145) Recent Pertinent Medications: Item Value Date Time Furosemide 20 mg/ 2 ml @ 4 mls/min 07/04/17 1330 Syringe 1330 ONCE/IV 07/04/17 1406 Item Value Date Time Famotidine 20 mg/ 5 ml @ 2.5 mls/min 06/29/17 2100 Syringe Q12/IV 07/04/172048 Nutrition Assessment Please refer to the Notes section of the EMR for the most recent tobacco educator note. Assessment * 72 yo F with persistent SBO on Day #4 TPN * Initially, pt required multiple potassium boluses in the first 48 hours and has been titrated to goal slowly due to possible refeeding * Today - labs continue to be stable and she will be advanced to goal * Gastric output remains high, although patient appeared to be fluid overloaded yesterday per MD's note * Continue current volume of 100 cc/hr and consider decrease rate tomorrow upon discussion with team Plan For day #4 of PN administration, the following will be ordered: Macronutrients Amino acids 75 grams/day Dextrose 220 grams/day Lipids 0 grams/day (will provide 50 grams 3 X per week) Micronutrients Combined electrolytes 0 mL - contains 35 mEq Na, 20 meq K, 4.5 mEq Ca, 5 mEq Mg , 35 mEq Cl, 29.5 mEq acetate per 20 mL Sodium phosphate 0 MMol Sodium chloride 50 mEq Sodium acetate 100 mEq Potassium phosphate 36 mMol - consider cutting back 07/06 based on phos level Potassium chloride 80 mEq Potassium acetate 0 mEq Magnesium sulfate 12.18 mEq Calcium gluconate 4.65 mEq Multivitamins 10 mL Trace Elements 1 mL Thiamine 100 mg Folic Acid 1 mg Total volume 2400 mL to be infused over 24 hrs will provide 1048 kcal/day Labs, as indicated, will be ordered per protocol Pharmacy will continue to follow and adjust parenteral nutrition orders on a daily basis. Thank you for allowing us to participate in the care of this patient.
[2017-07-05] MEDS: LACTOBACILLUS ACIDOPHILUS (FLORANEX) TAB PO SCH ×3 (08:30→17:45)
--- NOTE | 2017-07-05 08:50 | [facility] Operative Report ---
Operative Report Operative Date Jul 05, 2017. Pre-Operative Diagnosis Small Bowel Obstruction Post-Operative Diagnosis Small Bowel Obstruction Procedure(s) Performed Exploratory Laparotomy and Lysis of Adhesions Surgeon Dr. Darian Garza District Service Manager Surgeon(s) Niels Moses PA-C Estimated Blood Loss 20mL Findings adhesive band causing small bowel torsion Specimens none per surgeon Drains None Anesthesia General Complication(s) None Disposition Recovery Room / PACU I attest to the content of the Intraoperative Record and any orders documented therein. Any exceptions are noted below.
[2017-07-05] MEDS ORDERED: NEOSTIGMINE METHYLSULFATE 5 MG/5 ML SYR ONE (08:55)
[2017-07-05] MEDS ORDERED: ESMOLOL HCL 10 MG/ML 10 ML VIAL ONE (08:55)
[2017-07-05] MEDS ORDERED: GLYCOPYRROLATE INJ 0.2 MG/ML VIAL ONE (08:55)
[2017-07-05] MEDS ORDERED: PROMETHAZINE HCL INJ 25 MG in SODIUM CHLORIDE 0.9% 50ML 50 ML IV PRN (09:00)
[2017-07-05] MEDS ORDERED: HYDROmorphone INJ 0.5 MG/0.5 ML SYR IV PRN (09:00)
--- NOTE | 2017-07-05 09:10 | OPERATIVE REPORT ---
DATE OF OPERATION: 07/05/2017 NAME OF OPERATION: Laparotomy with lysis of adhesions. PREOPERATIVE DIAGNOSIS: Small-bowel obstruction. POSTOPERATIVE DIAGNOSIS: Same. STAFF SURGEON: Dr. Garza. ITINERANT TEACHER ASSISTANT: Niels Moses PA-C. ANESTHESIA: General. FINDINGS: The patient had extremely dense adhesions from prior subtotal colectomy and reanastomosis of ileostomy. She had an adhesive band in the left upper quadrant causing torsion of 2 loops of small bowel and small-bowel obstruction. PROCEDURE: The patient was brought in the operating room and placed on the operating table in supine position. Her abdomen was prepped and draped in usual fashion. Nasogastric tube was already in place. Pneumatic stockings were in place. Corrales catheter was placed and her abdomen was prepped and draped. Incision was made above and below the umbilicus through previous scar tissue carrying dissection down, entering the abdominal cavity encountering very dense adhesions of the small bowel and omentum to the anterior abdominal wall. The patient had a prior subtotal colectomy for C. difficile toxic colitis. I was able to gradually mobilize the omentum and small bowel away from the abdominal wall and then was able to trace the small bowel proximally encountering a dense thick adhesion causing torsion of that loop of small bowel and then also around a second loop of small bowel causing some hemorrhagic changes in the second loop. This was lysed. The bowel was completely viable and there were no enterotomies made. The patient did have very dense adhesions of the small bowel to itself and also to the omentum. I did proceed mobilizing some of the small bowel laterally and in the pelvis; however, I did not feel that this was the reason for the obstruction. I did not feel that it was worth the potential risk of enterotomies and small bowel resection to continue. I felt that the adhesive band was causing her problem. It did appear on her CAT scan that the contrast traversed distally relatively well into the rectum. At this point, the abdomen was irrigated with warm saline solution and then the fascia immobilized and closed using both running and interrupted #1 PDS suture, subcutaneous tissue loosely reapproximated using 2-0 plain catgut suture then the skin reapproximated using mragarito. The patient was transferred to recovery room with the NG and Corrales catheter in place. I attest to the content of the Intraoperative Record and any orders documented therein. Any exception s are noted below.
[2017-07-05] MEDS ORDERED: MoRPHine SULFATE 4 MG/ML 1 ML CARP\\VIAL ONE (09:14)
[2017-07-05] MEDS ORDERED: PROMETHAZINE HCL INJ 12.5 MG in SODIUM CHLORIDE 0.9% 50ML 50 ML IV PRN (09:15)
--- NOTE | 2017-07-05 09:44 | Anesthesiology Progress Note ---
Anesthesia Post Op Note Date & Time Jul 05, 2017 at 09:43 Vital Signs Pain Intensity: 0 Vital Signs Past 12 Hours Date Time Temp Pulse Resp B/P (MAP) Pulse Ox O2 Delivery O2 Flow Rate FiO2 07/05/17 09:35 36.5 69 16 101/47 98 Oxymask 3 07/05/17 09:25 65 16 92/44 97 Oxymask 3 07/05/17 09:15 67 16 107/49 98 Oxymask 5 07/05/17 09:05 67 16 116/52 100 Oxymask 10 07/05/17 08:59 37.5 76 16 128/60 100 Oxymask 10 07/05/17 06:25 36.7 99 16 157/71 (99) 96 Room Air 07/05/17 01:32 145/73 (97) 07/04/17 23:35 Room Air 07/04/17 23:00 36.8 87 16 160/74 (102) 94 Room Air Notes Mental Status: alert / awake / arousable, participated in evaluation Pt Amnestic to Procedure: Yes Nausea / Vomiting: adequately controlled Pain: adequately controlled Airway Patency, RR, SpO2: stable & adequate BP & HR: stable & adequate Hydration State: stable & adequate Anesthetic Complications: no major complications apparent
[2017-07-05 10:01] LABS: INR 1.1 (0.9-1.1)
[2017-07-05] MEDS: FAMOTIDINE IV INJ 20 MG in SYRINGE 3 ML IV SCH ×2 (10:21→20:58)
[2017-07-05] MEDS: LEVETIRACETAM IV 500 MG in DEXTROSE 5% 100ML 100 ML IV SCH ×2 (10:21→20:58)
[2017-07-05] MEDS: HYDROmorphone INJ 1 MG/ML SYR IV PRN ×4 (14:29→23:41)
--- NOTE | 2017-07-05 14:46 | Hospitalist Progress Note ---
Hospitalist Progress Note Date of Service Jul 05, 2017. (Lauren Ryan ., ADINA) Subjective Pt evaluation today including: conversation w/ patient, conversation w/ family , physical exam, chart review, lab review, review of inpatient medication list Voiding: merlos catheter in place Ms. Rollins returned from surgery late in the morning. She is drowsy and painful in her abdomen. NG in place ROS Constitutional: no chills, aches, sweats or fever Respiratory: no sob,cough, sputum, or wheezing Cardiac: no chest pain, palpitations, edema, orthopnea or lightheadedness GI: see HPI : no dysuria or hesitancy Extremities: no joint pain or weakness Skin: no rash All Other Systems: Reviewed and Negative (Lauren Ryan CRNP) Medications Medications Administered Medications (Trade) Dose Ordered Sig/Ba Route Start Time Stop Time Status Last Admin Dose Admin Sodium Chloride 250 ml @ 999 mls/hr Q16M STAT IV 06/26/17 06:36 06/26/17 06:51 DC 06/26/17 06:36 999 MLS/HR Sodium Chloride 1,000 ml @ 125 mls/hr Q8H STAT IV 06/26/17 06:36 06/26/17 14:35 DC 06/26/17 06:45 125 MLS/HR Ondansetron HCl (Zofran Inj) 4 mg NOW STAT IV 06/26/17 06:36 06/26/17 06:40 DC 06/26/17 06:45 4 MG Lorazepam (Ativan Inj) 0.5 mg NOW STAT IV 06/26/17 08:23 06/26/17 08:24 DC 06/26/17 08:30 0.5 MG Ondansetron HCl (Zofran Inj) 4 mg Q6H PRN IV 06/26/17 12:45 07/26/17 12:44 06/30/17 10:12 4 MG Hydralazine HCl (HydrALAZINE INJ) 10 mg Q6H PRN IV. 06/26/17 12:45 06/27/17 16:10 DC 06/27/17 00:02 10 MG Levetiracetam 500 mg/Dextrose 105 ml @ 420 mls/hr Q12 IV 06/26/17 21:00 07/26/17 20:59 07/05/17 10:21 420 MLS/HR Sodium Chloride 1,000 ml @ 100 mls/hr Q10H IV 06/26/17 15:00 06/27/17 09:07 DC 06/27/17 02:17 100 MLS/HR Morphine Sulfate (MoRPHine SULFATE INJ) 1 mg Q3H PRN IV 06/26/17 12:45 06/29/17 11:28 DC 06/29/17 11:13 1 MG Influenza Virus Vaccine (Fluzone High-Dose Pf 0.5 ml) 0.5 ml ONCE ONCE IM. 06/26/17 13:30 06/26/17 14:41 DC 06/27/17 19:07 0.5 ML Pneumococcal Polysaccharide Vaccine (Pneumovax-23 Inj) 25 mcg ONCE ONCE IM. 06/26/17 13:30 06/26/17 14:47 DC 06/27/17 19:19 25 MCG Morphine Sulfate (MoRPHine SULFATE INJ) 2 mg STK-MED ONCE .ROUTE 06/26/17 13:27 06/26/17 13:28 DC 06/26/17 13:32 1 MG Clonazepam (Klonopin Tab) 0.5 mg HS PO 06/26/17 21:00 07/26/17 20:59 Future Hold 06/26/17 21:29 0.5 MG Ketorolac Tromethamine (Toradol Inj) 15 mg STK-MED ONCE .ROUTE 06/26/17 20:32 06/26/17 20:33 DC 06/26/17 20:35 15 MG Potassium Chloride/Sodium Chloride 1,000 ml @ 100 mls/hr Q10H IV 06/27/17 09:30 07/02/17 15:59 DC 07/02/17 07:41 100 MLS/HR Ampicillin Sodium/ Sulbactam Sodium 3000 mg/Sodium Chloride 108 ml @ 200 mls/hr Q6H IV 06/27/17 10:00 07/04/17 09:59 DC 07/04/17 05:42 200 MLS/HR Potassium Chloride 10 meq/ Prmx 100 ml @ 100 mls/hr Q1H IV 06/27/17 11:00 06/27/17 13:59 DC 06/27/17 14:02 100 MLS/HR Ketorolac Tromethamine (Toradol Inj) 15 mg Q6H PRN IV 06/27/17 12:45 07/02/17 12:44 DC 06/29/17 11:12 15 MG Sodium Chloride 500 ml @ 1,000 mls/hr Q30M IV 06/27/17 13:00 06/27/17 13:29 DC 06/27/17 14:02 1,000 MLS/HR Hydralazine HCl (HydrALAZINE INJ) 10 mg Q8H IV. 06/27/17 18:00 07/27/17 17:59 07/05/17 11:09 10 MG Lorazepam 0.5 mg/ Syringe 1 ml @ 1 mls/min HS IV 06/27/17 21:00 07/27/17 20:59 07/04/17 20:49 1 MLS/MIN Ranitidine HCl 50 mg/Dextrose 102 ml @ 200 mls/hr Q8H IV 06/29/17 06:00 06/29/17 15:10 DC 06/29/17 13:45 200 MLS/HR Potassium Chloride (Klor-Con M10) 40 meq NOW ONCE PO 06/29/17 10:30 06/29/17 10:31 DC 06/29/17 10:37 40 MEQ Morphine Sulfate (MoRPHine SULFATE INJ) 2 mg Q3H PRN IV 06/29/17 11:30 07/05/17 08:53 DC 07/04/17 23:28 2 MG Acetaminophen (Tylenol Tab) 1,000 mg Q8 PO 06/29/17 14:00 07/29/17 13:59 07/04/17 22:12 1,000 MG Lactobacillus Acidophilus (Floranex Tab) 4 tab TIDM PO 06/29/17 12:30 07/29/17 12:29 07/04/17 17:47 4 TAB Famotidine 20 mg/ Syringe 5 ml @ 2.5 mls/min Q12 IV 06/29/17 21:00 07/29/17 20:59 07/05/17 10:21 2.5 MLS/MIN Bisacodyl (Dulcolax Supp) 10 mg NOW ONCE IL 06/30/17 11:00 06/30/17 11:01 DC 06/30/17 11:07 10 MG Methylnaltrexone [place] (Relistor Inj) 12 mg Q2D@0900 SQ 06/30/17 13:00 07/30/17 12:59 07/04/17 08:20 12 MG Sodium Biphosphate/ Sodium Phosphate (Fleet Enema) 132 ml NOW ONCE IL 06/30/17 13:00 06/30/17 13:01 DC 06/30/17 12:40 132 ML Sodium Biphosphate/ Sodium Phosphate (Fleet Enema) 132 ml DAILY IL 06/30/17 16:00 07/01/17 09:01 DC 06/30/17 16:16 132 ML Sodium Biphosphate/ Sodium Phosphate (Fleet Enema) 132 ml NOW STAT IL 07/02/17 09:47 07/02/17 09:53 DC 07/02/17 11:10 132 ML Miscellaneous (Stop Order) 1 ea TODAY@1600 ONCE N/A 07/02/17 16:00 07/02/17 16:01 DC 07/02/17 16:24 1 EA Nutrition (Parenteral) 0 ml @ 0 mls/hr TODAY@1600 IV 07/02/17 16:00 07/03/17 14:22 DC 07/02/17 16:17 0 MLS/HR Magnesium Sulfate 1 gm/Prmx 100 ml @ 100 mls/hr Q1H IV 07/02/17 16:00 07/02/17 17:59 DC 07/02/17 21:23 100 MLS/HR Potassium Phosphate 15 mmol/ Sodium Chloride 255 ml @ 88 mls/hr ONE ONCE IV 07/02/17 15:45 07/02/17 18:38 DC 07/02/17 18:03 88 MLS/HR Potassium Chloride 10 meq/ Prmx 100 ml @ 100 mls/hr Q1H IV 07/03/17 08:00 07/03/17 10:59 DC 07/03/17 11:14 100 MLS/HR Potassium Phosphate 21 mmol/ Sodium Chloride 507 ml @ 140 mls/hr 1100 ONCE IV 07/03/17 11:00 07/03/17 14:37 DC 07/03/17 10:31 140 MLS/HR Enalaprilat 1.25 mg/Dextrose 26 ml @ 100 mls/hr Q12H IV 07/03/17 09:00 07/03/17 12:47 DC 07/03/17 09:14 100 MLS/HR Potassium Chloride 10 meq/ Prmx 100 ml @ 100 mls/hr Q1H IV 07/03/17 11:00 07/03/17 13:59 DC 07/03/17 15:08 100 MLS/HR Miscellaneous (Stop Order) 1 ea ONE ONCE N/A 07/03/17 10:00 07/03/17 10:01 DC 07/03/17 10:01 1 EA Enalaprilat 1.25 mg/Dextrose 26 ml @ 100 mls/hr Q8H IV 07/03/17 17:00 08/02/17 08:59 07/05/17 11:09 100 MLS/HR Nutrition (Parenteral) 0 ml @ 0 mls/hr TODAY@1600 IV 07/03/17 16:00 07/04/17 15:59 DC 07/03/17 16:30 0 MLS/HR Potassium Chloride 20 meq/ Prmx 100 ml @ 50 mls/hr Q2H IV 07/04/17 03:15 07/04/17 07:14 DC 07/04/17 05:01 50 MLS/HR Nutrition (Parenteral) 0 ml @ 0 mls/hr TODAY@1600 IV 07/04/17 16:00 07/05/17 15:59 07/04/17 16:00 0 MLS/HR Furosemide 20 mg/ Syringe 2 ml @ 4 mls/min 1330 ONCE IV 07/04/17 13:30 07/04/17 13:31 DC 07/04/17 14:06 4 MLS/MIN Cefoxitin Sodium 1000 mg/Dextrose 60 ml @ 100 mls/hr Q8H IV 07/04/17 16:00 07/14/17 15:59 07/05/17 07:29 100 MLS/HR Ondansetron HCl (Zofran Inj) 4 mg ONE PRN IV 07/05/17 07:30 07/05/17 09:18 DC 07/05/17 09:17 4 MG Morphine Sulfate (MoRPHine SULFATE INJ) 4 mg STK-MED ONCE .ROUTE 07/05/17 09:14 07/05/17 09:15 DC 07/05/17 09:14 4 MG (Lauren Ryan CRNP) Objective Vital Signs Date Time Temp Pulse Resp B/P (MAP) Pulse Ox O2 Delivery O2 Flow Rate FiO2 07/05/17 13:00 85 18 136/75 (95) 100 Oxymask 3.0 07/05/17 12:13 85 16 127/72 (90) 100 Oxymask 3.0 07/05/17 11:58 36.6 90 16 128/70 (89) 100 Oxymask 3.0 07/05/17 11:03 36.5 74 16 135/73 (93) 99 07/05/17 10:30 36.7 78 18 129/70 (89) 97 Oxymask 3.0 07/05/17 10:00 Oxymask 3.0 07/05/17 10:00 36.8 76 16 106/64 (78) 93 Oxymask 3.0 07/05/17 10:00 Oxymask 3.0 07/05/17 09:45 70 16 107/45 98 Oxymask 3 07/05/17 09:35 36.5 69 16 101/47 98 Oxymask 3 07/05/17 09:25 65 16 92/44 97 Oxymask 3 07/05/17 09:15 67 16 107/49 98 Oxymask 5 07/05/17 09:05 67 16 116/52 100 Oxymask 10 07/05/17 08:59 37.5 76 16 128/60 100 Oxymask 10 07/05/17 06:25 36.7 99 16 157/71 (99) 96 Room Air 07/05/17 01:32 145/73 (97) 07/04/17 23:35 Room Air 07/04/17 23:00 36.8 87 16 160/74 (102) 94 Room Air 07/04/17 18:41 83 159/78 (105) 07/04/17 17:40 162/75 (104) 07/04/17 15:50 96 Room Air 07/04/17 14:57 36.5 83 18 157/79 (105) 96 Room Air (Lauren Ryan CRNP) Physical Exam Notes: General: no distress Eyes: normal inspection, PERLL Respiratory: chest non tender, clear to auscultation, normal breath sounds, no respiratory distress, no accessory muscle use Cardiac: regular rate and rhythm, no rub or gallop, III/IV systolic murmur, no edema, no jvd GI/: tender, painful abdomen. Dressing dry and intact. Hypoactive bowel sounds , soft, non distended, NG in place draining light green fluid Extremities: normal range of motion, generalized weakness, non tender Neuro/Psych: drowsy and oriented x 3, Skin: normal color, dry (Lauren Ryan CRNP) Laboratory Results Last 24 Hours Test 07/04/17 18:02 07/04/17 23:53 07/05/17 05:33 07/05/17 06:00 Bedside Glucose 130 mg/dl 115 mg/dl 117 mg/dl Sodium Level 138 mmol/L Potassium Level 3.8 mmol/L Chloride Level 105 mmol/L Carbon Dioxide Level 23 mmol/L Anion Gap 10.0 mmol/L Blood Urea Nitrogen 7 mg/dl Creatinine 0.30 mg/dl Est Creatinine Clear Calc Drug Dose 129.8 ml/min Estimated GFR () 133.5 Estimated GFR (Non- 115.2 BUN/Creatinine Ratio 24.7 Random Glucose 113 mg/dl Calcium Level 8.0 mg/dl Phosphorus Level 3.7 mg/dl Magnesium Level 2.3 mg/dl Test 07/05/17 09:29 07/05/17 12:12 Prothrombin Time 12.0 SECONDS Prothromb Time International Ratio 1.1 Activated Partial Thromboplast Time 26.3 SECONDS Partial Thromboplastin Ratio 1.0 Bedside Glucose 146 mg/dl (Lauren Ryan CRNP) Assessment and Plan Patient is a pleasant 72 y/o female, with PMHx of seizure disorder, HTN, HLD, mitral stenosis, aortic sclerosis, pulmonary HTN, h/o recurrent c.diff s/p colectomy w/ ileostomy- resolved, chronic pain, OA, osteoporosis, and anxiety/ depression, who presented to the ED because of lower back pain since 1 day before admission. SBO: - Initially surgery wanted to see if SBO could resolve medically - NG tube out 06/28, some coffee ground emesis in tube - increased back pain similar to admission after eating - 2 view abdomen, famotidine - Vomiting again 06/30 - 2 view abdomen - reinserted NG and she put out 1 L fluid - Consult GI - EGD was normal - revision of adhesions to relieve SBO 07/05 Moderate malnutrition - Third spacing with mild ascites, pleural effusion and anasarca - TPN Lumbar pain s/p mechanical fall: - Check lumbar spine x-ray - no acute finding - IV Morphine 2 mg q3h - Heating pad - PT/OT Low urine output - retaining almost 400 mls on bladder scan per nursing again 06/28 - merlos catheter out 06/29 - resolved UTI - received Unasyn x 7 days Seizure disorder: IV Keppra 500 mg BID due to NPO HTN: - has been elevated since holding Benicar added iv enalaprilat, increased dose 07/03, IV Hydralazine 10 mg q6 hrs PRN sbp >180 or dbp >100 Hypokalemia - repleated - potassium in fluids - continue TPN HLD: Hold Lipitor 20 mg daily due to NPO- resume once tolerating PO Mitral stenosis, aortic sclerosis, pulmonary HTN- follows w/ Dr. Barber h/o recurrent c.diff s/p colectomy w/ ileostomy- resolved Chronic pain, OA- - Hold Mobic 7.5 mg daily PRN due to NPO - IV Morphine as above Osteoporosis: Continue Reclast injection yearly DVT prophylaxis: TEDs/SCDs Code Status: LEVEL I, FULL Dispo: From home- PT/OT and CM consulted (Lauren Ryan ., ADINA) Attending Note & Attestation: Pt seen/examined, chart reviewed, care plan d/w RECEIVABLE EXECUTIVEGRACIELA Ryan. I agree w/ the hills components of her documentation. Pt quite sleepy during my visit in the afternoon. She had underwent ex lap this AM by Dr. Garza for her SBO. She c/o abdominal pain. VSS no fever gen - sleepy mouth - oral mucosa dry heart - RRR, s1, s2, 2/6 systolic murmur LSB lungs - decreased BS bases, mild rales bases abd - decreased BS but +, modestly tender around incision, large dressing in place, mild distension ext - warm, pulses 2+ b/l A/P: 1. SBO, s/p ex lap today with lysis of adhesions 2. worsening macrocytic anemia - b12/folate normal earlier this year; check TSH as this can cause macrocytic anemia 3. protein calorie malnutrition - cont TPN due to bowel rest 4. UTI - has completed Rx 5. PT, OT when able Finn CASTILLO MD (David Castillo MD)
[2017-07-05] MEDS ORDERED: CUSTOM CENTRAL PN 1 BAG IV SCH (16:00)
[2017-07-05] MEDS: LORAZEPAM INJ 0.5 MG in SYRINGE 0.75 ML IV SCH (20:59)
[2017-07-05] MEDS: HEPARIN SOD 5000 UNIT/0.5 ML CARP SQ SCH (21:49)
[2017-07-06] VITALS (15 sets, daily range): BP systolic 111–168; BP diastolic 59–74; PULSE 85–103; TEMP 36.3–37.4; O2SAT 96–99
[2017-07-06] MEDS: ENALAPRILAT IV 1.25 MG in DEXTROSE 5% 25ML 25 ML IV SCH ×3 (01:12→17:06)
[2017-07-06] MEDS: HydrALAZINE HCL 20 MG/ML VIAL IV. SCH ×3 (01:53→17:31)
[2017-07-06 05:36] LABS: BUN/CREATININE RATIO 30.8 (10-20); CALCIUM 7.8 mg/dl (8.5-10.1); CREATININE 0.4 mg/dl (0.60-1.20); MAGNESIUM 2.2 mg/dl (1.8-2.4); POTASSIUM 4.3 mmol/L (3.5-5.1)
[2017-07-06 05:58] LABS: PHOSPHORUS 2.9 mg/dl (2.5-4.9); THYROID STIMULATING HORMONE 1.45 uIu/ml (0.300-4.500)
[2017-07-06] MEDS: ACETAMINOPHEN 500 MG TAB PO SCH ×3 (06:00→21:52)
[2017-07-06] MEDS ORDERED: NALOXONE HCL 0.4 MG/1 ML VIAL/CARP IV PRN (06:00)
[2017-07-06] MEDS: HYDROmorphone INJ 1 MG/ML SYR IV PRN (06:02)
[2017-07-06] MEDS ORDERED: MINERAL OIL 30 ML UDC PO STA (06:07)
--- NOTE | 2017-07-06 06:12 | Surgery Progress Note ---
Surgery Progress Note Date of Service Jul 06, 2017. Subjective pt awake- having some pain min NG output, uo- 300/ shift Objective Vital Signs: Date Time Temp Pulse Resp B/P (MAP) Pulse Ox O2 Delivery O2 Flow Rate FiO2 07/06/17 03:14 36.5 95 16 119/68 (85) 96 Nasal Cannula 2.0 07/06/17 01:50 85 146/71 (96) 07/06/17 01:07 91 127/67 (87) 07/06/17 00:40 Oxymask 2.0 07/05/17 22:56 37.1 94 16 130/69 (89) 98 Oxymask 2.0 07/05/17 19:16 36.5 107 116/56 (76) 96 2.5 07/05/17 18:04 89 127/72 (90) 07/05/17 16:34 99 Oxymask 2.5 07/05/17 14:56 36.8 91 18 147/69 (95) 99 2.5 07/05/17 13:00 85 18 136/75 (95) 100 Oxymask 3.0 07/05/17 12:13 85 16 127/72 (90) 100 Oxymask 3.0 07/05/17 11:58 36.6 90 16 128/70 (89) 100 Oxymask 3.0 07/05/17 11:03 36.5 74 16 135/73 (93) 99 07/05/17 10:30 36.7 78 18 129/70 (89) 97 Oxymask 3.0 07/05/17 10:00 Oxymask 3.0 07/05/17 10:00 36.8 76 16 106/64 (78) 93 Oxymask 3.0 07/05/17 10:00 Oxymask 3.0 07/05/17 09:45 70 16 107/45 98 Oxymask 3 07/05/17 09:35 36.5 69 16 101/47 98 Oxymask 3 07/05/17 09:25 65 16 92/44 97 Oxymask 3 07/05/17 09:15 67 16 107/49 98 Oxymask 5 07/05/17 09:05 67 16 116/52 100 Oxymask 10 07/05/17 08:59 37.5 76 16 128/60 100 Oxymask 10 07/05/17 06:25 36.7 99 16 157/71 (99) 96 Room Air General Appearance: + mild distress (from pain) Respiratory/Chest: no respiratory distress (has very moist cough) Abdomen: + pertinent finding (mild distention, decreased bowel sounds) Incision(s): intact Laboratory Results: Results Past 24 Hours Test 07/05/17 09:29 07/05/17 12:12 07/05/17 18:12 07/05/17 23:58 Range/Units Prothrombin Time 12.0 9.0-12.0 SECONDS Prothromb Time International Ratio 1.1 0.9-1.1 Activated Partial Thromboplast Time 26.3 21.0-31.0 SECONDS Partial Thromboplastin Ratio 1.0 Bedside Glucose 146 119 120 70-90 mg/dl Test 07/06/17 04:49 Range/Units Sodium Level 134 136-145 mmol/L Potassium Level 4.3 3.5-5.1 mmol/L Chloride Level 102 98-107 mmol/L Carbon Dioxide Level 26 21-32 mmol/L Anion Gap 6.0 3-11 mmol/L Creatinine 0.40 0.60-1.20 mg/dl Est Creatinine Clear Calc Drug Dose 97.3 ml/min Estimated GFR () 121.5 Estimated GFR (Non- 104.8 BUN/Creatinine Ratio 30.8 10-20 Random Glucose 114 70-99 mg/dl Calcium Level 7.8 8.5-10.1 mg/dl Phosphorus Level 2.9 2.5-4.9 mg/dl Magnesium Level 2.2 1.8-2.4 mg/dl Thyroid Stimulating Hormone (TSH) 1.450 0.300-4.500 uIu/ml Assessment & Plan 07/06/17- s/p exploratory laparotomy, lysis of adhesions- had adhesive band w/ small bowel torsion- also extensive adhesions- expect ileus. will try Dilaudid DELIVERY NURSE, check CXR- has B/L pleural effusions- ? infiltrate? try to mobilize, leave merlos, cont TPN- suspect very low albumin 07/05/17- has persistent small bowel distention and I feel she will have recurrent obstructive sxs w/o NG tube- no acute changes overnight- for abd exploration, lysis of adhesions, possible bowel resection today 07/04/17- pt w/ partial sbo- 04/2012- subtotal colectomy for c diff necrotizing colitis- ileostomy reversed 08/2012- will check CT with contrast via NG- assess transit- discussed possible need for surgery with pt and daughter - Heydi ([phone] )- she lives in [place]- cancel MR enterography for now 07/05/17- has persistent small bowel distention and I feel she will have recurrent obstructive sxs w/o NG tube- no acute changes overnight- for abd exploration, lysis of adhesions, possible bowel resection today 07/04/17- pt w/ partial sbo- 04/2012- subtotal colectomy for c diff necrotizing colitis- ileostomy reversed 08/2012- will check CT with contrast via NG- assess transit- discussed possible need for surgery with pt and daughter - Heydi ([phone] )- she lives in [place]- cancel MR enterography for now
[2017-07-06] MEDS: HYDROmorphone HCL 0.5MG/ML 50 ML CASSETTE IV PRN ×4 (06:51→23:11)
[2017-07-06] MEDS: SODIUM CHLORIDE 0.9% 1000ML 1,000 ML IV SCH (06:51)
--- NOTE | 2017-07-06 07:21 | DIAGNOSTIC IMAGING REPORT ---
SINGLE VIEW CHEST CLINICAL HISTORY: Dyspnea. FINDINGS: An AP, portable, upright chest radiograph is compared to study dated 07/02/2017. The examination is degraded by portable technique and patient rotation. A right PICC line is new from previous. At the tip of the catheter projects over the SVC. Enteric tube projects below the diaphragm. The heart is enlarged and there is atherosclerotic calcification of the thoracic aorta. The pulmonary vasculature is noncongested. Chronic interstitial thickening is similar to previous. There is airspace consolidation at the left lung base. The right lung is grossly clear. No large pleural effusion is identified. No pneumothorax is seen. The skeletal structures are osteopenic. Degenerative change is seen throughout the spine. Chronic posttraumatic deformity and postoperative change is present in the left humerus. Skin clips are noted in the upper abdomen. IMPRESSION: 1. Right PICC line and enteric tube as above. 2. Cardiomegaly without radiographic evidence of congestive failure. 3. Consolidative change is seen at the left lung base. This could represent atelectasis and/or pneumonia. Clinical correlation will be required. Radiographic follow-up to resolution is recommended. Electronically signed by: Mj Dillon M.D. 07/06/2017 7:19 AM Dictated Date/Time: 07/06/2017 7:17 AM
[2017-07-06 07:26] LABS: HEMATOCRIT 32.1 % (37-47); MEAN CELL VOLUME 104.2 fL (80-100); MEAN CORPUSCULAR HEMOGLOBIN 35.1 pg (25-34); MEAN CORPUSCULAR HGB CONC 33.6 g/dl (32-36); MEAN PLATELET VOLUME 10.3 fL (7.4-10.4); PLATELET COUNT 268 K/uL (130-400); PLT ESTIMATE NORMAL; RED BLOOD COUNT 3.08 M/uL (4.2-5.4); WHITE BLOOD COUNT 9.84 K/uL (4.8-10.8)
[2017-07-06 07:54] LABS: PREALBUMIN 10.1 mg/dl (20-40)
[2017-07-06] MEDS: INCREMENTAL PCA TITRATION SCH ×2 (08:00→16:00)
[2017-07-06] MEDS: LOCK-OUT PCA TITRATION SCH ×2 (08:00→16:00)
--- NOTE | 2017-07-06 09:19 | Anesthesiology Progress Note ---
Anesthesia Post Op Note Date & Time Jul 06, 2017 at 09:19 Vital Signs Pain Intensity: 10.0 Vital Signs Past 12 Hours Date Time Temp Pulse Resp B/P (MAP) Pulse Ox O2 Delivery O2 Flow Rate FiO2 07/06/17 07:50 89 16 129/70 (89) 98 Nasal Cannula 2.0 07/06/17 07:16 36.5 90 16 121/68 (85) 97 Mask 2.0 07/06/17 06:50 36.5 99 16 111/66 (81) 96 Room Air 07/06/17 03:14 36.5 95 16 119/68 (85) 96 Nasal Cannula 2.0 07/06/17 01:50 85 146/71 (96) 07/06/17 01:07 91 127/67 (87) 07/06/17 00:40 Oxymask 2.0 07/05/17 22:56 37.1 94 16 130/69 (89) 98 Oxymask 2.0 Notes Mental Status: alert / awake / arousable, participated in evaluation Pt Amnestic to Procedure: Yes Nausea / Vomiting: adequately controlled Pain: adequately controlled Airway Patency, RR, SpO2: stable & adequate BP & HR: stable & adequate Hydration State: stable & adequate Anesthetic Complications: no major complications apparent
[2017-07-06] MEDS: LACTOBACILLUS ACIDOPHILUS (FLORANEX) TAB PO SCH ×3 (09:40→17:06)
[2017-07-06] MEDS: LEVETIRACETAM IV 500 MG in DEXTROSE 5% 100ML 100 ML IV SCH ×2 (09:40→21:59)
[2017-07-06] MEDS: CEFOXITIN IV 1,000 MG in DEXTROSE 5% 50ML 50 ML IV SCH ×2 (09:40→17:31)
[2017-07-06] MEDS: SENNA 8.8 MG/5 ML UDP PO SCH ×2 (09:41→21:48)
[2017-07-06] MEDS: METHYLNALTREXONE BROMIDE INJ 12 MG/0.6 ML SYR SQ SCH (09:42)
[2017-07-06] MEDS: HEPARIN SOD 5000 UNIT/0.5 ML CARP SQ SCH ×2 (09:49→21:51)
[2017-07-06] MEDS: FAMOTIDINE IV INJ 20 MG in SYRINGE 3 ML IV SCH ×2 (10:02→21:52)
--- NOTE | 2017-07-06 12:49 | Hospitalist Progress Note ---
Hospitalist Progress Note Date of Service Jul 06, 2017. (Lauren Ryan .ADINA) Subjective Pt evaluation today including: conversation w/ patient, conversation w/ family , physical exam, chart review, lab review, review of studies, review of inpatient medication list PO Intake: npo Voiding: merlos catheter in place Ms. Quintanilla abdominal pain is well controlled with her CLIENT PROFESSIONAL however she does feel that the dilaudid is making her tired. She was a little short of breath this morning but feels better now. She is coughing a small amount but attributes this to irritation from the NG tube. ROS Constitutional: no chills, aches, sweats or fever Respiratory:see HPI Cardiac: no chest pain, palpitations, edema, orthopnea or lightheadedness GI: See HPI, no nausea, vomiting, diarrhea or constipation : no dysuria or hesitancy Extremities: no joint pain or weakness Skin: no rash All Other Systems: Reviewed and Negative (Lauren Ryan CRNP) Medications Medications Administered Medications (Trade) Dose Ordered Sig/Ba Route Start Time Stop Time Status Last Admin Dose Admin Sodium Chloride 250 ml @ 999 mls/hr Q16M STAT IV 06/26/17 06:36 06/26/17 06:51 DC 06/26/17 06:36 999 MLS/HR Sodium Chloride 1,000 ml @ 125 mls/hr Q8H STAT IV 06/26/17 06:36 06/26/17 14:35 DC 06/26/17 06:45 125 MLS/HR Ondansetron HCl (Zofran Inj) 4 mg NOW STAT IV 06/26/17 06:36 06/26/17 06:40 DC 06/26/17 06:45 4 MG Lorazepam (Ativan Inj) 0.5 mg NOW STAT IV 06/26/17 08:23 06/26/17 08:24 DC 06/26/17 08:30 0.5 MG Ondansetron HCl (Zofran Inj) 4 mg Q6H PRN IV 06/26/17 12:45 07/26/17 12:44 06/30/17 10:12 4 MG Hydralazine HCl (HydrALAZINE INJ) 10 mg Q6H PRN IV. 06/26/17 12:45 06/27/17 16:10 DC 06/27/17 00:02 10 MG Levetiracetam 500 mg/Dextrose 105 ml @ 420 mls/hr Q12 IV 06/26/17 21:00 07/26/17 20:59 07/06/17 09:40 420 MLS/HR Sodium Chloride 1,000 ml @ 100 mls/hr Q10H IV 06/26/17 15:00 06/27/17 09:07 DC 06/27/17 02:17 100 MLS/HR Morphine Sulfate (MoRPHine SULFATE INJ) 1 mg Q3H PRN IV 06/26/17 12:45 06/29/17 11:28 DC 06/29/17 11:13 1 MG Influenza Virus Vaccine (Fluzone High-Dose Pf 0.5 ml) 0.5 ml ONCE ONCE IM. 06/26/17 13:30 06/26/17 14:41 DC 06/27/17 19:07 0.5 ML Pneumococcal Polysaccharide Vaccine (Pneumovax-23 Inj) 25 mcg ONCE ONCE IM. 06/26/17 13:30 06/26/17 14:47 DC 06/27/17 19:19 25 MCG Morphine Sulfate (MoRPHine SULFATE INJ) 2 mg STK-MED ONCE .ROUTE 06/26/17 13:27 06/26/17 13:28 DC 06/26/17 13:32 1 MG Clonazepam (Klonopin Tab) 0.5 mg HS PO 06/26/17 21:00 07/26/17 20:59 Future Hold 06/26/17 21:29 0.5 MG Ketorolac Tromethamine (Toradol Inj) 15 mg STK-MED ONCE .ROUTE 06/26/17 20:32 06/26/17 20:33 DC 06/26/17 20:35 15 MG Potassium Chloride/Sodium Chloride 1,000 ml @ 100 mls/hr Q10H IV 06/27/17 09:30 07/02/17 15:59 DC 07/02/17 07:41 100 MLS/HR Ampicillin Sodium/ Sulbactam Sodium 3000 mg/Sodium Chloride 108 ml @ 200 mls/hr Q6H IV 06/27/17 10:00 07/04/17 09:59 DC 07/04/17 05:42 200 MLS/HR Potassium Chloride 10 meq/ Prmx 100 ml @ 100 mls/hr Q1H IV 06/27/17 11:00 06/27/17 13:59 DC 06/27/17 14:02 100 MLS/HR Ketorolac Tromethamine (Toradol Inj) 15 mg Q6H PRN IV 06/27/17 12:45 07/02/17 12:44 DC 06/29/17 11:12 15 MG Sodium Chloride 500 ml @ 1,000 mls/hr Q30M IV 06/27/17 13:00 06/27/17 13:29 DC 06/27/17 14:02 1,000 MLS/HR Hydralazine HCl (HydrALAZINE INJ) 10 mg Q8H IV. 06/27/17 18:00 07/27/17 17:59 07/06/17 09:43 10 MG Lorazepam 0.5 mg/ Syringe 1 ml @ 1 mls/min HS IV 06/27/17 21:00 07/27/17 20:59 07/05/17 20:59 1 MLS/MIN Ranitidine HCl 50 mg/Dextrose 102 ml @ 200 mls/hr Q8H IV 06/29/17 06:00 06/29/17 15:10 DC 06/29/17 13:45 200 MLS/HR Potassium Chloride (Klor-Con M10) 40 meq NOW ONCE PO 06/29/17 10:30 06/29/17 10:31 DC 06/29/17 10:37 40 MEQ Morphine Sulfate (MoRPHine SULFATE INJ) 2 mg Q3H PRN IV 06/29/17 11:30 07/05/17 08:53 DC 07/04/17 23:28 2 MG Acetaminophen (Tylenol Tab) 1,000 mg Q8 PO 06/29/17 14:00 07/29/17 13:59 07/04/17 22:12 1,000 MG Lactobacillus Acidophilus (Floranex Tab) 4 tab TIDM PO 06/29/17 12:30 07/29/17 12:29 07/04/17 17:47 4 TAB Famotidine 20 mg/ Syringe 5 ml @ 2.5 mls/min Q12 IV 06/29/17 21:00 07/29/17 20:59 07/06/17 10:02 2.5 MLS/MIN Bisacodyl (Dulcolax Supp) 10 mg NOW ONCE IL 06/30/17 11:00 06/30/17 11:01 DC 06/30/17 11:07 10 MG Methylnaltrexone [place] (Relistor Inj) 12 mg Q2D@0900 SQ 06/30/17 13:00 07/30/17 12:59 07/06/17 09:42 12 MG Sodium Biphosphate/ Sodium Phosphate (Fleet Enema) 132 ml NOW ONCE IL 06/30/17 13:00 06/30/17 13:01 DC 06/30/17 12:40 132 ML Sodium Biphosphate/ Sodium Phosphate (Fleet Enema) 132 ml DAILY IL 06/30/17 16:00 07/01/17 09:01 DC 06/30/17 16:16 132 ML Sodium Biphosphate/ Sodium Phosphate (Fleet Enema) 132 ml NOW STAT IL 07/02/17 09:47 07/02/17 09:53 DC 07/02/17 11:10 132 ML Miscellaneous (Stop Order) 1 ea TODAY@1600 ONCE N/A 07/02/17 16:00 07/02/17 16:01 DC 07/02/17 16:24 1 EA Nutrition (Parenteral) 0 ml @ 0 mls/hr TODAY@1600 IV 07/02/17 16:00 07/03/17 14:22 DC 07/02/17 16:17 0 MLS/HR Magnesium Sulfate 1 gm/Prmx 100 ml @ 100 mls/hr Q1H IV 07/02/17 16:00 07/02/17 17:59 DC 07/02/17 21:23 100 MLS/HR Potassium Phosphate 15 mmol/ Sodium Chloride 255 ml @ 88 mls/hr ONE ONCE IV 07/02/17 15:45 07/02/17 18:38 DC 07/02/17 18:03 88 MLS/HR Potassium Chloride 10 meq/ Prmx 100 ml @ 100 mls/hr Q1H IV 07/03/17 08:00 07/03/17 10:59 DC 07/03/17 11:14 100 MLS/HR Potassium Phosphate 21 mmol/ Sodium Chloride 507 ml @ 140 mls/hr 1100 ONCE IV 07/03/17 11:00 07/03/17 14:37 DC 07/03/17 10:31 140 MLS/HR Enalaprilat 1.25 mg/Dextrose 26 ml @ 100 mls/hr Q12H IV 07/03/17 09:00 07/03/17 12:47 DC 07/03/17 09:14 100 MLS/HR Potassium Chloride 10 meq/ Prmx 100 ml @ 100 mls/hr Q1H IV 07/03/17 11:00 07/03/17 13:59 DC 07/03/17 15:08 100 MLS/HR Miscellaneous (Stop Order) 1 ea ONE ONCE N/A 07/03/17 10:00 07/03/17 10:01 DC 07/03/17 10:01 1 EA Enalaprilat 1.25 mg/Dextrose 26 ml @ 100 mls/hr Q8H IV 07/03/17 17:00 08/02/17 08:59 07/06/17 10:39 100 MLS/HR Nutrition (Parenteral) 0 ml @ 0 mls/hr TODAY@1600 IV 07/03/17 16:00 07/04/17 15:59 DC 07/03/17 16:30 0 MLS/HR Potassium Chloride 20 meq/ Prmx 100 ml @ 50 mls/hr Q2H IV 07/04/17 03:15 07/04/17 07:14 DC 07/04/17 05:01 50 MLS/HR Nutrition (Parenteral) 0 ml @ 0 mls/hr TODAY@1600 IV 07/04/17 16:00 07/05/17 15:59 DC 07/04/17 16:00 0 MLS/HR Furosemide 20 mg/ Syringe 2 ml @ 4 mls/min 1330 ONCE IV 07/04/17 13:30 07/04/17 13:31 DC 07/04/17 14:06 4 MLS/MIN Cefoxitin Sodium 1000 mg/Dextrose 60 ml @ 100 mls/hr Q8H IV 07/04/17 16:00 07/14/17 15:59 07/06/17 09:40 100 MLS/HR Nutrition (Parenteral) 0 ml @ 0 mls/hr TODAY@1600 IV 07/05/17 16:00 07/06/17 15:59 07/05/17 16:09 0 MLS/HR Ondansetron HCl (Zofran Inj) 4 mg ONE PRN IV 07/05/17 07:30 07/05/17 09:18 DC 07/05/17 09:17 4 MG Hydromorphone HCl (Dilaudid Inj) 1 mg Q3H PRN IV 07/05/17 09:00 07/19/17 08:59 07/06/17 06:02 1 MG Heparin Sodium (Porcine) (Heparin Sq 5000 Unit/0.5ml) 5,000 unit Q12 SQ 07/05/17 21:00 08/04/17 20:59 07/06/17 09:49 5,000 UNIT Morphine Sulfate (MoRPHine SULFATE INJ) 4 mg STK-MED ONCE .ROUTE 07/05/17 09:14 07/05/17 09:15 DC 07/05/17 09:14 4 MG Mineral Oil (Mineral Oil) 30 ml NOW STAT PO 07/06/17 06:07 07/06/17 06:08 DC 07/06/17 06:24 30 ML Senna (Senokot Syrup) 8.8 mg BID PO 07/06/17 09:00 08/05/17 08:59 07/06/17 09:41 8.8 MG Hydromorphone HCl (Dilaudid Hand Roller) 25 mg PRN PRN IV 07/06/17 06:00 07/20/17 05:59 07/06/17 07:21 25 MG Sodium Chloride 1,000 ml @ 15 mls/hr Q24H IV 07/06/17 06:00 08/05/17 05:59 07/06/17 06:51 15 MLS/HR (Lauren Ryan, ADINA) Objective Vital Signs Date Time Temp Pulse Resp B/P (MAP) Pulse Ox O2 Delivery O2 Flow Rate FiO2 07/06/17 10:51 98 18 125/63 (83) 98 Oxymask 2.0 07/06/17 09:50 87 16 122/70 (87) 99 Oxymask 2.0 07/06/17 08:50 94 16 115/62 (79) 99 Oxymask 2.0 07/06/17 07:50 89 16 129/70 (89) 98 Nasal Cannula 2.0 07/06/17 07:16 36.5 90 16 121/68 (85) 97 Mask 2.0 07/06/17 06:50 36.5 99 16 111/66 (81) 96 Room Air 07/06/17 03:14 36.5 95 16 119/68 (85) 96 Nasal Cannula 2.0 07/06/17 01:50 85 146/71 (96) 07/06/17 01:07 91 127/67 (87) 07/06/17 00:40 Oxymask 2.0 07/05/17 22:56 37.1 94 16 130/69 (89) 98 Oxymask 2.0 07/05/17 19:16 36.5 107 116/56 (76) 96 2.5 07/05/17 18:04 89 127/72 (90) 07/05/17 16:34 99 Oxymask 2.5 07/05/17 14:56 36.8 91 18 147/69 (95) 99 2.5 07/05/17 13:00 85 18 136/75 (95) 100 Oxymask 3.0 (Lauren Ryan CRNP) Physical Exam Notes: General: no distress Eyes: normal inspection, PERLL Respiratory: chest non tender, clear to auscultation, normal breath sounds, no respiratory distress, no accessory muscle use Cardiac: regular rate and rhythm, no rub or gallop, no murmur, no edema, no jvd GI/: active bowel sounds, no abd pain or tenderness, soft, non distended Extremities: normal range of motion, normal strength, non tender Neuro/Psych: drowsy and oriented x 3, flat affect Skin: normal color, dry (Lauren Ryan CRNP) Laboratory Results Last 24 Hours Test 07/05/17 18:12 07/05/17 23:58 07/06/17 04:49 07/06/17 06:53 Bedside Glucose 119 mg/dl 120 mg/dl White Blood Count 9.84 K/uL Red Blood Count 3.08 M/uL Hemoglobin 10.8 g/dL Hematocrit 32.1 % Mean Corpuscular Volume 104.2 fL Mean Corpuscular Hemoglobin 35.1 pg Mean Corpuscular Hemoglobin Concent 33.6 g/dl RDW Standard Deviation 50.6 fL RDW Coefficient of Variation 13.4 % Platelet Count 268 K/uL Mean Platelet Volume 10.3 fL Platelet Estimate NORMAL Sodium Level 134 mmol/L Potassium Level 4.3 mmol/L Chloride Level 102 mmol/L Carbon Dioxide Level 26 mmol/L Anion Gap 6.0 mmol/L Blood Urea Nitrogen 12 mg/dl Creatinine 0.40 mg/dl Est Creatinine Clear Calc Drug Dose 97.3 ml/min Estimated GFR () 121.5 Estimated GFR (Non- 104.8 BUN/Creatinine Ratio 30.8 Random Glucose 114 mg/dl Calcium Level 7.8 mg/dl Phosphorus Level 2.9 mg/dl Magnesium Level 2.2 mg/dl Thyroid Stimulating Hormone (TSH) 1.450 uIu/ml Albumin 2.6 gm/dl Prealbumin 10.1 mg/dl (Lauren Ryan, ADINA) Assessment and Plan Patient is a pleasant 72 y/o female, with PMHx of seizure disorder, HTN, HLD, mitral stenosis, aortic sclerosis, pulmonary HTN, h/o recurrent c.diff s/p colectomy w/ ileostomy- resolved, chronic pain, OA, osteoporosis, and anxiety/ depression, who presented to the ED because of lower back pain since 1 day before admission. SBO: - Initially surgery wanted to see if SBO could resolve medically - NG tube out 06/28, some coffee ground emesis in tube - increased back pain similar to admission after eating - 2 view abdomen, famotidine - Vomiting again 06/30 - 2 view abdomen - reinserted NG and she put out 1 L fluid - Consulted GI - EGD was normal - revision of adhesions to relieve SBO 07/05 - dilaudid CLIENT PROFESSIONAL ordered by surgery Atelectasis vs PNA on Xray - mild dyspnea, currently requiring 2L NC - no fever or increase in WBCs - will hold off on initiating any further antibiotics at this time, likely atelectasis - encourage incentive spirometry Moderate malnutrition - Third spacing with mild ascites, pleural effusion and anasarca - TPN Lumbar pain s/p mechanical fall: - Check lumbar spine x-ray - no acute finding - dilaudid CLIENT PROFESSIONAL - Heating pad - PT/OT Low urine output - retaining almost 400 mls on bladder scan per nursing again 06/28 - merlos catheter out 06/29 - resolved UTI - received Unasyn x 7 days Seizure disorder: IV Keppra 500 mg BID due to NPO HTN: - has been elevated since holding Benicar added iv enalaprilat, increased dose 07/03, IV Hydralazine 10 mg q6 hrs PRN sbp >180 or dbp >100 Hypokalemia - repleated - continue TPN HLD: Hold Lipitor 20 mg daily due to NPO- resume once tolerating PO Mitral stenosis, aortic sclerosis, pulmonary HTN- follows w/ Dr. Barber h/o recurrent c.diff s/p colectomy w/ ileostomy- resolved Chronic pain, OA- - Hold Mobic 7.5 mg daily PRN due to NPO - CLIENT PROFESSIONAL as above Osteoporosis: Continue Reclast injection yearly DVT prophylaxis: TEDs/SCDs Code Status: LEVEL I, FULL Dispo: From home- PT/OT and CM consulted (Lauren Ryan ., ADINA) Attending Note & Attestation: Pt seen/examined, chart reviewed, care plan d/w ADINA Ryan. I agree w/ the [place] components of her documentation. Pt awake/alert during my visit today. Daughter at bedside - confirms mother "has been taking 2 tabs of vicodin every day for years." Also takes klonipin chronically. Mild cough but no dyspnea. ?flatus but no stool. VSS no fever 02 sats high 90s on supplemental O2 gen - awake/alert mouth - oral mucosa dry neck - JVD present heart - RRR, s1, s2, 2/6 systolic murmur LSB lungs - decreased BS bases, mild rales left base with focal course BS left base abd - BS+ and much louder today; no tenderness; mild distension still present; large dressing in place ext - warm, pulses 2+ b/l A/P: 1. SBO, s/p ex lap, POD #1 - stable from surgery standpoint; cont NG tube, TPN , await return of GI function 2. worsening macrocytic anemia - b12/folate normal earlier this year; TSH wnl; underlying/smoldering MDS? will need follow-up after discharge 3. protein calorie malnutrition - cont TPN due to bowel rest 4. UTI - has completed Rx 5. acute hypoxic respiratory failure - cxr with left basilar infiltrate; no fever, no leukocytosis - suspect atelectasis; cannot r/o element of volume overload; no abx at this time; lasix 20mg IV x 1 6. PT, OT when able daughter updated at bedside Finn CASTILLO MD (David Castillo MD)
[2017-07-06] MEDS ORDERED: CUSTOM CENTRAL PN 1 BAG IV SCH (16:00)
[2017-07-06] MEDS ORDERED: FUROSEMIDE INJ 20 MG in SYRINGE 0 ML IV ONE (16:15)
[2017-07-06] MEDS: LORAZEPAM INJ 0.5 MG in SYRINGE 0.75 ML IV SCH (21:48)
[2017-07-07] VITALS (13 sets, daily range): BP systolic 116–149; BP diastolic 63–75; PULSE 46–101; TEMP 36.4–37.7; O2SAT 92–98
[2017-07-07] MEDS: CEFOXITIN IV 1,000 MG in DEXTROSE 5% 50ML 50 ML IV SCH ×4 (00:15→23:42)
[2017-07-07] MEDS: ENALAPRILAT IV 1.25 MG in DEXTROSE 5% 25ML 25 ML IV SCH ×3 (01:16→17:42)
[2017-07-07] MEDS: HydrALAZINE HCL 20 MG/ML VIAL IV. SCH ×3 (02:08→17:42)
[2017-07-07] MEDS: SODIUM CHLORIDE 0.9% 1000ML 1,000 ML IV SCH (05:34)
[2017-07-07] MEDS: ACETAMINOPHEN 500 MG TAB PO SCH ×3 (05:35→21:34)
[2017-07-07 06:27] LABS: BUN/CREATININE RATIO 26.9 (10-20); CREATININE 0.4 mg/dl (0.60-1.20); POTASSIUM 4.1 mmol/L (3.5-5.1)
[2017-07-07 06:28] LABS: PHOSPHORUS 2.6 mg/dl (2.5-4.9)
--- NOTE | 2017-07-07 06:36 | Surgery Progress Note ---
Surgery Progress Note Date of Service Jul 07, 2017. Subjective pain better controlled with CELL SUPPORT OPERATOR good response to lasix, no bm yet ?flatus NG min out Objective Vital Signs: Date Time Temp Pulse Resp B/P (MAP) Pulse Ox O2 Delivery O2 Flow Rate FiO2 07/07/17 03:12 36.4 98 16 149/71 (97) 98 Nasal Cannula 2.0 07/07/17 02:10 134/75 (94) 07/07/17 01:19 89 133/63 (86) 97 2.0 07/07/17 00:30 Nasal Cannula 2.0 07/06/17 23:04 37.4 97 16 149/59 (89) 98 Nasal Cannula 2.0 07/06/17 19:35 36.3 103 16 135/69 (91) 98 Oxymask 2.0 07/06/17 16:59 165/74 (104) 07/06/17 16:15 99 Nasal Cannula 2.0 07/06/17 14:55 37.0 86 16 152/72 (98) 99 Oxymask 2.0 07/06/17 14:28 103 98 07/06/17 10:51 98 18 125/63 (83) 98 Oxymask 2.0 07/06/17 09:50 87 16 122/70 (87) 99 Oxymask 2.0 07/06/17 08:50 94 16 115/62 (79) 99 Oxymask 2.0 07/06/17 08:00 Oxymask 2.0 07/06/17 07:50 89 16 129/70 (89) 98 Nasal Cannula 2.0 07/06/17 07:16 36.5 90 16 121/68 (85) 97 Mask 2.0 07/06/17 06:50 36.5 99 16 111/66 (81) 96 Room Air General Appearance: no apparent distress Respiratory/Chest: no respiratory distress Abdomen: + distended (decreased bowel sounds) Laboratory Results: Results Past 24 Hours Test 07/06/17 06:53 07/07/17 05:38 Range/Units Albumin 2.6 3.4-5.0 gm/dl Prealbumin 10.1 20-40 mg/dl Sodium Level 132 136-145 mmol/L Potassium Level 4.1 3.5-5.1 mmol/L Chloride Level 99 98-107 mmol/L Carbon Dioxide Level 29 21-32 mmol/L Anion Gap 5.0 3-11 mmol/L Blood Urea Nitrogen 11 7-18 mg/dl Creatinine 0.40 0.60-1.20 mg/dl Est Creatinine Clear Calc Drug Dose 97.3 ml/min Estimated GFR () 121.5 Estimated GFR (Non- 104.8 BUN/Creatinine Ratio 26.9 10-20 Random Glucose 112 70-99 mg/dl Calcium Level 8.0 8.5-10.1 mg/dl Phosphorus Level 2.6 2.5-4.9 mg/dl Magnesium Level 2.0 1.8-2.4 mg/dl Triglycerides Level 79 0-150 mg/dl Assessment & Plan 07/07/17- cont NPO/ice, cont NG today- possibly remove tomorrow leave merlos one more day- encourage ambulation. Cont TPN expect very slow GI recovery. 07/06/17- s/p exploratory laparotomy, lysis of adhesions- had adhesive band w/ small bowel torsion- also extensive adhesions- expect ileus. will try Dilaudid CELL SUPPORT OPERATOR, check CXR- has B/L pleural effusions- ? infiltrate? 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 will try Dilaudid CELL SUPPORT OPERATOR, check CXR- has B/L pleural effusions- ? infiltrate? 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
[2017-07-07] MEDS: HYDROmorphone HCL 0.5MG/ML 50 ML CASSETTE IV PRN ×3 (07:13→23:22)
[2017-07-07] MEDS: INCREMENTAL PCA TITRATION SCH ×4 (08:00→23:44)
[2017-07-07] MEDS: LOCK-OUT PCA TITRATION SCH ×4 (08:00→23:44)
[2017-07-07] MEDS: LACTOBACILLUS ACIDOPHILUS (FLORANEX) TAB PO SCH ×3 (08:30→17:43)
[2017-07-07 09:40] LABS: PLT ESTIMATE NORMAL
[2017-07-07] MEDS: FAMOTIDINE IV INJ 20 MG in SYRINGE 3 ML IV SCH ×2 (09:51→20:47)
[2017-07-07] MEDS: SENNA 8.8 MG/5 ML UDP PO SCH ×2 (09:52→20:47)
[2017-07-07] MEDS: HEPARIN SOD 5000 UNIT/0.5 ML CARP SQ SCH ×2 (09:53→21:34)
[2017-07-07] MEDS: LEVETIRACETAM IV 500 MG in DEXTROSE 5% 100ML 100 ML IV SCH ×2 (09:54→20:55)
[2017-07-07 10:25] LABS: HEMATOCRIT 31.2 % (37-47); MEAN CELL VOLUME 104.3 fL (80-100); MEAN CORPUSCULAR HEMOGLOBIN 34.8 pg (25-34); MEAN CORPUSCULAR HGB CONC 33.3 g/dl (32-36); MEAN PLATELET VOLUME 10.4 fL (7.4-10.4); PLATELET COUNT 244 K/uL (130-400); RED BLOOD COUNT 2.99 M/uL (4.2-5.4); WHITE BLOOD COUNT 8.41 K/uL (4.8-10.8)
--- NOTE | 2017-07-07 13:55 | Hospitalist Progress Note ---
Hospitalist Progress Note Date of Service Jul 07, 2017. (Lauren Ryan CRNP) Subjective Pt evaluation today including: conversation w/ patient, physical exam, chart review, lab review, review of studies, review of inpatient medication list Voiding: no voiding problems Ms. Rollins is seated in a chair. She is no longer requiring oxygen, feels she is breathing better although she is still coughing at times. She is tolerating the NG tube, continues to drain light green fluid. Her pain is controlled with dilaudid AGRICULTURAL SPECIALIST which she is still requiring regularly. ROS Constitutional: no chills, aches, sweats or fever Respiratory: see HPI Cardiac: no chest pain, palpitations, edema, orthopnea or lightheadedness GI: no abdominal pain, nausea, vomiting, diarrhea or constipation : no dysuria or hesitancy Extremities: no joint pain or weakness Skin: no rash (Lauren Ryan .ADINA) Medications Medications Administered Medications (Trade) Dose Ordered Sig/Ba Route Start Time Stop Time Status Last Admin Dose Admin Sodium Chloride 250 ml @ 999 mls/hr Q16M STAT IV 06/26/17 06:36 06/26/17 06:51 DC 06/26/17 06:36 999 MLS/HR Sodium Chloride 1,000 ml @ 125 mls/hr Q8H STAT IV 06/26/17 06:36 06/26/17 14:35 DC 06/26/17 06:45 125 MLS/HR Ondansetron HCl (Zofran Inj) 4 mg NOW STAT IV 06/26/17 06:36 06/26/17 06:40 DC 06/26/17 06:45 4 MG Lorazepam (Ativan Inj) 0.5 mg NOW STAT IV 06/26/17 08:23 06/26/17 08:24 DC 06/26/17 08:30 0.5 MG Ondansetron HCl (Zofran Inj) 4 mg Q6H PRN IV 06/26/17 12:45 07/26/17 12:44 06/30/17 10:12 4 MG Hydralazine HCl (HydrALAZINE INJ) 10 mg Q6H PRN IV. 06/26/17 12:45 06/27/17 16:10 DC 06/27/17 00:02 10 MG Levetiracetam 500 mg/Dextrose 105 ml @ 420 mls/hr Q12 IV 06/26/17 21:00 07/26/17 20:59 07/07/17 09:54 420 MLS/HR Sodium Chloride 1,000 ml @ 100 mls/hr Q10H IV 06/26/17 15:00 06/27/17 09:07 DC 06/27/17 02:17 100 MLS/HR Morphine Sulfate (MoRPHine SULFATE INJ) 1 mg Q3H PRN IV 06/26/17 12:45 06/29/17 11:28 DC 06/29/17 11:13 1 MG Influenza Virus Vaccine (Fluzone High-Dose Pf 0.5 ml) 0.5 ml ONCE ONCE IM. 06/26/17 13:30 06/26/17 14:41 DC 06/27/17 19:07 0.5 ML Pneumococcal Polysaccharide Vaccine (Pneumovax-23 Inj) 25 mcg ONCE ONCE IM. 06/26/17 13:30 06/26/17 14:47 DC 06/27/17 19:19 25 MCG Morphine Sulfate (MoRPHine SULFATE INJ) 2 mg STK-MED ONCE .ROUTE 06/26/17 13:27 06/26/17 13:28 DC 06/26/17 13:32 1 MG Clonazepam (Klonopin Tab) 0.5 mg HS PO 06/26/17 21:00 07/26/17 20:59 Future Hold 06/26/17 21:29 0.5 MG Ketorolac Tromethamine (Toradol Inj) 15 mg STK-MED ONCE .ROUTE 06/26/17 20:32 06/26/17 20:33 DC 06/26/17 20:35 15 MG Potassium Chloride/Sodium Chloride 1,000 ml @ 100 mls/hr Q10H IV 06/27/17 09:30 07/02/17 15:59 DC 07/02/17 07:41 100 MLS/HR Ampicillin Sodium/ Sulbactam Sodium 3000 mg/Sodium Chloride 108 ml @ 200 mls/hr Q6H IV 06/27/17 10:00 07/04/17 09:59 DC 07/04/17 05:42 200 MLS/HR Potassium Chloride 10 meq/ Prmx 100 ml @ 100 mls/hr Q1H IV 06/27/17 11:00 06/27/17 13:59 DC 06/27/17 14:02 100 MLS/HR Ketorolac Tromethamine (Toradol Inj) 15 mg Q6H PRN IV 06/27/17 12:45 07/02/17 12:44 DC 06/29/17 11:12 15 MG Sodium Chloride 500 ml @ 1,000 mls/hr Q30M IV 06/27/17 13:00 06/27/17 13:29 DC 06/27/17 14:02 1,000 MLS/HR Hydralazine HCl (HydrALAZINE INJ) 10 mg Q8H IV. 06/27/17 18:00 07/27/17 17:59 07/07/17 09:54 10 MG Lorazepam 0.5 mg/ Syringe 1 ml @ 1 mls/min HS IV 06/27/17 21:00 07/27/17 20:59 07/06/17 21:48 1 MLS/MIN Ranitidine HCl 50 mg/Dextrose 102 ml @ 200 mls/hr Q8H IV 06/29/17 06:00 06/29/17 15:10 DC 06/29/17 13:45 200 MLS/HR Potassium Chloride (Klor-Con M10) 40 meq NOW ONCE PO 06/29/17 10:30 06/29/17 10:31 DC 06/29/17 10:37 40 MEQ Morphine Sulfate (MoRPHine SULFATE INJ) 2 mg Q3H PRN IV 06/29/17 11:30 07/05/17 08:53 DC 07/04/17 23:28 2 MG Acetaminophen (Tylenol Tab) 1,000 mg Q8 PO 06/29/17 14:00 07/29/17 13:59 07/04/17 22:12 1,000 MG Lactobacillus Acidophilus (Floranex Tab) 4 tab TIDM PO 06/29/17 12:30 07/29/17 12:29 07/04/17 17:47 4 TAB Famotidine 20 mg/ Syringe 5 ml @ 2.5 mls/min Q12 IV 06/29/17 21:00 07/29/17 20:59 07/07/17 09:51 2.5 MLS/MIN Bisacodyl (Dulcolax Supp) 10 mg NOW ONCE TX 06/30/17 11:00 06/30/17 11:01 DC 06/30/17 11:07 10 MG Methylnaltrexone [place] (Relistor Inj) 12 mg Q2D@0900 SQ 06/30/17 13:00 07/30/17 12:59 07/06/17 09:42 12 MG Sodium Biphosphate/ Sodium Phosphate (Fleet Enema) 132 ml NOW ONCE TX 06/30/17 13:00 06/30/17 13:01 DC 06/30/17 12:40 132 ML Sodium Biphosphate/ Sodium Phosphate (Fleet Enema) 132 ml DAILY TX 06/30/17 16:00 07/01/17 09:01 DC 06/30/17 16:16 132 ML Sodium Biphosphate/ Sodium Phosphate (Fleet Enema) 132 ml NOW STAT TX 07/02/17 09:47 07/02/17 09:53 DC 07/02/17 11:10 132 ML Miscellaneous (Stop Order) 1 ea TODAY@1600 ONCE N/A 07/02/17 16:00 07/02/17 16:01 DC 07/02/17 16:24 1 EA Nutrition (Parenteral) 0 ml @ 0 mls/hr TODAY@1600 IV 07/02/17 16:00 07/03/17 14:22 DC 07/02/17 16:17 0 MLS/HR Magnesium Sulfate 1 gm/Prmx 100 ml @ 100 mls/hr Q1H IV 07/02/17 16:00 07/02/17 17:59 DC 07/02/17 21:23 100 MLS/HR Potassium Phosphate 15 mmol/ Sodium Chloride 255 ml @ 88 mls/hr ONE ONCE IV 07/02/17 15:45 07/02/17 18:38 DC 07/02/17 18:03 88 MLS/HR Potassium Chloride 10 meq/ Prmx 100 ml @ 100 mls/hr Q1H IV 07/03/17 08:00 07/03/17 10:59 DC 07/03/17 11:14 100 MLS/HR Potassium Phosphate 21 mmol/ Sodium Chloride 507 ml @ 140 mls/hr 1100 ONCE IV 07/03/17 11:00 07/03/17 14:37 DC 07/03/17 10:31 140 MLS/HR Enalaprilat 1.25 mg/Dextrose 26 ml @ 100 mls/hr Q12H IV 07/03/17 09:00 07/03/17 12:47 DC 07/03/17 09:14 100 MLS/HR Potassium Chloride 10 meq/ Prmx 100 ml @ 100 mls/hr Q1H IV 07/03/17 11:00 07/03/17 13:59 DC 07/03/17 15:08 100 MLS/HR Miscellaneous (Stop Order) 1 ea ONE ONCE N/A 07/03/17 10:00 07/03/17 10:01 DC 07/03/17 10:01 1 EA Enalaprilat 1.25 mg/Dextrose 26 ml @ 100 mls/hr Q8H IV 07/03/17 17:00 08/02/17 08:59 07/07/17 09:52 100 MLS/HR Nutrition (Parenteral) 0 ml @ 0 mls/hr TODAY@1600 IV 07/03/17 16:00 07/04/17 15:59 DC 07/03/17 16:30 0 MLS/HR Potassium Chloride 20 meq/ Prmx 100 ml @ 50 mls/hr Q2H IV 07/04/17 03:15 07/04/17 07:14 DC 07/04/17 05:01 50 MLS/HR Nutrition (Parenteral) 0 ml @ 0 mls/hr TODAY@1600 IV 07/04/17 16:00 07/05/17 15:59 DC 07/04/17 16:00 0 MLS/HR Furosemide 20 mg/ Syringe 2 ml @ 4 mls/min 1330 ONCE IV 07/04/17 13:30 07/04/17 13:31 DC 07/04/17 14:06 4 MLS/MIN Cefoxitin Sodium 1000 mg/Dextrose 60 ml @ 100 mls/hr Q8H IV 07/04/17 16:00 07/14/17 15:59 07/07/17 09:17 100 MLS/HR Nutrition (Parenteral) 0 ml @ 0 mls/hr TODAY@1600 IV 07/05/17 16:00 07/06/17 15:59 DC 07/05/17 16:09 0 MLS/HR Ondansetron HCl (Zofran Inj) 4 mg ONE PRN IV 07/05/17 07:30 07/05/17 09:18 DC 07/05/17 09:17 4 MG Hydromorphone HCl (Dilaudid Inj) 1 mg Q3H PRN IV 07/05/17 09:00 07/19/17 08:59 07/06/17 06:02 1 MG Heparin Sodium (Porcine) (Heparin Sq 5000 Unit/0.5ml) 5,000 unit Q12 SQ 07/05/17 21:00 08/04/17 20:59 07/07/17 09:53 5,000 UNIT Morphine Sulfate (MoRPHine SULFATE INJ) 4 mg STK-MED ONCE .ROUTE 07/05/17 09:14 07/05/17 09:15 DC 07/05/17 09:14 4 MG Mineral Oil (Mineral Oil) 30 ml NOW STAT PO 07/06/17 06:07 07/06/17 06:08 DC 07/06/17 06:24 30 ML Senna (Senokot Syrup) 8.8 mg BID PO 07/06/17 09:00 08/05/17 08:59 07/07/17 09:52 8.8 MG Miscellaneous Information (Incremental AGRICULTURAL SPECIALIST Titration) 1 ea QS N/A 07/06/17 08:00 08/05/17 07:59 07/07/17 00:00 1 EA Miscellaneous Information (Lock-Out AGRICULTURAL SPECIALIST Titration) 1 ea QS N/A 07/06/17 08:00 07/20/17 07:59 07/07/17 00:00 1 EA Hydromorphone HCl (Dilaudid Infectious Disease Physician) 25 mg PRN PRN IV 07/06/17 06:00 07/20/17 05:59 07/07/17 07:13 25 MG Sodium Chloride 1,000 ml @ 15 mls/hr Q24H IV 07/06/17 06:00 08/05/17 05:59 07/06/17 06:51 15 MLS/HR Nutrition (Parenteral) 0 ml @ 0 mls/hr TODAY@1600 IV 07/06/17 16:00 07/07/17 15:59 07/06/17 16:26 0 MLS/HR Furosemide 20 mg/ Syringe 2 ml @ 4 mls/min 1615 ONCE IV 07/06/17 16:15 07/06/17 16:16 DC 07/06/17 16:59 4 MLS/MIN (Lauren Ryan, ADINA) Objective Vital Signs Date Time Temp Pulse Resp B/P (MAP) Pulse Ox O2 Delivery O2 Flow Rate FiO2 07/07/17 11:19 36.8 93 16 116/66 (83) 97 Room Air 07/07/17 07:55 Room Air Oxymask 07/07/17 07:11 37.7 96 16 145/67 (93) 98 Oxymask 2.0 07/07/17 03:12 36.4 98 16 149/71 (97) 98 Nasal Cannula 2.0 07/07/17 02:10 134/75 (94) 07/07/17 01:19 89 133/63 (86) 97 2.0 07/07/17 00:30 Nasal Cannula 2.0 07/06/17 23:04 37.4 97 16 149/59 (89) 98 Nasal Cannula 2.0 07/06/17 19:35 36.3 103 16 135/69 (91) 98 Oxymask 2.0 07/06/17 16:59 165/74 (104) 07/06/17 16:15 99 Nasal Cannula 2.0 07/06/17 14:55 37.0 86 16 152/72 (98) 99 Oxymask 2.0 07/06/17 14:28 103 98 (Lauren Ryan CRNP) Physical Exam Notes: General: no distress Eyes: normal inspection, PERLL Respiratory: chest non tender, coarse lung sounds bilaterally, no respiratory distress, no accessory muscle use Cardiac: regular rate and rhythm, no rub or gallop, no murmur, no edema, no jvd GI/: active bowel sounds, no abd pain or tenderness, soft, non distended Extremities: normal range of motion, normal strength, non tender Neuro/Psych: alert and oriented x 3, normal mood and affect Skin: normal color, dry (Lauren Ryan CRNP) Laboratory Results Last 24 Hours Test 07/07/17 05:38 White Blood Count 8.41 K/uL Red Blood Count 2.99 M/uL Hemoglobin 10.4 g/dL Hematocrit 31.2 % Mean Corpuscular Volume 104.3 fL Mean Corpuscular Hemoglobin 34.8 pg Mean Corpuscular Hemoglobin Concent 33.3 g/dl RDW Standard Deviation 49.6 fL RDW Coefficient of Variation 13.1 % Platelet Count 244 K/uL Mean Platelet Volume 10.4 fL Platelet Estimate NORMAL Sodium Level 132 mmol/L Potassium Level 4.1 mmol/L Chloride Level 99 mmol/L Carbon Dioxide Level 29 mmol/L Anion Gap 5.0 mmol/L Blood Urea Nitrogen 11 mg/dl Creatinine 0.40 mg/dl Est Creatinine Clear Calc Drug Dose 97.3 ml/min Estimated GFR () 121.5 Estimated GFR (Non- 104.8 BUN/Creatinine Ratio 26.9 Random Glucose 112 mg/dl Calcium Level 8.0 mg/dl Phosphorus Level 2.6 mg/dl Magnesium Level 2.0 mg/dl Triglycerides Level 79 mg/dl (Lauren Ryan ., ADINA) Assessment and Plan Patient is a pleasant 72 y/o female, with PMHx of seizure disorder, HTN, HLD, mitral stenosis, aortic sclerosis, pulmonary HTN, h/o recurrent c.diff s/p colectomy w/ ileostomy- resolved, chronic pain, OA, osteoporosis, and anxiety/ depression, who presented to the ED because of lower back pain since 1 day before admission. SBO: - Initially surgery wanted to see if SBO could resolve medically - NG tube out 06/28, some coffee ground emesis in tube - increased back pain similar to admission after eating - 2 view abdomen, famotidine - Vomiting again 06/30 - 2 view abdomen - reinserted NG and she put out 1 L fluid - Consulted GI - EGD was normal - revision of adhesions to relieve SBO 07/05 - dilaudid AGRICULTURAL SPECIALIST ordered by surgery Atelectasis vs PNA on Xray - mild dyspnea, no longer requiring O2 - no fever or increase in WBCs - will hold off on initiating any further antibiotics at this time, likely atelectasis - encourage incentive spirometry - nebs Moderate malnutrition - Third spacing with mild ascites, pleural effusion and anasarca - TPN Lumbar pain s/p mechanical fall: - Check lumbar spine x-ray - no acute finding - dilaudid AGRICULTURAL SPECIALIST - Heating pad - PT/OT Low urine output - retaining almost 400 mls on bladder scan per nursing again 06/28 - merlos catheter out 06/29 - resolved UTI - received Unasyn x 7 days Seizure disorder: IV Keppra 500 mg BID due to NPO HTN: - has been elevated since holding Benicar added iv enalaprilat, increased dose 07/03, IV Hydralazine 10 mg q6 hrs PRN sbp >180 or dbp >100 Hypokalemia - repleated - continue TPN HLD: Hold Lipitor 20 mg daily due to NPO- resume once tolerating PO Mitral stenosis, aortic sclerosis, pulmonary HTN- follows w/ Dr. Barber h/o recurrent c.diff s/p colectomy w/ ileostomy- resolved Chronic pain, OA- - Hold Mobic 7.5 mg daily PRN due to NPO - AGRICULTURAL SPECIALIST as above Osteoporosis: Continue Reclast injection yearly DVT prophylaxis: TEDs/SCDs Code Status: LEVEL I, FULL Dispo: From home- PT/OT and CM consulted (Lauren Ryan ., ADINA) Attending Note & Attestation: Pt seen/examined, chart reviewed, care plan d/w ADINA Ryan. I agree w/ the hills components of her documentation. Pt just returned from a walk prior to my arrival. States she feels better. had "smear" of stool this am per staff. +flatus. Denies dyspnea but has cough. Incentive alirio - only 250-300 on such. VSS no fever O2 sats wnl in RA gen - awake/alert mouth - oral mucosa dry neck - JVD present but improved today heart - RRR, s1, s2, 2/6 systolic murmur LSB lungs - decreased BS left base, course BS b/l abd - BS+; no tenderness; mild distension improved; large dressing in place ext - warm, pulses 2+ b/l A/P: 1. SBO, s/p ex lap, POD #2 - stable from surgery standpoint; cont NG tube - possible d/c of such in AM; TPN in meantime 2. macrocytic anemia - b12/folate/TSH wnl; underlying/smoldering MDS? will need follow-up after discharge 3. protein calorie malnutrition - cont TPN due to bowel rest 4. UTI - has completed Rx 5. acute hypoxic respiratory failure - resolved; mild low-grade temp this AM but O2 requirement is resolved and patient feeling better w/o abx; this argue more for atelectasis or pleural effusion; follow; aggressive pulmonary toilet 6. pain control - remains on dilaudid AGRICULTURAL SPECIALIST with good control 7. HTN - controlled with multiple agents IV. stop the relistor David Castillo MD (David Castillo MD)
[2017-07-07] MEDS: ALBUT/IPRATROP 3MG/0.5MG NEB 3 ML VIAL INH SCH ×2 (14:27→19:57)
[2017-07-07] MEDS ORDERED: ALBUT/IPRATROP 3MG/0.5MG NEB 3 ML VIAL INH PRN (15:00)
[2017-07-07] MEDS ORDERED: CUSTOM CENTRAL PN 1 BAG IV SCH (16:00)
[2017-07-07] MEDS: LORAZEPAM INJ 0.5 MG in SYRINGE 0.75 ML IV SCH (20:54)
[2017-07-08] VITALS (11 sets, daily range): BP systolic 109–150; BP diastolic 44–70; PULSE 82–101; TEMP 36.5–37.2; O2SAT 95–98
[2017-07-08] MEDS: ENALAPRILAT IV 1.25 MG in DEXTROSE 5% 25ML 25 ML IV SCH ×3 (01:36→17:23)
[2017-07-08] MEDS: HydrALAZINE HCL 20 MG/ML VIAL IV. SCH ×3 (02:09→18:43)
[2017-07-08] MEDS: ACETAMINOPHEN 500 MG TAB PO SCH ×3 (05:53→23:25)
[2017-07-08] MEDS: HYDROmorphone HCL 0.5MG/ML 50 ML CASSETTE IV PRN ×3 (07:10→23:14)
--- NOTE | 2017-07-08 07:36 | Surgery Progress Note ---
Surgery Progress Note Date of Service Jul 08, 2017. 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, little better now, passing flatus, BM documented in EMR but she is unaware Objective Vital Signs: Date Time Temp Pulse Resp B/P (MAP) Pulse Ox O2 Delivery O2 Flow Rate FiO2 07/08/17 03:15 37.2 99 16 136/69 (91) 96 Room Air 07/08/17 02:10 91 137/66 (89) 96 Room Air 07/08/17 01:30 147/69 (95) 07/07/17 23:30 Room Air 07/07/17 22:52 37.0 101 16 146/64 (91) 92 Room Air 07/07/17 21:25 66 149/74 (99) 07/07/17 19:57 89 16 95 Room Air 07/07/17 19:20 36.8 46 16 138/64 (88) 95 Room Air 07/07/17 17:42 146/74 (98) 07/07/17 15:55 Room Air 07/07/17 15:10 36.6 99 16 135/67 (89) 95 Room Air 07/07/17 14:27 94 16 96 Room Air 07/07/17 11:19 36.8 93 16 116/66 (83) 97 Room Air 07/07/17 07:55 93 Room Air Oxymask Abdomen: soft, + distended (slighlty) Laboratory Results: Results Past 24 Hours Test 07/08/17 04:44 Range/Units Assessment & Plan POD 3 ex lap, KEIRA some returning bowel function, tolerated clamping of NG, will remove keep on ice/sips for 24-48 hrs d/c merlos cont TPN also seen by Dr. Chandler
[2017-07-08] MEDS: ALBUT/IPRATROP 3MG/0.5MG NEB 3 ML VIAL INH SCH ×3 (07:40→19:42)
[2017-07-08] MEDS: CEFOXITIN IV 1,000 MG in DEXTROSE 5% 50ML 50 ML IV SCH ×2 (07:43→16:23)
[2017-07-08] MEDS: INCREMENTAL PCA TITRATION SCH ×2 (07:46→16:59)
[2017-07-08] MEDS: LOCK-OUT PCA TITRATION SCH ×2 (07:46→16:00)
[2017-07-08] MEDS: LACTOBACILLUS ACIDOPHILUS (FLORANEX) TAB PO SCH ×3 (08:30→17:23)
[2017-07-08 08:44] LABS: BUN/CREATININE RATIO 24.9 (10-20); CALCIUM 8.2 mg/dl (8.5-10.1); CREATININE 0.37 mg/dl (0.60-1.20); MAGNESIUM 2.1 mg/dl (1.8-2.4); PHOSPHORUS 3.1 mg/dl (2.5-4.9)
[2017-07-08 08:51] LABS: HEMATOCRIT 27.5 % (37-47); MEAN CELL VOLUME 102.6 fL (80-100); MEAN CORPUSCULAR HEMOGLOBIN 34.7 pg (25-34); MEAN CORPUSCULAR HGB CONC 33.8 g/dl (32-36); MEAN PLATELET VOLUME 10.4 fL (7.4-10.4); PLATELET COUNT 244 K/uL (130-400); RED BLOOD COUNT 2.68 M/uL (4.2-5.4)
[2017-07-08 08:52] LABS: PLT ESTIMATE NORMAL
[2017-07-08] MEDS ORDERED: MINERAL OIL 30 ML UDC NG SCH (09:00)
[2017-07-08] MEDS: SENNA 8.8 MG/5 ML UDP PO SCH ×2 (09:14→23:25)
[2017-07-08] MEDS: FAMOTIDINE IV INJ 20 MG in SYRINGE 3 ML IV SCH ×2 (09:15→23:27)
[2017-07-08] MEDS: LEVETIRACETAM IV 500 MG in DEXTROSE 5% 100ML 100 ML IV SCH ×2 (09:15→23:24)
[2017-07-08] MEDS: HEPARIN SOD 5000 UNIT/0.5 ML CARP SQ SCH ×2 (09:16→23:25)
[2017-07-08] MEDS ORDERED: NURSING VERBAL MED ORDER ONE (10:00)
--- NOTE | 2017-07-08 14:36 | Hospitalist Progress Note ---
Hospitalist Progress Note Date of Service Jul 08, 2017. (Lauren Ryan .ADINA) Subjective Pt evaluation today including: conversation w/ patient, physical exam, chart review, lab review, review of inpatient medication list Voiding: no voiding problems Ms. Rollins is slowly improving. Her NG tube was removed this morning and she has not felt any nausea, passing gas, bowel movement recorded in chart but patient does not remember that. Her belly is sore but she is requiring less dilaudid from her MOTOR REBUILDER. She is not short of breath, no coughing. ROS Constitutional: no chills, aches, sweats or fever Respiratory: see HPI Cardiac: no chest pain, palpitations, edema, orthopnea or lightheadedness GI: see HPI : no dysuria or hesitancy Extremities: no joint pain or weakness Skin: no rash (Lauren Ryan .ADINA) Medications Medications Administered Medications (Trade) Dose Ordered Sig/Ba Route Start Time Stop Time Status Last Admin Dose Admin Sodium Chloride 250 ml @ 999 mls/hr Q16M STAT IV 06/26/17 06:36 06/26/17 06:51 DC 06/26/17 06:36 999 MLS/HR Sodium Chloride 1,000 ml @ 125 mls/hr Q8H STAT IV 06/26/17 06:36 06/26/17 14:35 DC 06/26/17 06:45 125 MLS/HR Ondansetron HCl (Zofran Inj) 4 mg NOW STAT IV 06/26/17 06:36 06/26/17 06:40 DC 06/26/17 06:45 4 MG Lorazepam (Ativan Inj) 0.5 mg NOW STAT IV 06/26/17 08:23 06/26/17 08:24 DC 06/26/17 08:30 0.5 MG Ondansetron HCl (Zofran Inj) 4 mg Q6H PRN IV 06/26/17 12:45 07/26/17 12:44 06/30/17 10:12 4 MG Hydralazine HCl (HydrALAZINE INJ) 10 mg Q6H PRN IV. 06/26/17 12:45 06/27/17 16:10 DC 06/27/17 00:02 10 MG Levetiracetam 500 mg/Dextrose 105 ml @ 420 mls/hr Q12 IV 10/22/17 21:00 07/26/17 20:59 07/08/17 09:15 420 MLS/HR Sodium Chloride 1,000 ml @ 100 mls/hr Q10H IV 06/26/17 15:00 06/27/17 09:07 DC 06/27/17 02:17 100 MLS/HR Morphine Sulfate (MoRPHine SULFATE INJ) 1 mg Q3H PRN IV 06/26/17 12:45 06/29/17 11:28 DC 06/29/17 11:13 1 MG Influenza Virus Vaccine (Fluzone High-Dose Pf 0.5 ml) 0.5 ml ONCE ONCE IM. 06/26/17 13:30 06/26/17 14:41 DC 06/27/17 19:07 0.5 ML Pneumococcal Polysaccharide Vaccine (Pneumovax-23 Inj) 25 mcg ONCE ONCE IM. 06/26/17 13:30 06/26/17 14:47 DC 06/27/17 19:19 25 MCG Morphine Sulfate (MoRPHine SULFATE INJ) 2 mg STK-MED ONCE .ROUTE 06/26/17 13:27 06/26/17 13:28 DC 06/26/17 13:32 1 MG Clonazepam (Klonopin Tab) 0.5 mg HS PO 06/26/17 21:00 07/26/17 20:59 Future Hold 06/26/17 21:29 0.5 MG Ketorolac Tromethamine (Toradol Inj) 15 mg STK-MED ONCE .ROUTE 06/26/17 20:32 06/26/17 20:33 DC 06/26/17 20:35 15 MG Potassium Chloride/Sodium Chloride 1,000 ml @ 100 mls/hr Q10H IV 06/27/17 09:30 07/02/17 15:59 DC 07/02/17 07:41 100 MLS/HR Ampicillin Sodium/ Sulbactam Sodium 3000 mg/Sodium Chloride 108 ml @ 200 mls/hr Q6H IV 06/27/17 10:00 07/04/17 09:59 DC 07/04/17 05:42 200 MLS/HR Potassium Chloride 10 meq/ Prmx 100 ml @ 100 mls/hr Q1H IV 06/27/17 11:00 06/27/17 13:59 DC 06/27/17 14:02 100 MLS/HR Ketorolac Tromethamine (Toradol Inj) 15 mg Q6H PRN IV 06/27/17 12:45 07/02/17 12:44 DC 06/29/17 11:12 15 MG Sodium Chloride 500 ml @ 1,000 mls/hr Q30M IV 06/27/17 13:00 06/27/17 13:29 DC 06/27/17 14:02 1,000 MLS/HR Hydralazine HCl (HydrALAZINE INJ) 10 mg Q8H IV. 06/27/17 18:00 07/27/17 17:59 07/08/17 09:55 10 MG Lorazepam 0.5 mg/ Syringe 1 ml @ 1 mls/min HS IV 06/27/17 21:00 07/27/17 20:59 07/07/17 20:54 1 MLS/MIN Ranitidine HCl 50 mg/Dextrose 102 ml @ 200 mls/hr Q8H IV 06/29/17 06:00 06/29/17 15:10 DC 06/29/17 13:45 200 MLS/HR Potassium Chloride (Klor-Con M10) 40 meq NOW ONCE PO 06/29/17 10:30 06/29/17 10:31 DC 06/29/17 10:37 40 MEQ Morphine Sulfate (MoRPHine SULFATE INJ) 2 mg Q3H PRN IV 06/29/17 11:30 07/05/17 08:53 DC 07/04/17 23:28 2 MG Acetaminophen (Tylenol Tab) 1,000 mg Q8 PO 06/29/17 14:00 07/29/17 13:59 07/08/17 13:57 1,000 MG Lactobacillus Acidophilus (Floranex Tab) 4 tab TIDM PO 06/29/17 12:30 07/29/17 12:29 07/04/17 17:47 4 TAB Famotidine 20 mg/ Syringe 5 ml @ 2.5 mls/min Q12 IV 06/29/17 21:00 07/29/17 20:59 07/08/17 09:15 2.5 MLS/MIN Bisacodyl (Dulcolax Supp) 10 mg NOW ONCE [place] 06/30/17 11:00 06/30/17 11:01 DC 06/30/17 11:07 10 MG Methylnaltrexone [place] (Relistor Inj) 12 mg Q2D@0900 SQ 06/30/17 13:00 07/07/17 17:35 DC 07/06/17 09:42 12 MG Sodium Biphosphate/ Sodium Phosphate (Fleet Enema) 132 ml NOW ONCE [place] 06/30/17 13:00 06/30/17 13:01 DC 06/30/17 12:40 132 ML Sodium Biphosphate/ Sodium Phosphate (Fleet Enema) 132 ml DAILY [place] 06/30/17 16:00 07/01/17 09:01 DC 06/30/17 16:16 132 ML Sodium Biphosphate/ Sodium Phosphate (Fleet Enema) 132 ml NOW STAT [place] 07/02/17 09:47 07/02/17 09:53 DC 07/02/17 11:10 132 ML Miscellaneous (Stop Order) 1 ea TODAY@1600 ONCE N/A 07/02/17 16:00 07/02/17 16:01 DC 07/02/17 16:24 1 EA Nutrition (Parenteral) 0 ml @ 0 mls/hr TODAY@1600 IV 07/02/17 16:00 07/03/17 14:22 DC 07/02/17 16:17 0 MLS/HR Magnesium Sulfate 1 gm/Prmx 100 ml @ 100 mls/hr Q1H IV 07/02/17 16:00 07/02/17 17:59 DC 07/02/17 21:23 100 MLS/HR Potassium Phosphate 15 mmol/ Sodium Chloride 255 ml @ 88 mls/hr ONE ONCE IV 07/02/17 15:45 07/02/17 18:38 DC 07/02/17 18:03 88 MLS/HR Potassium Chloride 10 meq/ Prmx 100 ml @ 100 mls/hr Q1H IV 07/03/17 08:00 07/03/17 10:59 DC 07/03/17 11:14 100 MLS/HR Potassium Phosphate 21 mmol/ Sodium Chloride 507 ml @ 140 mls/hr 1100 ONCE IV 07/03/17 11:00 07/03/17 14:37 DC 07/03/17 10:31 140 MLS/HR Enalaprilat 1.25 mg/Dextrose 26 ml @ 100 mls/hr Q12H IV 07/03/17 09:00 07/03/17 12:47 DC 07/03/17 09:14 100 MLS/HR Potassium Chloride 10 meq/ Prmx 100 ml @ 100 mls/hr Q1H IV 07/03/17 11:00 07/03/17 13:59 DC 07/03/17 15:08 100 MLS/HR Miscellaneous (Stop Order) 1 ea ONE ONCE N/A 07/03/17 10:00 07/03/17 10:01 DC 07/03/17 10:01 1 EA Enalaprilat 1.25 mg/Dextrose 26 ml @ 100 mls/hr Q8H IV 07/03/17 17:00 08/02/17 08:59 07/08/17 09:15 100 MLS/HR Nutrition (Parenteral) 0 ml @ 0 mls/hr TODAY@1600 IV 07/03/17 16:00 07/04/17 15:59 DC 07/03/17 16:30 0 MLS/HR Potassium Chloride 20 meq/ Prmx 100 ml @ 50 mls/hr Q2H IV 07/04/17 03:15 07/04/17 07:14 DC 07/04/17 05:01 50 MLS/HR Nutrition (Parenteral) 0 ml @ 0 mls/hr TODAY@1600 IV 07/04/17 16:00 07/05/17 15:59 DC 07/04/17 16:00 0 MLS/HR Furosemide 20 mg/ Syringe 2 ml @ 4 mls/min 1330 ONCE IV 07/04/17 13:30 07/04/17 13:31 DC 07/04/17 14:06 4 MLS/MIN Cefoxitin Sodium 1000 mg/Dextrose 60 ml @ 100 mls/hr Q8H IV 07/04/17 16:00 07/14/17 15:59 07/08/17 07:43 100 MLS/HR Nutrition (Parenteral) 0 ml @ 0 mls/hr TODAY@1600 IV 07/05/17 16:00 07/06/17 15:59 DC 07/05/17 16:09 0 MLS/HR Ondansetron HCl (Zofran Inj) 4 mg ONE PRN IV 07/05/17 07:30 07/05/17 09:18 DC 07/05/17 09:17 4 MG Hydromorphone HCl (Dilaudid Inj) 1 mg Q3H PRN IV 07/05/17 09:00 07/19/17 08:59 07/06/17 06:02 1 MG Heparin Sodium (Porcine) (Heparin Sq 5000 Unit/0.5ml) 5,000 unit Q12 SQ 07/05/17 21:00 08/04/17 20:59 07/08/17 09:16 5,000 UNIT Morphine Sulfate (MoRPHine SULFATE INJ) 4 mg STK-MED ONCE .ROUTE 07/05/17 09:14 07/05/17 09:15 DC 07/05/17 09:14 4 MG Mineral Oil (Mineral Oil) 30 ml NOW STAT PO 07/06/17 06:07 07/06/17 06:08 DC 07/06/17 06:24 30 ML Senna (Senokot Syrup) 8.8 mg BID PO 07/06/17 09:00 08/05/17 08:59 07/08/17 09:14 8.8 MG Miscellaneous Information (Incremental MOTOR REBUILDER Titration) 1 ea QS N/A 07/06/17 08:00 08/05/17 07:59 07/07/17 00:00 1 EA Miscellaneous Information (Lock-Out MOTOR REBUILDER Titration) 1 ea QS N/A 07/06/17 08:00 07/20/17 07:59 07/07/17 00:00 1 EA Hydromorphone HCl (Dilaudid Diversity Manager) 25 mg PRN PRN IV 07/06/17 06:00 07/20/17 05:59 07/08/17 07:10 25 MG Sodium Chloride 1,000 ml @ 15 mls/hr Q24H IV 07/06/17 06:00 08/05/17 05:59 07/06/17 06:51 15 MLS/HR Nutrition (Parenteral) 0 ml @ 0 mls/hr TODAY@1600 IV 07/06/17 16:00 07/07/17 15:59 DC 07/06/17 16:26 0 MLS/HR Furosemide 20 mg/ Syringe 2 ml @ 4 mls/min 1615 ONCE IV 07/06/17 16:15 07/06/17 16:16 DC 07/06/17 16:59 4 MLS/MIN Nutrition (Parenteral) 0 ml @ 0 mls/hr TODAY@1600 IV 07/07/17 16:00 07/08/17 15:59 07/07/17 15:40 0 MLS/HR Albuterol/ Ipratropium (Duoneb) 3 ml TIDR INH 07/07/17 15:00 08/06/17 14:59 07/08/17 07:40 3 ML Mineral Oil (Mineral Oil) 30 ml QAM NG 07/08/17 09:00 07/08/17 09:01 DC 07/08/17 09:14 30 ML (Lauren Ryan CRNP) Objective Vital Signs Date Time Temp Pulse Resp B/P (MAP) Pulse Ox O2 Delivery O2 Flow Rate FiO2 07/08/17 12:04 37.0 82 20 112/44 (66) 96 Room Air 109/66 (80) 07/08/17 08:21 95 Room Air 07/08/17 07:47 37.0 94 18 142/60 (87) 95 Room Air 07/08/17 07:45 90 15 95 Room Air 07/08/17 07:30 Room Air 07/08/17 03:15 37.2 99 16 136/69 (91) 96 Room Air 07/08/17 02:10 91 137/66 (89) 96 Room Air 07/08/17 01:30 147/69 (95) 07/07/17 23:30 Room Air 07/07/17 22:52 37.0 101 16 146/64 (91) 92 Room Air 07/07/17 21:25 66 149/74 (99) 07/07/17 19:57 89 16 95 Room Air 07/07/17 19:20 36.8 46 16 138/64 (88) 95 Room Air 07/07/17 17:42 146/74 (98) 07/07/17 15:55 Room Air 07/07/17 15:10 36.6 99 16 135/67 (89) 95 Room Air (Lauren Ryan CRNP) Physical Exam Notes: General: no distress Eyes: normal inspection, PERLL Respiratory: chest non tender, clear to auscultation, normal breath sounds, no respiratory distress, no accessory muscle use Cardiac: regular rate and rhythm, no rub or gallop, systolic murmur II/, no edema, no jvd GI/: active bowel sounds, no abd pain or tenderness, soft, non distended Extremities: normal range of motion, generalized weakness, non tender Neuro/Psych: alert and oriented x 3, normal mood and affect Skin: normal color, dry (Lauren Ryan CRNP) Laboratory Results Last 24 Hours Test 07/08/17 07:40 White Blood Count 7.10 K/uL Red Blood Count 2.68 M/uL Hemoglobin 9.3 g/dL Hematocrit 27.5 % Mean Corpuscular Volume 102.6 fL Mean Corpuscular Hemoglobin 34.7 pg Mean Corpuscular Hemoglobin Concent 33.8 g/dl RDW Standard Deviation 49.8 fL RDW Coefficient of Variation 13.2 % Platelet Count 244 K/uL Mean Platelet Volume 10.4 fL Platelet Estimate NORMAL Sodium Level 133 mmol/L Potassium Level 4.0 mmol/L Chloride Level 102 mmol/L Carbon Dioxide Level 25 mmol/L Anion Gap 7.0 mmol/L Blood Urea Nitrogen 9 mg/dl Creatinine 0.37 mg/dl Est Creatinine Clear Calc Drug Dose 105.2 ml/min Estimated GFR () 124.6 Estimated GFR (Non- 107.5 BUN/Creatinine Ratio 24.9 Random Glucose 125 mg/dl Calcium Level 8.2 mg/dl Phosphorus Level 3.1 mg/dl Magnesium Level 2.1 mg/dl (Lauren Ryan CRNP) Assessment and Plan Patient is a pleasant 72 y/o female, with PMHx of seizure disorder, HTN, HLD, mitral stenosis, aortic sclerosis, pulmonary HTN, h/o recurrent c.diff s/p colectomy w/ ileostomy- resolved, chronic pain, OA, osteoporosis, and anxiety/ depression, who presented to the ED because of lower back pain since 1 day before admission. SBO: - Initially surgery wanted to see if SBO could resolve medically - NG tube out 06/28, some coffee ground emesis in tube - increased back pain similar to admission after eating - 2 view abdomen, famotidine - Vomiting again 06/30 - 2 view abdomen - reinserted NG and she put out 1 L fluid - Consulted GI - EGD was normal - revision of adhesions to relieve SBO 07/05 - dilaudid MOTOR REBUILDER ordered by surgery - NG out today, no nausea or vomiting Atelectasis vs PNA on Xray - mild dyspnea, no longer requiring O2 - no fever or increase in WBCs - will hold off on initiating any further antibiotics at this time, likely atelectasis - encourage incentive spirometry - nebs Moderate malnutrition - Third spacing with mild ascites, pleural effusion and anasarca - TPN Lumbar pain s/p mechanical fall: - Check lumbar spine x-ray - no acute finding - dilaudid MOTOR REBUILDER - Heating pad - PT/OT Low urine output - retaining almost 400 mls on bladder scan per nursing again 06/28 - resolved UTI - received Unasyn x 7 days Seizure disorder: IV Keppra 500 mg BID due to NPO HTN: - has been elevated since holding Benicar added iv enalaprilat, increased dose 07/03, IV Hydralazine 10 mg q6 hrs PRN sbp >180 or dbp >100 Hypokalemia - repleated - continue TPN HLD: Hold Lipitor 20 mg daily due to NPO- resume once tolerating PO Mitral stenosis, aortic sclerosis, pulmonary HTN- follows w/ Dr. Barber h/o recurrent c.diff s/p colectomy w/ ileostomy- resolved Chronic pain, OA- - Hold Mobic 7.5 mg daily PRN due to NPO - MOTOR REBUILDER as above Osteoporosis: Continue Reclast injection yearly DVT prophylaxis: TEDs/SCDs Code Status: LEVEL I, FULL Dispo: From home- PT/OT and CM consulted (Lauren Ryan ., ADINA) Attending Note & Attestation: Pt seen/examined, chart reviewed, care plan d/w ADINA Ryan. I agree w/ the [place] components of her documentation. NG tube has been d/c - she is thankful for that. +flatus. No nausea or emesis. Overall feeling better. No pulmonary complaints. VSS no fever O2 sats wnl in RA gen - awake/alert - looks better mouth - MMM today neck - no JVD present today heart - RRR, s1, s2, 2/6 systolic murmur LSB lungs - decreased BS left base, CTA b/l otherwise abd - BS+; no tenderness; mild distension improved; large dressing in place ext - warm, pulses 2+ b/l A/P: 1. SBO, s/p ex lap, POD #3 - stable from surgery standpoint; NG tube has been out; clears possibly tomorrow; 1 more day of TPN per surgery? 2. macrocytic anemia - b12/folate/TSH wnl; underlying/smoldering MDS? will need follow-up after discharge 3. protein calorie malnutrition - cont TPN due to bowel rest 4. UTI - has completed Rx 5. acute hypoxic respiratory failure - resolved 6. pain control - remains on dilaudid MOTOR REBUILDER with good control 7. HTN - controlled with multiple agents IV; convert to PO meds when taking PO reliably daughter updated at bedside David Castillo MD (David Castillo MD)
[2017-07-08] MEDS ORDERED: CUSTOM CENTRAL PN 1 BAG IV SCH (16:00)
[2017-07-08] MEDS: SODIUM CHLORIDE 0.9% 1000ML 1,000 ML IV SCH (18:44)
[2017-07-08] MEDS: LORAZEPAM INJ 0.5 MG in SYRINGE 0.75 ML IV SCH (23:13)
[2017-07-09] VITALS (10 sets, daily range): BP systolic 124–176; BP diastolic 58–88; PULSE 82–99; TEMP 36.5–36.8; O2SAT 95–97
[2017-07-09] MEDS: CEFOXITIN IV 1,000 MG in DEXTROSE 5% 50ML 50 ML IV SCH ×3 (00:13→15:45)
[2017-07-09] MEDS: ENALAPRILAT IV 1.25 MG in DEXTROSE 5% 25ML 25 ML IV SCH ×3 (01:06→18:32)
[2017-07-09] MEDS: HydrALAZINE HCL 20 MG/ML VIAL IV. SCH ×3 (01:55→17:47)
[2017-07-09] MEDS: ACETAMINOPHEN 500 MG TAB PO SCH ×3 (05:58→21:15)
[2017-07-09] MEDS: SODIUM CHLORIDE 0.9% 1000ML 1,000 ML IV SCH (05:59)
[2017-07-09] MEDS: HYDROmorphone HCL 0.5MG/ML 50 ML CASSETTE IV PRN ×3 (07:10→22:56)
[2017-07-09] MEDS: INCREMENTAL PCA TITRATION SCH ×3 (07:17→15:29)
[2017-07-09] MEDS: LOCK-OUT PCA TITRATION SCH ×3 (07:18→15:29)
[2017-07-09] MEDS: ALBUT/IPRATROP 3MG/0.5MG NEB 3 ML VIAL INH SCH ×3 (07:20→19:59)
[2017-07-09] MEDS: LACTOBACILLUS ACIDOPHILUS (FLORANEX) TAB PO SCH ×3 (08:30→17:47)
[2017-07-09] MEDS: FAMOTIDINE IV INJ 20 MG in SYRINGE 3 ML IV SCH ×2 (08:35→21:01)
[2017-07-09] MEDS: LEVETIRACETAM IV 500 MG in DEXTROSE 5% 100ML 100 ML IV SCH ×2 (08:35→21:01)
[2017-07-09] MEDS: SENNA 8.8 MG/5 ML UDP PO SCH ×2 (08:35→21:00)
[2017-07-09] MEDS: HEPARIN SOD 5000 UNIT/0.5 ML CARP SQ SCH ×2 (08:40→21:05)
--- NOTE | 2017-07-09 08:44 | Surgery Progress Note ---
Surgery Progress Note Date of Service Jul 09, 2017. Subjective + feeling well pt is doing better, no abdominal pain, no nausea, no vomiting, passed some gas. Objective Vital Signs: Date Time Temp Pulse Resp B/P (MAP) Pulse Ox O2 Delivery O2 Flow Rate FiO2 07/09/17 07:20 92 16 97 Room Air 07/09/17 07:15 36.5 86 14 145/82 (103) 97 Room Air 07/09/17 03:45 36.8 93 16 124/68 (86) 96 Room Air 07/09/17 01:50 145/70 (95) 07/09/17 00:00 Room Air 07/08/17 23:50 37.1 90 16 150/70 (96) 98 Room Air 07/08/17 20:06 36.5 100 18 142/67 (92) 96 Room Air 07/08/17 19:44 101 16 98 Room Air 07/08/17 15:42 Room Air 07/08/17 15:19 36.8 85 18 130/66 (87) 96 Room Air 07/08/17 12:04 37.0 82 20 112/44 (66) 96 Room Air 109/66 (80) General Appearance: WD/WN Head: normocephalic Neck: supple Respiratory/Chest: chest non-tender, lungs clear Cardiovascular: regular rate, rhythm, no edema, no gallop Abdomen: normal bowel sounds, non tender, non distended, soft, no organomegaly Incision(s): clean, dry, intact Extremities: normal range of motion, non-tender, normal inspection Laboratory Results: Results Past 24 Hours Test 07/08/17 17:01 07/09/17 07:40 Range/Units Bedside Glucose 119 70-90 mg/dl Assessment & Plan pt is doing better, no abdominal pain, passed gas Plan: continue treatment, will F/U
[2017-07-09 09:10] LABS: BUN/CREATININE RATIO 29.8 (10-20); CALCIUM 8.4 mg/dl (8.5-10.1); CREATININE 0.38 mg/dl (0.60-1.20); MAGNESIUM 2.2 mg/dl (1.8-2.4); PHOSPHORUS 3.6 mg/dl (2.5-4.9); POTASSIUM 3.9 mmol/L (3.5-5.1)
[2017-07-09] MEDS ORDERED: CUSTOM CENTRAL PN 1 BAG IV SCH (16:00)
[2017-07-09] MEDS: LORAZEPAM INJ 0.5 MG in SYRINGE 0.75 ML IV SCH (21:01)
[2017-07-09] MEDS: DESONIDE CR 15 GM TUBE EXT SCH (21:02)
--- NOTE | 2017-07-09 23:25 | Progress Note ---
Subjective Date of Service: Jul 09, 2017. 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 no nausea/emesis/sob/chest pain has appetite and anxious to eat Problem List Medical Problems: (1) Accidental overdose Status: Acute (2) Altered mental status Status: Acute (3) Ambulatory dysfunction Status: Acute (4) Anxiety Status: Chronic (5) Contusion Status: Acute (6) Depressive Disorder Nec Status: Chronic (7) Encounter for removal of margarito Status: Acute (8) Fall Status: Acute (9) Head injury, closed Status: Acute (10) Hypertension Status: Chronic (11) Hyponatremia Status: Acute (12) Medication side effects Status: Acute (13) Near syncope Status: Acute (14) Osteoporosis Status: Chronic (15) Scalp laceration Status: Acute (16) Seizure Status: Acute (17) Seizure disorder Status: Chronic (18) UTI (urinary tract infection) Status: Acute Review of Systems Constitutional: No fever, No chills Respiratory: No cough, No shortness of breath, No dyspnea on exertion Cardiac: No chest pain Abdomen: + see HPI, + pain, No GI bleeding Objective Vital Signs Date Time Temp Pulse Resp B/P (MAP) Pulse Ox O2 Delivery O2 Flow Rate FiO2 07/09/17 19:59 88 16 95 Room Air 07/09/17 19:48 36.6 95 17 143/58 (86) 96 Room Air 07/09/17 17:00 36.5 82 16 144/67 (92) 97 07/09/17 15:15 Room Air 07/09/17 14:39 96 16 95 Room Air 07/09/17 14:38 16 154/66 (95) 07/09/17 11:40 36.8 99 17 176/88 (117) 95 Room Air 07/09/17 07:25 Room Air 07/09/17 07:20 92 16 97 Room Air 07/09/17 07:15 36.5 86 14 145/82 (103) 97 Room Air 07/09/17 03:45 36.8 93 16 124/68 (86) 96 Room Air 07/09/17 01:50 145/70 (95) 07/09/17 00:00 Room Air 07/08/17 23:50 37.1 90 16 150/70 (96) 98 Room Air Physical Exam General Appearance: no apparent distress ENT: pharynx normal Neck: no JVD Respiratory/Chest: no respiratory distress, no accessory muscle use, + decreased breath sounds (left base), + rales (fine, left base) Cardiovascular: regular rate, rhythm, no gallop, + systolic murmur (2/6 LLSB) Abdomen: normal bowel sounds, non tender, soft, no organomegaly Extremities: no pedal edema Neurologic/Psychiatric: alert, oriented x 3 Skin: + pertinent finding (large dressing in place on abdominal wall; seborrhea on face near nasolabial folds ) Comments: PICC line, RUE, clean Laboratory Results Last 24 Hours Test 07/09/17 07:40 Sodium Level 134 mmol/L Potassium Level 3.9 mmol/L Chloride Level 106 mmol/L Carbon Dioxide Level 24 mmol/L Anion Gap 4.0 mmol/L Blood Urea Nitrogen 11 mg/dl Creatinine 0.38 mg/dl Est Creatinine Clear Calc Drug Dose 102.5 ml/min Estimated GFR () 123.5 Estimated GFR (Non- 106.6 BUN/Creatinine Ratio 29.8 Random Glucose 117 mg/dl Calcium Level 8.4 mg/dl Phosphorus Level 3.6 mg/dl Magnesium Level 2.2 mg/dl Assessment and Plan 72yo female: 1. SBO, s/p ex lap, POD #4 - stable from surgery standpoint; NG tube d/c; + multiple stools today. Surgery managing diet - clears tomorrow ?? Remains on IV antibiotics under direction of gen surg 2. diarrhea - today's stooling was the first bowel movements in nearly 2 weeks. I reassured patient that the stooling was a big step for her. With that said, if she continues with copious stools, especially liquid ones, low threshold to check for c diff in light of numerous abx this admission. 3. protein calorie malnutrition - mild-moderate - cont TPN due to bowel rest; hopefully diet soon. 4. UTI - has completed Rx 5. acute hypoxic respiratory failure - resolved; due to atelectasis; no symptoms of pneumonia at this time 6. 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 HTN - controlled with multiple agents IV; convert to PO meds when taking PO reliably 8. macrocytic anemia - b12/folate/TSH wnl; underlying/smoldering MDS? will need follow-up after discharge 9. DVT proph - heparin 5000 BID 10. chronic anxiety - ativan at HS; resume klonipin when taking PO. 11. seizure d/o - continue IV keppra; convert to PO when allowed by gen surg. 12. pulmonary HTN - stable O2 sats; no symptoms. PT, OT recommending rehab at discharge daughter updated 07/08/17 Continued [facility] stay due to: inadequate po fluid intake, inadequate oral pain control, ambulation difficulties, multiple IV medications needed Discharge planning: uncertain
[2017-07-10] VITALS (11 sets, daily range): BP systolic 109–156; BP diastolic 55–74; PULSE 85–99; TEMP 36.5–37.1; O2SAT 94–97
[2017-07-10] MEDS: CEFOXITIN IV 1,000 MG in DEXTROSE 5% 50ML 50 ML IV SCH ×4 (00:06→23:39)
[2017-07-10] MEDS: ENALAPRILAT IV 1.25 MG in DEXTROSE 5% 25ML 25 ML IV SCH ×3 (01:12→17:47)
[2017-07-10] MEDS: HydrALAZINE HCL 20 MG/ML VIAL IV. SCH ×3 (01:28→17:51)
[2017-07-10] MEDS: HYDROmorphone HCL 0.5MG/ML 50 ML CASSETTE IV PRN ×5 (02:53→22:58)
[2017-07-10] MEDS: ACETAMINOPHEN 500 MG TAB PO SCH ×3 (05:27→21:15)
[2017-07-10] MEDS: INCREMENTAL PCA TITRATION SCH ×4 (07:03→23:39)
[2017-07-10] MEDS: LOCK-OUT PCA TITRATION SCH ×4 (07:03→23:40)
[2017-07-10] MEDS: ALBUT/IPRATROP 3MG/0.5MG NEB 3 ML VIAL INH SCH ×3 (07:26→19:52)
[2017-07-10 08:03] LABS: BUN/CREATININE RATIO 34.3 (10-20); CALCIUM 7.9 mg/dl (8.5-10.1); CREATININE 0.33 mg/dl (0.60-1.20); MAGNESIUM 2.1 mg/dl (1.8-2.4)
[2017-07-10 08:04] LABS: PHOSPHORUS 3.2 mg/dl (2.5-4.9)
[2017-07-10] MEDS: LACTOBACILLUS ACIDOPHILUS (FLORANEX) TAB PO SCH ×3 (08:42→17:47)
[2017-07-10] MEDS: SENNA 8.8 MG/5 ML UDP PO SCH ×2 (08:42→19:35)
[2017-07-10] MEDS: DESONIDE CR 15 GM TUBE EXT SCH ×2 (08:43→21:11)
[2017-07-10] MEDS: LEVETIRACETAM IV 500 MG in DEXTROSE 5% 100ML 100 ML IV SCH ×2 (08:44→21:11)
[2017-07-10] MEDS: FAMOTIDINE IV INJ 20 MG in SYRINGE 3 ML IV SCH ×2 (08:44→21:11)
[2017-07-10] MEDS: HEPARIN SOD 5000 UNIT/0.5 ML CARP SQ SCH ×2 (08:51→21:14)
--- NOTE | 2017-07-10 10:06 | Surgery Progress Note ---
Surgery Progress Note Date of Service Jul 10, 2017. Subjective + feeling well pt is doing fine, no abdominal pain, passed BM, Objective Vital Signs: Date Time Temp Pulse Resp B/P (MAP) Pulse Ox O2 Delivery O2 Flow Rate FiO2 07/10/17 07:30 Room Air 07/10/17 07:26 94 16 96 Room Air 07/10/17 07:20 36.8 90 19 151/74 (99) 97 Room Air 07/10/17 02:55 36.7 98 16 144/69 (94) 94 Room Air 07/10/17 01:27 94 152/72 (98) 07/10/17 00:00 Room Air 07/10/17 00:00 37.0 88 16 130/68 (88) 96 Room Air 07/09/17 19:59 88 16 95 Room Air 07/09/17 19:48 36.6 95 17 143/58 (86) 96 Room Air 07/09/17 17:00 36.5 82 16 144/67 (92) 97 07/09/17 15:15 Room Air 07/09/17 14:39 96 16 95 Room Air 07/09/17 14:38 16 154/66 (95) 07/09/17 11:40 36.8 99 17 176/88 (117) 95 Room Air General Appearance: WD/WN Head: normocephalic Neck: supple, no JVD Respiratory/Chest: chest non-tender, lungs clear, normal breath sounds Cardiovascular: regular rate, rhythm, no edema, no gallop Abdomen: normal bowel sounds, non tender, non distended, soft Incision(s): clean, dry, intact Extremities: normal range of motion, non-tender, normal inspection Laboratory Results: Results Past 24 Hours Test 07/10/17 07:14 Range/Units Sodium Level 135 136-145 mmol/L Potassium Level 4.0 3.5-5.1 mmol/L Chloride Level 104 98-107 mmol/L Carbon Dioxide Level 24 21-32 mmol/L Anion Gap 7.0 3-11 mmol/L Blood Urea Nitrogen 11 7-18 mg/dl Creatinine 0.33 0.60-1.20 mg/dl Est Creatinine Clear Calc Drug Dose 118.0 ml/min Estimated GFR () 129.4 Estimated GFR (Non- 111.6 BUN/Creatinine Ratio 34.3 10-20 Random Glucose 111 70-99 mg/dl Calcium Level 7.9 8.5-10.1 mg/dl Phosphorus Level 3.2 2.5-4.9 mg/dl Magnesium Level 2.1 1.8-2.4 mg/dl Assessment & Plan pt is doing better, no abdominal pain, passed gas Plan: continue treatment, will F/U 07/10/2017 pt is doing better, no abdominal pain, passed gas and BM Plan: continue treatment, will F/U pt is doing better, no abdominal pain, passed gas Plan: continue treatment, will F/U
[2017-07-10] MEDS ORDERED: CUSTOM CENTRAL PN 1 BAG IV SCH (16:00)
[2017-07-10] MEDS: SODIUM CHLORIDE 0.9% 1000ML 1,000 ML IV SCH (18:03)
--- NOTE | 2017-07-10 18:08 | Progress Note ---
Subjective Date of Service: Jul 10, 2017. Subjective Patient has been doing well since surgery tolerating small sips of liquid abdominal pain is in good control daughter was updated at the bedside today 07/10 Problem List Medical Problems: (1) Accidental overdose Status: Acute (2) Altered mental status Status: Acute (3) Ambulatory dysfunction Status: Acute (4) Anxiety Status: Chronic (5) Contusion Status: Acute (6) Depressive Disorder Nec Status: Chronic (7) Encounter for removal of margarito Status: Acute (8) Fall Status: Acute (9) Head injury, closed Status: Acute (10) Hypertension Status: Chronic (11) Hyponatremia Status: Acute (12) Medication side effects Status: Acute (13) Near syncope Status: Acute (14) Osteoporosis Status: Chronic (15) Scalp laceration Status: Acute (16) Seizure Status: Acute (17) Seizure disorder Status: Chronic (18) UTI (urinary tract infection) Status: Acute Review of Systems Constitutional: + weakness, No fever, No chills Respiratory: No cough, No sputum, No wheezing, No shortness of breath Cardiac: No chest pain, No orthopnea, No PND, No edema Abdomen: + constipation, No pain, No nausea, No vomiting, No diarrhea Psychiatric: No depression symptoms, No anhedonism Objective Vital Signs Date Time Temp Pulse Resp B/P (MAP) Pulse Ox O2 Delivery O2 Flow Rate FiO2 07/10/17 07:26 94 16 96 Room Air 07/10/17 07:20 36.8 90 19 151/74 (99) 97 Room Air 07/10/17 02:55 36.7 98 16 144/69 (94) 94 Room Air 07/10/17 01:27 94 152/72 (98) 07/10/17 00:00 Room Air 07/10/17 00:00 37.0 88 16 130/68 (88) 96 Room Air 07/09/17 19:59 88 16 95 Room Air 07/09/17 19:48 36.6 95 17 143/58 (86) 96 Room Air 07/09/17 17:00 36.5 82 16 144/67 (92) 97 07/09/17 15:15 Room Air 07/09/17 14:39 96 16 95 Room Air 07/09/17 14:38 16 154/66 (95) 07/09/17 11:40 36.8 99 17 176/88 (117) 95 Room Air Physical Exam General Appearance: + mild distress, + thin Eyes: PERRL, EOMI Respiratory/Chest: chest non-tender, lungs clear, normal breath sounds Cardiovascular: regular rate, rhythm, no murmur Abdomen: normal bowel sounds, soft, + guarding, + tenderness (very minor) Extremities: normal inspection, no pedal edema, no calf tenderness Laboratory Results Last 24 Hours Test 07/10/17 07:14 Sodium Level 135 mmol/L Potassium Level 4.0 mmol/L Chloride Level 104 mmol/L Carbon Dioxide Level 24 mmol/L Anion Gap 7.0 mmol/L Blood Urea Nitrogen 11 mg/dl Creatinine 0.33 mg/dl Est Creatinine Clear Calc Drug Dose 118.0 ml/min Estimated GFR () 129.4 Estimated GFR (Non- 111.6 BUN/Creatinine Ratio 34.3 Random Glucose 111 mg/dl Calcium Level 7.9 mg/dl Phosphorus Level 3.2 mg/dl Magnesium Level 2.1 mg/dl Assessment and Plan 72yo female: small bowel obstruction s/p surgical resection SBO, s/p ex lap, 07/05 - stable from surgery standpoint; + stools. Surgery managing diet -advancing per their recommendations Remains on IV antibiotics under direction of gen surg protein calorie malnutrition - mild-moderate - imprpved with TPN UTI - has completed Rx acute hypoxic respiratory failure - resolved; due to atelectasis; no symptoms of pneumonia at this time pain control - good control, will transition to oral meds as per discussion with daughter pt typically on daily hydrocodone at home HTN - controlled with multiple agents IV; convert to PO meds when taking PO reliably macrocytic anemia - b12/folate/TSH wnl; underlying/smoldering MDS? will need follow-up after discharge DVT proph - heparin 5000 BID chronic anxiety - ativan at HS; resume klonipin when taking PO. seizure d/o - continue IV keppra; convert to PO when allowed by gen surg. pulmonary HTN - stable O2 sats; no symptoms. PT, OT daughter wants to determine disposition after rehab evaluations Continued [facility] stay due to: inadequate po fluid intake, inadequate oral pain control, ambulation difficulties, multiple IV medications needed Discharge planning: uncertain
[2017-07-10] MEDS: LORAZEPAM INJ 0.5 MG in SYRINGE 0.75 ML IV SCH (21:11)
[2017-07-11] VITALS (12 sets, daily range): BP systolic 100–169; BP diastolic 58–76; PULSE 87–99; TEMP 36.5–36.9; O2SAT 96–99
[2017-07-11] MEDS: ENALAPRILAT IV 1.25 MG in DEXTROSE 5% 25ML 25 ML IV SCH ×3 (01:39→17:35)
[2017-07-11] MEDS: HydrALAZINE HCL 20 MG/ML VIAL IV. SCH ×3 (02:00→18:04)
[2017-07-11] MEDS: ACETAMINOPHEN 500 MG TAB PO SCH ×3 (05:56→21:18)
--- NOTE | 2017-07-11 06:38 | Surgery Progress Note ---
Surgery Progress Note Date of Service Jul 11, 2017. Subjective tolerating some sips, +flatus, bm has [employer] OFFICER pump and TPN Objective Vital Signs: Date Time Temp Pulse Resp B/P (MAP) Pulse Ox O2 Delivery O2 Flow Rate FiO2 07/11/17 03:20 36.9 87 16 110/58 (75) 96 Room Air 07/11/17 02:16 100/58 (72) 07/11/17 01:38 107/60 (76) 07/10/17 23:46 Room Air 07/10/17 23:00 37.0 92 16 109/55 (73) 95 Room Air 07/10/17 19:53 92 16 95 Room Air 07/10/17 19:05 37.1 93 16 134/66 (88) 95 Room Air 07/10/17 15:20 Room Air 07/10/17 15:02 36.7 99 17 156/64 (94) 96 Room Air 07/10/17 14:08 91 16 96 Room Air 07/10/17 11:30 36.5 85 18 144/70 (94) 97 Room Air 07/10/17 07:30 Room Air 07/10/17 07:26 94 16 96 Room Air 07/10/17 07:20 36.8 90 19 151/74 (99) 97 Room Air General Appearance: no apparent distress Respiratory/Chest: no respiratory distress Abdomen: + distended, + pertinent finding (has bowel sounds) Incision(s): intact Laboratory Results: Results Past 24 Hours Test 07/10/17 07:14 07/11/17 01:36 07/11/17 05:20 Range/Units Sodium Level 135 136-145 mmol/L Potassium Level 4.0 3.5-5.1 mmol/L Chloride Level 104 98-107 mmol/L Carbon Dioxide Level 24 21-32 mmol/L Anion Gap 7.0 3-11 mmol/L Blood Urea Nitrogen 11 7-18 mg/dl Creatinine 0.33 0.60-1.20 mg/dl Est Creatinine Clear Calc Drug Dose 118.0 ml/min Estimated GFR () 129.4 Estimated GFR (Non- 111.6 BUN/Creatinine Ratio 34.3 10-20 Random Glucose 111 70-99 mg/dl Calcium Level 7.9 8.5-10.1 mg/dl Phosphorus Level 3.2 2.5-4.9 mg/dl Magnesium Level 2.1 1.8-2.4 mg/dl Bedside Glucose 112 70-90 mg/dl Assessment & Plan 07/11/17- try full liquids, dose of min oil, ask dietary for supplements cont tpn for now, stop [employer], add percocet and prn dilaudid possibly home with visiting nurse later in week 07/07/17- cont NPO/ice, cont NG today- possibly remove tomorrow leave merlos one more day- encourage ambulation. Cont TPN expect very slow GI recovery. 07/06/17- s/p exploratory laparotomy, lysis of adhesions- had adhesive band w/ small bowel torsion- also extensive adhesions- expect ileus. will try Dilaudid [employer]ER, check CXR- has B/L pleural effusions- ? infiltrate? 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 Cont TPN expect very slow GI recovery. 07/06/17- s/p exploratory laparotomy, lysis of adhesions- had adhesive band w/ small bowel torsion- also extensive adhesions- expect ileus. will try Dilaudid [employer], check CXR- has B/L pleural effusions- ? infiltrate? 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
[2017-07-11] MEDS ORDERED: MINERAL OIL 30 ML UDC PO ONE (06:45)
[2017-07-11] MEDS ORDERED: OXYCODONE/ACETAMINOPHEN 5-325 TAB PO PRN (06:45)
[2017-07-11 07:08] LABS: HEMATOCRIT 25.9 % (37-47); MEAN CELL VOLUME 103.2 fL (80-100); MEAN CORPUSCULAR HEMOGLOBIN 33.9 pg (25-34); MEAN CORPUSCULAR HGB CONC 32.8 g/dl (32-36); MEAN PLATELET VOLUME 10.5 fL (7.4-10.4); PLATELET COUNT 252 K/uL (130-400); RED BLOOD COUNT 2.51 M/uL (4.2-5.4); WHITE BLOOD COUNT 3.45 K/uL (4.8-10.8)
[2017-07-11] MEDS: ALBUT/IPRATROP 3MG/0.5MG NEB 3 ML VIAL INH SCH ×3 (07:26→20:13)
[2017-07-11] MEDS: LACTOBACILLUS ACIDOPHILUS (FLORANEX) TAB PO SCH ×3 (08:02→18:00)
[2017-07-11] MEDS: HYDROmorphone INJ 1 MG/ML SYR IV PRN ×4 (08:46→19:06)
[2017-07-11] MEDS: SENNA 8.8 MG/5 ML UDP PO SCH ×2 (09:00→20:57)
[2017-07-11] MEDS: ENOXAPARIN 40 MG/0.4 ML SYR SQ SCH (09:12)
[2017-07-11] MEDS: DESONIDE CR 15 GM TUBE EXT SCH ×2 (09:13→21:06)
[2017-07-11] MEDS: LEVETIRACETAM IV 500 MG in DEXTROSE 5% 100ML 100 ML IV SCH ×2 (09:13→21:07)
[2017-07-11] MEDS: FAMOTIDINE IV INJ 20 MG in SYRINGE 3 ML IV SCH ×2 (09:21→21:07)
--- NOTE | 2017-07-11 13:14 | Hospitalist Progress Note ---
Hospitalist Progress Note Date of Service Jul 11, 2017. (Lauren Ryan .ADINA) Subjective Pt evaluation today including: conversation w/ patient, physical exam, chart review, lab review, review of studies, review of inpatient medication list Voiding: no voiding problems Ms. Rollins feels better today. Tolerated full liquid breakfast, no nausea or vomiting. No sob, mild cough. She continues to have chronic back pain but surgical abdominal pain has improved. ROS Constitutional: no chills, aches, sweats or fever Respiratory: no sob,cough, sputum, or wheezing Cardiac: no chest pain, palpitations, edema, orthopnea or lightheadedness GI: no abdominal pain, nausea, vomiting, diarrhea or constipation : no dysuria or hesitancy Extremities: see HPI Skin: no rash (Lauren Ryan CRNP) Medications Medications Administered Medications (Trade) Dose Ordered Sig/Ba Route Start Time Stop Time Status Last Admin Dose Admin Sodium Chloride 250 ml @ 999 mls/hr Q16M STAT IV 06/26/17 06:36 06/26/17 06:51 DC 06/26/17 06:36 999 MLS/HR Sodium Chloride 1,000 ml @ 125 mls/hr Q8H STAT IV 06/26/17 06:36 06/26/17 14:35 DC 06/26/17 06:45 125 MLS/HR Ondansetron HCl (Zofran Inj) 4 mg NOW STAT IV 06/26/17 06:36 06/26/17 06:40 DC 06/26/17 06:45 4 MG Lorazepam (Ativan Inj) 0.5 mg NOW STAT IV 06/26/17 08:23 06/26/17 08:24 DC 06/26/17 08:30 0.5 MG Ondansetron HCl (Zofran Inj) 4 mg Q6H PRN IV 06/26/17 12:45 07/26/17 12:44 06/30/17 10:12 4 MG Hydralazine HCl (HydrALAZINE INJ) 10 mg Q6H PRN IV. 06/26/17 12:45 06/27/17 16:10 DC 06/27/17 00:02 10 MG Levetiracetam 500 mg/Dextrose 105 ml @ 420 mls/hr Q12 IV 06/26/17 21:00 07/26/17 20:59 07/11/17 09:13 420 MLS/HR Sodium Chloride 1,000 ml @ 100 mls/hr Q10H IV 06/26/17 15:00 06/27/17 09:07 DC 06/27/17 02:17 100 MLS/HR Morphine Sulfate (MoRPHine SULFATE INJ) 1 mg Q3H PRN IV 06/26/17 12:45 06/29/17 11:28 DC 06/29/17 11:13 1 MG Influenza Virus Vaccine (Fluzone High-Dose Pf 0.5 ml) 0.5 ml ONCE ONCE IM. 06/26/17 13:30 06/26/17 14:41 DC 06/27/17 19:07 0.5 ML Pneumococcal Polysaccharide Vaccine (Pneumovax-23 Inj) 25 mcg ONCE ONCE IM. 06/26/17 13:30 06/26/17 14:47 DC 06/27/17 19:19 25 MCG Morphine Sulfate (MoRPHine SULFATE INJ) 2 mg STK-MED ONCE .ROUTE 06/26/17 13:27 06/26/17 13:28 DC 06/26/17 13:32 1 MG Clonazepam (Klonopin Tab) 0.5 mg HS PO 06/26/17 21:00 07/26/17 20:59 Future Hold 06/26/17 21:29 0.5 MG Ketorolac Tromethamine (Toradol Inj) 15 mg STK-MED ONCE .ROUTE 06/26/17 20:32 06/26/17 20:33 DC 06/26/17 20:35 15 MG Potassium Chloride/Sodium Chloride 1,000 ml @ 100 mls/hr Q10H IV 06/27/17 09:30 07/02/17 15:59 DC 07/02/17 07:41 100 MLS/HR Ampicillin Sodium/ Sulbactam Sodium 3000 mg/Sodium Chloride 108 ml @ 200 mls/hr Q6H IV 06/27/17 10:00 07/04/17 09:59 DC 07/04/17 05:42 200 MLS/HR Potassium Chloride 10 meq/ Prmx 100 ml @ 100 mls/hr Q1H IV 06/27/17 11:00 06/27/17 13:59 DC 06/27/17 14:02 100 MLS/HR Ketorolac Tromethamine (Toradol Inj) 15 mg Q6H PRN IV 06/27/17 12:45 07/02/17 12:44 DC 06/29/17 11:12 15 MG Sodium Chloride 500 ml @ 1,000 mls/hr Q30M IV 06/27/17 13:00 06/27/17 13:29 DC 06/27/17 14:02 1,000 MLS/HR Hydralazine HCl (HydrALAZINE INJ) 10 mg Q8H IV. 06/27/17 18:00 07/27/17 17:59 07/11/17 10:40 10 MG Lorazepam 0.5 mg/ Syringe 1 ml @ 1 mls/min HS IV 06/27/17 21:00 07/27/17 20:59 07/10/17 21:11 1 MLS/MIN Ranitidine HCl 50 mg/Dextrose 102 ml @ 200 mls/hr Q8H IV 06/29/17 06:00 06/29/17 15:10 DC 06/29/17 13:45 200 MLS/HR Potassium Chloride (Klor-Con M10) 40 meq NOW ONCE PO 06/29/17 10:30 06/29/17 10:31 DC 06/29/17 10:37 40 MEQ Morphine Sulfate (MoRPHine SULFATE INJ) 2 mg Q3H PRN IV 06/29/17 11:30 07/05/17 08:53 DC 07/04/17 23:28 2 MG Acetaminophen (Tylenol Tab) 1,000 mg Q8 PO 06/29/17 14:00 07/29/17 13:59 07/11/17 05:56 1,000 MG Lactobacillus Acidophilus (Floranex Tab) 4 tab TIDM PO 06/29/17 12:30 07/29/17 12:29 07/11/17 11:59 4 TAB Famotidine 20 mg/ Syringe 5 ml @ 2.5 mls/min Q12 IV 06/29/17 21:00 07/29/17 20:59 07/11/17 09:21 2.5 MLS/MIN Bisacodyl (Dulcolax Supp) 10 mg NOW ONCE MN 06/30/17 11:00 06/30/17 11:01 DC 06/30/17 11:07 10 MG Methylnaltrexone [place] (Relistor Inj) 12 mg Q2D@0900 SQ 06/30/17 13:00 07/07/17 17:35 DC 07/06/17 09:42 12 MG Sodium Biphosphate/ Sodium Phosphate (Fleet Enema) 132 ml NOW ONCE MN 06/30/17 13:00 06/30/17 13:01 DC 06/30/17 12:40 132 ML Sodium Biphosphate/ Sodium Phosphate (Fleet Enema) 132 ml DAILY MN 06/30/17 16:00 07/01/17 09:01 DC 06/30/17 16:16 132 ML Sodium Biphosphate/ Sodium Phosphate (Fleet Enema) 132 ml NOW STAT MN 07/02/17 09:47 07/02/17 09:53 DC 07/02/17 11:10 132 ML Miscellaneous (Stop Order) 1 ea TODAY@1600 ONCE N/A 07/02/17 16:00 07/02/17 16:01 DC 07/02/17 16:24 1 EA Nutrition (Parenteral) 0 ml @ 0 mls/hr TODAY@1600 IV 07/02/17 16:00 07/03/17 14:22 DC 07/02/17 16:17 0 MLS/HR Magnesium Sulfate 1 gm/Prmx 100 ml @ 100 mls/hr Q1H IV 07/02/17 16:00 07/02/17 17:59 DC 07/02/17 21:23 100 MLS/HR Potassium Phosphate 15 mmol/ Sodium Chloride 255 ml @ 88 mls/hr ONE ONCE IV 07/02/17 15:45 07/02/17 18:38 DC 07/02/17 18:03 88 MLS/HR Potassium Chloride 10 meq/ Prmx 100 ml @ 100 mls/hr Q1H IV 07/03/17 08:00 07/03/17 10:59 DC 07/03/17 11:14 100 MLS/HR Potassium Phosphate 21 mmol/ Sodium Chloride 507 ml @ 140 mls/hr 1100 ONCE IV 07/03/17 11:00 07/03/17 14:37 DC 07/03/17 10:31 140 MLS/HR Enalaprilat 1.25 mg/Dextrose 26 ml @ 100 mls/hr Q12H IV 07/03/17 09:00 07/03/17 12:47 DC 07/03/17 09:14 100 MLS/HR Potassium Chloride 10 meq/ Prmx 100 ml @ 100 mls/hr Q1H IV 07/03/17 11:00 07/03/17 13:59 DC 07/03/17 15:08 100 MLS/HR Miscellaneous (Stop Order) 1 ea ONE ONCE N/A 07/03/17 10:00 07/03/17 10:01 DC 07/03/17 10:01 1 EA Enalaprilat 1.25 mg/Dextrose 26 ml @ 100 mls/hr Q8H IV 07/03/17 17:00 08/02/17 08:59 07/11/17 11:03 100 MLS/HR Nutrition (Parenteral) 0 ml @ 0 mls/hr TODAY@1600 IV 07/03/17 16:00 07/04/17 15:59 DC 07/03/17 16:30 0 MLS/HR Potassium Chloride 20 meq/ Prmx 100 ml @ 50 mls/hr Q2H IV 07/04/17 03:15 07/04/17 07:14 DC 07/04/17 05:01 50 MLS/HR Nutrition (Parenteral) 0 ml @ 0 mls/hr TODAY@1600 IV 07/04/17 16:00 07/05/17 15:59 DC 07/04/17 16:00 0 MLS/HR Furosemide 20 mg/ Syringe 2 ml @ 4 mls/min 1330 ONCE IV 07/04/17 13:30 07/04/17 13:31 DC 07/04/17 14:06 4 MLS/MIN Cefoxitin Sodium 1000 mg/Dextrose 60 ml @ 100 mls/hr Q8H IV 07/04/17 16:00 07/11/17 06:08 DC 07/10/17 23:39 100 MLS/HR Nutrition (Parenteral) 0 ml @ 0 mls/hr TODAY@1600 IV 07/05/17 16:00 07/06/17 15:59 DC 07/05/17 16:09 0 MLS/HR Ondansetron HCl (Zofran Inj) 4 mg ONE PRN IV 07/05/17 07:30 07/05/17 09:18 DC 07/05/17 09:17 4 MG Hydromorphone HCl (Dilaudid Inj) 1 mg Q3H PRN IV 07/05/17 09:00 07/11/17 06:34 DC 07/06/17 06:02 1 MG Heparin Sodium (Porcine) (Heparin Sq 5000 Unit/0.5ml) 5,000 unit Q12 SQ 07/05/17 21:00 07/11/17 06:04 DC 07/10/17 21:14 5,000 UNIT Morphine Sulfate (MoRPHine SULFATE INJ) 4 mg STK-MED ONCE .ROUTE 07/05/17 09:14 07/05/17 09:15 DC 07/05/17 09:14 4 MG Mineral Oil (Mineral Oil) 30 ml NOW STAT PO 07/06/17 06:07 07/06/17 06:08 DC 07/06/17 06:24 30 ML Senna (Senokot Syrup) 8.8 mg BID PO 07/06/17 09:00 08/05/17 08:59 07/09/17 08:35 8.8 MG Miscellaneous Information (Incremental WORM FARMER Titration) 1 ea QS N/A 07/06/17 08:00 07/11/17 06:34 DC 07/07/17 00:00 1 EA Miscellaneous Information (Lock-Out WORM FARMER Titration) 1 ea QS N/A 07/06/17 08:00 07/11/17 06:34 DC 07/07/17 00:00 1 EA Hydromorphone HCl (Dilaudid House Wirer) 25 mg PRN PRN IV 07/06/17 06:00 07/11/17 06:34 DC 07/10/17 22:58 25 MG Sodium Chloride 1,000 ml @ 15 mls/hr Q24H IV 07/06/17 06:00 07/11/17 06:34 DC 07/10/17 18:03 15 MLS/HR Nutrition (Parenteral) 0 ml @ 0 mls/hr TODAY@1600 IV 07/06/17 16:00 07/07/17 15:59 DC 07/06/17 16:26 0 MLS/HR Furosemide 20 mg/ Syringe 2 ml @ 4 mls/min 1615 ONCE IV 07/06/17 16:15 07/06/17 16:16 DC 07/06/17 16:59 4 MLS/MIN Nutrition (Parenteral) 0 ml @ 0 mls/hr TODAY@1600 IV 07/07/17 16:00 07/08/17 15:59 DC 07/07/17 15:40 0 MLS/HR Albuterol/ Ipratropium (Duoneb) 3 ml TIDR INH 07/07/17 15:00 08/06/17 14:59 07/11/17 07:26 3 ML Mineral Oil (Mineral Oil) 30 ml QAM NG 07/08/17 09:00 07/08/17 09:01 DC 07/08/17 09:14 30 ML Nutrition (Parenteral) 0 ml @ 0 mls/hr TODAY@1600 IV 07/08/17 16:00 07/09/17 15:59 DC 07/08/17 16:14 0 MLS/HR Nutrition (Parenteral) 0 ml @ 0 mls/hr TODAY@1600 IV 07/09/17 16:00 07/10/17 15:59 DC 07/09/17 15:45 100 MLS/HR Desonide ([place]en 0.05% Crm) 1 appln BID EXT 07/09/17 21:00 08/08/17 20:59 07/11/17 09:13 1 APPLN Nutrition (Parenteral) 0 ml @ 0 mls/hr TODAY@1600 IV 07/10/17 16:00 07/11/17 15:59 07/10/17 15:32 0 MLS/HR Enoxaparin Sodium (Lovenox Inj) 40 mg QAM SQ 07/11/17 09:00 08/10/17 08:59 07/11/17 09:12 40 MG Hydromorphone HCl (Dilaudid Inj) 1 mg Q3H PRN IV 07/11/17 06:45 07/25/17 06:44 07/11/17 11:58 1 MG Mineral Oil (Mineral Oil) 30 ml NOW ONCE PO 07/11/17 06:45 07/11/17 06:46 DC 07/11/17 08:01 30 ML (Lauren Ryan CRNP) Objective Vital Signs Date Time Temp Pulse Resp B/P (MAP) Pulse Ox O2 Delivery O2 Flow Rate FiO2 07/11/17 10:57 36.7 91 16 123/73 (90) 98 Room Air 07/11/17 09:05 99 Room Air 07/11/17 08:00 Room Air 07/11/17 07:42 36.8 89 18 158/76 (103) 99 Room Air 07/11/17 07:26 96 16 97 Room Air 07/11/17 03:20 36.9 87 16 110/58 (75) 96 Room Air 07/11/17 02:16 100/58 (72) 07/11/17 01:38 107/60 (76) 07/10/17 23:46 Room Air 07/10/17 23:00 37.0 92 16 109/55 (73) 95 Room Air 07/10/17 19:53 92 16 95 Room Air 07/10/17 19:05 37.1 93 16 134/66 (88) 95 Room Air 07/10/17 15:20 Room Air 07/10/17 15:02 36.7 99 17 156/64 (94) 96 Room Air 07/10/17 14:08 91 16 96 Room Air (Lauren Ryan CRNP) Physical Exam Notes: General: no distress Eyes: normal inspection, PERLL Respiratory: chest non tender, fine crackles in bases, no respiratory distress, no accessory muscle use Cardiac: regular rate and rhythm, no rub or gallop, no murmur, no edema, no jvd GI/: active bowel sounds, no abd pain or tenderness, soft, non distended Extremities: normal range of motion, normal strength, non tender Neuro/Psych: alert and oriented x 3, normal mood and affect Skin: normal color, dry (Lauren Ryan CRNP) Laboratory Results Last 24 Hours Test 07/11/17 01:36 07/11/17 05:20 Bedside Glucose 112 mg/dl White Blood Count 3.45 K/uL Red Blood Count 2.51 M/uL Hemoglobin 8.5 g/dL Hematocrit 25.9 % Mean Corpuscular Volume 103.2 fL Mean Corpuscular Hemoglobin 33.9 pg Mean Corpuscular Hemoglobin Concent 32.8 g/dl RDW Standard Deviation 50.5 fL RDW Coefficient of Variation 13.3 % Platelet Count 252 K/uL Mean Platelet Volume 10.5 fL (Lauren Ryan CRNP) Assessment and Plan Patient is a pleasant 72 y/o female, with PMHx of seizure disorder, HTN, HLD, mitral stenosis, aortic sclerosis, pulmonary HTN, h/o recurrent c.diff s/p colectomy w/ ileostomy- resolved, chronic pain, OA, osteoporosis, and anxiety/ depression, who presented to the ED because of lower back pain since 1 day before admission. SBO: - Initially surgery wanted to see if SBO could resolve medically - NG tube out 06/28, some coffee ground emesis in tube - increased back pain similar to admission after eating - 2 view abdomen, famotidine - Vomiting again 06/30 - 2 view abdomen - reinserted NG and she put out 1 L fluid - Consulted GI - EGD was normal - revision of adhesions to relieve SBO 07/05 - dilaudid WORM F[employer]ER ordered by surgery - NG out 07/08, no further nausea or vomiting - advanced diet to full liquids 07/11 - cefoxitin last dose 07/10 Atelectasis vs PNA on Xray - mild dyspnea, no longer requiring O2 - no fever or increase in WBCs - will hold off on initiating any further antibiotics at this time, likely atelectasis - encourage incentive spirometry - nebs Moderate malnutrition - Third spacing with mild ascites, pleural effusion and anasarca - TPN Lumbar pain s/p mechanical fall: - Check lumbar spine x-ray - no acute finding - dilaudid WORM FARMER - Heating pad - PT/OT Low urine output - retaining almost 400 mls on bladder scan per nursing again 06/28 - resolved UTI - received Unasyn x 7 days Seizure disorder: IV Keppra 500 mg BID due to NPO HTN: - has been elevated since holding Benicar added iv enalaprilat, increased dose 07/03, IV Hydralazine 10 mg q6 hrs PRN sbp >180 or dbp >100 Hypokalemia - repleated - continue TPN HLD: Hold Lipitor 20 mg daily due to NPO- resume once tolerating PO Mitral stenosis, aortic sclerosis, pulmonary HTN- follows w/ Dr. Barber h/o recurrent c.diff s/p colectomy w/ ileostomy- resolved Chronic pain, OA- - Hold Mobic 7.5 mg daily PRN due to NPO - WORM FARMER as above Osteoporosis: Continue Reclast injection yearly DVT prophylaxis: TEDs/SCDs Code Status: LEVEL I, FULL Dispo: From home- PT/OT and CM consulted (Lauren Ryan ., ADINA) RADIATION THERAPY TECHNOLOGIST Physician Supervision Note: I interviewed and examined the patient. Discussed with Lauren Ryan RADIATION THERAPY TECHNOLOGIST and agree with findings and plan as documented in the note. Any exceptions or clarifications are listed here: None Patient is continues to improve surgeries advancing her diet her daughter is at the bedside I personally updated her continuing TPN at this point time still daughter is feeling the patient will not need rehabilitation I asked that she participate in the physical therapy session before making a final decision Vital signs are stable abdominal exam is with normoactive bowel sounds soft and minorly tender below would be expected in the postoperative state Small bowel obstruction status post surgical release of adhesions with continued TPN support and pain control directed by surgery Documented By: Cosmo Henriquez (Cosmo Henriquez M.D.)
[2017-07-11] MEDS ORDERED: CUSTOM CENTRAL PN 1 BAG IV SCH (16:00)
[2017-07-11] MEDS: LORAZEPAM INJ 0.5 MG in SYRINGE 0.75 ML IV SCH (21:06)
[2017-07-12] VITALS (9 sets, daily range): BP systolic 114–166; BP diastolic 65–77; PULSE 82–100; TEMP 36.5–37.2; O2SAT 94–97
[2017-07-12] MEDS: ENALAPRILAT IV 1.25 MG in DEXTROSE 5% 25ML 25 ML IV SCH ×3 (00:36→16:56)
[2017-07-12] MEDS: HYDROmorphone INJ 1 MG/ML SYR IV PRN ×6 (02:21→18:39)
[2017-07-12] MEDS: HydrALAZINE HCL 20 MG/ML VIAL IV. SCH ×3 (02:22→17:57)
[2017-07-12] MEDS: ACETAMINOPHEN 500 MG TAB PO SCH ×3 (05:39→21:29)
--- NOTE | 2017-07-12 06:07 | Surgery Progress Note ---
Surgery Progress Note Date of Service Jul 12, 2017. Subjective + bowel movement progressing Objective Vital Signs: Date Time Temp Pulse Resp B/P (MAP) Pulse Ox O2 Delivery O2 Flow Rate FiO2 07/12/17 02:15 166/72 (103) 07/11/17 23:25 36.7 99 16 120/61 (80) 96 Room Air 07/11/17 23:15 Room Air 07/11/17 20:16 97 16 96 Room Air 07/11/17 18:00 92 169/73 (105) 07/11/17 15:20 Room Air 07/11/17 15:15 36.5 96 16 134/67 (89) 97 Room Air 07/11/17 14:35 88 16 98 Room Air 07/11/17 10:57 36.7 91 16 123/73 (90) 98 Room Air 07/11/17 09:05 99 Room Air 07/11/17 08:00 Room Air 07/11/17 07:42 36.8 89 18 158/76 (103) 99 Room Air 07/11/17 07:26 96 16 97 Room Air General Appearance: no apparent distress Respiratory/Chest: no respiratory distress Abdomen: + pertinent finding (mild distention) Incision(s): intact Laboratory Results: Results Past 24 Hours Test 07/12/17 04:44 Range/Units Assessment & Plan 07/12/17- progressing- adv to low residue diet, stop tpn after current bag if ok with med team, cont min oil ( 3-4 x / week), senna syrup still using some dilaudid- possible d/c Th or Fri- I will be away but my team is here covering. 07/11/17- try full liquids, dose of min oil, ask dietary for supplements cont tpn for now, stop [employer], add percocet and prn dilaudid possibly home with visiting nurse later in week 07/07/17- cont NPO/ice, cont NG today- possibly remove tomorrow leave merlos one more day- encourage ambulation. Cont TPN expect very slow GI recovery. 07/06/17- s/p exploratory laparotomy, lysis of adhesions- had adhesive band w/ small bowel torsion- also extensive adhesions- expect ileus. will try Dilaudid [employer], check CXR- has B/L pleural effusions- ? infiltrate? 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 Cont TPN expect very slow GI recovery. 07/06/17- s/p exploratory laparotomy, lysis of adhesions- had adhesive band w/ small bowel torsion- also extensive adhesions- expect ileus. will try Dilaudid [employer], check CXR- has B/L pleural effusions- ? infiltrate? 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
[2017-07-12] MEDS ORDERED: MINERAL OIL 30 ML UDC PO ONE (07:00)
[2017-07-12] MEDS: ALBUT/IPRATROP 3MG/0.5MG NEB 3 ML VIAL INH SCH ×3 (07:32→20:02)
[2017-07-12] MEDS: DESONIDE CR 15 GM TUBE EXT SCH ×2 (08:58→20:36)
[2017-07-12] MEDS: LACTOBACILLUS ACIDOPHILUS (FLORANEX) TAB PO SCH ×3 (08:58→17:34)
[2017-07-12 08:59] LABS: BUN/CREATININE RATIO 31.8 (10-20); CALCIUM 8.3 mg/dl (8.5-10.1); CREATININE 0.37 mg/dl (0.60-1.20); PHOSPHORUS 3.5 mg/dl (2.5-4.9); POTASSIUM 3.9 mmol/L (3.5-5.1)
[2017-07-12] MEDS: SENNA 8.8 MG/5 ML UDP PO SCH ×2 (08:59→20:36)
[2017-07-12] MEDS: LEVETIRACETAM IV 500 MG in DEXTROSE 5% 100ML 100 ML IV SCH ×2 (08:59→20:36)
[2017-07-12] MEDS: ENOXAPARIN 40 MG/0.4 ML SYR SQ SCH (09:00)
[2017-07-12] MEDS: FAMOTIDINE IV INJ 20 MG in SYRINGE 3 ML IV SCH ×2 (09:04→21:29)
[2017-07-12] MEDS ORDERED: CYANOCOBALAMIN 500 MCG TAB (VIT B-12) PO ONE (10:30)
--- NOTE | 2017-07-12 10:36 | Hospitalist Progress Note ---
Hospitalist Progress Note Date of Service Jul 12, 2017. (Lauren Ryan .ADINA) Subjective Pt evaluation today including: conversation w/ patient, physical exam, chart review, lab review, review of studies, review of inpatient medication list Voiding: no voiding problems Ms. Rollins continues to slowly improve. She was able to eat a solid food breakfast this morning and tolerated it well. She did have some diarrhea yesterday. ROS Constitutional: no chills, aches, sweats or fever Respiratory: no sob,cough, sputum, or wheezing Cardiac: no chest pain, palpitations, edema, orthopnea or lightheadedness GI: See HPI, no abdominal pain, nausea, vomiting, or constipation : no dysuria or hesitancy Extremities: no joint pain or weakness Skin: no rash (Lauren Ryan CRNP) Medications Medications Administered Medications (Trade) Dose Ordered Sig/Ba Route Start Time Stop Time Status Last Admin Dose Admin Sodium Chloride 250 ml @ 999 mls/hr Q16M STAT IV 06/26/17 06:36 06/26/17 06:51 DC 06/26/17 06:36 999 MLS/HR Sodium Chloride 1,000 ml @ 125 mls/hr Q8H STAT IV 06/26/17 06:36 06/26/17 14:35 DC 06/26/17 06:45 125 MLS/HR Ondansetron HCl (Zofran Inj) 4 mg NOW STAT IV 06/26/17 06:36 06/26/17 06:40 DC 06/26/17 06:45 4 MG Lorazepam (Ativan Inj) 0.5 mg NOW STAT IV 06/26/17 08:23 06/26/17 08:24 DC 06/26/17 08:30 0.5 MG Ondansetron HCl (Zofran Inj) 4 mg Q6H PRN IV 06/26/17 12:45 07/26/17 12:44 06/30/17 10:12 4 MG Hydralazine HCl (HydrALAZINE INJ) 10 mg Q6H PRN IV. 06/26/17 12:45 06/27/17 16:10 DC 06/27/17 00:02 10 MG Levetiracetam 500 mg/Dextrose 105 ml @ 420 mls/hr Q12 IV 06/26/17 21:00 07/26/17 20:59 07/12/17 08:59 420 MLS/HR Sodium Chloride 1,000 ml @ 100 mls/hr Q10H IV 06/26/17 15:00 06/27/17 09:07 DC 06/27/17 02:17 100 MLS/HR Morphine Sulfate (MoRPHine SULFATE INJ) 1 mg Q3H PRN IV 06/26/17 12:45 06/29/17 11:28 DC 06/29/17 11:13 1 MG Influenza Virus Vaccine (Fluzone High-Dose Pf 0.5 ml) 0.5 ml ONCE ONCE IM. 06/26/17 13:30 06/26/17 14:41 DC 06/27/17 19:07 0.5 ML Pneumococcal Polysaccharide Vaccine (Pneumovax-23 Inj) 25 mcg ONCE ONCE IM. 06/26/17 13:30 06/26/17 14:47 DC 06/27/17 19:19 25 MCG Morphine Sulfate (MoRPHine SULFATE INJ) 2 mg STK-MED ONCE .ROUTE 06/26/17 13:27 06/26/17 13:28 DC 06/26/17 13:32 1 MG Clonazepam (Klonopin Tab) 0.5 mg HS PO 06/26/17 21:00 07/26/17 20:59 Future Hold 06/26/17 21:29 0.5 MG Ketorolac Tromethamine (Toradol Inj) 15 mg STK-MED ONCE .ROUTE 06/26/17 20:32 06/26/17 20:33 DC 06/26/17 20:35 15 MG Potassium Chloride/Sodium Chloride 1,000 ml @ 100 mls/hr Q10H IV 06/27/17 09:30 07/02/17 15:59 DC 07/02/17 07:41 100 MLS/HR Ampicillin Sodium/ Sulbactam Sodium 3000 mg/Sodium Chloride 108 ml @ 200 mls/hr Q6H IV 06/27/17 10:00 07/04/17 09:59 DC 07/04/17 05:42 200 MLS/HR Potassium Chloride 10 meq/ Prmx 100 ml @ 100 mls/hr Q1H IV 06/27/17 11:00 06/27/17 13:59 DC 06/27/17 14:02 100 MLS/HR Ketorolac Tromethamine (Toradol Inj) 15 mg Q6H PRN IV 06/27/17 12:45 07/02/17 12:44 DC 06/29/17 11:12 15 MG Sodium Chloride 500 ml @ 1,000 mls/hr Q30M IV 06/27/17 13:00 06/27/17 13:29 DC 06/27/17 14:02 1,000 MLS/HR Hydralazine HCl (HydrALAZINE INJ) 10 mg Q8H IV. 06/27/17 18:00 07/27/17 17:59 07/12/17 02:22 10 MG Lorazepam 0.5 mg/ Syringe 1 ml @ 1 mls/min HS IV 06/27/17 21:00 07/27/17 20:59 07/11/17 21:06 1 MLS/MIN Ranitidine HCl 50 mg/Dextrose 102 ml @ 200 mls/hr Q8H IV 06/29/17 06:00 06/29/17 15:10 DC 06/29/17 13:45 200 MLS/HR Potassium Chloride (Klor-Con M10) 40 meq NOW ONCE PO 06/29/17 10:30 06/29/17 10:31 DC 06/29/17 10:37 40 MEQ Morphine Sulfate (MoRPHine SULFATE INJ) 2 mg Q3H PRN IV 06/29/17 11:30 07/05/17 08:53 DC 07/04/17 23:28 2 MG Acetaminophen (Tylenol Tab) 1,000 mg Q8 PO 06/29/17 14:00 07/29/17 13:59 07/11/17 14:16 1,000 MG Lactobacillus Acidophilus (Floranex Tab) 4 tab TIDM PO 06/29/17 12:30 07/29/17 12:29 07/12/17 08:58 4 TAB Famotidine 20 mg/ Syringe 5 ml @ 2.5 mls/min Q12 IV 06/29/17 21:00 07/29/17 20:59 07/12/17 09:04 2.5 MLS/MIN Bisacodyl (Dulcolax Supp) 10 mg NOW ONCE NH 06/30/17 11:00 06/30/17 11:01 DC 06/30/17 11:07 10 MG Methylnaltrexone Harshaw (Relistor Inj) 12 mg Q2D@0900 SQ 06/30/17 13:00 07/07/17 17:35 DC 07/06/17 09:42 12 MG Sodium Biphosphate/ Sodium Phosphate (Fleet Enema) 132 ml NOW ONCE NH 06/30/17 13:00 06/30/17 13:01 DC 06/30/17 12:40 132 ML Sodium Biphosphate/ Sodium Phosphate (Fleet Enema) 132 ml DAILY NH 06/30/17 16:00 07/01/17 09:01 DC 06/30/17 16:16 132 ML Sodium Biphosphate/ Sodium Phosphate (Fleet Enema) 132 ml NOW STAT NH 07/02/17 09:47 07/02/17 09:53 DC 07/02/17 11:10 132 ML Miscellaneous (Stop Order) 1 ea TODAY@1600 ONCE N/A 07/02/17 16:00 07/02/17 16:01 DC 07/02/17 16:24 1 EA Nutrition (Parenteral) 0 ml @ 0 mls/hr TODAY@1600 IV 07/02/17 16:00 07/03/17 14:22 DC 07/02/17 16:17 0 MLS/HR Magnesium Sulfate 1 gm/Prmx 100 ml @ 100 mls/hr Q1H IV 07/02/17 16:00 07/02/17 17:59 DC 07/02/17 21:23 100 MLS/HR Potassium Phosphate 15 mmol/ Sodium Chloride 255 ml @ 88 mls/hr ONE ONCE IV 07/02/17 15:45 07/02/17 18:38 DC 07/02/17 18:03 88 MLS/HR Potassium Chloride 10 meq/ Prmx 100 ml @ 100 mls/hr Q1H IV 07/03/17 08:00 07/03/17 10:59 DC 07/03/17 11:14 100 MLS/HR Potassium Phosphate 21 mmol/ Sodium Chloride 507 ml @ 140 mls/hr 1100 ONCE IV 07/03/17 11:00 07/03/17 14:37 DC 07/03/17 10:31 140 MLS/HR Enalaprilat 1.25 mg/Dextrose 26 ml @ 100 mls/hr Q12H IV 07/03/17 09:00 07/03/17 12:47 DC 07/03/17 09:14 100 MLS/HR Potassium Chloride 10 meq/ Prmx 100 ml @ 100 mls/hr Q1H IV 07/03/17 11:00 07/03/17 13:59 DC 07/03/17 15:08 100 MLS/HR Miscellaneous (Stop Order) 1 ea ONE ONCE N/A 07/03/17 10:00 07/03/17 10:01 DC 07/03/17 10:01 1 EA Enalaprilat 1.25 mg/Dextrose 26 ml @ 100 mls/hr Q8H IV 07/03/17 17:00 08/02/17 08:59 07/12/17 09:39 100 MLS/HR Nutrition (Parenteral) 0 ml @ 0 mls/hr TODAY@1600 IV 07/03/17 16:00 07/04/17 15:59 DC 07/03/17 16:30 0 MLS/HR Potassium Chloride 20 meq/ Prmx 100 ml @ 50 mls/hr Q2H IV 07/04/17 03:15 07/04/17 07:14 DC 07/04/17 05:01 50 MLS/HR Nutrition (Parenteral) 0 ml @ 0 mls/hr TODAY@1600 IV 07/04/17 16:00 07/05/17 15:59 DC 07/04/17 16:00 0 MLS/HR Furosemide 20 mg/ Syringe 2 ml @ 4 mls/min 1330 ONCE IV 07/04/17 13:30 07/04/17 13:31 DC 07/04/17 14:06 4 MLS/MIN Cefoxitin Sodium 1000 mg/Dextrose 60 ml @ 100 mls/hr Q8H IV 07/04/17 16:00 07/11/17 06:08 DC 07/10/17 23:39 100 MLS/HR Nutrition (Parenteral) 0 ml @ 0 mls/hr TODAY@1600 IV 07/05/17 16:00 07/06/17 15:59 DC 07/05/17 16:09 0 MLS/HR Ondansetron HCl (Zofran Inj) 4 mg ONE PRN IV 07/05/17 07:30 07/05/17 09:18 DC 07/05/17 09:17 4 MG Hydromorphone HCl (Dilaudid Inj) 1 mg Q3H PRN IV 07/05/17 09:00 07/11/17 06:34 DC 07/06/17 06:02 1 MG Heparin Sodium (Porcine) (Heparin Sq 5000 Unit/0.5ml) 5,000 unit Q12 SQ 07/05/17 21:00 07/11/17 06:04 DC 07/10/17 21:14 5,000 UNIT Morphine Sulfate (MoRPHine SULFATE INJ) 4 mg STK-MED ONCE .ROUTE 07/05/17 09:14 07/05/17 09:15 DC 07/05/17 09:14 4 MG Mineral Oil (Mineral Oil) 30 ml NOW STAT PO 07/06/17 06:07 07/06/17 06:08 DC 07/06/17 06:24 30 ML Senna (Senokot Syrup) 8.8 mg BID PO 07/06/17 09:00 08/05/17 08:59 07/09/17 08:35 8.8 MG Miscellaneous Information (Incremental UPHOLSTERY COVERS INSPECTOR Titration) 1 ea QS N/A 07/06/17 08:00 07/11/17 06:34 DC 07/07/17 00:00 1 EA Miscellaneous Information (Lock-Out UPHOLSTERY COVERS INSPECTOR Titration) 1 ea QS N/A 07/06/17 08:00 07/11/17 06:34 DC 07/07/17 00:00 1 EA Hydromorphone HCl (Dilaudid Revenue Stamper) 25 mg PRN PRN IV 07/06/17 06:00 07/11/17 06:34 DC 07/10/17 22:58 25 MG Sodium Chloride 1,000 ml @ 15 mls/hr Q24H IV 07/06/17 06:00 07/11/17 06:34 DC 07/10/17 18:03 15 MLS/HR Nutrition (Parenteral) 0 ml @ 0 mls/hr TODAY@1600 IV 07/06/17 16:00 07/07/17 15:59 DC 07/06/17 16:26 0 MLS/HR Furosemide 20 mg/ Syringe 2 ml @ 4 mls/min 1615 ONCE IV 07/06/17 16:15 07/06/17 16:16 DC 07/06/17 16:59 4 MLS/MIN Nutrition (Parenteral) 0 ml @ 0 mls/hr TODAY@1600 IV 07/07/17 16:00 07/08/17 15:59 DC 07/07/17 15:40 0 MLS/HR Albuterol/ Ipratropium (Duoneb) 3 ml TIDR INH 07/07/17 15:00 08/06/17 14:59 07/12/17 07:32 3 ML Mineral Oil (Mineral Oil) 30 ml QAM NG 07/08/17 09:00 07/08/17 09:01 DC 07/08/17 09:14 30 ML Nutrition (Parenteral) 0 ml @ 0 mls/hr TODAY@1600 IV 07/08/17 16:00 07/09/17 15:59 DC 07/08/17 16:14 0 MLS/HR Nutrition (Parenteral) 0 ml @ 0 mls/hr TODAY@1600 IV 07/09/17 16:00 07/10/17 15:59 DC 07/09/17 15:45 100 MLS/HR Desonide (Desowen 0.05% Crm) 1 appln BID EXT 07/09/17 21:00 08/08/17 20:59 07/12/17 08:58 1 APPLN Nutrition (Parenteral) 0 ml @ 0 mls/hr TODAY@1600 IV 07/10/17 16:00 07/11/17 15:59 DC 07/10/17 15:32 0 MLS/HR Enoxaparin Sodium (Lovenox Inj) 40 mg QAM SQ 07/11/17 09:00 08/10/17 08:59 07/12/17 09:00 40 MG Hydromorphone HCl (Dilaudid Inj) 1 mg Q3H PRN IV 07/11/17 06:45 07/25/17 06:44 07/12/17 09:35 1 MG Mineral Oil (Mineral Oil) 30 ml NOW ONCE PO 07/11/17 06:45 07/11/17 06:46 DC 07/11/17 08:01 30 ML Nutrition (Parenteral) 0 ml @ 0 mls/hr TODAY@1600 IV 07/11/17 16:00 07/12/17 15:59 07/11/17 16:06 0 MLS/HR Mineral Oil (Mineral Oil) 30 ml 0700 ONCE PO 07/12/17 07:00 07/12/17 07:01 DC 07/12/17 07:51 30 ML (Lauren Ryan, ADINA) Objective Vital Signs Date Time Temp Pulse Resp B/P (MAP) Pulse Ox O2 Delivery O2 Flow Rate FiO2 07/12/17 07:50 Room Air 07/12/17 07:33 99 16 97 Room Air 07/12/17 07:17 37.2 100 18 134/65 (88) 94 Room Air 07/12/17 02:15 166/72 (103) 07/11/17 23:25 36.7 99 16 120/61 (80) 96 Room Air 07/11/17 23:15 Room Air 07/11/17 20:16 97 16 96 Room Air 07/11/17 18:00 92 169/73 (105) 07/11/17 15:20 Room Air 07/11/17 15:15 36.5 96 16 134/67 (89) 97 Room Air 07/11/17 14:35 88 16 98 Room Air 07/11/17 10:57 36.7 91 16 123/73 (90) 98 Room Air (Lauren Ryan CRNP) Physical Exam Notes: General: no distress Eyes: normal inspection, PERLL Respiratory: chest non tender, clear to auscultation, normal breath sounds, no respiratory distress, no accessory muscle use Cardiac: regular rate and rhythm, no rub or gallop, systolic murmur II/, no edema, no jvd GI/: active bowel sounds, no abd pain or tenderness, soft, non distended Extremities: normal range of motion, normal strength, non tender Neuro/Psych: alert and oriented x 3, normal mood and affect Skin: normal color, dry (Lauren Ryan CRNP) Laboratory Results Last 24 Hours Test 07/12/17 07:55 Sodium Level 135 mmol/L Potassium Level 3.9 mmol/L Chloride Level 103 mmol/L Carbon Dioxide Level 23 mmol/L Anion Gap 8.0 mmol/L Blood Urea Nitrogen 12 mg/dl Creatinine 0.37 mg/dl Est Creatinine Clear Calc Drug Dose 105.2 ml/min Estimated GFR () 124.6 Estimated GFR (Non- 107.5 BUN/Creatinine Ratio 31.8 Random Glucose 112 mg/dl Calcium Level 8.3 mg/dl Phosphorus Level 3.5 mg/dl Magnesium Level 2.0 mg/dl (Lauren Ryan CRNP) Assessment and Plan Patient is a pleasant 72 y/o female, with PMHx of seizure disorder, HTN, HLD, mitral stenosis, aortic sclerosis, pulmonary HTN, h/o recurrent c.diff s/p colectomy w/ ileostomy- resolved, chronic pain, OA, osteoporosis, and anxiety/ depression, who presented to the ED because of lower back pain since 1 day before admission. SBO: - Initially surgery wanted to see if SBO could resolve medically - NG tube out 06/28, some coffee ground emesis in tube - Vomiting again 06/30 - 2 view abdomen - reinserted NG and she put out 1 L fluid - Consulted GI - EGD was normal - revision of adhesions to relieve SBO 07/05 - NG out 07/08, no further nausea or vomiting - cefoxitin last dose 07/10 - low fiber diet Atelectasis vs PNA on Xray - mild dyspnea, no longer requiring O2 - no fever or increase in WBCs - will hold off on initiating any further antibiotics at this time, likely atelectasis - encourage incentive spirometry - nebs Moderate malnutrition - Third spacing with mild ascites, pleural effusion and anasarca - TPN discontinued 07/12 as patient is tolerating diet Lumbar pain s/p mechanical fall: - Check lumbar spine x-ray - no acute finding - pain control - Heating pad - PT/OT Anemia - hemoglobin has been drifting downward, may be due to malnutrition as it is macrocytic anemia - supplemental folate and B12 now that patient is taking PO Low urine output - retaining almost 400 mls on bladder scan per nursing again 06/28 - resolved UTI - received Unasyn x 7 days Seizure disorder: IV Keppra 500 mg BID due to NPO HTN: - has been elevated since holding Benicar added iv enalaprilat, increased dose 07/03, IV Hydralazine 10 mg q6 hrs PRN sbp >180 or dbp >100 Hypokalemia - repleated - continue TPN HLD: Hold Lipitor 20 mg daily due to NPO- resume once tolerating PO Mitral stenosis, aortic sclerosis, pulmonary HTN- follows w/ Dr. Barber h/o recurrent c.diff s/p colectomy w/ ileostomy - diarrhea yesterday - C.diff pending Chronic pain, OA- - Hold Mobic 7.5 mg daily for now - IV pain control Osteoporosis: Continue Reclast injection yearly DVT prophylaxis: TEDs/SCDs Code Status: LEVEL I, FULL Dispo: From home- PT/OT and CM consulted (Lauren Ryan ., ADINA) MANAGER ASSET Physician Supervision Note: I interviewed and examined the patient. Discussed with Lauren Ryan MANAGER ASSET and agree with findings and plan as documented in the note. Any exceptions or clarifications are listed here: None Patient is a diabetic events with surgery TPN stopped patient has persistent dyspnea PT is improving all fronts Vital signs are stable Abdomen shows normoactive bowel sounds minorly tender from recent surgery but otherwise doing well next Discussion with family still is regarding the patient going home versus needing PT will continue to see if she tolerates diet and progressed through physical therapy before deciding on a permanent disposition Documented By: Cosmo Henriquez (Cosmo Henriquez M.D.)
[2017-07-12] MEDS: OXYCODONE/ACETAMINOPHEN 5-325 TAB PO PRN ×2 (11:50→17:35)
--- NOTE | 2017-07-12 13:21 | Discharge Instructions ---
Discharge Instructions Date of Service Jul 12, 2017. Admission Reason for Admission: Small Bowel Obstruction Discharge Discharge Diagnosis / Problem: bowel obstruction Discharge Goals Goal(s): Decrease discomfort, Improve function, Improve disease control Activity Recommendations Activity Limitations: as noted below Lifting Limitations: no more than 10 pounds Exercise/Sports Limitations: until after follow-up appointment May Resume Sexual Activity: after follow-up appointment Shower/Bathe: tomorrow Driving or Machine Use: 2-3 weeks SPECIAL CARE INSTRUCTIONS: * Cover incisions and change daily for comfort/drainage. * * should use Senokot S daily and also one ounce mineral oil 3-4 times a week * * may hold for loose bowel movements * May use ibuprofen for pain as tolerated. * Expect some swelling and bruising. Call your doctor if: * Temperature above 101 degrees * Pain not relieved by pain medicine ordered * There is increased drainage or redness from any incision * You have any unanswered questions or concerns [phone]. FOLLOW UP VISIT: If not already scheduled, please call the office for a follow-up visit. for next week- [place] OFFICE PHONE NUMBER: Dr. Garza Office . Current Hospital Diet Patient's current hospital diet: Low Lactose Diet, Low Fiber Diet Discharge Diet Recommended Diet: Low Fiber Diet Procedures Procedures Performed: Exploratory Laparotomy and Lysis of Adhesions Pending Studies Studies pending at discharge: no Laboratory Results Lipid Panel Test 07/07/17 05:38 Range/Units Triglycerides Level 79 0-150 mg/dl Medical Emergencies . Who to Call and When: Medical Emergencies: If at any time you feel your situation is an emergency, please call 911 immediately. . Non-Emergent Contact Non-Emergency issues call your: Primary Care Provider, Surgeon . "Provider Documentation" section prepared by Darian Garza. . VTE Core Measure Inpt VTE Proph given/why not?: Enoxaparin (Lovenox)JAMIE, T.E.Fide. Stockings, SCD's , Contraindicated
[2017-07-12] MEDS: LORAZEPAM INJ 0.5 MG in SYRINGE 0.75 ML IV SCH (20:37)
[2017-07-13] VITALS (12 sets, daily range): BP systolic 90–138; BP diastolic 50–76; PULSE 76–99; TEMP 36.5–37; O2SAT 95–97
[2017-07-13] MEDS: ENALAPRILAT IV 1.25 MG in DEXTROSE 5% 25ML 25 ML IV SCH ×3 (00:47→17:27)
[2017-07-13] MEDS: HYDROmorphone INJ 1 MG/ML SYR IV PRN ×5 (00:47→21:30)
[2017-07-13] MEDS: HydrALAZINE HCL 20 MG/ML VIAL IV. SCH ×3 (01:30→18:32)
[2017-07-13] MEDS: ACETAMINOPHEN 500 MG TAB PO SCH ×3 (05:46→21:21)
[2017-07-13] MEDS: HYDROmorphone INJ 0.5 MG/0.5 ML SYR IV PRN (05:50)
[2017-07-13] MEDS: ALBUT/IPRATROP 3MG/0.5MG NEB 3 ML VIAL INH SCH ×3 (07:25→20:40)
[2017-07-13] MEDS: LACTOBACILLUS ACIDOPHILUS (FLORANEX) TAB PO SCH ×3 (08:21→17:11)
[2017-07-13] MEDS: LEVETIRACETAM IV 500 MG in DEXTROSE 5% 100ML 100 ML IV SCH (09:12)
[2017-07-13] MEDS: FAMOTIDINE IV INJ 20 MG in SYRINGE 3 ML IV SCH ×2 (09:12→21:20)
[2017-07-13] MEDS: DESONIDE CR 15 GM TUBE EXT SCH ×2 (09:12→21:20)
[2017-07-13] MEDS: CYANOCOBALAMIN 500 MCG TAB (VIT B-12) PO SCH (09:13)
[2017-07-13] MEDS: ENOXAPARIN 40 MG/0.4 ML SYR SQ SCH (09:14)
[2017-07-13] MEDS: SENNA 8.8 MG/5 ML UDP PO SCH ×2 (09:14→21:20)
[2017-07-13 10:06] LABS: HEMATOCRIT 26.8 % (37-47); MEAN CELL VOLUME 102.3 fL (80-100); MEAN CORPUSCULAR HEMOGLOBIN 34.7 pg (25-34); MEAN PLATELET VOLUME 10.8 fL (7.4-10.4); PLATELET COUNT 234 K/uL (130-400); RED BLOOD COUNT 2.62 M/uL (4.2-5.4); WHITE BLOOD COUNT 3.61 K/uL (4.8-10.8)
--- NOTE | 2017-07-13 11:30 | Surgery Progress Note ---
Surgery Progress Note Date of Service Jul 13, 2017. Subjective Post OP Day: 8 no complaints, tolerating low fiber diet, no BM past 24 hrs, stool specimen for C. diff uncollected Objective Vital Signs: Date Time Temp Pulse Resp B/P (MAP) Pulse Ox O2 Delivery O2 Flow Rate FiO2 07/13/17 11:01 77 133/72 (92) 07/13/17 10:31 36.9 76 22 114/66 (82) 96 Room Air 07/13/17 08:04 95 Room Air 07/13/17 07:53 37.0 86 20 134/66 (88) 95 Room Air 07/13/17 07:40 Room Air 07/13/17 07:28 90 16 96 Room Air 07/13/17 02:03 83 91/55 (67) 07/13/17 01:30 90/50 (63) 07/13/17 00:46 99 116/62 (80) 07/13/17 00:45 Room Air 07/12/17 23:06 37.1 98 17 114/66 (82) 94 Room Air 07/12/17 20:02 88 16 96 Room Air 07/12/17 17:56 151/77 (101) 07/12/17 15:40 36.5 99 16 131/71 (91) 97 Room Air 07/12/17 15:10 Room Air 07/12/17 14:25 82 16 96 Room Air Abdomen: non distended, soft Incision(s): clean, dry Laboratory Results: Results Past 24 Hours Test 07/13/17 09:16 Range/Units White Blood Count 3.61 4.8-10.8 K/uL Red Blood Count 2.62 4.2-5.4 M/uL Hemoglobin 9.1 12.0-16.0 g/dL Hematocrit 26.8 37-47 % Mean Corpuscular Volume 102.3 80-100 fL Mean Corpuscular Hemoglobin 34.7 25-34 pg Mean Corpuscular Hemoglobin Concent 34.0 32-36 g/dl RDW Standard Deviation 50.4 36.4-46.3 fL RDW Coefficient of Variation 13.3 11.5-14.5 % Platelet Count 234 130-400 K/uL Mean Platelet Volume 10.8 7.4-10.4 fL Assessment & Plan s/p ex lap, KEIRA tolerating diet, TPN discontinued awaiting stool for C. diff, probably keep here anyway until bowels are more regular
[2017-07-13] MEDS ORDERED: MELOXICAM 7.5 MG TAB PO PRN (13:15)
--- NOTE | 2017-07-13 13:15 | Hospitalist Progress Note ---
Hospitalist Progress Note Date of Service Jul 13, 2017. (Lauren Ryan CRNP) Subjective Pt evaluation today including: conversation w/ patient, physical exam, chart review, lab review, review of inpatient medication list Voiding: no voiding problems Ms. Rollins continues to improve. She has an occasional cough but no sob, uses her I.S. She is tolerating her diet well, no nausea. ROS Constitutional: no chills, aches, sweats or fever Respiratory: see HPI Cardiac: no chest pain, palpitations, edema, orthopnea or lightheadedness GI: no abdominal pain, nausea, vomiting, diarrhea or constipation : no dysuria or hesitancy Extremities: no joint pain or weakness Skin: no rash (Lauren Ryan CRNP) Medications Medications Administered Medications (Trade) Dose Ordered Sig/Ba Route Start Time Stop Time Status Last Admin Dose Admin Sodium Chloride 250 ml @ 999 mls/hr Q16M STAT IV 06/26/17 06:36 06/26/17 06:51 DC 06/26/17 06:36 999 MLS/HR Sodium Chloride 1,000 ml @ 125 mls/hr Q8H STAT IV 06/26/17 06:36 06/26/17 14:35 DC 06/26/17 06:45 125 MLS/HR Ondansetron HCl (Zofran Inj) 4 mg NOW STAT IV 06/26/17 06:36 06/26/17 06:40 DC 06/26/17 06:45 4 MG Lorazepam (Ativan Inj) 0.5 mg NOW STAT IV 06/26/17 08:23 06/26/17 08:24 DC 06/26/17 08:30 0.5 MG Ondansetron HCl (Zofran Inj) 4 mg Q6H PRN IV 06/26/17 12:45 07/26/17 12:44 06/30/17 10:12 4 MG Hydralazine HCl (HydrALAZINE INJ) 10 mg Q6H PRN IV. 06/26/17 12:45 06/27/17 16:10 DC 06/27/17 00:02 10 MG Levetiracetam 500 mg/Dextrose 105 ml @ 420 mls/hr Q12 IV 06/26/17 21:00 07/26/17 20:59 07/13/17 09:12 420 MLS/HR Sodium Chloride 1,000 ml @ 100 mls/hr Q10H IV 06/26/17 15:00 06/27/17 09:07 DC 06/27/17 02:17 100 MLS/HR Morphine Sulfate (MoRPHine SULFATE INJ) 1 mg Q3H PRN IV 06/26/17 12:45 06/29/17 11:28 DC 06/29/17 11:13 1 MG Influenza Virus Vaccine (Fluzone High-Dose Pf 0.5 ml) 0.5 ml ONCE ONCE IM. 06/26/17 13:30 06/26/17 14:41 DC 06/27/17 19:07 0.5 ML Pneumococcal Polysaccharide Vaccine (Pneumovax-23 Inj) 25 mcg ONCE ONCE IM. 06/26/17 13:30 06/26/17 14:47 DC 06/27/17 19:19 25 MCG Morphine Sulfate (MoRPHine SULFATE INJ) 2 mg STK-MED ONCE .ROUTE 06/26/17 13:27 06/26/17 13:28 DC 06/26/17 13:32 1 MG Clonazepam (Klonopin Tab) 0.5 mg HS PO 06/26/17 21:00 07/26/17 20:59 Future Hold 06/26/17 21:29 0.5 MG Ketorolac Tromethamine (Toradol Inj) 15 mg STK-MED ONCE .ROUTE 06/26/17 20:32 06/26/17 20:33 DC 06/26/17 20:35 15 MG Potassium Chloride/Sodium Chloride 1,000 ml @ 100 mls/hr Q10H IV 06/27/17 09:30 07/02/17 15:59 DC 07/02/17 07:41 100 MLS/HR Ampicillin Sodium/ Sulbactam Sodium 3000 mg/Sodium Chloride 108 ml @ 200 mls/hr Q6H IV 06/27/17 10:00 07/04/17 09:59 DC 07/04/17 05:42 200 MLS/HR Potassium Chloride 10 meq/ Prmx 100 ml @ 100 mls/hr Q1H IV 06/27/17 11:00 06/27/17 13:59 DC 06/27/17 14:02 100 MLS/HR Ketorolac Tromethamine (Toradol Inj) 15 mg Q6H PRN IV 06/27/17 12:45 07/02/17 12:44 DC 06/29/17 11:12 15 MG Sodium Chloride 500 ml @ 1,000 mls/hr Q30M IV 06/27/17 13:00 06/27/17 13:29 DC 06/27/17 14:02 1,000 MLS/HR Hydralazine HCl (HydrALAZINE INJ) 10 mg Q8H IV. 06/27/17 18:00 07/27/17 17:59 07/13/17 11:02 10 MG Lorazepam 0.5 mg/ Syringe 1 ml @ 1 mls/min HS IV 06/27/17 21:00 07/27/17 20:59 07/12/17 20:37 1 MLS/MIN Ranitidine HCl 50 mg/Dextrose 102 ml @ 200 mls/hr Q8H IV 06/29/17 06:00 06/29/17 15:10 DC 06/29/17 13:45 200 MLS/HR Potassium Chloride (Klor-Con M10) 40 meq NOW ONCE PO 06/29/17 10:30 06/29/17 10:31 DC 06/29/17 10:37 40 MEQ Morphine Sulfate (MoRPHine SULFATE INJ) 2 mg Q3H PRN IV 06/29/17 11:30 07/05/17 08:53 DC 07/04/17 23:28 2 MG Acetaminophen (Tylenol Tab) 1,000 mg Q8 PO 06/29/17 14:00 07/29/17 13:59 07/13/17 05:46 1,000 MG Lactobacillus Acidophilus (Floranex Tab) 4 tab TIDM PO 06/29/17 12:30 07/29/17 12:29 07/13/17 12:01 4 TAB Famotidine 20 mg/ Syringe 5 ml @ 2.5 mls/min Q12 IV 06/29/17 21:00 07/29/17 20:59 07/13/17 09:12 2.5 MLS/MIN Bisacodyl (Dulcolax Supp) 10 mg NOW ONCE IA 06/30/17 11:00 06/30/17 11:01 DC 06/30/17 11:07 10 MG Methylnaltrexone [place] (Relistor Inj) 12 mg Q2D@0900 SQ 06/30/17 13:00 07/07/17 17:35 DC 07/06/17 09:42 12 MG Sodium Biphosphate/ Sodium Phosphate (Fleet Enema) 132 ml NOW ONCE IA 06/30/17 13:00 06/30/17 13:01 DC 06/30/17 12:40 132 ML Sodium Biphosphate/ Sodium Phosphate (Fleet Enema) 132 ml DAILY IA 06/30/17 16:00 07/01/17 09:01 DC 06/30/17 16:16 132 ML Sodium Biphosphate/ Sodium Phosphate (Fleet Enema) 132 ml NOW STAT IA 07/02/17 09:47 07/02/17 09:53 DC 07/02/17 11:10 132 ML Miscellaneous (Stop Order) 1 ea TODAY@1600 ONCE N/A 07/02/17 16:00 07/02/17 16:01 DC 07/02/17 16:24 1 EA Nutrition (Parenteral) 0 ml @ 0 mls/hr TODAY@1600 IV 07/02/17 16:00 07/03/17 14:22 DC 07/02/17 16:17 0 MLS/HR Magnesium Sulfate 1 gm/Prmx 100 ml @ 100 mls/hr Q1H IV 07/02/17 16:00 07/02/17 17:59 DC 07/02/17 21:23 100 MLS/HR Potassium Phosphate 15 mmol/ Sodium Chloride 255 ml @ 88 mls/hr ONE ONCE IV 07/02/17 15:45 07/02/17 18:38 DC 07/02/17 18:03 88 MLS/HR Heparin Sodium (Porcine) (Heparin 10 Unit/ ml 5 ml Flush) 5 ml PRN PRN FLUSH 07/03/17 00:45 08/02/17 00:44 07/13/17 11:45 5 ML Potassium Chloride 10 meq/ Prmx 100 ml @ 100 mls/hr Q1H IV 07/03/17 08:00 07/03/17 10:59 DC 07/03/17 11:14 100 MLS/HR Potassium Phosphate 21 mmol/ Sodium Chloride 507 ml @ 140 mls/hr 1100 ONCE IV 07/03/17 11:00 07/03/17 14:37 DC 07/03/17 10:31 140 MLS/HR Enalaprilat 1.25 mg/Dextrose 26 ml @ 100 mls/hr Q12H IV 07/03/17 09:00 07/03/17 12:47 DC 07/03/17 09:14 100 MLS/HR Potassium Chloride 10 meq/ Prmx 100 ml @ 100 mls/hr Q1H IV 07/03/17 11:00 07/03/17 13:59 DC 07/03/17 15:08 100 MLS/HR Miscellaneous (Stop Order) 1 ea ONE ONCE N/A 07/03/17 10:00 07/03/17 10:01 DC 07/03/17 10:01 1 EA Enalaprilat 1.25 mg/Dextrose 26 ml @ 100 mls/hr Q8H IV 07/03/17 17:00 08/02/17 08:59 07/13/17 10:37 100 MLS/HR Nutrition (Parenteral) 0 ml @ 0 mls/hr TODAY@1600 IV 07/03/17 16:00 07/04/17 15:59 DC 07/03/17 16:30 0 MLS/HR Potassium Chloride 20 meq/ Prmx 100 ml @ 50 mls/hr Q2H IV 07/04/17 03:15 07/04/17 07:14 DC 07/04/17 05:01 50 MLS/HR Nutrition (Parenteral) 0 ml @ 0 mls/hr TODAY@1600 IV 07/04/17 16:00 07/05/17 15:59 DC 07/04/17 16:00 0 MLS/HR Furosemide 20 mg/ Syringe 2 ml @ 4 mls/min 1330 ONCE IV 07/04/17 13:30 07/04/17 13:31 DC 07/04/17 14:06 4 MLS/MIN Cefoxitin Sodium 1000 mg/Dextrose 60 ml @ 100 mls/hr Q8H IV 07/04/17 16:00 07/11/17 06:08 DC 07/10/17 23:39 100 MLS/HR Nutrition (Parenteral) 0 ml @ 0 mls/hr TODAY@1600 IV 07/05/17 16:00 07/06/17 15:59 DC 07/05/17 16:09 0 MLS/HR Ondansetron HCl (Zofran Inj) 4 mg ONE PRN IV 07/05/17 07:30 07/05/17 09:18 DC 07/05/17 09:17 4 MG Hydromorphone HCl (Dilaudid Inj) 1 mg Q3H PRN IV 07/05/17 09:00 07/11/17 06:34 DC 07/06/17 06:02 1 MG Heparin Sodium (Porcine) (Heparin Sq 5000 Unit/0.5ml) 5,000 unit Q12 SQ 07/05/17 21:00 07/11/17 06:04 DC 07/10/17 21:14 5,000 UNIT Morphine Sulfate (MoRPHine SULFATE INJ) 4 mg STK-MED ONCE .ROUTE 07/05/17 09:14 07/05/17 09:15 DC 07/05/17 09:14 4 MG Mineral Oil (Mineral Oil) 30 ml NOW STAT PO 07/06/17 06:07 07/06/17 06:08 DC 07/06/17 06:24 30 ML Senna (Senokot Syrup) 8.8 mg BID PO 07/06/17 09:00 08/05/17 08:59 07/13/17 09:14 8.8 MG Miscellaneous Information (Incremental RN UNIT MANAGER Titration) 1 ea QS N/A 07/06/17 08:00 07/11/17 06:34 DC 07/07/17 00:00 1 EA Miscellaneous Information (Lock-Out RN UNIT MANAGER Titration) 1 ea QS N/A 07/06/17 08:00 07/11/17 06:34 DC 07/07/17 00:00 1 EA Hydromorphone HCl (Dilaudid Soft Work Cigar Machine Operator) 25 mg PRN PRN IV 07/06/17 06:00 07/11/17 06:34 DC 07/10/17 22:58 25 MG Sodium Chloride 1,000 ml @ 15 mls/hr Q24H IV 07/06/17 06:00 07/11/17 06:34 DC 07/10/17 18:03 15 MLS/HR Nutrition (Parenteral) 0 ml @ 0 mls/hr TODAY@1600 IV 07/06/17 16:00 07/07/17 15:59 DC 07/06/17 16:26 0 MLS/HR Furosemide 20 mg/ Syringe 2 ml @ 4 mls/min 1615 ONCE IV 07/06/17 16:15 07/06/17 16:16 DC 07/06/17 16:59 4 MLS/MIN Nutrition (Parenteral) 0 ml @ 0 mls/hr TODAY@1600 IV 07/07/17 16:00 07/08/17 15:59 DC 07/07/17 15:40 0 MLS/HR Albuterol/ Ipratropium (Duoneb) 3 ml TIDR INH 07/07/17 15:00 08/06/17 14:59 07/13/17 07:25 3 ML Mineral Oil (Mineral Oil) 30 ml QAM NG 07/08/17 09:00 07/08/17 09:01 DC 07/08/17 09:14 30 ML Nutrition (Parenteral) 0 ml @ 0 mls/hr TODAY@1600 IV 07/08/17 16:00 07/09/17 15:59 DC 07/08/17 16:14 0 MLS/HR Nutrition (Parenteral) 0 ml @ 0 mls/hr TODAY@1600 IV 07/09/17 16:00 07/10/17 15:59 DC 07/09/17 15:45 100 MLS/HR Desonide (Desowen 0.05% Crm) 1 appln BID EXT 07/09/17 21:00 08/08/17 20:59 07/13/17 09:12 1 APPLN Nutrition (Parenteral) 0 ml @ 0 mls/hr TODAY@1600 IV 07/10/17 16:00 07/11/17 15:59 DC 07/10/17 15:32 0 MLS/HR Enoxaparin Sodium (Lovenox Inj) 40 mg QAM SQ 07/11/17 09:00 08/10/17 08:59 07/13/17 09:14 40 MG Oxycodone/ Acetaminophen (Percocet 5-325mg Tab) 1 tab Q4H PRN PO 07/11/17 06:45 07/25/17 06:44 07/13/17 08:21 1 TAB Oxycodone/ Acetaminophen (Percocet 5-325mg Tab) 2 tab Q4H PRN PO 07/11/17 06:45 07/25/17 06:44 07/12/17 11:50 2 TAB Hydromorphone HCl (Dilaudid Inj) 0.5 mg Q3H PRN IV 07/11/17 06:45 07/25/17 06:44 07/13/17 05:50 0.5 MG Hydromorphone HCl (Dilaudid Inj) 1 mg Q3H PRN IV 07/11/17 06:45 07/25/17 06:44 07/13/17 12:32 1 MG Mineral Oil (Mineral Oil) 30 ml NOW ONCE PO 07/11/17 06:45 07/11/17 06:46 DC 07/11/17 08:01 30 ML Nutrition (Parenteral) 0 ml @ 0 mls/hr TODAY@1600 IV 07/11/17 16:00 07/12/17 10:28 DC 07/11/17 16:06 0 MLS/HR Mineral Oil (Mineral Oil) 30 ml 0700 ONCE PO 07/12/17 07:00 07/12/17 07:01 DC 07/12/17 07:51 30 ML Folic Acid (Folvite Tab) 1 mg QAM PO 07/13/17 09:00 08/12/17 08:59 07/13/17 09:13 1 MG Cyanocobalamin (Vitamin B-12 Tab) 1,000 mcg QAM PO 07/13/17 09:00 08/12/17 08:59 07/13/17 09:13 1,000 MCG Cyanocobalamin (Vitamin B-12 Tab) 1,000 mcg 1030 ONCE PO 07/12/17 10:30 07/12/17 10:31 DC 07/12/17 11:08 1,000 MCG Folic Acid (Folvite Tab) 1 mg 1030 ONCE PO 07/12/17 10:30 07/12/17 10:31 DC 07/12/17 11:08 1 MG (Lauren Ryan, ADINA) Objective Vital Signs Date Time Temp Pulse Resp B/P (MAP) Pulse Ox O2 Delivery O2 Flow Rate FiO2 07/13/17 11:01 77 133/72 (92) 07/13/17 10:31 36.9 76 22 114/66 (82) 96 Room Air 07/13/17 08:04 95 Room Air 07/13/17 07:53 37.0 86 20 134/66 (88) 95 Room Air 07/13/17 07:40 Room Air 07/13/17 07:28 90 16 96 Room Air 07/13/17 02:03 83 91/55 (67) 07/13/17 01:30 90/50 (63) 07/13/17 00:46 99 116/62 (80) 07/13/17 00:45 Room Air 07/12/17 23:06 37.1 98 17 114/66 (82) 94 Room Air 07/12/17 20:02 88 16 96 Room Air 07/12/17 17:56 151/77 (101) 07/12/17 15:40 36.5 99 16 131/71 (91) 97 Room Air 07/12/17 15:10 Room Air 07/12/17 14:25 82 16 96 Room Air (Lauren Ryan CRNP) Physical Exam Notes: General: no distress Eyes: normal inspection, PERLL Respiratory: chest non tender, clear to auscultation, normal breath sounds, no respiratory distress, no accessory muscle use Cardiac: regular rate and rhythm, no rub or gallop, no murmur, no edema, no jvd GI/: active bowel sounds, no abd pain or tenderness, soft, non distended Extremities: normal range of motion, normal strength, non tender Neuro/Psych: alert and oriented x 3, normal mood and affect Skin: normal color, dry (Lauren Ryan CRNP) Laboratory Results Last 24 Hours Test 07/13/17 09:16 White Blood Count 3.61 K/uL Red Blood Count 2.62 M/uL Hemoglobin 9.1 g/dL Hematocrit 26.8 % Mean Corpuscular Volume 102.3 fL Mean Corpuscular Hemoglobin 34.7 pg Mean Corpuscular Hemoglobin Concent 34.0 g/dl RDW Standard Deviation 50.4 fL RDW Coefficient of Variation 13.3 % Platelet Count 234 K/uL Mean Platelet Volume 10.8 fL (Lauren Ryan CRNP) Assessment and Plan Patient is a pleasant 72 y/o female, with PMHx of seizure disorder, HTN, HLD, mitral stenosis, aortic sclerosis, pulmonary HTN, h/o recurrent c.diff s/p colectomy w/ ileostomy- resolved, chronic pain, OA, osteoporosis, and anxiety/ depression, who presented to the ED because of lower back pain since 1 day before admission. SBO: - Failed conservative management and went for revision 07/05 - Consulted GI - EGD was normal - cefoxitin last dose 07/10 - tolerating low fiber diet Atelectasis vs PNA on Xray - nebs - resolved Moderate malnutrition - TPN discontinued 07/12 as patient is tolerating diet Lumbar pain s/p mechanical fall: - Check lumbar spine x-ray - no acute finding - pain control - Heating pad - PT/OT - patient's pain is back to her baseline chronic back pain level - restart Mobic now that taking PO Anemia - hemoglobin has been drifting downward, may be due to malnutrition as it is macrocytic anemia - continue supplemental folate and B12 now that patient is taking PO UTI - received Unasyn x 7 days - resolved Seizure disorder: IV Keppra 500 changed to po HTN: - has been elevated since holding Benicar added iv enalaprilat, increased dose 07/03, IV Hydralazine 10 mg q6 hrs PRN sbp >180 or dbp >100 Hypokalemia - repleated - continue TPN HLD: Hold Lipitor 20 mg daily due to NPO- resume once tolerating PO Mitral stenosis, aortic sclerosis, pulmonary HTN- follows w/ Dr. Barber h/o recurrent c.diff s/p colectomy w/ ileostomy - diarrhea yesterday - C.diff pending Osteoporosis: Continue Reclast injection yearly DVT prophylaxis: TEDs/SCDs Code Status: LEVEL I, FULL Dispo: Long conversation with patient's daughter Heydi. Patient is refusing in patient rehab. Daughter Heydi feels that her home situation would be safe for her to return to with services as her work is right next door and she is able to check on her mother often during the day. There are also other friends and neighbors who help to check on her. Will plan for home with services. (Lauren Ryan ., ADINA) BODY FINISHER Physician Supervision Note: I interviewed and examined the patient. Discussed with Lauren Ryan BODY FINISHER and agree with findings and plan as documented in the note. Any exceptions or clarifications are listed here: None Patient is in quite well since advancement of diet she is tolerating being off her TPN she is undertaken physical therapy today with some good success but will need another day before we're able to send her home she and her daughter both set on going home Vital signs are stable physical exam shows normal active bowel sounds minor tenderness in her abdomen due to her recent surgery Patient status post surgery to relieve small bowel obstruction doing well tolerating diet will anticipate the patient to be discharged home with some home health 07/14 Documented By: Cosmo Henriquez (Cosmo Henriquez M.D.)
[2017-07-13] MEDS: LEVETIRACETAM 500 MG TAB PO SCH (21:20)
[2017-07-13] MEDS: LORAZEPAM INJ 0.5 MG in SYRINGE 0.75 ML IV SCH (21:23)
[2017-07-14] MEDS: ENALAPRILAT IV 1.25 MG in DEXTROSE 5% 25ML 25 ML IV SCH ×2 (01:23→09:24)
[2017-07-14] MEDS: HydrALAZINE HCL 20 MG/ML VIAL IV. SCH ×2 (02:04→10:51)
[2017-07-14] MEDS: ACETAMINOPHEN 500 MG TAB PO SCH (05:51)
[2017-07-14] MEDS: HYDROmorphone INJ 0.5 MG/0.5 ML SYR IV PRN ×3 (05:52→11:56)
[2017-07-14 07:09] VITALS: BP 156/67; PULSE 96; TEMP 36.7; O2SAT 95
[2017-07-14] MEDS ORDERED: OXYC-57 PO ×2 (07:35→07:37)
[2017-07-14 07:49] VITALS: PULSE 98; O2SAT 94
[2017-07-14] MEDS: ALBUT/IPRATROP 3MG/0.5MG NEB 3 ML VIAL INH SCH (07:49)
[2017-07-14] MEDS: LACTOBACILLUS ACIDOPHILUS (FLORANEX) TAB PO SCH ×2 (08:52→13:28)
[2017-07-14] MEDS: LEVETIRACETAM 500 MG TAB PO SCH (08:53)
[2017-07-14] MEDS: CYANOCOBALAMIN 500 MCG TAB (VIT B-12) PO SCH (08:53)
[2017-07-14] MEDS: DESONIDE CR 15 GM TUBE EXT SCH (08:53)
[2017-07-14] MEDS: ENOXAPARIN 40 MG/0.4 ML SYR SQ SCH (08:54)
[2017-07-14] MEDS: SENNA 8.8 MG/5 ML UDP PO SCH (08:55)
[2017-07-14] MEDS: FAMOTIDINE IV INJ 20 MG in SYRINGE 3 ML IV SCH (08:57)
[2017-07-14 09:38] LABS: HEMATOCRIT 27.4 % (37-47); MEAN CELL VOLUME 101.5 fL (80-100); MEAN CORPUSCULAR HEMOGLOBIN 33.7 pg (25-34); MEAN CORPUSCULAR HGB CONC 33.2 g/dl (32-36); MEAN PLATELET VOLUME 10.3 fL (7.4-10.4); PLATELET COUNT 299 K/uL (130-400); WHITE BLOOD COUNT 3.49 K/uL (4.8-10.8)
--- NOTE | 2017-07-14 10:25 | Surgery Progress Note ---
Surgery Progress Note Date of Service Jul 14, 2017. Subjective 2 loose BM last night, C. diff negative, tolerating diet Objective Vital Signs: Date Time Temp Pulse Resp B/P (MAP) Pulse Ox O2 Delivery O2 Flow Rate FiO2 07/14/17 07:49 98 16 94 Room Air 07/14/17 07:09 36.7 96 16 156/67 (96) 95 Room Air 07/14/17 00:00 Room Air 07/13/17 23:30 36.9 77 18 138/76 (96) 96 Room Air 07/13/17 20:41 92 16 97 Room Air 07/13/17 15:20 36.5 91 16 133/69 (90) 95 Room Air 07/13/17 15:10 Room Air 07/13/17 14:17 95 16 97 Room Air 07/13/17 11:01 77 133/72 (92) 07/13/17 10:31 36.9 76 22 114/66 (82) 96 Room Air Abdomen: non distended, soft Laboratory Results: Results Past 24 Hours Test 07/14/17 08:23 Range/Units White Blood Count 3.49 4.8-10.8 K/uL Red Blood Count 2.70 4.2-5.4 M/uL Hemoglobin 9.1 12.0-16.0 g/dL Hematocrit 27.4 37-47 % Mean Corpuscular Volume 101.5 80-100 fL Mean Corpuscular Hemoglobin 33.7 25-34 pg Mean Corpuscular Hemoglobin Concent 33.2 32-36 g/dl RDW Standard Deviation 49.5 36.4-46.3 fL RDW Coefficient of Variation 13.4 11.5-14.5 % Platelet Count 299 130-400 K/uL Mean Platelet Volume 10.3 7.4-10.4 fL Microbiology Results 07/14/17 C.difficile Toxin B Gene (PCR) - Final, Complete No C. difficile toxin B gene detected Assessment & Plan s/p ex lap, KEIRA loose BM expected after surgery, can hold Senna, mineral oil at home a day or two ok for d/c unless diarrhea increases during the day
[2017-07-14 10:51] VITALS: BP 163/75
[2017-07-14 11:09] VITALS: PULSE 90; TEMP 36.9; O2SAT 96
[2017-07-14] MEDS ORDERED: FLV1 PO (11:55)
[2017-07-14] MEDS ORDERED: VTMB12 PO (11:55)
[2017-07-14 12:37] VITALS: BP 163/75; PULSE 90; TEMP 36.9; O2SAT 96
--- NOTE | 2017-07-14 16:24 | Discharge Summary ---
Discharge Summary Date of Service Jul 14, 2017. (Lauren Ryan, [facility]) Discharge Summary Admission Date: Jun 26, 2017 at 12:41 Discharge Date: Jul 14, 2017 Discharge Disposition: Home with services Principal Diagnosis: small bowel obstruction Problems/Secondary Diagnoses: (1) Anxiety Status: Chronic (2) Depressive Disorder Nec Status: Chronic (3) Hypertension Status: Chronic (4) Osteoporosis Status: Chronic (5) Seizure disorder Status: Chronic Immunizations: Have You Had Influenza Vaccine: Yes Influenza Vaccine Date: January 25, 2012 History of Tetanus Vaccine?: Unknown History of Pneumococcal: Yes Pneumococcal Date: Aug 26, 2012 History of Hepatitis B Vaccine: Unknown Procedures: CXR 07/06 IMPRESSION: 1. Right PICC line and enteric tube as above. 2. Cardiomegaly without radiographic evidence of congestive failure. 3. Consolidative change is seen at the left lung base. This could represent atelectasis and/or pneumonia. Clinical correlation will be required. Radiographic follow-up to resolution is recommended. Abdomen Pelvis CT 07/04 IMPRESSION: 1. Persistent proximal jejunal bowel dilatation with normal caliber distal loops. Contrast is visualized to the level the terminal ileum. The findings are consistent with a low-grade partial small bowel obstruction 2. Generalized body wall edema suggesting anasarca 3. Equivocal pericholecystic edema 4. Bilateral pleural effusions with bibasilar compressive atelectasis 5. Low volume ascites 6. Small droplet of air within the left anterior abdominal wall. This is felt to be extraperitoneal. Chest Abd Xray 07/02 IMPRESSION: Mild nonobstructive ileus. Nasogastric tube within the distal stomach. Moderate emphysematous change in the chest. Gall Bladder US IMPRESSION: 1. No gallstones are identified and there is no sonographic evidence of acute cholecystitis. 2. Trace right pleural effusion. 3. The stomach is distended and fluid-filled. 4. The pancreas was not visualized. Abd Xray 06/30 IMPRESSION: Nonobstructive bowel pattern. Chest/abd xray 06/27 IMPRESSION: 1. Chronic changes chest with no acute process. 2. Nonobstructive bowel pattern. Lumbar Spine Xray 06/26 IMPRESSION: Scoliosis and advanced multilevel degenerative change. No acute fractures identified Abd CT 06/26 IMPRESSION: 1. Proximal small bowel obstruction, with a left midabdominal transition zone. 2. No evidence of free air 3. Minimal pericholecystic edema Consultations: General surgery (Lauren Ryan ., [facility]) Medication Reconciliation New Medications: Oxycodone/Acetaminophen 5MG/325MG (Percocet 5MG/325MG) Tab 1-2 TABLETS PO Q4H PRN for Pain, #30 TAB Cyanocobalamin (Vitamin B-12) 500 Mcg Tab 1000 MCG PO QAM for 30 Days, #60 TAB Folic Acid (Folic Acid) 1 Mg Tab 1 MG PO QAM for 30 Days, #30 TAB Continued Medications: Ascorbic Acid (Ascorbic Acid) 1,000 Mg Tab 1000 MG PO DAILY Aspirin (Aspirin) 81 Mg Tab 81 MG PO DAILY Atorvastatin (Lipitor) 20 Mg Tab 20 MG PO DAILY, TAB Calcium Carbonate-Vitamin D (Calcium 500 + D) 1 Tab Tab 1 TAB PO DAILY Cranberry (Vaccinium Macrocarp (Cranberry) Unknown Strength Tab 1 CAP PO DAILY Ferrous Sulfate (Kp Ferrous Sulfate) 325 Mg Tab 325 MG PO DAILY, TAB Lactobacillus (Probiotic) 1 Cap Cap 1 CAP PO DAILY Levetiracetam (Keppra) 500 Mg Tab 500 MG PO BID, TAB Meloxicam (Mobic) 7.5 Mg Tab 7.5 MG PO DAILY PRN for Pain, TAB Olmesartan/Hctz (Benicar Hct 20/12.5) Tab 1 TAB PO DAILY, TAB Zoledronic Acid (Reclast) 5 Mg/100 Ml Inj 5 MG INJ YEARLY Discharge Exam ROS Constitutional: no chills, aches, sweats or fever Respiratory: no sob,cough, sputum, or wheezing Cardiac: no chest pain, palpitations, edema, orthopnea or lightheadedness GI: no abdominal pain, nausea, vomiting, diarrhea or constipation : no dysuria or hesitancy Extremities: no joint pain or weakness Skin: no rash PE General: no distress Eyes: normal inspection, PERLL Respiratory: chest non tender, clear to auscultation, normal breath sounds, no respiratory distress, no accessory muscle use Cardiac: regular rate and rhythm, no rub or gallop, no murmur, no edema, no jvd GI/: active bowel sounds, no abd pain or tenderness, soft, non distended Extremities: normal range of motion, mild generalized weakness, non tender Neuro/Psych: alert and oriented x 3, normal mood and affect Skin: normal color, dry (Lauren Ryan, [facility]) Hospital Course Patient is a pleasant 72 y/o female, with PMHx of seizure disorder, HTN, HLD, mitral stenosis, aortic sclerosis, pulmonary HTN, h/o recurrent c.diff s/p colectomy w/ ileostomy- resolved, chronic pain, OA, and anxiety/depression, who presented to the ED 06/26 for back pain following mechanical fall at home. Patient was seen in ED on 06/25 due to seizure disorder attributed to taking half of her prescribed keppra dose by accident. In ED 06/26, patient was found to have a SBO seen on CT scan. SBO: - Failed conservative management and went for revision 07/[address] Garza - Patient had decrease in her hgb and coffee ground emesis in her NG tube while attempting to medically manage her SBO so GI was consulted and she had an EGD which was normal 07/01 - following SBO patient was free of further nausea or vomiting - cefoxitin last dose 07/10 - tolerating low fiber diet Atelectasis vs PNA on Xray 07/06 - patient briefly became short of breath and required supplemental oxygen for about 24 hours. Initiation of further antibiotic therapy was held as she had multiple antibiotics already this admission. She never developed fever or sputum , likely atelectasis. - nebs - resolved Moderate malnutrition - TPN 07/02 - 07/12, discontinued after patient tolerated diet following SBO revision Lumbar pain s/p mechanical fall: - lumbar spine x-ray - no acute finding - patient's pain is back to her baseline chronic pain level and she has resumed her home dose of mobic Anemia - hemoglobin drifted downward during admission and may be due to malnutrition as it is macrocytic anemia - continue supplemental folate and B12 - may need further workup if blood count doesn't rebound with increased po intake UTI - received Unasyn x 7 days, last day of therapy 07/04 - urine culture grew E. faecalis Seizure disorder: keppra 500 mg po bid HTN: - received enaliaprilat while npo for elevated blood pressures - resume home dose Benecar at discharge Hypokalemia - repleated HLD: resumed lipitor after surgery Mitral stenosis, aortic sclerosis, pulmonary HTN- follows w/ Dr. Barber h/o recurrent c.diff s/p colectomy w/ ileostomy - C. Diff 07/13 negative Osteoporosis: Continue Reclast injection yearly Prior to discharge had a long conversation with patient's daughter Heydi. Patient is refusing inpatient rehab. Daughter Heydi feels that her home situation would be safe for Mrs. Rollins to return to with services as her work is right next door and she is able to check on her mother often during the day. There are also other friends and neighbors who help to check on her. Mrs. Rollins also felt that she would be safe returning home with services. She was able to ambulate around her hospital room with a walker safely. Discharged with services and daughter closely monitoring. Total Time Spent: Less than 30 minutes This includes examination of the patient, discharge planning, medication reconciliation, and communication with other providers. (Lauren Ryan CRNP) [employer] Physician Supervision Note: I interviewed and examined the patient. Discussed with Lauren Ryan [employer] and agree with findings and plan as documented in the note. Any exceptions or clarifications are listed here: None Patient was discharged after a very prolonged hospital stay for calm. Small bowel obstruction requiring surgery supported by TPN during her stay although we have urged her to go to inpatient subacute rehabilitation the patient and her daughter both want her to go home. Extensive counseling was done by Lauren Ryan denied personally spoke to the patient's daughter on the phone on the day of discharge time discharge the patient was a stable condition her abdomen was mildly tender but will be expected for postoperative case she is ambulate in a stooped posture with a walker she'll be discharged home with close follow- up with primary care and surgery Documented By: Cosmo Henriquez (Cosmo Henriquez M.D.) Discharge Instructions Please refer to the electronic Patient Visit Report (Discharge Instructions) for additional information. (Lauren Ryan CRNP) Follow-Up Dr. Chowdary on July 21 at 4:00 pm. [facility] General Surgery Office - the nurse will call to coordinate the appointment. (Lauren Ryan CRNP) Additional Copies To Darian Garza M.D.; Ulises Chowdary M.D.
== END 2017-07-14 15:16 | disposition home health service (06) | DRG 335 ==
LOC: EDBD 04:54 → C.EDB 04:55 → C.MSN 12:41 → ENRESERV 13:59
PROVIDERS: ADMIT Hospitalist; ATTEND Internal Medicine
PROC: 0DJ08ZZ Inspection of Upper Intestinal Tract, Via Natural or Artificial Opening Endoscopic (ICD-10-PCS; principal; 2017-07-01 12:00)
PROC: 0DN80ZZ Release Small Intestine, Open Approach (ICD-10-PCS; 2017-07-05)
DX: K56.50 Intestinal adhesions [bands], unspecified as to partial versus complete obstruction (principal); J96.01 Acute respiratory failure with hypoxia; N39.0 Urinary tract infection, site not specified; E44.0 Moderate protein-calorie malnutrition; J98.11 Atelectasis; B95.2 Enterococcus as the cause of diseases classified elsewhere; I27.20 Pulmonary hypertension, unspecified; I10 Essential (primary) hypertension; E78.5 Hyperlipidemia, unspecified; F41.9 Anxiety disorder, unspecified; F32.9 Major depressive disorder, single episode, unspecified; G40.909 Epilepsy, unspecified, not intractable, without status epilepticus; I08.0 Rheumatic disorders of both mitral and aortic valves; M81.0 Age-related osteoporosis without current pathological fracture; R19.7 Diarrhea, unspecified; G89.29 Other chronic pain; M19.90 Unspecified osteoarthritis, unspecified site; E87.6 Hypokalemia; D53.9 Nutritional anemia, unspecified; M54.5 Low back pain; R33.9 Retention of urine, unspecified; Z79.82 Long term (current) use of aspirin; Z79.899 Other long term (current) drug therapy; Z91.81 History of falling; Z87.891 Personal history of nicotine dependence

== ENCOUNTER 2017-08-05 16:50 | Inpatient (IN) | payer OTHER, BC ==
[~2017-08-05] VITALS: Ht 157.5 cm; Wt 46.1 kg
[~2017-08-05 16:50] MED LIST changes: +FLV1 PO; -LEVE500T13 PO; +OXYC-57 PO; +VTMB12 PO
[2017-08-05] MEDS ORDERED: SODIUM CHLORIDE 0.9% 1000ML 1,000 ML IV SCH (17:08)
--- NOTE | 2017-08-05 17:25 | DIAGNOSTIC IMAGING REPORT ---
CT SCAN OF THE BRAIN WITHOUT IV CONTRAST CLINICAL HISTORY: Change in mental status. COMPARISON STUDY: CT of the brain dated 03/04/2017. TECHNIQUE: Unenhanced axial CT scan of the brain is performed from the vertex to the skull base. CT DOSE: 810.83 mGy.cm FINDINGS: Brain parenchyma: There are age-related involutional changes noting moderate to advanced subcortical and periventricular microangiopathic change. 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 There is associated ex vacuo dilatation of the right lateral ventricle. There is no hemorrhage, mass effect, or evidence of acute territorial ischemia by CT criteria. Cee-white matter is preserved. No extra-axial fluid collection is seen. Ventricles, sulci, cisterns: Prominent secondary to involutional change. Intracranial vasculature: There is atherosclerotic calcification of the cavernous carotid and vertebral arteries. Calvarium: There is evidence of previous right-sided craniotomy. No acute calvarial abnormality is seen. Sinuses and mastoids: The visualized paranasal sinuses are clear. The mastoid air cells are well pneumatized. Orbits: The bony orbits are grossly intact. IMPRESSION: Senescent changes and remote infarct as above. There is no hemorrhage, mass effect, or evidence of acute territorial ischemia by CT criteria. Electronically signed by: Mj Dillon M.D. 08/05/2017 5:24 PM Dictated Date/Time: 08/05/2017 5:21 PM
[2017-08-05] MEDS ORDERED: ATOR-22 PO (17:32)
[2017-08-05] MEDS ORDERED: BNC/40 PO (17:32)
[2017-08-05] MEDS ORDERED: MELO15TA10 PO (17:32)
[2017-08-05] MEDS ORDERED: OXYC1TAB3 PO (17:32)
[2017-08-05] MEDS ORDERED: FLV1 PO (17:32)
[2017-08-05] MEDS ORDERED: CLON0.5T3 PO (17:42)
[2017-08-05 17:49] LABS: INR 1.1 (0.9-1.1); PARTIAL THROMBOPLASTIN RATIO 1.1; PROTHROMBIN TIME (PATIENT) 11.5 SECONDS (9.0-12.0)
[2017-08-05] MEDS ORDERED: LABETALOL HCL IV 5 MG/ML 20ML IV ONE (17:49)
[2017-08-05] MEDS ORDERED: LEVE500T13 PO (17:53)
[2017-08-05 18:04] LABS: HEMATOCRIT 36.4 % (37-47); MEAN CELL VOLUME 100.3 fL (80-100); MEAN CORPUSCULAR HEMOGLOBIN 34.4 pg (25-34); MEAN CORPUSCULAR HGB CONC 34.3 g/dl (32-36); MEAN PLATELET VOLUME 11.3 fL (7.4-10.4); PLATELET COUNT 165 K/uL (130-400); RED BLOOD COUNT 3.63 M/uL (4.2-5.4); WHITE BLOOD COUNT 3.62 K/uL (4.8-10.8)
[2017-08-05 18:05] LABS: BASO % 1.1 %; BASO ABS # 0.04 K/uL (0-0.2); COMPLETE YES; EOS % 2.5 %; IG% 0.3 %; LYMPH % 22.4 %; LYMPH ABS # 0.81 K/uL (1.2-3.4); NEUT % 60.7 %
[2017-08-05 18:32] LABS: BLOOD UREA NITROGEN 7 mg/dl (7-18); BUN/CREATININE RATIO 13.6 (10-20); CALCIUM 9.5 mg/dl (8.5-10.1); CARBON DIOXIDE 25 mmol/L (21-32); CHLORIDE 102 mmol/L (98-107); GLUCOSE 97 mg/dl (70-99)
[2017-08-05 18:37] LABS: POTASSIUM 3.8 mmol/L (3.5-5.1); SODIUM 140 mmol/L (136-145)
[2017-08-05 18:45] LABS: CKMB/CK RATIO 0.7 (0-3.0)
[2017-08-05 18:46] LABS: URINE APPEARANCE CLEAR (CLEAR); URINE BILIRUBIN NEG (NEG); URINE COLOR YELLOW; URINE EPITHELIAL CELL AUTO 0-5 /lpf (0-5); URINE NITRITE POS (NEG); URINE SPECIFIC GRAVITY 1.005 (1.000-1.030); UROBILINOGEN NEG (NEG); ZZURINE CULT IF INDIC CATH YES
[2017-08-05 18:47] LABS: MANUAL MICROSCOPIC REQUIRED? NO; REVIEW REQ? NO
--- NOTE | 2017-08-05 18:49 | DIAGNOSTIC IMAGING REPORT ---
CHEST ONE VIEW PORTABLE HISTORY: Stroke symptoms. COMPARISON: Chest 07/06/2017. FINDINGS: No focal lung consolidations to suggest pneumonia. No evidence for pulmonary edema. The heart remains mildly enlarged. No pleural effusions. No pneumothorax. Postoperative changes within the proximal left humerus are again noted. IMPRESSION: Stable mild cardiomegaly. No acute process within the chest. Electronically signed by: Lino Julian M.D. 08/05/2017 6:48 PM Dictated Date/Time: 08/05/2017 6:47 PM
--- NOTE | 2017-08-05 19:43 | EMERGENCY ROOM VISIT NOTE ---
History Report prepared by Serena: Marty Reece Under the Supervision of: Dr. Cosmo Mosley M.D. First contact with patient: 16:55 Chief Complaint: STROKE SYMPTOMS Stated Complaint: NOT MAKING ANY SENSE History of Present Illness The patient is a 72 year old female who presents to the Emergency Room with complaints of improving stroke symptoms starting around an hour prior to arrival. Per the patient's daughter, the patient was at a car dealership, and she could not get over a step, and her body went limp. Additionally, she was not able to make sentences and was not making sense, though she was able to speak words and was not making up words. The daughter states that the patient did not pass out. The patient has a history of seizures, and the daughter states that during her seizures she becomes unconscious, and she is not confused for very long. The patient used to be on Tegretol, though she was switched to Keppra about a month ago. The patient has not had a seizure in 30 years. Additionally, the patient is currently on oxycodone after having surgery for a small bowel obstruction. She denies any headache, numbness, fever , chest pain, abdominal pain, dysuria, and hematochezia. Per the daughter, the patient has been weaker for the past few days, and a few days ago the patient fell, though she did not hit her head or injure herself. The patient uses a walker, and she does not feel more unsteady than usual. Source of History: patient, family Onset: an hour prior to arrival Position: other (global) Quality: other (stroke symptoms) Timing: other (improving) Associated Symptoms: + weakness, No fevers, No headache, No chest pain, No SOB, No abdominal pain, No urinary symptoms, No numbness Note: Associated symptoms: not making sense and unable to make sentences Review of Systems See HPI for pertinent positives & negatives. A total of 10 systems reviewed and were otherwise negative. Past Medical & Surgical Medical Problems: (1) Anxiety (2) Depressive Disorder Nec (3) Hypertension (4) Intestinal Infection Due To Clostridium Difficile (5) Lethargy (6) Macrocytic anemia (7) Osteoporosis (8) SBO (small bowel obstruction) (9) Seizure disorder (10) Syncope Surgical Problems: (1) H/O ileostomy Family History Lung cancer Stroke Social History Smoking Status: Former Smoker Alcohol Use: none Drug Use: none Marital Status: Housing Status: lives with family Occupation Status: retired Current/Historical Medications Scheduled Ascorbic Acid (Ascorbic Acid), 1,000 MG PO DAILY Aspirin (Aspirin), 81 MG PO DAILY Atorvastatin (Lipitor), 20 MG PO DAILY Calcium Carbonate-Vitamin D (Calcium 500 + D), 1 TAB PO DAILY Clonazepam (Klonopin), 0.5 MG PO BID Cranberry (Vaccinium Macrocarp (Cranberry), 1 CAP PO DAILY Cyanocobalamin (Vitamin B-12), 1,000 MCG PO QAM Ferrous Sulfate (Kp Ferrous Sulfate), 325 MG PO DAILY Folic Acid (Folic Acid), 1 MG PO DAILY Lactobacillus (Probiotic), 1 CAP PO DAILY Levetiracetam (Keppra), 500 MG PO BID Meloxicam (Mobic), 15 MG PO DAILY Olmesartan Medoxomil (Benicar), 40 MG PO DAILY Oxycodone Ir (Roxicodone Ir), 5 MG PO QID Zoledronic Acid (Reclast), 5 MG INJ YEARLY Allergies Coded Allergies: Fentanyl (Verified Adverse Reaction, Unknown, nausea, fearfulness, unsettled thoughts, 06/26/17) Physical Exam Vital Signs Date Time Temp Pulse Resp B/P (MAP) Pulse Ox O2 Delivery O2 Flow Rate FiO2 08/05/17 19:18 74 16 162/90 98 Room Air 08/05/17 19:02 75 16 163/74 97 Room Air 08/05/17 18:16 72 18 167/80 97 Room Air 08/05/17 17:59 100 Room Air 08/05/17 17:45 86 08/05/17 16:54 36.7 99 20 192/80 100 Room Air Physical Exam Constitutional: Vital signs reviewed. Eyes: Pupils are equal round reactive to light. Conjunctiva are noninjected. ENT: Pharynx is clear without erythema or exudate. Mucous membranes are moist. Neck supple without meningeal signs. Respiratory: Clear to auscultation bilaterally. Breath sounds are equal bilaterally. Cardiovascular: Regular rate and rhythm. No rubs or gallops. GI: Soft, nondistended and nontender. Bowel sounds are present. Musculoskeletal: No peripheral edema. No lower extremity tenderness. Integumentary: No cyanosis. Neurological: The patient is awake and alert and oriented x3. Cranial nerves II-XII are intact. Motor is 5 out of 5 all extremities. Sensation is intact to light touch all extremities. Only able to name year of the date. No pronator drift. No slurring of speech. Slow to answer questions. Has difficulty with complex sentences. Psychiatric: Normal affect. Medical Decision & Procedures ER Provider Diagnostic Interpretation: Radiology results as stated below per my review and the radiologist's interpretation: CT SCAN OF THE BRAIN WITHOUT IV CONTRAST CLINICAL HISTORY: Change in mental status. COMPARISON STUDY: CT of the brain dated 03/04/2017. TECHNIQUE: Unenhanced axial CT scan of the brain is performed from the vertex to the skull base. CT DOSE: 810.83 mGy.cm FINDINGS: Brain parenchyma: There are age-related involutional changes noting moderate to advanced subcortical and periventricular microangiopathic change. 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 There is associated ex vacuo dilatation of the right lateral ventricle. There is no hemorrhage, mass effect, or evidence of acute territorial ischemia by CT criteria. Cee-white matter is preserved. No extra-axial fluid collection is seen. Ventricles, sulci, cisterns: Prominent secondary to involutional change. Intracranial vasculature: There is atherosclerotic calcification of the cavernous carotid and vertebral arteries. Calvarium: There is evidence of previous right-sided craniotomy. No acute calvarial abnormality is seen. Sinuses and mastoids: The visualized paranasal sinuses are clear. The mastoid air cells are well pneumatized. Orbits: The bony orbits are grossly intact. IMPRESSION: Senescent changes and remote infarct as above. There is no hemorrhage, mass effect, or evidence of acute territorial ischemia by CT criteria. Electronically signed by: Mj Dillon M.D. 08/05/2017 5:24 PM Dictated Date/Time: 08/05/2017 5:21 PM CHEST ONE VIEW PORTABLE HISTORY: Stroke symptoms. COMPARISON: Chest 07/06/2017. FINDINGS: No focal lung consolidations to suggest pneumonia. No evidence for pulmonary edema. The heart remains mildly enlarged. No pleural effusions. No pneumothorax. Postoperative changes within the proximal left humerus are again noted. IMPRESSION: Stable mild cardiomegaly. No acute process within the chest. Electronically signed by: Lino Julian M.D. 08/05/2017 6:48 PM Dictated Date/Time: 08/05/2017 6:47 PM Laboratory Results 08/05/17 17:27 Red Blood Count 3.63, Mean Corpuscular Volume 100.3, Mean Corpuscular Hemoglobin 34.4, Mean Corpuscular Hemoglobin Concent 34.3, Mean Platelet Volume 11.3, Neutrophils (%) (Auto) 60.7, Lymphocytes (%) (Auto) 22.4, Monocytes (%) ( Auto) 13.0, Eosinophils (%) (Auto) 2.5, Basophils (%) (Auto) 1.1, Neutrophils # (Auto) 2.20, Lymphocytes # (Auto) 0.81, Monocytes # (Auto) 0.47, Eosinophils # ( Auto) 0.09, Basophils # (Auto) 0.04 08/05/17 17:27 Test 08/05/17 17:27 08/05/17 17:33 08/05/17 18:30 White Blood Count 3.62 K/uL (4.8-10.8) Red Blood Count 3.63 M/uL (4.2-5.4) Hemoglobin 12.5 g/dL (12.0-16.0) Hematocrit 36.4 % (37-47) Mean Corpuscular Volume 100.3 fL (80-100) Mean Corpuscular Hemoglobin 34.4 pg (25-34) Mean Corpuscular Hemoglobin Concent 34.3 g/dl (32-36) Platelet Count 165 K/uL (130-400) Mean Platelet Volume 11.3 fL (7.4-10.4) Neutrophils (%) (Auto) 60.7 % Lymphocytes (%) (Auto) 22.4 % Monocytes (%) (Auto) 13.0 % Eosinophils (%) (Auto) 2.5 % Basophils (%) (Auto) 1.1 % Neutrophils # (Auto) 2.20 K/uL (1.4-6.5) Lymphocytes # (Auto) 0.81 K/uL (1.2-3.4) Monocytes # (Auto) 0.47 K/uL (0.11-0.59) Eosinophils # (Auto) 0.09 K/uL (0-0.5) Basophils # (Auto) 0.04 K/uL (0-0.2) RDW Standard Deviation 48.0 fL (36.4-46.3) RDW Coefficient of Variation 13.1 % (11.5-14.5) Immature Granulocyte % (Auto) 0.3 % Immature Granulocyte # (Auto) 0.01 K/uL (0.00-0.02) Prothrombin Time 11.5 SECONDS (9.0-12.0) Prothromb Time International Ratio 1.1 (0.9-1.1) Activated Partial Thromboplast Time 29.0 SECONDS (21.0-31.0) Partial Thromboplastin Ratio 1.1 Anion Gap 13.0 mmol/L (3-11) Est Creatinine Clear Calc Drug Dose 70.4 ml/min Estimated GFR () 112.9 Estimated GFR (Non- 97.4 BUN/Creatinine Ratio 13.6 (10-20) Calcium Level 9.5 mg/dl (8.5-10.1) Magnesium Level 2.0 mg/dl (1.8-2.4) Total Creatine Kinase 113 U/L (26-192) Creatine Kinase MB 0.8 ng/ml (0.5-3.6) Creatine Kinase MB Ratio 0.7 (0-3.0) Troponin I < 0.015 ng/ml (0-0.045) Bedside Prothrombin Time INR 1.1 (0.9-1.1) Urine Color YELLOW Urine Appearance CLEAR (CLEAR) Urine pH 7.0 (4.5-7.5) Urine Specific [place] 1.005 (1.000-1.030) Urine Protein NEG (NEG) Urine Glucose (UA) NEG (NEG) Urine Ketones TRACE (NEG) Urine Occult Blood TRACE (NEG) Urine Nitrite POS (NEG) Urine Bilirubin NEG (NEG) Urine Urobilinogen NEG (NEG) Urine Leukocyte Esterase TRACE (NEG) Urine WBC (Auto) 1-5 /hpf (0-5) Urine RBC (Auto) 0-4 /hpf (0-4) Urine Hyaline Casts (Auto) 0 /lpf (0-5) Urine Epithelial Cells (Auto) 0-5 /lpf (0-5) Urine Bacteria (Auto) 4+ (NEG) Laboratory results as reviewed by me. Medications Administered Medications (Trade) Dose Ordered Sig/Ba Route Start Time Stop Time Status Last Admin Dose Admin Labetalol HCl (Normodyne IV) 5 mg STK-MED ONCE IV 08/05/17 17:49 08/05/17 17:50 DC 08/05/17 17:49 10 MG ECG Indication: other (stroke symptoms) Rate (beats per minute): 80 Rhythm: normal sinus Findings: LBBB, T-wave inversion (in lead 1 and AVL) Comparison ECG Date: 06/26 Change: LBBB and T wave inversions are new. ED Course 1654: The patient was evaluated in room B5. A complete history and physical exam was performed. 1735: I discussed the patient's case with Dr. Carrillo, [facility], and she is going to evaluate the patient via telestroke. 1748: Labetalol HCl 10mg IV 180: Dr. Carrillo said that she thinks that this is more likely encephalopathy, so she recommends hospitalization for further work up and to not give TPA. 1854: I talked to the patient and her daughter, and the daughter states that the patient gets frequent UTIs. Her blood pressure was 163/74 at this time. 1916: I discussed the patient's case with Dr. Norman, and he is going to evaluate the patient for further management. Medical Decision This is a 72-year-old female presents with expressive aphasia and weakness. Differential diagnosis includes TIA, CVA, intracranial mass, intracranial hemorrhage, encephalopathy, metabolic derangement, infection. I did perform a limited focused review of portions of the patient's old chart on the electronic medical record. The patient was admitted June 26 for a small bowel obstruction. She has a history of a seizure disorder. I did evaluate the patient as noted above. The patient is presenting with what appears to be expressive aphasia. It started suddenly at 4 PM today. She was normal prior to this although had some generalized weakness over the past 2 days. Denies having any chest discomfort or shortness of breath. I did call a stroke alert. IV access was established. The patient was placed on a continuous cardiac cath rn. I did order and personally review the patient's 12- lead EKG and chest x-ray as described above. Her twelve-lead EKG shows a new left bundle-branch block and T-wave inversions in the high lateral leads. She continues to deny having any chest discomfort or shortness of breath. I did order and review the patient's blood work as noted in the electronic medical record. Her troponin is negative. I did order a CT of the head. I did review the images myself as well as the radiology report as described above. There is no evidence of acute abnormality. The patient's blood pressure was elevated so I treated patient with IV labetalol. Her blood pressure did improve. I did speak to Dr. Carrillo of neurology who assessed the patient via telemedicine. She did not feel the patient likely had a stroke and was more leaning toward encephalopathy. She did recommend the patient be hospitalized for further workup did not recommend TPA. I did discuss the plan with the patient and her daughter. We did obtain a cath urine which did show evidence of a UTI. Her daughter states that she frequently has UTIs. A urine culture was sent. I did discuss the case with the hospitalist and case resource manager. Medication Reconcilliation Current Medication List: was personally reviewed by me Blood Pressure Screening Patient's blood pressure: Elevated blood pressure Monitored by the hospitalist Consults Time Called: 1729 Consulting Physician: Dr. Carrillo Returned Call: 1736 I discussed the patient's case with Dr. Carrillo, [facility], and she is going to evaluate the patient via telestroke. Additional Consults: Consulted Physician: Dr. Norman Additional Comments: I discussed the patient's case with Dr. Norman, and he is going to evaluate the patient for further evaluation. Impression Primary Impression: Expressive aphasia Additional Impressions: Generalized weakness Abnormal EKG UTI (urinary tract infection) Poorly-controlled hypertension Scribe Attestation The scribe's documentation has been prepared under my direct and personally reviewed by me in its entirety. I confirm that the note above accurately reflects all work, treatment, procedures, and medical decision making performed by me. Departure Information Dispostion Being Evaluated By Hospitalist Referrals Ulises Chowdary M.D. (PCP) Patient Instructions My [facility] Problem Qualifiers Additional Impressions: UTI (urinary tract infection) Urinary tract infection type: acute cystitis
[2017-08-05] MEDS ORDERED: PHARMACIST DISCHARGE MED REC CONSULT PRN (20:15)
[2017-08-05] MEDS ORDERED: ONDANSETRON INJ 2 MG/ML 2 ML VIAL IV PRN (20:15)
[2017-08-05] MEDS ORDERED: MAGNESIUM HYDROXIDE SUSP 30 ML UDC PO PRN (20:15)
[2017-08-05] MEDS ORDERED: NITROGLYCERIN 0.4 MG SL PER TAB CHARGE SL PRN (20:15)
[2017-08-05] MEDS ORDERED: MoRPHine SULFATE 2 MG/ML CARP IV PRN (20:15)
[2017-08-05] MEDS ORDERED: ACETAMINOPHEN 325 MG TAB PO PRN (20:15)
[2017-08-05] MEDS ORDERED: GADAVIST IV PRN (21:45)
--- NOTE | 2017-08-05 21:46 | DIAGNOSTIC IMAGING REPORT ---
MRI OF THE BRAIN COMBO CLINICAL HISTORY: Weakness. Change in mental status. COMPARISON STUDY: CT of the brain performed the same day 08/05/2017. TECHNIQUE: MRI of the brain was performed utilizing various T1 and T2-weighted sequences in the axial, sagittal, and coronal planes. Contrast-enhanced sequences were acquired following the administration of 4.5 cc of Gadavist. FINDINGS: Brain parenchyma: There is right temporal encephalomalacia consistent with a remote infarct with associated ex vacuo dilatation of the posterior horn of the right lateral ventricle. There are age-related involutional changes noting moderate to advanced subcortical and periventricular microangiopathic disease. There is no hemorrhage or mass effect. There is no restricted diffusion to suggest acute ischemia. No enhancing mass lesion is identified on the postcontrast images. Cee-white matter differentiation is preserved. No extra-axial fluid collection is seen. The cerebellar tonsils are normal in configuration. Ventricles, sulci, and cisterns: Prominent secondary to involutional change. See above. Pituitary and sella: Unremarkable. Intracranial vasculature: Normal flow voids are maintained at the skull base. Orbits: The bony orbits are grossly intact. Orbital contents are normal in appearance. Sinuses and mastoids: There are bilateral mastoid effusions. The paranasal sinuses are clear. Calvarium: There are postoperative changes from right-sided craniotomy. Cervical cord: Partially visualized cervical spinal cord is normal in morphology and signal intensity. IMPRESSION: No acute intracranial abnormality. Electronically signed by: Mj Dillon M.D. 08/05/2017 9:44 PM Dictated Date/Time: 08/05/2017 9:41 PM
[2017-08-05 22:17] VITALS: BP 100/46; PULSE 79; TEMP 36.7; Ht 157.5 cm; Wt 46.1 kg
--- NOTE | 2017-08-05 22:17 | DIAGNOSTIC IMAGING REPORT ---
ULTRASOUND OF THE CAROTID ARTERIES CLINICAL HISTORY: Weakness. Change in mental status. COMPARISON STUDY: Carotid artery ultrasound dated 01/24/2013. TECHNIQUE: Real-time, grayscale, and color Doppler sonography of the carotid arteries is performed. Images are reviewed in the transverse and longitudinal planes. FINDINGS: Blood pressures were not assessed due to IV sites. The carotid arteries are patent bilaterally and demonstrate antegrade flow. There is [id number] echogenic shadowing atherosclerotic plaque seen in the carotid bulbs bilaterally. Normal doppler arterial waveforms are seen throughout. Velocity measurements are listed below. Common carotid peak systolic velocity (cm/sec): RIGHT: 84 LEFT: 64 ICA proximal peak systolic velocity (cm/sec): RIGHT: 60 LEFT: 43 ICA mid peak systolic velocity (cm/sec): RIGHT: 63 LEFT: 54 ICA distal peak systolic velocity (cm/sec): RIGHT: 69 LEFT: 61 ICA/CC peak systolic ratio: RIGHT: 0.8 LEFT: 1.0 Antegrade flow was shown in the vertebral arteries. The external carotid arteries are patent. IMPRESSION: 1. There is no sonographic evidence of hemodynamically significant stenosis in the right or left carotid arterial system. 2. Antegrade flow is shown in the vertebral arteries. Electronically signed by: Mj Dillon M.D. 08/05/2017 10:15 PM Dictated Date/Time: 08/05/2017 10:14 PM
[2017-08-05] MEDS ORDERED: METOPROLOL TARTRATE 1 MG/ML VIAL IV PRN (22:30)
--- NOTE | 2017-08-05 22:36 | History and Physical ---
History & Physical Date & Time of Service: Aug 05, 2017 at 22:36 Chief Complaint: Stroke-Like Symptoms, Uti Primary Care Physician: Ulises Chowdary M.D. History of Present Illness Source: patient, hospital records This is a 72 yo f with a h/o seizure disorder, chronic pain secondary to fractures, HTN that is presenting to us after an acute episode of aphasia and generalized weakness which occurred at approx 1600. The patient was being taken [facility] as they are planning to sell her car. When they arrived and she tried to get out of the car she felt quite weak and "was unable to find my words". She denies any confusion at that time. They quickly put her back into the car and brought her to the ED. The aphasia resolved on admission however a stroke alert was called. No intervention was indicated. The daughter did state that she has been generally weak for the past few days but no fever, chest pain, dysuria. She was concerned as she was recently in the hospital for a bowel obstruction on June 26 and had actually refused admission to rehab following the admission. She also notes that the patient does frequently get UTI after we had discussed the findings of the UA. With regards to her past medical history the daughter notes that the patient was originally on Vicodin in the past for her chronic back pain however after the surgery she was changed to Oxycodone and recently placed on a lower dose. Daughter was concerned this could be contributing. She also notes that the patient has been in quite a depressed mood in particular after this most recent admission. A lot of stressors including having to sell her car as she is no longer able to drive. Not currently on any antidepressants Past Medical/Surgical History Medical Problems: (1) Anxiety Status: Chronic (2) Depressive Disorder Nec Status: Chronic (3) Hypertension Status: Chronic (4) Intestinal Infection Due To Clostridium Difficile Status: Resolved (5) Osteoporosis Status: Chronic (6) Seizure disorder Status: Chronic Surgical Problems: (1) H/O ileostomy Status: Resolved Family History Lung cancer Stroke Social History Smoking Status: Former Smoker Smokeless Tobacco Use: No Alcohol Use: none Drug Use: none Marital Status: Housing status: lives with family Occupational Status: retired Immunizations History of Influenza Vaccine: Yes Influenza Vaccine Date: January 25, 2012 History of Tetanus Vaccine?: Unknown History of Pneumococcal: Yes Pneumococcal Date: Aug 26, 2012 History of Hepatitis B Vaccine: Unknown Multi-Drug Resistant Organisms History of MDRO: No Allergies Coded Allergies: Fentanyl (Verified Adverse Reaction, Unknown, nausea, fearfulness, unsettled thoughts, 06/26/17) Home Medications Scheduled Ascorbic Acid (Ascorbic Acid), 1,000 MG PO DAILY Aspirin (Aspirin), 81 MG PO DAILY Atorvastatin (Lipitor), 20 MG PO DAILY Calcium Carbonate-Vitamin D (Calcium 500 + D), 1 TAB PO DAILY Clonazepam (Klonopin), 0.5 MG PO BID Cranberry (Vaccinium Macrocarp (Cranberry), 1 CAP PO DAILY Cyanocobalamin (Vitamin B-12), 1,000 MCG PO QAM Ferrous Sulfate (Kp Ferrous Sulfate), 325 MG PO DAILY Folic Acid (Folic Acid), 1 MG PO DAILY Lactobacillus (Probiotic), 1 CAP PO DAILY Levetiracetam (Keppra), 500 MG PO BID Meloxicam (Mobic), 15 MG PO DAILY Olmesartan Medoxomil (Benicar), 40 MG PO DAILY Oxycodone Ir (Roxicodone Ir), 5 MG PO QID Zoledronic Acid (Reclast), 5 MG INJ YEARLY Review of Systems Constitutional: No fever Eyes: No worsening of vision ENT: No hearing loss Respiratory: No cough, No sputum, No wheezing, No shortness of breath, No dyspnea on exertion, No dyspnea at rest Cardiovascular: No chest pain, No palpitations Abdomen: No pain, No nausea, No vomiting, No diarrhea, No constipation Musculoskeletal: + problem reported (general weakness), No joint pain, No muscle pain Genitourinary - Female: No dysuria Neurologic: + weakness, + balance problems, + problem reported (aphasia) Psychiatric: + depression symptoms Endocrine: + fatigue Hematologic / Lymphatic: No abnormal bleeding/bruising Integumentary: No rash Physical Exam Vital Signs Date Time Temp Pulse Resp B/P (MAP) Pulse Ox O2 Delivery O2 Flow Rate FiO2 08/05/17 20:37 75 16 180/87 97 08/05/17 20:17 75 16 180/87 97 Room Air 08/05/17 19:18 74 16 162/90 98 Room Air 08/05/17 19:02 75 16 163/74 97 Room Air 08/05/17 18:16 72 18 167/80 97 Room Air 08/05/17 17:59 100 Room Air 08/05/17 17:45 86 08/05/17 16:54 36.7 99 20 192/80 100 Room Air General Appearance: no apparent distress Head: normocephalic, atraumatic Eyes: normal inspection ENT: normal ENT inspection, + pertinent finding (dentures noted) Neck: supple Respiratory/Chest: normal breath sounds, no respiratory distress, no accessory muscle use Cardiovascular: regular rate, rhythm, no murmur, normal peripheral pulses Abdomen/GI: normal bowel sounds, non tender, soft Back: normal inspection, no CVA tenderness Extremities/Musculoskelatal: normal inspection, no calf tenderness Neurologic/Psych: alert, oriented x 3, + depressed affect Skin: normal color, warm/dry, no rash Lymphatic: no adenopathy Diagnostics Laboratory Results Results Past 24 Hours Test 08/05/17 17:27 08/05/17 17:32 08/05/17 17:33 08/05/17 18:30 Range/Units White Blood Count 3.62 4.8-10.8 K/uL Red Blood Count 3.63 4.2-5.4 M/uL Hemoglobin 12.5 12.0-16.0 g/dL Hematocrit 36.4 37-47 % Mean Corpuscular Volume 100.3 80-100 fL Mean Corpuscular Hemoglobin 34.4 25-34 pg Mean Corpuscular Hemoglobin Concent 34.3 32-36 g/dl Platelet Count 165 130-400 K/uL Mean Platelet Volume 11.3 7.4-10.4 fL Neutrophils (%) (Auto) 60.7 % Lymphocytes (%) (Auto) 22.4 % Monocytes (%) (Auto) 13.0 % Eosinophils (%) (Auto) 2.5 % Basophils (%) (Auto) 1.1 % Neutrophils # (Auto) 2.20 1.4-6.5 K/uL Lymphocytes # (Auto) 0.81 1.2-3.4 K/uL Monocytes # (Auto) 0.47 0.11-0.59 K/uL Eosinophils # (Auto) 0.09 0-0.5 K/uL Basophils # (Auto) 0.04 0-0.2 K/uL RDW Standard Deviation 48.0 36.4-46.3 fL RDW Coefficient of Variation 13.1 11.5-14.5 % Immature Granulocyte % (Auto) 0.3 % Immature Granulocyte # (Auto) 0.01 0.00-0.02 K/uL Prothrombin Time 11.5 9.0-12.0 SECONDS Prothromb Time International Ratio 1.1 0.9-1.1 Activated Partial Thromboplast Time 29.0 21.0-31.0 SECONDS Partial Thromboplastin Ratio 1.1 Sodium Level 140 136-145 mmol/L Potassium Level 3.8 3.5-5.1 mmol/L Chloride Level 102 98-107 mmol/L Carbon Dioxide Level 25 21-32 mmol/L Anion Gap 13.0 3-11 mmol/L Blood Urea Nitrogen 7 7-18 mg/dl Creatinine 0.50 0.60-1.20 mg/dl Est Creatinine Clear Calc Drug Dose 70.4 ml/min Estimated GFR () 112.9 Estimated GFR (Non- 97.4 BUN/Creatinine Ratio 13.6 10-20 Random Glucose 97 70-99 mg/dl Calcium Level 9.5 8.5-10.1 mg/dl Magnesium Level 2.0 1.8-2.4 mg/dl Total Creatine Kinase 113 26-192 U/L Creatine Kinase MB 0.8 0.5-3.6 ng/ml Creatine Kinase MB Ratio 0.7 0-3.0 Troponin I < 0.015 0-0.045 ng/ml Bedside Glucose 91 70-90 mg/dl Bedside Prothrombin Time INR 1.1 0.9-1.1 Urine Color YELLOW Urine Appearance CLEAR CLEAR Urine pH 7.0 4.5-7.5 Urine Specific [place] 1.005 1.000-1.030 Urine Protein NEG NEG Urine Glucose (UA) NEG NEG Urine Ketones TRACE NEG Urine Occult Blood TRACE NEG Urine Nitrite POS NEG Urine Bilirubin NEG NEG Urine Urobilinogen NEG NEG Urine Leukocyte Esterase TRACE NEG Urine WBC (Auto) 1-5 0-5 /hpf Urine RBC (Auto) 0-4 0-4 /hpf Urine Hyaline Casts (Auto) 0 0-5 /lpf Urine Epithelial Cells (Auto) 0-5 0-5 /lpf Urine Bacteria (Auto) 4+ NEG Microbiology Results 08/05/17 Urine Culture, Received Pending Diagnostic Radiology MRI OF THE BRAIN COMBO CLINICAL HISTORY: Weakness. Change in mental status. COMPARISON STUDY: CT of the brain performed the same day 08/05/2017. TECHNIQUE: MRI of the brain was performed utilizing various T1 and T2-weighted sequences in the axial, sagittal, and coronal planes. Contrast-enhanced sequences were acquired following the administration of 4.5 cc of Gadavist. FINDINGS: Brain parenchyma: There is right temporal encephalomalacia consistent with a remote infarct with associated ex vacuo dilatation of the posterior horn of the right lateral ventricle. There are age-related involutional changes noting moderate to advanced subcortical and periventricular microangiopathic disease. There is no hemorrhage or mass effect. There is no restricted diffusion to suggest acute ischemia. No enhancing mass lesion is identified on the postcontrast images. Cee-white matter differentiation is preserved. No extra-axial fluid collection is seen. The cerebellar tonsils are normal in configuration. Ventricles, sulci, and cisterns: Prominent secondary to involutional change. See above. Pituitary and sella: Unremarkable. Intracranial vasculature: Normal flow voids are maintained at the skull base. Orbits: The bony orbits are grossly intact. Orbital contents are normal in appearance. Sinuses and mastoids: There are bilateral mastoid effusions. The paranasal sinuses are clear. Calvarium: There are postoperative changes from right-sided craniotomy. Cervical cord: Partially visualized cervical spinal cord is normal in morphology and signal intensity. IMPRESSION: No acute intracranial abnormality. ULTRASOUND OF THE CAROTID ARTERIES CLINICAL HISTORY: Weakness. Change in mental status. COMPARISON STUDY: Carotid artery ultrasound dated 01/24/2013. TECHNIQUE: Real-time, grayscale, and color Doppler sonography of the carotid arteries is performed. Images are reviewed in the transverse and longitudinal planes. FINDINGS: Blood pressures were not assessed due to IV sites. The carotid arteries are patent bilaterally and demonstrate antegrade flow. There is [id number] echogenic shadowing atherosclerotic plaque seen in the carotid bulbs bilaterally. Normal doppler arterial waveforms are seen throughout. Velocity measurements are listed below. Common carotid peak systolic velocity (cm/sec): RIGHT: 84 LEFT: 64 ICA proximal peak systolic velocity (cm/sec): RIGHT: 60 LEFT: 43 ICA mid peak systolic velocity (cm/sec): RIGHT: 63 LEFT: 54 ICA distal peak systolic velocity (cm/sec): RIGHT: 69 LEFT: 61 ICA/CC peak systolic ratio: RIGHT: 0.8 LEFT: 1.0 Antegrade flow was shown in the vertebral arteries. The external carotid arteries are patent. IMPRESSION: 1. There is no sonographic evidence of hemodynamically significant stenosis in the right or left carotid arterial system. 2. Antegrade flow is shown in the vertebral arteries. CHEST ONE VIEW PORTABLE HISTORY: Stroke symptoms. COMPARISON: Chest 07/06/2017. FINDINGS: No focal lung consolidations to suggest pneumonia. No evidence for pulmonary edema. The heart remains mildly enlarged. No pleural effusions. No pneumothorax. Postoperative changes within the proximal left humerus are again noted. IMPRESSION: Stable mild cardiomegaly. No acute process within the chest. CT SCAN OF THE BRAIN WITHOUT IV CONTRAST CLINICAL HISTORY: Change in mental status. COMPARISON STUDY: CT of the brain dated 03/04/2017. TECHNIQUE: Unenhanced axial CT scan of the brain is performed from the vertex to the skull base. CT DOSE: 810.83 mGy.cm FINDINGS: Brain parenchyma: There are age-related involutional changes noting moderate to advanced subcortical and periventricular microangiopathic change. 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 There is associated ex vacuo dilatation of the right lateral ventricle. There is no hemorrhage, mass effect, or evidence of acute territorial ischemia by CT criteria. Cee-white matter is preserved. No extra-axial fluid collection is seen. Ventricles, sulci, cisterns: Prominent secondary to involutional change. Intracranial vasculature: There is atherosclerotic calcification of the cavernous carotid and vertebral arteries. Calvarium: There is evidence of previous right-sided craniotomy. No acute calvarial abnormality is seen. Sinuses and mastoids: The visualized paranasal sinuses are clear. The mastoid air cells are well pneumatized. Orbits: The bony orbits are grossly intact. IMPRESSION: Senescent changes and remote infarct as above. There is no hemorrhage, mass effect, or evidence of acute territorial ischemia by CT criteria. EKG Normal sinus rhythm Left axis deviation Left bundle branch block Abnormal ECG When compared with ECG of 26-JUN-2017 05:35, Left bundle branch block is now Present [id number] HR 80 Impression Assessment and Plan This is a 72 yo f that had an acute episode of aphasia which has since resolved. No acute findings on MRI indicative of stroke. UTI reflective from UA which could be cause of generalized weakness/ aphasia. Metabolic encephalopathy secondary to uti - Rocephin - MRI did not have any acute findings and carotid USG was WNL - FLP and HBA1C in the am - CBC in the am - will hold neuro consult at this time as MRI normal - continue ASA 81 mg new LBBB on EKG - Tele admission - EKG in am - troponin trend - echo in am Prolonged QTc - recheck in am HTN - Olmesartan 40 mg daily Hyperlipidemia - Atorvastatin 20 mg daily Depressed mood/ Anxiety - Klonipin 0.5 mg bid Seizure disorder - Keppra 500 mg bid Chronic pain secondary to h/o fracture - cont oxycodone 5 mg IR qid, assessed on PDMP as the most recent rx DVT prophylaxis - SCD, Heparin q12 Attending addendum: I have physically seen this patient, have supervised the medical residents activities, and agree with the H&P unless as otherwise noted. Assessment and Plan: Metabolic encephalopathy/UTI/SIRS-- Follow urine culture and sensitivity Ceftriaxone 1 g IV daily IV fluids Repeat CBC with differential, BMP and magnesium level in a.m. Left bundle-branch block/prolonged QT/hypertension-- The patient will be admitted to telemetry for serial cardiac enzymes, cardiac rhythm monitoring and a 2-D echocardiogram with Dopplers. Continue olmesartan 40 mg by mouth daily. Hyperlipidemia-- Continue atorvastatin 20 mg by mouth daily Seizure disorder-- Continue Keppra 500 mg by mouth twice a day Level of Care Telemetry Advanced Directives Existing Advance Directive: No Existing Living Will: No Existing Power of Paint Spray Tender: No Resuscitation Status FULL RESUSCITATION VTE Prophylaxis VTE Risk Assessment Done? Y/N: Yes Risk Level: Moderate Given or contraindicated: Unfractionated heparin SQ, SCD's Social Service Consult None Apply Note Total Time: Critical Care 30 - 74 minutes Additional Copies To Ulises Chowdary M.D.
[2017-08-05] MEDS: LEVETIRACETAM 500 MG TAB PO SCH (22:52)
[2017-08-05] MEDS: CLONAZEPAM 0.5 MG TAB PO SCH (22:55)
[2017-08-05] MEDS: OXYCODONE HCL IR 5 MG TAB (IMMEDIATE RELEASE) PO SCH (22:56)
[2017-08-05] MEDS: CEFTRIAXONE SOD INJ 1 GM in DEXTROSE 5% ADD-VANTAGE 50ML 50 ML IV SCH (22:56)
[2017-08-05 23:34] VITALS: PULSE 79; TEMP 36.8; O2SAT 96
[2017-08-06] VITALS (9 sets, daily range): BP systolic 132–186; BP diastolic 74–84; PULSE 72–92; TEMP 36.3–36.9; O2SAT 95–99
[2017-08-06 08:23] LABS: BASO % 1.8 %; BASO ABS # 0.06 K/uL (0-0.2); COMPLETE YES; EOS % 3.4 %; HEMATOCRIT 31.4 % (37-47); LYMPH % 29.8 %; LYMPH ABS # 0.97 K/uL (1.2-3.4); MEAN CORPUSCULAR HEMOGLOBIN 32.5 pg (25-34); MEAN CORPUSCULAR HGB CONC 32.5 g/dl (32-36); MEAN PLATELET VOLUME 10.8 fL (7.4-10.4); MONO % 14.8 %; NEUT % 50.2 %; PLATELET COUNT 184 K/uL (130-400); RED BLOOD COUNT 3.14 M/uL (4.2-5.4); WHITE BLOOD COUNT 3.25 K/uL (4.8-10.8)
[2017-08-06 08:32] LABS: BUN/CREATININE RATIO 18.3 (10-20); CALCIUM 8.4 mg/dl (8.5-10.1); CREATININE 0.42 mg/dl (0.60-1.20); POTASSIUM 3.2 mmol/L (3.5-5.1)
[2017-08-06 08:33] LABS: CHOLESTEROL/HDL RATIO 1.6
[2017-08-06] MEDS: ASPIRIN 81 MG ECTAB PO SCH (08:34)
[2017-08-06] MEDS: CALCIUM 600MG + VIT D 400 IU TAB PO SCH (08:34)
[2017-08-06] MEDS: LEVETIRACETAM 500 MG TAB PO SCH ×2 (08:34→20:19)
[2017-08-06] MEDS: OXYCODONE HCL IR 5 MG TAB (IMMEDIATE RELEASE) PO SCH (08:34)
[2017-08-06] MEDS: CYANOCOBALAMIN 500 MCG TAB (VIT B-12) PO SCH (08:35)
[2017-08-06] MEDS: OLMESARTAN MEDOXOMIL 40 MG TAB PO SCH (08:35)
[2017-08-06] MEDS: ATORVASTATIN 20 MG TAB PO SCH (08:35)
[2017-08-06] MEDS: ASCORBIC ACID 500 MG TAB PO SCH (08:35)
[2017-08-06] MEDS: FERROUS SULFATE 325 MG TAB PO SCH (08:36)
[2017-08-06] MEDS: CLONAZEPAM 0.5 MG TAB PO SCH ×2 (08:40→20:19)
[2017-08-06] MEDS ORDERED: NON-FORMULARY MEDICATION (Cranberry (Vaccinium Macrocarp (Cranberry) 1 CAP) PO SCH (09:00)
[2017-08-06] MEDS ORDERED: LACTOBACILLUS ACIDOPHILUS (FLORANEX) TAB PO SCH (09:00)
[2017-08-06] MEDS ORDERED: MELOXICAM 7.5 MG TAB PO SCH (09:00)
[2017-08-06 09:04] LABS: ESTIMATED AVERAGE GLUCOSE 82 mg/dl; HA1C FLAG Normal (Normal)
--- NOTE | 2017-08-06 10:06 | ECHOCARDIOGRAM REPORT ---
*NOTICE TO RECEIVING DEMOCRAT AGENCY This information is strictly Confidential and protected under [place] law. [place] law prohibits you from making any further disclosure of this information unless further disclosure is expressly permitted by the written consent of the person to whom it pertains or is authorized by law. A general authorization for the release of medical or other information is not sufficient for this purpose. Hospital accepts no responsibility if the information is made available to any other person, INCLUDING THE PATIENT. Interpretation Summary * Name: SARA HARTMAN Study Date: 08/06/2017 07:17 AM BP: 145/74 mmHg * Patient Location: C.2T\S\S242\S\2 HR: 76 * : 1945 (M/d/yyyy) Gender: Female Height: 59 in * Age: 72 yrs Ethnicity: CA Weight: 108 lb * Ordering Physician: Kathleen Madera * Referring Physician: Self, Referred * Performed By: Amber Daniel RDCS * * Reason For Study: New LBBB, recent aphasia/ confusion * BSA: 1.4 m2 * -- Conclusions -- * Compared with 07/12/16 LASHANDA and 06/13/16 TTE , a small pericardial effusion is suggested on the current study, otherwise no significant change. * The left ventricle is normal in size. * Ejection Fraction = >70 %. * The left ventricle is hyperdynamic. * The left ventricular wall motion is normal. * There is mild concentric left ventricular hypertrophy. * Grade I diastolic dysfunction, (abnormal relaxation pattern). * There is moderate to severe mitral annular calcification. * There is mild mitral regurgitation. * There is mild to moderate mitral stenosis. * The left atrium is moderately dilated. * There is mild tricuspid regurgitation. * Right ventricular systolic pressure is normal. * Small pericardial effusion. Procedure Details * A complete two-dimensional transthoracic echocardiogram was performed (2D, M-mode, Doppler and color flow Doppler). Left Ventricle * The left ventricle is normal in size. * There is mild concentric left ventricular hypertrophy. * Ejection Fraction = >70 %. * The left ventricle is hyperdynamic. * The left ventricular wall motion is normal. Right Ventricle * The right ventricle is normal in size and function. Atria * The left atrium is moderately dilated. * Right atrial size is normal. * The interatrial septum is intact with no evidence for an atrial septal defect. Mitral Valve * There is moderate to severe mitral annular calcification. * There is mild to moderate mitral stenosis. * There is mild mitral regurgitation. Tricuspid Valve * The tricuspid valve is normal in structure and function. * There is mild tricuspid regurgitation. * Right ventricular systolic pressure is normal. Aortic Valve * The aortic valve is normal in structure and function. * There is no significant aortic regurgitation. Great Vessels * Ascending aorta of normal dimension * No obvious dissection could be visualized. * The pulmonary is not well visualized. Pericardium/Pleural * Small pericardial effusion. Great Vessels * Normal inferior vena cava diameter and respiratory variation suggests normal central venous pressure. Left Ventricular Diastolic Function * Grade I diastolic dysfunction, (abnormal relaxation pattern). MMode 2D Measurements and Calculations IVSd 0.93 cm LVIDd 2.4 cm LVIDs 1.5 cm LVPWd 1.1 cm IVS/LVPW 0.83 FS 37.2 % EDV(Teich) 20.4 ml ESV(Teich) 6.2 ml EF(Teich) 69.5 % EDV(cubed) 14.0 ml ESV(cubed) 3.5 ml EF(cubed) 75.2 % LV mass(C)d 63.4 grams LV mass(C)dI 44.7 grams/m\S\2 SV(Teich) 14.2 ml SI(Teich) 10.0 ml/m\S\2 SV(cubed) 10.5 ml SI(cubed) 7.4 ml/m\S\2 Ao root diam 3.0 cm Ao root area 6.9 cm\S\2 ACS 1.7 cm asc Aorta Diam 2.9 cm LVAd ap4 17.3 cm\S\2 LVLd ap4 6.8 cm EDV(MOD-sp4) 35.2 ml EDV(sp4-el) 37.0 ml LVAs ap4 8.2 cm\S\2 LVLs ap4 5.6 cm ESV(MOD-sp4) 10.9 ml ESV(sp4-el) 10.3 ml EF(MOD-sp4) 68.9 % EF(sp4-el) 72.2 % LVAd ap2 14.3 cm\S\2 LVLd ap2 5.6 cm EDV(MOD-sp2) 29.3 ml EDV(sp2-el) 31.4 ml LVAs ap2 7.0 cm\S\2 LVLs ap2 4.9 cm ESV(MOD-sp2) 8.7 ml ESV(sp2-el) 8.6 ml EF(MOD-sp2) 70.3 % EF(sp2-el) 72.6 % LVLd %diff -22.62 % EDV(MOD-bp) 35.5 ml LVLs %diff -14.25 % ESV(MOD-bp) 10.4 ml EF(MOD-bp) 70.7 % SV(MOD-sp4) 24.3 ml SI(MOD-sp4) 17.1 ml/m\S\2 SV(MOD-sp2) 20.6 ml SI(MOD-sp2) 14.5 ml/m\S\2 SV(MOD-bp) 25.1 ml SI(MOD-bp) 17.7 ml/m\S\2 SV(sp4-el) 26.8 ml SI(sp4-el) 18.9 ml/m\S\2 SV(sp2-el) 22.8 ml SI(sp2-el) 16.0 ml/m\S\2 Doppler Measurements and Calculations MV E max raffy 77.6 cm/sec MV A max raffy 138.7 cm/sec MV E/A 0.56 MV P1/2t max raffy 69.8 cm/sec MV P1/2t 117.5 msec MVA(P1/2t) 1.9 cm\S\2 MV dec slope 174.2 cm/sec\S\2 Ao V2 max 143.3 cm/sec Ao max PG 8.2 mmHg Ao max PG (full) 3.5 mmHg LV V1 max PG 4.7 mmHg LV V1 max 108.7 cm/sec PA V2 max 107.2 cm/sec PA max PG 4.6 mmHg PA acc slope 560.9 cm/sec\S\2 PA acc time 0.10 sec TR max raffy 239.8 cm/sec PA pr(Accel) 34.6 mmHg
[2017-08-06] MEDS: HydrALAZINE HCL 20 MG/ML VIAL IV. PRN (16:53)
--- NOTE | 2017-08-06 19:48 | Progress Note ---
Subjective Date of Service: Aug 06, 2017. Subjective Pt evaluation today including: conversation w/ patient, physical exam, chart review, lab review, review of studies (MRI brain, carotid duplex, echo), review of inpatient medication list Pain: denies PO Intake: passed swallow eval Voiding: incontinence tele stable overnight she remains sluggish with mild dysarthria she reports fatigue denies focal motor weakness Problem List Medical Problems: (1) Abnormal EKG Status: Acute (2) Accidental overdose Status: Acute (3) Altered mental status Status: Acute (4) Ambulatory dysfunction Status: Acute (5) Anxiety Status: Chronic (6) Contusion Status: Acute (7) Depressive Disorder Nec Status: Chronic (8) Encounter for removal of margarito Status: Acute (9) Expressive aphasia Status: Acute (10) Fall Status: Acute (11) Generalized weakness Status: Acute (12) Head injury, closed Status: Acute (13) Hypertension Status: Chronic (14) Hyponatremia Status: Acute (15) Medication side effects Status: Acute (16) Near syncope Status: Acute (17) Osteoporosis Status: Chronic (18) Poorly-controlled hypertension Status: Acute (19) Scalp laceration Status: Acute (20) Seizure Status: Acute (21) Seizure disorder Status: Chronic (22) UTI (urinary tract infection) Status: Acute (23) UTI (urinary tract infection) Status: Acute Review of Systems Constitutional: No fever Respiratory: No shortness of breath Cardiac: No chest pain Abdomen: No pain Objective Vital Signs Date Time Temp Pulse Resp B/P (MAP) Pulse Ox O2 Delivery O2 Flow Rate FiO2 08/06/17 16:00 Room Air 08/06/17 15:24 36.9 75 20 186/83 (117) 98 Room Air 08/06/17 12:00 Room Air 08/06/17 11:38 36.3 77 18 165/80 (108) 97 Room Air 08/06/17 10:16 72 96 08/06/17 08:30 36.9 75 18 170/79 (109) 95 Room Air 08/06/17 08:00 Room Air 08/06/17 04:36 97 Room Air 08/06/17 02:59 36.7 76 17 145/74 (97) 96 Room Air 08/06/17 01:27 162/82 (108) 08/06/17 00:00 97 Room Air 08/05/17 23:34 36.8 79 17 96 Room Air 08/05/17 22:17 36.7 79 14 100/46 Room Air 08/05/17 20:37 75 16 180/87 97 08/05/17 20:17 75 16 180/87 97 Room Air Physical Exam General Appearance: no apparent distress, + pertinent finding (dysarthric/slow speech) ENT: pharynx normal, + pertinent finding (no facial droop ) Neck: no JVD Respiratory/Chest: no respiratory distress, no accessory muscle use, + crackles (both bases) Cardiovascular: regular rate, rhythm, no gallop, + systolic murmur (2/6 LSB) Abdomen: normal bowel sounds, non tender, soft, no organomegaly, + pertinent finding (surgical scar midline abdomen - well healed) Extremities: no pedal edema Neurologic/Psychiatric: no motor/sensory deficits, alert, oriented x 3 Laboratory Results Last 24 Hours Test 08/06/17 01:25 08/06/17 07:17 08/06/17 10:47 Troponin I < 0.015 ng/ml < 0.015 ng/ml White Blood Count 3.25 K/uL Red Blood Count 3.14 M/uL Hemoglobin 10.2 g/dL Hematocrit 31.4 % Mean Corpuscular Volume 100.0 fL Mean Corpuscular Hemoglobin 32.5 pg Mean Corpuscular Hemoglobin Concent 32.5 g/dl Platelet Count 184 K/uL Mean Platelet Volume 10.8 fL Neutrophils (%) (Auto) 50.2 % Lymphocytes (%) (Auto) 29.8 % Monocytes (%) (Auto) 14.8 % Eosinophils (%) (Auto) 3.4 % Basophils (%) (Auto) 1.8 % Neutrophils # (Auto) 1.63 K/uL Lymphocytes # (Auto) 0.97 K/uL Monocytes # (Auto) 0.48 K/uL Eosinophils # (Auto) 0.11 K/uL Basophils # (Auto) 0.06 K/uL RDW Standard Deviation 48.4 fL RDW Coefficient of Variation 13.4 % Immature Granulocyte % (Auto) 0.0 % Immature Granulocyte # (Auto) 0.00 K/uL Sodium Level 141 mmol/L Potassium Level 3.2 mmol/L Chloride Level 105 mmol/L Carbon Dioxide Level 27 mmol/L Anion Gap 8.0 mmol/L Blood Urea Nitrogen 8 mg/dl Creatinine 0.42 mg/dl Est Creatinine Clear Calc Drug Dose 87.7 ml/min Estimated GFR () 119.5 Estimated GFR (Non- 103.1 BUN/Creatinine Ratio 18.3 Random Glucose 82 mg/dl Estimated Average Glucose 82 mg/dl Hemoglobin A1c 4.5 % Calcium Level 8.4 mg/dl Triglycerides Level 62 mg/dl Cholesterol Level 83 mg/dl HDL Cholesterol 51 mg/dl LDL Cholesterol, Calculated 20 mg/dl VLDL Cholesterol, Calculated 12 mg/dl Cholesterol/HDL Ratio 1.6 Assessment and Plan 72yo female - 1. ? of TIA - MRI brain negative for stroke. Carotids w/o ICA stenosis. ECHO w/o embolus. Tele thus far negative. I believe the speech issues - which have continued - is not from a neurological event but perhaps from metabolic (UTI) or toxic (narcotic) causes - see below. 2. GNR UTI - cont rocephin. 3. encephalopathy - metabolic and/or toxic - if metabolic should improve with Rx of UTI. Toxic - possibly from scheduled oxycodone (getting 5mg scheduled q6h). stop the oxycodone; change to NORCO PRN only 4. LBBB - although this is new she has no ischemic symptoms, echo is without wall motion abnormalities, and troponins are negative. Will follow. 5. recent SBO s/p ex lap - has made nice recovery from that surgery. 6. HTN - during previous stay her BPs were hard to control. She remains on ARB. Likely needs additional agent(s). Follow overnight and add meds tomorrow if necessary. 7. DVT proph - add heparin 5000 BID. 8. seizure d/o - continue keppra. If Mental status does not improve then check level to ensure no toxicity from such. 9. hypokalemia - replace, repeat level AM. PT, OT speech evals appreciated Continued [facility] stay due to: multiple IV medications needed
[2017-08-06] MEDS: HYDROCODONE/ACETAMOPHEN 5/325MG TAB PO PRN (20:19)
[2017-08-06] MEDS: LACTOBACILLUS ACIDOPHILUS (FLORANEX) TAB PO SCH (21:45)
[2017-08-06] MEDS: HEPARIN SOD 5000 UNIT/0.5 ML CARP SQ SCH (21:45)
[2017-08-06] MEDS: CEFTRIAXONE SOD INJ 1 GM in DEXTROSE 5% ADD-VANTAGE 50ML 50 ML IV SCH (21:53)
[2017-08-07] VITALS (9 sets, daily range): BP systolic 112–184; BP diastolic 65–95; PULSE 73–96; TEMP 36.2–36.9; O2SAT 92–98
[2017-08-07] MEDS: BOOST VANILLA PUDDING CUP PO SCH ×2 (07:00→13:58)
[2017-08-07 08:25] LABS: BUN/CREATININE RATIO 18.7 (10-20); CALCIUM 9.1 mg/dl (8.5-10.1); CREATININE 0.48 mg/dl (0.60-1.20); POTASSIUM 3.3 mmol/L (3.5-5.1)
[2017-08-07 08:28] LABS: HEMATOCRIT 36.4 % (37-47); MEAN CELL VOLUME 100.8 fL (80-100); MEAN CORPUSCULAR HEMOGLOBIN 33.5 pg (25-34); MEAN CORPUSCULAR HGB CONC 33.2 g/dl (32-36); MEAN PLATELET VOLUME 11.4 fL (7.4-10.4); PLATELET COUNT 198 K/uL (130-400); RED BLOOD COUNT 3.61 M/uL (4.2-5.4); WHITE BLOOD COUNT 5.19 K/uL (4.8-10.8)
[2017-08-07 08:30] LABS: BASO ABS # 0.05 K/uL (0-0.2); COMPLETE YES; EOS % 3.1 %; IG% 0.2 %; LYMPH % 17.7 %; LYMPH ABS # 0.92 K/uL (1.2-3.4); MONO % 10.2 %; NEUT % 67.8 %
[2017-08-07 09:27] LABS: VEN BLD GAS O2 SATURATION 62.2 %; VEN BLOOD GAS BASE EXCESS 2.1 mEq/L
[2017-08-07] MEDS: D5NSS + 20MEQ KCL 1,000 ML IV SCH (10:02)
[2017-08-07] MEDS: POTASSIUM CHLR 10 MEQ / WTR 10 MEQ in PREMIXED WATER 100 ML IV SCH ×2 (10:03→11:19)
[2017-08-07] MEDS: CALCIUM 600MG + VIT D 400 IU TAB PO SCH (10:07)
[2017-08-07] MEDS: ASPIRIN 81 MG ECTAB PO SCH (10:07)
[2017-08-07] MEDS: LACTOBACILLUS ACIDOPHILUS (FLORANEX) TAB PO SCH ×3 (10:07→21:10)
[2017-08-07] MEDS: ATORVASTATIN 20 MG TAB PO SCH (10:07)
[2017-08-07] MEDS: FERROUS SULFATE 325 MG TAB PO SCH (10:08)
[2017-08-07] MEDS: METOPROLOL TARTRATE 25 MG TAB PO SCH ×2 (10:08→21:26)
[2017-08-07] MEDS: CYANOCOBALAMIN 500 MCG TAB (VIT B-12) PO SCH (10:08)
[2017-08-07] MEDS: OLMESARTAN MEDOXOMIL 40 MG TAB PO SCH (10:08)
[2017-08-07] MEDS: ASCORBIC ACID 500 MG TAB PO SCH (10:09)
[2017-08-07] MEDS: LEVETIRACETAM 500 MG TAB PO SCH ×2 (10:09→21:12)
[2017-08-07] MEDS: HEPARIN SOD 5000 UNIT/0.5 ML CARP SQ SCH ×2 (10:10→21:13)
[2017-08-07] MEDS: CLONAZEPAM 0.5 MG TAB PO SCH ×2 (10:12→21:08)
[2017-08-07] MEDS: HYDROCODONE/ACETAMOPHEN 5/325MG TAB PO PRN (10:20)
[2017-08-07] MEDS: HydrALAZINE HCL 20 MG/ML VIAL IV. PRN (16:59)
[2017-08-07] MEDS: CEPHALEXIN MONOHYDRATE 500 MG CAP PO SCH (21:26)
--- NOTE | 2017-08-07 22:31 | Progress Note ---
Subjective Date of Service: Aug 07, 2017. Subjective Pt evaluation today including: conversation w/ patient, conversation w/ family (daughter at bedside), physical exam, chart review, lab review, review of inpatient medication list Pain: denies any during my visit PO Intake: made NPO by staff due to concerns of dysphagia Voiding: incontinence, voiding difficulty tele stable overnight daughter feels that confusion IS better than yesterday and certainly much better than on the day of presentation she continues with slurry, soft-pitched speech no focal motor deficits she knows she is in the hospital and that it is Harvinder no obvious seizure activity daughter reports that after the patient's brain injury she has had speech and swallow difficulties since then Problem List Medical Problems: (1) Abnormal EKG Status: Acute (2) Accidental overdose Status: Acute (3) Altered mental status Status: Acute (4) Ambulatory dysfunction Status: Acute (5) Anxiety Status: Chronic (6) Contusion Status: Acute (7) Depressive Disorder Nec Status: Chronic (8) Encounter for removal of margarito Status: Acute (9) Expressive aphasia Status: Acute (10) Fall Status: Acute (11) Generalized weakness Status: Acute (12) Head injury, closed Status: Acute (13) Hypertension Status: Chronic (14) Hyponatremia Status: Acute (15) Medication side effects Status: Acute (16) Near syncope Status: Acute (17) Osteoporosis Status: Chronic (18) Poorly-controlled hypertension Status: Acute (19) Scalp laceration Status: Acute (20) Seizure Status: Acute (21) Seizure disorder Status: Chronic (22) UTI (urinary tract infection) Status: Acute (23) UTI (urinary tract infection) Status: Acute Review of Systems Constitutional: No fever Respiratory: No cough, No shortness of breath Cardiac: No chest pain Abdomen: No pain Objective Vital Signs Date Time Temp Pulse Resp B/P (MAP) Pulse Ox O2 Delivery O2 Flow Rate FiO2 08/07/17 19:14 36.6 91 23 129/65 (86) 96 Room Air 08/07/17 17:34 112/66 (81) 08/07/17 16:53 36.2 73 21 184/95 (124) 96 Room Air 08/07/17 16:00 Room Air 08/07/17 12:05 Room Air 08/07/17 11:51 36.7 75 16 171/90 (117) 98 08/07/17 08:10 Room Air 08/07/17 07:44 36.9 86 16 158/75 (102) 92 Room Air 08/07/17 04:09 Room Air 08/07/17 03:57 36.7 96 21 173/83 (113) 97 Room Air 08/07/17 00:17 36.8 80 19 154/78 (103) 95 Room Air 08/07/17 00:00 Room Air Physical Exam General Appearance: no apparent distress, + cachetic, + thin ENT: + pertinent finding (MM very dry; speech dysarthric) Neck: no JVD Respiratory/Chest: lungs clear, no respiratory distress, no accessory muscle use Cardiovascular: regular rate, rhythm, no gallop Abdomen: normal bowel sounds, non tender, soft, no organomegaly Extremities: no pedal edema Neurologic/Psychiatric: no motor/sensory deficits, alert, oriented x 3 Laboratory Results Last 24 Hours Test 08/07/17 07:21 08/07/17 09:06 White Blood Count 5.19 K/uL Red Blood Count 3.61 M/uL Hemoglobin 12.1 g/dL Hematocrit 36.4 % Mean Corpuscular Volume 100.8 fL Mean Corpuscular Hemoglobin 33.5 pg Mean Corpuscular Hemoglobin Concent 33.2 g/dl Platelet Count 198 K/uL Mean Platelet Volume 11.4 fL Neutrophils (%) (Auto) 67.8 % Lymphocytes (%) (Auto) 17.7 % Monocytes (%) (Auto) 10.2 % Eosinophils (%) (Auto) 3.1 % Basophils (%) (Auto) 1.0 % Neutrophils # (Auto) 3.52 K/uL Lymphocytes # (Auto) 0.92 K/uL Monocytes # (Auto) 0.53 K/uL Eosinophils # (Auto) 0.16 K/uL Basophils # (Auto) 0.05 K/uL RDW Standard Deviation 49.4 fL RDW Coefficient of Variation 13.5 % Immature Granulocyte % (Auto) 0.2 % Immature Granulocyte # (Auto) 0.01 K/uL Sodium Level 139 mmol/L Potassium Level 3.3 mmol/L Chloride Level 103 mmol/L Carbon Dioxide Level 26 mmol/L Anion Gap 9.0 mmol/L Blood Urea Nitrogen 9 mg/dl Creatinine 0.48 mg/dl Est Creatinine Clear Calc Drug Dose 74.5 ml/min Estimated GFR () 114.4 Estimated GFR (Non- 98.7 BUN/Creatinine Ratio 18.7 Random Glucose 83 mg/dl Calcium Level 9.1 mg/dl Venous Blood pH 7.42 Venous Blood Partial Pressure CO2 42 mmHg Venous Blood Partial Pressure O2 33 mmHg Venous Blood HCO3 27 mmol/L Venous Blood Oxygen Saturation 62.2 % Venous Blood Base Excess 2.1 mEq/L Ammonia 10.0 umol/L Assessment and Plan 72yo female - 1. ? of TIA - MRI brain negative for stroke. Carotids w/o ICA stenosis. ECHO w/o embolus. Tele negative for a.fib. Speech issues continue - no better, no worse. Could be metabolic (UTI) or toxic (narcotic) in origin. Will follow carefully. 2. klebsiella UTI - day #3 of abx. d/c rocephin, change to keflex 500mg BID. complete 7 days of total therapy. 3. encephalopathy - metabolic and/or toxic - improving albeit slowly. 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 Check ammonia & VBG to be complete. Check EEG to exclude subclinical seizures. 4. LBBB - although this is new she has no ischemic symptoms, echo is without wall motion abnormalities, and troponins are negative. Will follow. 5. recent SBO s/p ex lap - has made nice recovery from that surgery. 6. HTN - uncontrolled; add metoprolol 25mg BID. 7. DVT proph - heparin 5000 BID. 8. seizure d/o - continue keppra. Check level, r/o keppra toxicity contributing to mental status. 9. hypokalemia - replace again, repeat level in AM. PT, OT speech evals appreciated dispo - unclear Continued [facility] stay due to: multiple IV medications needed Discharge planning: uncertain
[2017-08-08] VITALS (8 sets, daily range): BP systolic 127–193; BP diastolic 72–87; PULSE 76–91; TEMP 36.3–37.1; O2SAT 93–99
[2017-08-08] MEDS: D5NSS + 20MEQ KCL 1,000 ML IV SCH (00:34)
[2017-08-08 08:22] LABS: BUN/CREATININE RATIO 20.8 (10-20); CALCIUM 8.8 mg/dl (8.5-10.1); CREATININE 0.42 mg/dl (0.60-1.20); MAGNESIUM 2.1 mg/dl (1.8-2.4); POTASSIUM 4.7 mmol/L (3.5-5.1)
[2017-08-08] MEDS: BOOST VANILLA PUDDING CUP PO SCH ×2 (08:46→14:00)
[2017-08-08] MEDS: HydrALAZINE HCL 20 MG/ML VIAL IV. PRN (08:46)
[2017-08-08] MEDS: ASPIRIN 81 MG ECTAB PO SCH (08:48)
[2017-08-08] MEDS: ATORVASTATIN 20 MG TAB PO SCH (08:48)
[2017-08-08] MEDS: CALCIUM 600MG + VIT D 400 IU TAB PO SCH (08:48)
[2017-08-08] MEDS: CEPHALEXIN MONOHYDRATE 500 MG CAP PO SCH ×2 (08:49→20:35)
[2017-08-08] MEDS: CYANOCOBALAMIN 500 MCG TAB (VIT B-12) PO SCH (08:49)
[2017-08-08] MEDS: LACTOBACILLUS ACIDOPHILUS (FLORANEX) TAB PO SCH ×3 (08:49→20:34)
[2017-08-08] MEDS: METOPROLOL TARTRATE 25 MG TAB PO SCH ×2 (08:49→20:34)
[2017-08-08] MEDS: FERROUS SULFATE 325 MG TAB PO SCH (08:49)
[2017-08-08] MEDS: LEVETIRACETAM 500 MG TAB PO SCH ×2 (08:50→20:35)
[2017-08-08] MEDS: OLMESARTAN MEDOXOMIL 40 MG TAB PO SCH (08:50)
[2017-08-08] MEDS: ASCORBIC ACID 500 MG TAB PO SCH (08:50)
[2017-08-08] MEDS: HEPARIN SOD 5000 UNIT/0.5 ML CARP SQ SCH ×2 (08:51→20:36)
[2017-08-08] MEDS: CLONAZEPAM 0.5 MG TAB PO SCH ×2 (09:01→20:34)
--- NOTE | 2017-08-08 13:16 | EEG Procedure Note ---
EEG Procedure Note Date of Service Aug 08, 2017. Start / End Times Start Time: 8:17 AM End Time: 8:37 AM Referring Physician David Castillo History This is a 72-year-old female with history of epilepsy. Presents with altered mental status. EEG for further evaluation possible seizure etiology. Home Medication List Scheduled Ascorbic Acid (Ascorbic Acid), 1,000 MG PO DAILY Aspirin (Aspirin), 81 MG PO DAILY Atorvastatin (Lipitor), 20 MG PO DAILY Calcium Carbonate-Vitamin D (Calcium 500 + D), 1 TAB PO DAILY Clonazepam (Klonopin), 0.5 MG PO BID Cranberry (Vaccinium Macrocarp (Cranberry), 1 CAP PO DAILY Cyanocobalamin (Vitamin B-12), 1,000 MCG PO QAM Ferrous Sulfate (Kp Ferrous Sulfate), 325 MG PO DAILY Folic Acid (Folic Acid), 1 MG PO DAILY Lactobacillus (Probiotic), 1 CAP PO DAILY Levetiracetam (Keppra), 500 MG PO BID Meloxicam (Mobic), 15 MG PO DAILY Olmesartan Medoxomil (Benicar), 40 MG PO DAILY Oxycodone Ir (Roxicodone Ir), 5 MG PO QID Zoledronic Acid (Reclast), 5 MG INJ YEARLY Inpatient Medication List Current Inpatient Medications Medications (Trade) Dose Ordered Sig/Ba Route Start Time Stop Time Status Last Admin Dose Admin Acetaminophen (Tylenol Tab) 650 mg Q4H PRN PO 08/05/17 20:15 09/04/17 20:14 Magnesium Hydroxide (Milk Of Magnesia Susp) 30 ml Q12H PRN PO 08/05/17 20:15 09/04/17 20:14 Ondansetron HCl (Zofran Inj) 4 mg Q6H PRN IV 08/05/17 20:15 09/04/17 20:14 Nitroglycerin (Nitrostat Tab) 0.4 mg UD PRN SL 08/05/17 20:15 09/04/17 20:14 Morphine Sulfate (MoRPHine SULFATE INJ) 2 mg Q30M PRN IV 08/05/17 20:15 08/19/17 20:14 Miscellaneous Information (Pharmacist Discharge Med Rec Consult) 1 ea UD PRN N/A 08/05/17 20:15 09/04/17 20:14 Aspirin (Ecotrin Tab) 81 mg DAILY PO 08/06/17 09:00 09/05/17 08:59 08/08/17 08:48 81 MG Atorvastatin Calcium (Lipitor Tab) 20 mg DAILY PO 08/06/17 09:00 09/05/17 08:59 08/08/17 08:48 20 MG Clonazepam (Klonopin Tab) 0.5 mg BID PO 08/05/17 21:00 09/04/17 20:59 08/08/17 09:01 0.5 MG Cyanocobalamin (Vitamin B-12 Tab) 1,000 mcg QAM PO 08/06/17 09:00 09/05/17 08:59 08/08/17 08:49 1,000 MCG Folic Acid (Folvite Tab) 1 mg DAILY PO 08/06/17 09:00 09/05/17 08:59 08/08/17 08:50 1 MG Levetiracetam (Keppra Tab) 500 mg BID PO 08/05/17 21:00 09/04/17 20:59 08/08/17 08:50 500 MG Olmesartan (Benicar Tab) 40 mg DAILY PO 08/06/17 09:00 09/05/17 08:59 08/08/17 08:50 40 MG Ascorbic Acid (Vitamin C Tab) 1,000 mg DAILY PO 08/06/17 09:00 09/05/17 08:59 08/08/17 08:50 1,000 MG Calcium/Vitamin D (Caltrate Plus Tab) 1 tab DAILY PO 08/06/17 09:00 09/05/17 08:59 08/08/17 08:48 1 TAB Ferrous Sulfate (Feosol Tab) 325 mg DAILY PO 08/06/17 09:00 09/05/17 08:59 08/08/17 08:49 325 MG Gadobutrol (Gadavist) 4.5 mmol UD PRN IV 08/05/17 21:45 08/09/17 21:44 Hydralazine HCl (HydrALAZINE INJ) 5 mg QID PRN IV. 08/05/17 22:30 09/04/17 22:29 08/08/17 08:46 5 MG Metoprolol Tartrate (Lopressor Iv) 5 mg Q4 PRN IV 08/05/17 22:30 09/04/17 22:29 Acetaminophen/ Hydrocodone Bitart ([place] 5/325 Tab) 1 tab Q6H PRN PO 08/06/17 10:15 08/20/17 10:14 08/07/17 10:20 1 TAB Enteral Nutritional Formula (Boost Pudding) 1 cup [id number] PO 08/07/17 07:00 09/06/17 06:59 08/08/17 08:46 1 CUP Lactobacillus Acidophilus (Floranex Tab) 3 tab TID PO 08/06/17 21:00 09/05/17 08:59 08/08/17 08:49 3 TAB Heparin Sodium (Porcine) (Heparin Sq 5000 Unit/0.5ml) 5,000 unit Q12 SQ 08/06/17 21:00 09/05/17 20:59 08/08/17 08:51 5,000 UNIT Cephalexin Monohydrate (Keflex Cap) 500 mg BID PO 08/07/17 21:00 08/12/17 20:59 08/08/17 08:49 500 MG Metoprolol Tartrate (Lopressor Tab) 25 mg BID PO 08/07/17 09:00 09/06/17 08:59 08/08/17 08:49 25 MG Potassium Chloride/Dextrose/ Sod Cl 1,000 ml @ 75 mls/hr [id number] IV 08/07/17 09:45 09/06/17 09:44 08/08/17 00:34 75 MLS/HR Description This is a 21 electrode EEG with a single channel dedicated to limited EKG. The electrodes were placed in accordance with the International 10-20 system. At the start of this recording the patient was in reported altered mental status. Background was poorly organized with a poorly formed anterior to posterior gradient. Background was composed of moderate amplitude predominantly 7-8 Hz theta frequencies with intermixed alpha/beta frequencies. There was mild near continuous slowing over the right hemisphere maximal in the right temporal area. Hyperventilation and photic stimulation were not done. There was no state changes or sleep transients. Interpretation This is an abnormal routine EEG secondary to: 1) near continuous right hemispheric slowing 2) mild to moderate background disorganization and slowing There was no epileptiform discharges or electrographic seizures. Clinical Correlation This EEG indicates: 1) functional or structural cerebral dysfunction over the right hemisphere 2) mild to moderate encephalopathy of nonspecific etiology.
--- NOTE | 2017-08-08 14:03 | Hospitalist Progress Note ---
Hospitalist Progress Note Date of Service Aug 08, 2017. (Lauren Ryan ., ADINA) Subjective Pt evaluation today including: conversation w/ patient, physical exam, chart review, lab review, review of inpatient medication list Voiding: no voiding problems Ms. Rollins appears much weaker and fragile than when she was here in June. She has a trouble with talking loud enough to be understood but she feels her speech has improved. ROS Constitutional: no chills, aches, sweats or fever Respiratory: no sob,cough, sputum, or wheezing Cardiac: no chest pain, palpitations, edema, orthopnea or lightheadedness GI: no abdominal pain, nausea, vomiting, diarrhea or constipation : no dysuria or hesitancy Extremities: very weak generally Skin: no rash All Other Systems: Reviewed and Negative (Lauren Ryan CRNP) Medications Medications Administered Medications (Trade) Dose Ordered Sig/Ba Route Start Time Stop Time Status Last Admin Dose Admin Labetalol HCl (Normodyne IV) 5 mg STK-MED ONCE IV 08/05/17 17:49 08/05/17 17:50 DC 08/05/17 17:49 10 MG Aspirin (Ecotrin Tab) 81 mg DAILY PO 08/06/17 09:00 09/05/17 08:59 08/08/17 08:48 81 MG Atorvastatin Calcium (Lipitor Tab) 20 mg DAILY PO 08/06/17 09:00 09/05/17 08:59 08/08/17 08:48 20 MG Clonazepam (Klonopin Tab) 0.5 mg BID PO 08/05/17 21:00 09/04/17 20:59 08/08/17 09:01 0.5 MG Cyanocobalamin (Vitamin B-12 Tab) 1,000 mcg QAM PO 08/06/17 09:00 09/05/17 08:59 08/08/17 08:49 1,000 MCG Folic Acid (Folvite Tab) 1 mg DAILY PO 08/06/17 09:00 09/05/17 08:59 08/08/17 08:50 1 MG Levetiracetam (Keppra Tab) 500 mg BID PO 08/05/17 21:00 09/04/17 20:59 08/08/17 08:50 500 MG Olmesartan (Benicar Tab) 40 mg DAILY PO 08/06/17 09:00 09/05/17 08:59 08/08/17 08:50 40 MG Ascorbic Acid (Vitamin C Tab) 1,000 mg DAILY PO 08/06/17 09:00 09/05/17 08:59 08/08/17 08:50 1,000 MG Calcium/Vitamin D (Caltrate Plus Tab) 1 tab DAILY PO 08/06/17 09:00 09/05/17 08:59 08/08/17 08:48 1 TAB Ferrous Sulfate (Feosol Tab) 325 mg DAILY PO 08/06/17 09:00 09/05/17 08:59 08/08/17 08:49 325 MG Lactobacillus Acidophilus (Floranex Tab) 1 tab DAILY PO 08/06/17 09:00 08/06/17 19:49 DC 08/06/17 08:35 1 TAB Oxycodone HCl (Roxicodone Immediate Rel Tab) 5 mg QID PO 08/05/17 21:00 08/06/17 10:08 DC 08/06/17 08:34 5 MG Ceftriaxone Sodium 1 gm/ Dextrose 50 ml @ 100 mls/hr Q24H IV 08/05/17 22:00 08/07/17 07:41 DC 08/06/17 21:53 100 MLS/HR Hydralazine HCl (HydrALAZINE INJ) 5 mg QID PRN IV. 08/05/17 22:30 09/04/17 22:29 08/08/17 08:46 5 MG Acetaminophen/ Hydrocodone Bitart ([place] 5/325 Tab) 1 tab Q6H PRN PO 08/06/17 10:15 08/20/17 10:14 08/07/17 10:20 1 TAB Enteral Nutritional Formula (Boost Pudding) 1 cup [id number] PO 08/07/17 07:00 09/06/17 06:59 08/08/17 08:46 1 CUP Lactobacillus Acidophilus (Floranex Tab) 3 tab TID PO 08/06/17 21:00 09/05/17 08:59 08/08/17 08:49 3 TAB Heparin Sodium (Porcine) (Heparin Sq 5000 Unit/0.5ml) 5,000 unit Q12 SQ 08/06/17 21:00 09/05/17 20:59 08/08/17 08:51 5,000 UNIT Cephalexin Monohydrate (Keflex Cap) 500 mg BID PO 08/07/17 21:00 08/12/17 20:59 08/08/17 08:49 500 MG Metoprolol Tartrate (Lopressor Tab) 25 mg BID PO 08/07/17 09:00 09/06/17 08:59 08/08/17 08:49 25 MG Potassium Chloride 10 meq/ Prmx 100 ml @ 100 mls/hr Q1H IV 08/07/17 09:00 08/07/17 10:59 DC 08/07/17 11:19 100 MLS/HR Potassium Chloride/Dextrose/ Sod Cl 1,000 ml @ 75 mls/hr [id number] IV 08/07/17 09:45 09/06/17 09:44 08/08/17 00:34 75 MLS/HR (Lauren Ryan, ADINA) Objective Vital Signs Date Time Temp Pulse Resp B/P (MAP) Pulse Ox O2 Delivery O2 Flow Rate FiO2 08/08/17 12:00 Room Air 08/08/17 11:04 36.6 76 18 127/72 (90) 98 Room Air 08/08/17 08:00 Room Air 08/08/17 07:30 36.5 77 18 193/75 (114) 98 Room Air 08/08/17 04:00 96 Room Air 08/08/17 04:00 36.6 14 176/80 (112) 97 Room Air 08/08/17 00:05 96 Room Air 08/07/17 23:01 36.4 80 24 156/73 (100) 97 Room Air 08/07/17 20:00 96 Room Air 08/07/17 19:14 36.6 91 23 129/65 (86) 96 Room Air 08/07/17 17:34 112/66 (81) 08/07/17 16:53 36.2 73 21 184/95 (124) 96 Room Air 08/07/17 16:00 Room Air (Lauren Ryan, ADINA) Physical Exam Notes: General: no distress Eyes: normal inspection, PERLL Respiratory: chest non tender, clear to auscultation, normal breath sounds, no respiratory distress, no accessory muscle use Cardiac: regular rate and rhythm, no rub or gallop, no murmur, no edema, no jvd GI/: active bowel sounds, no abd pain or tenderness, soft, non distended Extremities: normal range of motion, very weak generally, non tender Neuro/Psych: alert and oriented x 1 to self, normal mood and affect, slurred speech Skin: normal color, dry (Lauren Ryan CRNP) Laboratory Results Last 24 Hours Test 08/08/17 07:42 Sodium Level 140 mmol/L Potassium Level 4.7 mmol/L Chloride Level 109 mmol/L Carbon Dioxide Level 19 mmol/L Anion Gap 11.0 mmol/L Blood Urea Nitrogen 9 mg/dl Creatinine 0.42 mg/dl Est Creatinine Clear Calc Drug Dose 92.1 ml/min Estimated GFR () 119.5 Estimated GFR (Non- 103.1 BUN/Creatinine Ratio 20.8 Random Glucose 104 mg/dl Calcium Level 8.8 mg/dl Magnesium Level 2.1 mg/dl Chemistry Specimen Hemolysis (Lauren Ryan CRNP) Assessment and Plan Ms. Rollins is a 72 year old woman here for encephalopathy and UTI ?Metabolic encephalopathy secondary to uti vs seizure disorder vs CVA vs opioid overdose - MRI did not have any acute findings and carotid USG was WNL - EEG showed near continuous right hemispheric slowing and mild to moderate background disorganization and slowing - consult neurology - Keppra level pending - QID oxycodone discontinued - continue nectar thick liquids and aspiration precautions per speech therapy Klebsiella UTI - Keflex - abx therapy started 08/05 new LBBB on EKG - repeat EKG continued to show LBBB - troponin negative x3 - echo no wma, EF 70% - continue to monitor on tele Prolonged QTc - repeat EKG - electrolytes within normal limits HTN - Olmesartan 40 mg daily - metoprolol added 08/07 Hyperlipidemia - Atorvastatin 20 mg daily Depressed mood/ Anxiety - Klonipin 0.5 mg bid Seizure disorder - Keppra 500 mg bid Chronic pain secondary to h/o fracture - prn morphine Hypokalemia - resolved DVT prophylaxis - SCD, Heparin q12 (Lauren Ryan CRNP) Attending Attestation: Pt seen/examined, chart reviewed, care plan d/w ADINA Ryan. I agree w/ the [place] components of her documentation. Pt with continued dysarthric, weak speech/phonation. Continues with difficulty swallowing. Very weak when trying to stand. No obvious seizure activity. Tele stable and w/o arrhythmia. Daughter at bedside - she agrees her mother's mental status is ok but speech is NOT at baseline. Pt reports a fall - unwitnessed - at home 1-2 weeks ago. VSS, BPs elevated no fever gen - awake, alert, but VERY weak mouth - MM dry neck - no JVD heart - RRR, 2/6 KATHLEEN LLSB lungs - CTA b/l abd - soft, NT ext - no edema neuro - intrinsic muscle wasting both hands; hyper-reflexic both upper extremities; patellar reflexes not as brisk as upper ext's; handgrip 5/5 b/l; dorsi- and plantar-flexion of feet/ankles 5/5; hip flexion and shoulder movements with weakness, /5; speech - dysarthric psych - "2016", "August", "hospital" CT neck - old compression Fx, no acute fracture EEG - no seizure focus, encephalopathy A/P: 1. UTI - day #3 - transition to PO keflex. 2. chronic pain syndrome - changed from oxycodone to PRN hydrocodone - despite such there has been no change in slurred speech 3. profound weakness - generalized, but worse proximal muscle groups - recent CPK, TSH wnl; check sed rate in AM; MRI brain neg for acute stroke; old encephalomalacia, temporal on right - no change 4. dysarthric speech - I am unclear as to the exact etiology of such -- the speech is best in the AM, worsens as the day goes on; I am not sure if it is connected to #3 in some way but I cannot think of a specific etiology that would tie all issues together (myasthenia??) I have requested neuro consult 5. seizure d/o - keppra level pending; cont keppra same dose 6. uncontrolled HTN - adjust meds 7. recent fall - CT neck without acute fracture 8. dysphagia - speech following, diet modified daughter extensively updated at bedside angel Castillo MD (David Castillo MD)
[2017-08-08] MEDS: D5W AND NSS 1,000 ML IV SCH (17:26)
--- NOTE | 2017-08-08 18:21 | DIAGNOSTIC IMAGING REPORT ---
CT OF THE CERVICAL SPINE CLINICAL HISTORY: Bilateral upper and lower extremity weakness. COMPARISON STUDY: 01/21/2017 CT DOSE: 348.61 mGy.cm TECHNIQUE: CT scan of the cervical spine was performed from the skull base to the thoracic inlet. Images are reviewed in the axial, sagittal, and coronal planes. IV contrast was not administered for this examination. A dose lowering technique was utilized adhering to the principles of ALARA. FINDINGS: There are postsurgical changes of a right temporal craniotomy. There is no pneumothorax. No acute fractures or traumatic subluxations are visualized. There is an old superior endplate T1 compression deformity. There is a probable small C3-4 disc protrusion/bulge. There are multilevel degenerative changes. There are nonspecific C5 and C6 lytic foci, unchanged the prior study, and possibly on a discogenic basis. This study is in adequate for evaluation of cord pathology. If there is clinical concern over the presence of a cord lesion given the history of upper lower extremity weakness, an MRI would be recommended as appropriate examination IMPRESSION: 1. No change from the preceding study 2. Old superior endplate T1 compression deformity 3. No acute fractures or traumatic subluxations identified Electronically signed by: Anthony Chavarria M.D. 08/08/2017 6:20 PM Dictated Date/Time: 08/08/2017 6:11 PM
[2017-08-09] VITALS (8 sets, daily range): BP systolic 154–177; BP diastolic 68–84; PULSE 66–95; TEMP 36.3–37; O2SAT 95–98
[2017-08-09] MEDS: D5W AND NSS 1,000 ML IV SCH ×2 (06:38→22:26)
[2017-08-09] MEDS: BOOST VANILLA PUDDING CUP PO SCH ×3 (07:50→17:00)
[2017-08-09] MEDS: LACTOBACILLUS ACIDOPHILUS (FLORANEX) TAB PO SCH ×3 (08:24→22:19)
[2017-08-09] MEDS: METOPROLOL TARTRATE 25 MG TAB PO SCH ×2 (08:24→22:19)
[2017-08-09] MEDS: ASPIRIN 81 MG ECTAB PO SCH (08:28)
[2017-08-09] MEDS: ATORVASTATIN 20 MG TAB PO SCH (08:28)
[2017-08-09] MEDS: FERROUS SULFATE 325 MG TAB PO SCH (08:28)
[2017-08-09] MEDS: OLMESARTAN MEDOXOMIL 40 MG TAB PO SCH (08:28)
[2017-08-09] MEDS: CALCIUM 600MG + VIT D 400 IU TAB PO SCH (08:28)
[2017-08-09] MEDS: CEPHALEXIN MONOHYDRATE 500 MG CAP PO SCH (08:28)
[2017-08-09] MEDS: LEVETIRACETAM 500 MG TAB PO SCH ×2 (08:28→22:19)
[2017-08-09] MEDS: CYANOCOBALAMIN 500 MCG TAB (VIT B-12) PO SCH (08:28)
[2017-08-09] MEDS: ASCORBIC ACID 500 MG TAB PO SCH (08:29)
[2017-08-09] MEDS: CLONAZEPAM 0.5 MG TAB PO SCH ×2 (08:33→22:18)
[2017-08-09] MEDS: HEPARIN SOD 5000 UNIT/0.5 ML CARP SQ SCH ×2 (08:38→22:26)
--- NOTE | 2017-08-09 11:15 | Hospitalist Progress Note ---
Hospitalist Progress Note Date of Service Aug 09, 2017. (Lauren Ryan .ADINA) Subjective Pt evaluation today including: conversation w/ patient, physical exam, chart review, lab review, review of inpatient medication list Voiding: no voiding problems Ms. Rollins continues to be very weak with garbled speech. She reports having some back pain. ROS Constitutional: no chills, aches, sweats or fever Respiratory: no sob,cough, sputum, or wheezing Cardiac: no chest pain, palpitations, edema, orthopnea or lightheadedness GI: no abdominal pain, nausea, vomiting, diarrhea or constipation : no dysuria or hesitancy Extremities: see HPI Skin: no rash All Other Systems: Reviewed and Negative (Lauren Ryan CRNP) Medications Medications Administered Medications (Trade) Dose Ordered Sig/Ba Route Start Time Stop Time Status Last Admin Dose Admin Labetalol HCl (Normodyne IV) 5 mg STK-MED ONCE IV 08/05/17 17:49 08/05/17 17:50 DC 08/05/17 17:49 10 MG Aspirin (Ecotrin Tab) 81 mg DAILY PO 08/06/17 09:00 09/05/17 08:59 08/09/17 08:28 81 MG Atorvastatin Calcium (Lipitor Tab) 20 mg DAILY PO 08/06/17 09:00 09/05/17 08:59 08/09/17 08:28 20 MG Clonazepam (Klonopin Tab) 0.5 mg BID PO 08/05/17 21:00 09/04/17 20:59 08/09/17 08:33 0.5 MG Cyanocobalamin (Vitamin B-12 Tab) 1,000 mcg QAM PO 08/06/17 09:00 09/05/17 08:59 08/09/17 08:28 1,000 MCG Folic Acid (Folvite Tab) 1 mg DAILY PO 08/06/17 09:00 09/05/17 08:59 08/09/17 08:28 1 MG Levetiracetam (Keppra Tab) 500 mg BID PO 08/05/17 21:00 09/04/17 20:59 08/09/17 08:28 500 MG Olmesartan (Benicar Tab) 40 mg DAILY PO 08/06/17 09:00 09/05/17 08:59 08/09/17 08:28 40 MG Ascorbic Acid (Vitamin C Tab) 1,000 mg DAILY PO 08/06/17 09:00 09/05/17 08:59 08/09/17 08:29 1,000 MG Calcium/Vitamin D (Caltrate Plus Tab) 1 tab DAILY PO 08/06/17 09:00 09/05/17 08:59 08/09/17 08:28 1 TAB Ferrous Sulfate (Feosol Tab) 325 mg DAILY PO 08/06/17 09:00 09/05/17 08:59 08/09/17 08:28 325 MG Lactobacillus Acidophilus (Floranex Tab) 1 tab DAILY PO 08/06/17 09:00 08/06/17 19:49 DC 08/06/17 08:35 1 TAB Oxycodone HCl (Roxicodone Immediate Rel Tab) 5 mg QID PO 08/05/17 21:00 08/06/17 10:08 DC 08/06/17 08:34 5 MG Ceftriaxone Sodium 1 gm/ Dextrose 50 ml @ 100 mls/hr Q24H IV 08/05/17 22:00 08/07/17 07:41 DC 08/06/17 21:53 100 MLS/HR Hydralazine HCl (HydrALAZINE INJ) 5 mg QID PRN IV. 08/05/17 22:30 09/04/17 22:29 08/08/17 08:46 5 MG Acetaminophen/ Hydrocodone Bitart ([place] 5/325 Tab) 1 tab Q6H PRN PO 08/06/17 10:15 08/20/17 10:14 08/07/17 10:20 1 TAB Enteral Nutritional Formula (Boost Pudding) 1 cup [id number] PO 08/07/17 07:00 09/06/17 06:59 08/08/17 08:46 1 CUP Lactobacillus Acidophilus (Floranex Tab) 3 tab TID PO 08/06/17 21:00 09/05/17 08:59 08/09/17 08:24 3 TAB Heparin Sodium (Porcine) (Heparin Sq 5000 Unit/0.5ml) 5,000 unit Q12 SQ 08/06/17 21:00 09/05/17 20:59 08/09/17 08:38 5,000 UNIT Cephalexin Monohydrate (Keflex Cap) 500 mg BID PO 08/07/17 21:00 08/12/17 20:59 08/09/17 08:28 500 MG Metoprolol Tartrate (Lopressor Tab) 25 mg BID PO 08/07/17 09:00 09/06/17 08:59 08/09/17 08:24 25 MG Potassium Chloride 10 meq/ Prmx 100 ml @ 100 mls/hr Q1H IV 08/07/17 09:00 08/07/17 10:59 DC 08/07/17 11:19 100 MLS/HR Potassium Chloride/Dextrose/ Sod Cl 1,000 ml @ 75 mls/hr [id number] IV 08/07/17 09:45 08/08/17 17:20 DC 08/08/17 00:34 75 MLS/HR Dextrose/Sodium Chloride 1,000 ml @ 75 mls/hr [id number] IV 08/08/17 17:30 09/07/17 17:29 08/09/17 06:38 75 MLS/HR (Lauren Ryan, ADINA) Objective Vital Signs Date Time Temp Pulse Resp B/P (MAP) Pulse Ox O2 Delivery O2 Flow Rate FiO2 08/09/17 07:47 36.6 68 16 173/76 (108) 97 Room Air 08/09/17 04:00 97 Room Air 08/09/17 04:00 37.0 66 17 158/84 (108) 97 Room Air 08/08/17 23:59 97 Room Air 08/08/17 23:51 37.1 87 16 162/87 (112) 97 Room Air 08/08/17 20:00 36.7 91 18 160/75 (103) 93 Room Air 08/08/17 20:00 Room Air 08/08/17 16:00 Room Air 08/08/17 15:19 36.3 84 18 167/83 (111) 99 Room Air 08/08/17 12:00 Room Air 08/08/17 11:04 36.6 76 18 127/72 (90) 98 Room Air (Lauren Ryan CRNP) Physical Exam Notes: General: no distress Eyes: normal inspection, PERLL Respiratory: chest non tender, clear to auscultation, normal breath sounds, no respiratory distress, no accessory muscle use Cardiac: regular rate and rhythm, no rub or gallop, no murmur, no edema, no jvd GI/: active bowel sounds, no abd pain or tenderness, soft, non distended Extremities: normal range of motion, severe weakness generally, non tender Neuro/Psych: alert and oriented x [address], normal mood and affect, speech slurred, EOMI Skin: normal color, dry (Lauren Ryan CRNP) Laboratory Results Last 24 Hours Test 08/09/17 08:19 Erythrocyte Sedimentation Rate 17 mm/hr (Lauren Ryan CRNP) Assessment and Plan Ms. Rollins is a 72 year old woman here for encephalopathy and UTI ?Metabolic encephalopathy secondary to uti vs seizure disorder vs CVA vs opioid overdose - MRI did not have any acute findings and carotid USG was WNL - EEG 08/08 showed near continuous right hemispheric slowing and mild to moderate background disorganization and slowing - consult neurology, appreciate recommendations - Keppra level pending - QID oxycodone discontinued - continue nectar thick liquids and aspiration precautions per speech therapy - sed rate 17 Klebsiella UTI - Keflex - abx therapy started 08/05 new LBBB on EKG - repeat EKG continued to show LBBB - troponin negative x3 - echo no wma, EF 70% - continue to monitor on tele - LBBB no longer on EKG 08/08 Prolonged QTc - repeat EKG showed normalizing QTc <500 HTN - Olmesartan 40 mg daily - metoprolol added 08/07 - continue prn hydralazine Hyperlipidemia - Atorvastatin 20 mg daily Depressed mood/ Anxiety - Klonipin 0.5 mg bid Seizure disorder - Keppra 500 mg bid Chronic pain secondary to h/o fracture - restarted home meloxicam, continue to hold off on narcotics Hypokalemia - resolved DVT prophylaxis - SCD, Heparin q12 (Lauren Ryan CRNP) ADINA Physician Supervision Note: I interviewed and examined the patient. Discussed with Lauren HOLDEN and agree with findings and plan as documented in the note. Any exceptions or clarifications are listed here: None this pt is still somewhat sedated, she has a hicks sensitive Klebsiella UTI poa but also has some slowing on a EEG, no defined ischemic changes on imaging, will need post care rehab of some level, now family is on board vitals noted car is regular lungs are clear abdomen is soft and NABS suspected metabolic encephalopathy from klebsiella uti poa, will confer with neurology due to EEG changes, continue supportive care and look to rehab Documented By: Cosmo Henriquez (Cosmo Henriquez M.D.)
[2017-08-09] MEDS ORDERED: MELOXICAM 7.5 MG TAB PO ONE (11:45)
[2017-08-09] MEDS: CIPROFLOXACIN 250 MG TAB PO SCH (22:19)
[2017-08-09] MEDS: HYDROCODONE/ACETAMOPHEN 5/325MG TAB PO PRN (22:21)
[2017-08-10 03:41] VITALS: BP 132/70; PULSE 63; TEMP 36.7; O2SAT 95
[2017-08-10 04:00] VITALS: O2SAT 95
[2017-08-10 07:21] VITALS: BP_SYST 182; BP_SYST 192; BP_DIAS 69; BP_DIAS 84; PULSE 64; TEMP 36.6; O2SAT 97
[2017-08-10] MEDS: CIPROFLOXACIN 250 MG TAB PO SCH ×2 (08:51→20:58)
[2017-08-10] MEDS: LACTOBACILLUS ACIDOPHILUS (FLORANEX) TAB PO SCH ×3 (08:51→20:57)
[2017-08-10] MEDS: FERROUS SULFATE 325 MG TAB PO SCH (08:52)
[2017-08-10] MEDS: LEVETIRACETAM 500 MG TAB PO SCH (08:54)
[2017-08-10] MEDS: ASCORBIC ACID 500 MG TAB PO SCH (08:54)
[2017-08-10] MEDS: METOPROLOL TARTRATE 25 MG TAB PO SCH ×2 (08:55→21:07)
[2017-08-10] MEDS: OLMESARTAN MEDOXOMIL 40 MG TAB PO SCH (08:55)
[2017-08-10] MEDS: BOOST VANILLA PUDDING CUP PO SCH ×2 (08:56→14:00)
[2017-08-10] MEDS: MELOXICAM 7.5 MG TAB PO SCH (08:56)
[2017-08-10] MEDS: ASPIRIN 81 MG ECTAB PO SCH (08:57)
[2017-08-10] MEDS: ATORVASTATIN 20 MG TAB PO SCH (08:59)
[2017-08-10] MEDS: CALCIUM 600MG + VIT D 400 IU TAB PO SCH (09:00)
[2017-08-10] MEDS: CYANOCOBALAMIN 500 MCG TAB (VIT B-12) PO SCH (09:00)
[2017-08-10] MEDS: HEPARIN SOD 5000 UNIT/0.5 ML CARP SQ SCH ×2 (09:02→21:06)
[2017-08-10] MEDS: CLONAZEPAM 0.5 MG TAB PO SCH ×2 (09:07→21:00)
[2017-08-10] MEDS: D5W AND NSS 1,000 ML IV SCH ×2 (09:10→21:03)
[2017-08-10 09:48] LABS: BASO % 1.3 %; BASO ABS # 0.05 K/uL (0-0.2); COMPLETE YES; ECHINOCYTES 1+; EOS % 3.8 %; HEMATOCRIT 36.9 % (37-47); HYPERSEGMENTED POLYS 1+; IG% 0.3 %; LYMPH % 23.1 %; LYMPH ABS # 0.92 K/uL (1.2-3.4); MEAN CELL VOLUME 100.3 fL (80-100); MEAN CORPUSCULAR HEMOGLOBIN 33.4 pg (25-34); MEAN CORPUSCULAR HGB CONC 33.3 g/dl (32-36); MEAN PLATELET VOLUME 11.9 fL (7.4-10.4); MONO % 8.8 %; NEUT % 62.7 %; PLATELET COUNT 155 K/uL (130-400); PLT ESTIMATE NORMAL; RED BLOOD COUNT 3.68 M/uL (4.2-5.4); WHITE BLOOD COUNT 3.98 K/uL (4.8-10.8)
[2017-08-10 11:50] VITALS: BP 194/91; PULSE 67; TEMP 36.4; O2SAT 99
--- NOTE | 2017-08-10 15:22 | Hospitalist Progress Note ---
Hospitalist Progress Note Date of Service Aug 10, 2017. (Lauren Ryan .ADINA) Subjective Pt evaluation today including: conversation w/ patient, physical exam, chart review, lab review, conversation w/ technical services consultant Ms. Rollins speech is more difficult to understand than yesterday and she says she feels very confused. She continues to be very weak in all of her limbs. ROS Constitutional: no chills, aches, sweats or fever Respiratory: no sob,cough, sputum, or wheezing Cardiac: no chest pain, palpitations, edema, orthopnea or lightheadedness GI: no abdominal pain, nausea, vomiting, diarrhea or constipation : no dysuria or hesitancy Extremities: no joint pain or weakness Skin: no rash All Other Systems: Reviewed and Negative (Lauren Ryan CRNP) Medications Medications Administered Medications (Trade) Dose Ordered Sig/Ba Route Start Time Stop Time Status Last Admin Dose Admin Labetalol HCl (Normodyne IV) 5 mg STK-MED ONCE IV 08/05/17 17:49 08/05/17 17:50 DC 08/05/17 17:49 10 MG Magnesium Hydroxide (Milk Of Magnesia Susp) 30 ml Q12H PRN PO 08/05/17 20:15 09/04/17 20:14 08/09/17 22:20 30 ML Aspirin (Ecotrin Tab) 81 mg DAILY PO 08/06/17 09:00 09/05/17 08:59 08/10/17 08:57 81 MG Atorvastatin Calcium (Lipitor Tab) 20 mg DAILY PO 08/06/17 09:00 09/05/17 08:59 08/10/17 08:59 20 MG Clonazepam (Klonopin Tab) 0.5 mg BID PO 08/05/17 21:00 09/04/17 20:59 08/10/17 09:07 0.5 MG Cyanocobalamin (Vitamin B-12 Tab) 1,000 mcg QAM PO 08/06/17 09:00 09/05/17 08:59 08/10/17 09:00 1,000 MCG Folic Acid (Folvite Tab) 1 mg DAILY PO 08/06/17 09:00 09/05/17 08:59 08/10/17 08:58 1 MG Levetiracetam (Keppra Tab) 500 mg BID PO 08/05/17 21:00 08/10/17 12:09 DC 08/10/17 08:54 500 MG Olmesartan (Benicar Tab) 40 mg DAILY PO 08/06/17 09:00 09/05/17 08:59 08/10/17 08:55 40 MG Ascorbic Acid (Vitamin C Tab) 1,000 mg DAILY PO 08/06/17 09:00 09/05/17 08:59 08/10/17 08:54 1,000 MG Calcium/Vitamin D (Caltrate Plus Tab) 1 tab DAILY PO 08/06/17 09:00 09/05/17 08:59 08/10/17 09:00 1 TAB Ferrous Sulfate (Feosol Tab) 325 mg DAILY PO 08/06/17 09:00 09/05/17 08:59 08/10/17 08:52 325 MG Lactobacillus Acidophilus (Floranex Tab) 1 tab DAILY PO 08/06/17 09:00 08/06/17 19:49 DC 08/06/17 08:35 1 TAB Oxycodone HCl (Roxicodone Immediate Rel Tab) 5 mg QID PO 08/05/17 21:00 08/06/17 10:08 DC 08/06/17 08:34 5 MG Ceftriaxone Sodium 1 gm/ Dextrose 50 ml @ 100 mls/hr Q24H IV 08/05/17 22:00 08/07/17 07:41 DC 08/06/17 21:53 100 MLS/HR Hydralazine HCl (HydrALAZINE INJ) 5 mg QID PRN IV. 08/05/17 22:30 09/04/17 22:29 08/08/17 08:46 5 MG Acetaminophen/ Hydrocodone Bitart ([place] 5/325 Tab) 1 tab Q6H PRN PO 08/06/17 10:15 08/20/17 10:14 08/09/17 22:21 1 TAB Enteral Nutritional Formula (Boost Pudding) 1 cup [id number] PO 08/07/17 07:00 09/06/17 06:59 08/09/17 17:00 1 CUP Lactobacillus Acidophilus (Floranex Tab) 3 tab TID PO 08/06/17 21:00 09/05/17 08:59 08/10/17 14:31 3 TAB Heparin Sodium (Porcine) (Heparin Sq 5000 Unit/0.5ml) 5,000 unit Q12 SQ 08/06/17 21:00 09/05/17 20:59 08/10/17 09:02 5,000 UNIT Cephalexin Monohydrate (Keflex Cap) 500 mg BID PO 08/07/17 21:00 08/09/17 11:28 DC 08/09/17 08:28 500 MG Metoprolol Tartrate (Lopressor Tab) 25 mg BID PO 08/07/17 09:00 09/06/17 08:59 08/10/17 08:55 25 MG Potassium Chloride 10 meq/ Prmx 100 ml @ 100 mls/hr Q1H IV 08/07/17 09:00 08/07/17 10:59 DC 08/07/17 11:19 100 MLS/HR Potassium Chloride/Dextrose/ Sod Cl 1,000 ml @ 75 mls/hr [id number] IV 08/07/17 09:45 08/08/17 17:20 DC 08/08/17 00:34 75 MLS/HR Dextrose/Sodium Chloride 1,000 ml @ 75 mls/hr [id number] IV 08/08/17 17:30 09/07/17 17:29 08/10/17 09:10 75 MLS/HR Meloxicam (Mobic Tab) 15 mg QAM PO 08/10/17 09:00 09/09/17 08:59 08/10/17 08:56 15 MG Meloxicam (Mobic Tab) 15 mg 1145 ONCE PO 08/09/17 11:45 08/09/17 11:46 DC 08/09/17 11:48 15 MG Ciprofloxacin (Ciprofloxacin Tab) 250 mg BID PO 08/09/17 21:00 08/14/17 20:59 08/10/17 08:51 250 MG (Lauren Ryan, ADINA) Objective Vital Signs Date Time Temp Pulse Resp B/P (MAP) Pulse Ox O2 Delivery O2 Flow Rate FiO2 08/10/17 11:50 36.4 67 16 194/91 (125) 99 Room Air 08/10/17 11:27 Room Air 08/10/17 08:40 Room Air 08/10/17 07:21 36.6 64 16 192/84 (120) 97 Room Air 182/69 (106) 08/10/17 04:00 95 Room Air 08/10/17 03:41 36.7 63 18 132/70 (90) 95 Room Air 08/09/17 23:59 95 Room Air 08/09/17 23:59 36.7 71 16 163/68 (99) 95 Room Air 08/09/17 20:30 98 Room Air 08/09/17 19:16 36.3 95 22 154/79 (104) 98 Room Air 08/09/17 16:30 98 Room Air 08/09/17 15:17 36.6 69 18 177/82 (113) 98 Room Air (Lauren Ryan CRNP) Physical Exam Notes: General: no distress Eyes: normal inspection, PERLL Respiratory: chest non tender, clear to auscultation, normal breath sounds, no respiratory distress, no accessory muscle use Cardiac: regular rate and rhythm, no rub or gallop, no murmur, no edema, no jvd GI/: active bowel sounds, no abd pain or tenderness, soft, non distended Extremities: normal range of motion, severe weakness in all extremities, non tender Neuro/Psych: alert and oriented x [address], some confusion, Skin: normal color, dry (Lauren Ryan CRNP) Laboratory Results Last 24 Hours Test 08/10/17 08:50 White Blood Count 3.98 K/uL Red Blood Count 3.68 M/uL Hemoglobin 12.3 g/dL Hematocrit 36.9 % Mean Corpuscular Volume 100.3 fL Mean Corpuscular Hemoglobin 33.4 pg Mean Corpuscular Hemoglobin Concent 33.3 g/dl Platelet Count 155 K/uL Mean Platelet Volume 11.9 fL Neutrophils (%) (Auto) 62.7 % Lymphocytes (%) (Auto) 23.1 % Monocytes (%) (Auto) 8.8 % Eosinophils (%) (Auto) 3.8 % Basophils (%) (Auto) 1.3 % Neutrophils # (Auto) 2.50 K/uL Lymphocytes # (Auto) 0.92 K/uL Monocytes # (Auto) 0.35 K/uL Eosinophils # (Auto) 0.15 K/uL Basophils # (Auto) 0.05 K/uL RDW Standard Deviation 48.7 fL RDW Coefficient of Variation 13.3 % Immature Granulocyte % (Auto) 0.3 % Immature Granulocyte # (Auto) 0.01 K/uL Hypersegmented Polys 1+ Platelet Estimate NORMAL Echinocytes 1+ (Lauren Ryan CRNP) Assessment and Plan Ms. Rollins is a 72 year old woman here for encephalopathy and UTI ?Metabolic encephalopathy secondary to uti and seizure medications - MRI did not have any acute findings and carotid USG was WNL - EEG 08/08 showed near continuous right hemispheric slowing and mild to moderate background disorganization and slowing - Keppra level pending - Cut Keppra level in half for tonight and tomorrow morning and started po depakote tid - continue to hold oxycodone - continue nectar thick liquids and aspiration precautions per speech therapy Klebsiella UTI - Keflex - abx therapy started 08/05 - abx changed to cipro new LBBB on EKG - repeat EKG continued to show LBBB - troponin negative x3 - echo no wma, EF 70% - continue to monitor on tele - LBBB no longer on EKG 08/08 - resolved Prolonged QTc - repeat EKG 08/08 showed normalizing QTc <500 HTN - Olmesartan 40 mg daily - metoprolol added 08/07 - continue prn hydralazine Hyperlipidemia - Atorvastatin 20 mg daily Depressed mood/ Anxiety - Klonipin 0.5 mg bid Chronic pain secondary to h/o fracture - restarted home meloxicam, continue to hold off on narcotics Hypokalemia - resolved Transfer to med/surg DVT prophylaxis - SCD, Heparin q12 (Lauren Ryan CRNP) LAW PROFESSOR Physician Supervision Note: I interviewed and examined the patient. Discussed with Lauren Ryan LAW PROFESSOR and agree with findings and plan as documented in the note. Any exceptions or clarifications are listed here: None Patient admitted with encephalopathy felt to be metabolic and toxic from outpatient medications and possibly Klebsiella urinary tract infection present on admission. The Klebsiella is pansensitive and she's been treated she's not improved with her encephalopathy. There is some concern this may be related to her antiepileptic medications and a neurology consult was undertaken and we will change her medications to try to improve her encephalopathy. Vitals are stable She is lethargic but aware of her fatigued state saying she is all messed up Cardiac exam is regular lungs are clear abdomen normoactive bowel sounds and soft there is no focal neurological deficit Metabolic encephalopathy treated, toxic encephalopathy possibly from Keppra with change of antiepileptic medication recommendation per neurology, PT OT and rehabilitation referral will be needed Documented By: Cosmo Henriquez (Cosmo Henriquez M.D.)
[2017-08-10 15:43] VITALS: BP 186/84; PULSE 79; TEMP 36.7; O2SAT 97
[2017-08-10] MEDS: DIVALPROEX SODIUM SPRINKLE 125 MG CAP PO SCH ×2 (16:03→21:01)
[2017-08-10] MEDS: LEVETIRACETAM 250 MG TAB PO SCH (20:57)
[2017-08-10 23:10] VITALS: BP 161/81; PULSE 73; TEMP 36.4; O2SAT 96
[2017-08-11 06:59] VITALS: BP 137/65; PULSE 70; TEMP 36.5; O2SAT 95
[2017-08-11] MEDS: CLONAZEPAM 0.5 MG TAB PO SCH ×2 (08:48→20:08)
[2017-08-11] MEDS: BOOST VANILLA PUDDING CUP PO SCH ×3 (08:48→20:04)
[2017-08-11] MEDS: ATORVASTATIN 20 MG TAB PO SCH (08:49)
[2017-08-11] MEDS: ASPIRIN 81 MG ECTAB PO SCH (08:49)
[2017-08-11] MEDS: HYDROCODONE/ACETAMOPHEN 5/325MG TAB PO PRN ×2 (08:49→20:18)
[2017-08-11] MEDS: CYANOCOBALAMIN 500 MCG TAB (VIT B-12) PO SCH (08:49)
[2017-08-11] MEDS: METOPROLOL TARTRATE 25 MG TAB PO SCH ×2 (08:50→20:07)
[2017-08-11] MEDS: MELOXICAM 7.5 MG TAB PO SCH (08:50)
[2017-08-11] MEDS: LACTOBACILLUS ACIDOPHILUS (FLORANEX) TAB PO SCH ×3 (08:50→20:06)
[2017-08-11] MEDS: ASCORBIC ACID 500 MG TAB PO SCH (08:50)
[2017-08-11] MEDS: OLMESARTAN MEDOXOMIL 40 MG TAB PO SCH (08:50)
[2017-08-11] MEDS: CALCIUM 600MG + VIT D 400 IU TAB PO SCH (08:50)
[2017-08-11] MEDS: CIPROFLOXACIN 250 MG TAB PO SCH ×2 (08:50→20:05)
[2017-08-11] MEDS: LEVETIRACETAM 250 MG TAB PO SCH (08:51)
[2017-08-11] MEDS: FERROUS SULFATE 325 MG TAB PO SCH (08:51)
[2017-08-11] MEDS: DIVALPROEX SODIUM SPRINKLE 125 MG CAP PO SCH ×3 (08:51→20:05)
[2017-08-11] MEDS: HEPARIN SOD 5000 UNIT/0.5 ML CARP SQ SCH ×2 (08:59→20:11)
[2017-08-11] MEDS: D5W AND NSS 1,000 ML IV SCH (11:33)
[2017-08-11] MEDS ORDERED: ACETAMINOPHEN 500 MG TAB PO STA (12:20)
--- NOTE | 2017-08-11 12:36 | Hospitalist Progress Note ---
Hospitalist Progress Note Date of Service Aug 11, 2017. (Lauren Ryan ., [facility]) Subjective Pt evaluation today including: conversation w/ patient, physical exam, chart review, lab review, review of inpatient medication list Voiding: no voiding problems Ms. Quintanilla speech is easier to understand today and she is more oriented. She states that she is bored and that there is nothing to do in the hospital. Per nursing she is also complaining of 7/10 back pain. ROS Constitutional: no chills, aches, sweats or fever Respiratory: no sob,cough, sputum, or wheezing Cardiac: no chest pain, palpitations, edema, orthopnea or lightheadedness GI: no abdominal pain, nausea, vomiting, diarrhea or constipation : no dysuria or hesitancy Extremities: generalized weakness Skin: no rash All Other Systems: Reviewed and Negative (Lauren Ryan CRNP) Medications Medications Administered Medications (Trade) Dose Ordered Sig/Ba Route Start Time Stop Time Status Last Admin Dose Admin Labetalol HCl (Normodyne IV) 5 mg STK-MED ONCE IV 08/05/17 17:49 08/05/17 17:50 DC 08/05/17 17:49 10 MG Magnesium Hydroxide (Milk Of Magnesia Susp) 30 ml Q12H PRN PO 08/05/17 20:15 09/04/17 20:14 08/09/17 22:20 30 ML Aspirin (Ecotrin Tab) 81 mg DAILY PO 08/06/17 09:00 09/05/17 08:59 08/11/17 08:49 81 MG Atorvastatin Calcium (Lipitor Tab) 20 mg DAILY PO 08/06/17 09:00 09/05/17 08:59 08/11/17 08:49 20 MG Clonazepam (Klonopin Tab) 0.5 mg BID PO 08/05/17 21:00 09/04/17 20:59 08/11/17 08:48 0.5 MG Cyanocobalamin (Vitamin B-12 Tab) 1,000 mcg QAM PO 08/06/17 09:00 09/05/17 08:59 08/11/17 08:49 1,000 MCG Folic Acid (Folvite Tab) 1 mg DAILY PO 08/06/17 09:00 09/05/17 08:59 08/11/17 08:50 1 MG Levetiracetam (Keppra Tab) 500 mg BID PO 08/05/17 21:00 08/10/17 12:09 DC 08/10/17 08:54 500 MG Olmesartan (Benicar Tab) 40 mg DAILY PO 08/06/17 09:00 09/05/17 08:59 08/11/17 08:50 40 MG Ascorbic Acid (Vitamin C Tab) 1,000 mg DAILY PO 08/06/17 09:00 09/05/17 08:59 08/11/17 08:50 1,000 MG Calcium/Vitamin D (Caltrate Plus Tab) 1 tab DAILY PO 08/06/17 09:00 09/05/17 08:59 08/11/17 08:50 1 TAB Ferrous Sulfate (Feosol Tab) 325 mg DAILY PO 08/06/17 09:00 09/05/17 08:59 08/11/17 08:51 325 MG Lactobacillus Acidophilus (Floranex Tab) 1 tab DAILY PO 08/06/17 09:00 08/06/17 19:49 DC 08/06/17 08:35 1 TAB Oxycodone HCl (Roxicodone Immediate Rel Tab) 5 mg QID PO 08/05/17 21:00 08/06/17 10:08 DC 08/06/17 08:34 5 MG Ceftriaxone Sodium 1 gm/ Dextrose 50 ml @ 100 mls/hr Q24H IV 08/05/17 22:00 08/07/17 07:41 DC 08/06/17 21:53 100 MLS/HR Hydralazine HCl (HydrALAZINE INJ) 5 mg QID PRN IV. 08/05/17 22:30 09/04/17 22:29 08/08/17 08:46 5 MG Acetaminophen/ Hydrocodone Bitart ([place] 5/325 Tab) 1 tab Q6H PRN PO 08/06/17 10:15 08/20/17 10:14 08/11/17 08:49 1 TAB Enteral Nutritional Formula (Boost Pudding) 1 cup [id number] PO 08/07/17 07:00 09/06/17 06:59 08/11/17 08:48 1 CUP Lactobacillus Acidophilus (Floranex Tab) 3 tab TID PO 08/06/17 21:00 09/05/17 08:59 08/11/17 08:50 3 TAB Heparin Sodium (Porcine) (Heparin Sq 5000 Unit/0.5ml) 5,000 unit Q12 SQ 08/06/17 21:00 09/05/17 20:59 08/11/17 08:59 5,000 UNIT Cephalexin Monohydrate (Keflex Cap) 500 mg BID PO 08/07/17 21:00 08/09/17 11:28 DC 08/09/17 08:28 500 MG Metoprolol Tartrate (Lopressor Tab) 25 mg BID PO 08/07/17 09:00 09/06/17 08:59 08/11/17 08:50 25 MG Potassium Chloride 10 meq/ Prmx 100 ml @ 100 mls/hr Q1H IV 08/07/17 09:00 08/07/17 10:59 DC 08/07/17 11:19 100 MLS/HR Potassium Chloride/Dextrose/ Sod Cl 1,000 ml @ 75 mls/hr [id number] IV 08/07/17 09:45 08/08/17 17:20 DC 08/08/17 00:34 75 MLS/HR Dextrose/Sodium Chloride 1,000 ml @ 75 mls/hr [id number] IV 08/08/17 17:30 09/07/17 17:29 08/11/17 11:33 75 MLS/HR Meloxicam (Mobic Tab) 15 mg QAM PO 08/10/17 09:00 09/09/17 08:59 08/11/17 08:50 15 MG Meloxicam (Mobic Tab) 15 mg 1145 ONCE PO 08/09/17 11:45 08/09/17 11:46 DC 08/09/17 11:48 15 MG Ciprofloxacin (Ciprofloxacin Tab) 250 mg BID PO 08/09/17 21:00 08/14/17 20:59 08/11/17 08:50 250 MG Levetiracetam (Keppra Tab) 250 mg BID PO 08/10/17 21:00 08/11/17 10:00 DC 08/11/17 08:51 250 MG Divalproex Sodium (Depakote Sprinkle Cap) 250 mg TID PO 08/10/17 14:00 09/09/17 13:59 08/11/17 08:51 250 MG (Lauren Ryan CRNP) Objective Vital Signs Date Time Temp Pulse Resp B/P (MAP) Pulse Ox O2 Delivery O2 Flow Rate FiO2 08/11/17 06:59 36.5 70 16 137/65 (89) 95 Room Air 08/10/17 23:10 36.4 73 20 161/81 (107) 96 Room Air 08/10/17 23:00 Room Air 08/10/17 20:00 Room Air 08/10/17 15:43 36.7 79 20 186/84 (118) 97 Room Air (Lauren Ryan CRNP) Physical Exam Notes: General: no distress Eyes: normal inspection, PERLL Respiratory: chest non tender, clear to auscultation, normal breath sounds, no respiratory distress, no accessory muscle use Cardiac: regular rate and rhythm, no rub or gallop, no murmur, no edema, no jvd GI/: active bowel sounds, no abd pain or tenderness, soft, non distended Extremities: normal range of motion, generalized weakness in all extremities Neuro/Psych: alert and oriented x 3, normal mood and affect, speech slow and slurred Skin: normal color, dry (Lauren Ryan CRNP) Assessment and Plan Ms. Rollins is a 72 year old woman here for encephalopathy and UTI ?Metabolic encephalopathy secondary to uti and seizure medications - MRI did not have any acute findings and carotid USG was WNL - EEG 08/08 showed near continuous right hemispheric slowing and mild to moderate background disorganization and slowing - Keppra level pending - Last dose keppra morning, started po depakote tid yesterday evening per neurology recommendation - continue to hold oxycodone - continue nectar thick liquids and aspiration precautions per speech therapy Klebsiella UTI - abx therapy started 08/05 - continue cipro new LBBB on EKG - troponin negative x3 - echo no wma, EF 70% - LBBB no longer on EKG 08/08 - resolved Prolonged QTc - repeat EKG 08/08 showed normalizing QTc <500 - resolved HTN - Olmesartan 40 mg daily - metoprolol added 08/07 - continue prn hydralazine - BP 137/65 this am Hyperlipidemia - continue Atorvastatin 20 mg daily Depressed mood/ Anxiety - continue Klonipin 0.5 mg bid Chronic pain secondary to h/o fracture - restarted home meloxicam, continue to hold off on narcotics - 1 gm stat acetaminophen given and Kpad for 7/10 back pain this afternoon Hypokalemia - resolved DVT prophylaxis - SCD, Heparin q12 (Lauren Ryan ., [facility]) [employer] Physician Supervision Note: I interviewed and examined the patient. Discussed with Lauren Ryan HAND T[employer]IS [employer]ER and agree with findings and plan as documented in the note. Any exceptions or clarifications are listed here: None Patient presented with encephalopathy concern for metabolic from UTI present on admission and toxic from medications. Despite treating her UTI per sensitivities encephalopathy persists and concern for antiepileptic medications have caused the change with neurological guidance from Keppra to Depakote. She is slight improvement but not great improvement we will continue to evaluate and provide therapy as we await a clinical change Vital signs are noted she is awake and arousable although acting lethargic no focal deficits cardiac exam is regular without murmurs lungs are clear Metabolic encephalopathy secondary to uti and seizure medications - MRI did not have any acute findings and carotid USG was WNL - EEG 08/08 showed near continuous right hemispheric slowing and mild to moderate background disorganization and slowing, , Neurology does not feel this is significant and this encephalopathy - Keppra changed to Depakote 08/10 hold oxycodone Lethargy and swallowing issues nectar thick liquids and aspiration precautions after therapy evaluation Klebsiella UTI cipro per sensitivities new LBBB and prolonged QT on EKG this was intermittent and not felt to be consistent with acute coronary syndrome HTN- Olmesartan 40 mg daily- metoprolol added 08/07- continue prn hydralazine Hyperlipidemia Atorvastatin 20 mg daily Depressed mood/ Anxiety Klonipin 0.5 mg bid Chronic pain secondary to h/o fracture holding opiates secondary to encephalopathy trying not opiate analgesia and local pain measure DVT prophylaxis - SCD, Heparin q12 Documented By: Cosmo Henriquez (Cosmo Henriquez M.D.)
[2017-08-11 15:59] VITALS: BP 158/73; PULSE 67; TEMP 36.4; O2SAT 97
[2017-08-11 20:00] VITALS: BP 152/77; PULSE 68; O2SAT 98
[2017-08-11 23:47] VITALS: BP 151/76; PULSE 70; TEMP 36.3; O2SAT 96
[2017-08-12] MEDS: D5W AND NSS 1,000 ML IV SCH ×2 (00:38→15:17)
[2017-08-12 07:16] LABS: BUN/CREATININE RATIO 28.6 (10-20); CALCIUM 7.9 mg/dl (8.5-10.1); CREATININE 0.5 mg/dl (0.60-1.20); POTASSIUM 3.7 mmol/L (3.5-5.1)
[2017-08-12 07:22] VITALS: BP 168/71; PULSE 70; TEMP 36.6; O2SAT 95
[2017-08-12] MEDS: HYDROCODONE/ACETAMOPHEN 5/325MG TAB PO PRN ×2 (07:23→14:09)
[2017-08-12] MEDS: BOOST VANILLA PUDDING CUP PO SCH ×2 (08:18→14:09)
[2017-08-12] MEDS: HEPARIN SOD 5000 UNIT/0.5 ML CARP SQ SCH (08:19)
[2017-08-12] MEDS: OLMESARTAN MEDOXOMIL 40 MG TAB PO SCH (08:20)
[2017-08-12] MEDS: CALCIUM 600MG + VIT D 400 IU TAB PO SCH (08:20)
[2017-08-12] MEDS: ASPIRIN 81 MG ECTAB PO SCH (08:21)
[2017-08-12] MEDS: DIVALPROEX SODIUM SPRINKLE 125 MG CAP PO SCH ×2 (08:21→15:16)
[2017-08-12] MEDS: LACTOBACILLUS ACIDOPHILUS (FLORANEX) TAB PO SCH ×2 (08:22→15:17)
[2017-08-12] MEDS: FERROUS SULFATE 325 MG TAB PO SCH (08:22)
[2017-08-12] MEDS: CIPROFLOXACIN 250 MG TAB PO SCH (08:23)
[2017-08-12] MEDS: METOPROLOL TARTRATE 25 MG TAB PO SCH (08:24)
[2017-08-12] MEDS: ATORVASTATIN 20 MG TAB PO SCH (08:24)
[2017-08-12] MEDS: ASCORBIC ACID 500 MG TAB PO SCH (08:25)
[2017-08-12] MEDS: CYANOCOBALAMIN 500 MCG TAB (VIT B-12) PO SCH (08:25)
[2017-08-12] MEDS: MELOXICAM 7.5 MG TAB PO SCH (08:27)
[2017-08-12] MEDS: CLONAZEPAM 0.5 MG TAB PO SCH (08:29)
[2017-08-12 12:00] VITALS: O2SAT 95
[2017-08-12] MEDS ORDERED: LPR25 PO (13:57)
[2017-08-12] MEDS ORDERED: DIVA1CAP PO (13:57)
[2017-08-12] MEDS ORDERED: CIPR250T3 PO (13:57)
--- NOTE | 2017-08-12 14:00 | Discharge Instructions ---
Discharge Instructions Date of Service Aug 12, 2017. Admission Reason for Admission: Stroke-Like Symptoms, Uti Discharge Discharge Diagnosis / Problem: metabolic encephalopathy and toxic encephalopathy Discharge Goals Goal(s): Diagnostic testing, Therapeutic intervention Activity Recommendations Activity Level: Assistance Required Therapies: Physical Therapy, Occupational Therapy, Speech Therapy . Additional Information Patient informed of condition: Yes Advance Directives: Yes DNR: No Level of Care: Acute Rehab Communicable Disease: No Prognosis: Stable [place] Catheter: No Current Hospital Diet Patient's current hospital diet: Low Lactose Diet, Regular Diet Discharge Diet Recommended Diet: Regular Diet Liquid Consistency: [place] Thick Pending Studies Studies pending at discharge: no Laboratory Results Hemoglobin A1c Test 08/06/17 07:17 Range/Units Estimated Average Glucose 82 mg/dl Hemoglobin A1c 4.5 4.5-5.6 % Lipid Panel Test 08/06/17 07:17 Range/Units Triglycerides Level 62 0-150 mg/dl Cholesterol Level 83 0-200 mg/dl HDL Cholesterol 51 mg/dl Cholesterol/HDL Ratio 1.6 LDL Cholesterol, Calculated 20 mg/dl Medical Emergencies . Who to Call and When: Medical Emergencies: If at any time you feel your situation is an emergency, please call 911 immediately. . Non-Emergent Contact Non-Emergency issues call your: Primary Care Provider Call Non-Emergent contact if: temperature is above 101, your pain is unusual for you . . "Provider Documentation" section prepared by Cosmo Henriquez. . Animal Care Service Worker Recommendations Animal Care Service Worker Recommendations: Metabolic encephalopathy secondary to uti and seizure medications - MRI did not have any acute findings and stroke was ruled out, and carotid USG was WNL - EEG 08/08 showed near continuous right hemispheric slowing and mild to moderate background disorganization and slowing, , Neurology does not feel this is significant and this encephalopathy - Keppra changed to Depakote 08/10 , level not checked but may need one in the future once steady state as did not have a "loading dose here" hold oxycodone Lethargy and swallowing issues nectar thick liquids and aspiration precautions after therapy evaluation, video swallow done 08/12 Klebsiella UTI cipro per sensitivities new LBBB and prolonged QT on EKG this was intermittent and not felt to be consistent with acute coronary syndrome HTN- Olmesartan 40 mg daily- metoprolol added 08/07- Hyperlipidemia Atorvastatin 20 mg daily Depressed mood/ Anxiety Klonipin 0.5 mg bid Chronic pain secondary to h/o fracture holding opiates secondary to encephalopathy trying not opiate analgesia and local pain measure Core Measure Problem Core Measures: None
--- NOTE | 2017-08-12 15:25 | Discharge Summary ---
Discharge Summary Date of Service Aug 12, 2017. Discharge Summary Admission Date: Aug 05, 2017 at 20:09 Discharge Date: Aug 12, 2017 Principal Diagnosis: encephalopathy, toxic and metabolic, poa resolving. uti poa Problems/Secondary Diagnoses: (1) Anxiety Status: Chronic (2) Depressive Disorder Nec Status: Chronic (3) Hypertension Status: Chronic (4) Osteoporosis Status: Chronic (5) Seizure disorder Status: Chronic Immunizations: Have You Had Influenza Vaccine: Yes Influenza Vaccine Date: January 25, 2012 History of Tetanus Vaccine?: Unknown History of Pneumococcal: Yes Pneumococcal Date: Aug 26, 2012 History of Hepatitis B Vaccine: Unknown Procedures: MRI brain did rule out stroke Consultations: Dr Duval with neurology Medication Reconciliation New Medications: Ciprofloxacin (Cipro) 250 Mg Tab 250 MG PO BID, #8 TAB Divalproex Sodium (Divalproex Sodium) 125 Mg Cap 250 MG PO TID, #90 CAP Metoprolol Tartrate (Lopressor) 25 Mg Tab 25 MG PO BID, #60 TAB Continued Medications: Ascorbic Acid (Ascorbic Acid) 1,000 Mg Tab 1000 MG PO DAILY Aspirin (Aspirin) 81 Mg Tab 81 MG PO DAILY Atorvastatin (Lipitor) 20 Mg Tab 20 MG PO DAILY, TAB Calcium Carbonate-Vitamin D (Calcium 500 + D) 1 Tab Tab 1 TAB PO DAILY Clonazepam (Klonopin) 0.5 Mg Tab 0.5 MG PO BID, TAB Cranberry (Vaccinium Macrocarp (Cranberry) Unknown Strength Tab 1 CAP PO DAILY Cyanocobalamin (Vitamin B-12) 500 Mcg Tab 1000 MCG PO QAM for 30 Days, #60 TAB Ferrous Sulfate (Kp Ferrous Sulfate) 325 Mg Tab 325 MG PO DAILY, TAB Folic Acid (Folic Acid) 1 Mg Tab 1 MG PO DAILY Lactobacillus (Probiotic) 1 Cap Cap 1 CAP PO DAILY Meloxicam (Mobic) 15 Mg Tab 15 MG PO DAILY, TAB Olmesartan Medoxomil (Benicar) 40 Mg Tab 40 MG PO DAILY, TAB Zoledronic Acid (Reclast) 5 Mg/100 Ml Inj 5 MG INJ YEARLY Discontinued Medications: Levetiracetam (Keppra) 500 Mg Tab 500 MG PO BID, TAB Oxycodone Ir (Roxicodone Ir) 5 Mg Tab 5 MG PO QID Discharge Exam Review of Systems: Constitutional: No fever, No chills Respiratory: No cough, No sputum, No shortness of breath Cardiovascular: No chest pain, No orthopnea Genitourinary - Female: No dysuria, No urinary frequency Neurologic: + memory loss, + weakness, + balance problems Physical Exam: General Appearance: WD/WN, + mild distress Eyes: normal inspection, PERRL Neck: supple, no JVD Respiratory/Chest: chest non-tender, lungs clear, normal breath sounds Cardiovascular: regular rate, rhythm, normal peripheral pulses Abdomen / GI: normal bowel sounds, non tender, soft Hospital Course Metabolic encephalopathy secondary to uti and seizure medications - MRI did not have any acute findings and stroke was ruled out, and carotid USG was WNL - EEG 08/08 showed near continuous right hemispheric slowing and mild to moderate background disorganization and slowing, , Neurology does not feel this is significant and this encephalopathy - Keppra changed to Depakote 08/10 , level not checked but may need one in the future once steady state as did not have a "loading dose here" hold oxycodone Lethargy and swallowing issues nectar thick liquids and aspiration precautions after therapy evaluation, video swallow done 08/12 Klebsiella UTI cipro per sensitivities new LBBB and prolonged QT on EKG this was intermittent and not felt to be consistent with acute coronary syndrome HTN- Olmesartan 40 mg daily- metoprolol added 08/07- Hyperlipidemia Atorvastatin 20 mg daily Depressed mood/ Anxiety Klonipin 0.5 mg bid Chronic pain secondary to h/o fracture holding opiates secondary to encephalopathy trying not opiate analgesia and local pain measures Total Time Spent: Greater than 30 minutes This includes examination of the patient, discharge planning, medication reconciliation, and communication with other providers. Discharge Instructions Please refer to the electronic Patient Visit Report (Discharge Instructions) for additional information.
[2017-08-12 15:59] VITALS: BP 168/71; PULSE 70; TEMP 36.6; O2SAT 95
--- NOTE | 2017-08-15 08:30 | DIAGNOSTIC IMAGING REPORT ---
VIDEO SWALLOW CLINICAL HISTORY: 72 years-old Female presenting with assess for aspiration, dysphagia. TECHNIQUE: Video fluoroscopic evaluation of swallowing was performed in the AP and lateral projections in conjunction with speech pathology. The patient was administered various textures, including nectar-thick and thin liquid barium, a barium coated wafer, and barium pudding. COMPARISON: None. FINDINGS: There is normal hyoid excursion and epiglottic deflection. Penetration and silent aspiration noted with administration of thin liquids. With chin tuck maneuver, silent aspiration persisted. Silent aspiration with thin liquids was also observed when administered via a straw. [place] thick liquids did not result in aspiration nor did administration of pudding thickness or solids. Fluoroscopy dosage (mGy): Not available. Fluoroscopy time: 2.1 minutes. Number of fluoroscopic spot images: 0. IMPRESSION: 1. Silent aspiration with thin liquids despite compensatory maneuvers. No aspiration with the remaining administered textures. 2. Please see the speech pathologist report for detailed findings and recommendations. Electronically signed by: Jorge A Pardo M.D. 08/15/2017 8:29 AM Dictated Date/Time: 08/15/2017 8:25 AM
== END 2017-08-12 16:45 | DRG 91 ==
LOC: C.EDB 16:51 → C.2T 20:09 → ENRESERV 20:24 → C.MS2W 08-10 16:38
PROVIDERS: ADMIT Hospitalist; ATTEND Internal Medicine
DX: G92 Toxic encephalopathy (principal); G93.41 Metabolic encephalopathy; N39.0 Urinary tract infection, site not specified; R47.01 Aphasia; R64 Cachexia; Z68.1 Body mass index [BMI] 19.9 or less, adult; T42.75XA Adverse effect of unspecified antiepileptic and sedative-hypnotic drugs, initial encounter; B96.1 Klebsiella pneumoniae [K. pneumoniae] as the cause of diseases classified elsewhere; I44.7 Left bundle-branch block, unspecified; I45.81 Long QT syndrome; E87.6 Hypokalemia; R47.1 Dysarthria and anarthria; R13.10 Dysphagia, unspecified; G40.909 Epilepsy, unspecified, not intractable, without status epilepticus; G89.4 Chronic pain syndrome; I10 Essential (primary) hypertension; E78.5 Hyperlipidemia, unspecified; F32.9 Major depressive disorder, single episode, unspecified; F41.9 Anxiety disorder, unspecified; D53.9 Nutritional anemia, unspecified; M81.0 Age-related osteoporosis without current pathological fracture; Z51.81 Encounter for therapeutic drug level monitoring; Z79.899 Other long term (current) drug therapy; Z79.891 Long term (current) use of opiate analgesic; Z79.82 Long term (current) use of aspirin; Z91.81 History of falling; Z87.891 Personal history of nicotine dependence; Z82.3 Family history of stroke; Z80.1 Family history of malignant neoplasm of trachea, bronchus and lung

== ENCOUNTER → 2017-10-06 | Outpatient (CLI) | payer OTHER, BC ==
[~2017-10-06] MED LIST changes: -BNC/20125 PO; +BNC/40 PO; +CIPR250T3 PO; +CLON0.5T3 PO; +DIVA1CAP PO; +LPR25 PO; +MELO15TA10 PO; -MELO7.5T5 PO; -OXYC-57 PO
== END ==
LOC: C.LABUPNIT 15:28
PROVIDERS: ATTEND Nurse Practitioner Family
DX: R50.9 Fever, unspecified (principal)

== ENCOUNTER → 2017-10-08 | Outpatient (CLI) | payer OTHER, BC ==
[~2017-10-08] MED LIST changes: -DIVA1CAP PO; +DIVA1CAP5 PO
[2017-10-08 08:47] LABS: ALBUMIN 2.7 gm/dl (3.4-5.0); ALT/SGPT 21 U/L (12-78); BLOOD UREA NITROGEN 8 mg/dl (7-18); CALCIUM 8.1 mg/dl (8.5-10.1); CARBON DIOXIDE 31 mmol/L (21-32); CREATININE 0.52 mg/dl (0.60-1.20); GLUCOSE 78 mg/dl (70-99); POTASSIUM 4.3 mmol/L (3.5-5.1); SODIUM 136 mmol/L (136-145)
[2017-10-08 08:50] LABS: ALKALINE PHOSPHATASE 109 U/L (45-117); AST/SGOT 11 U/L (15-37); TOTAL PROTEIN 6.1 gm/dl (6.4-8.2)
[2017-10-08 10:18] LABS: BASO % 0.8 %; BASO ABS # 0.02 K/uL (0-0.2); EOS % 6.5 %; EOS ABS # 0.17 K/uL (0-0.5); HEMOGLOBIN 10.3 g/dL (12.0-16.0); LYMPH % 37.3 %; LYMPH ABS # 0.97 K/uL (1.2-3.4); MEAN CELL VOLUME 104.4 fL (80-100); MEAN CORPUSCULAR HEMOGLOBIN 34.7 pg (25-34); MEAN CORPUSCULAR HGB CONC 33.2 g/dl (32-36); MONO % 17.7 %; MONO ABS # 0.46 K/uL (0.11-0.59); NEUT % 37.7 %; NEUT ABS # 0.98 K/uL (1.4-6.5); RED CELL DISTRIBUTION WIDTH CV 14.7 % (11.5-14.5); RED CELL DISTRIBUTION WIDTH SD 56.8 fL (36.4-46.3)
== END ==
LOC: C.LABUPNIT 10:33
PROVIDERS: ATTEND Nurse Practitioner Family
DX: R79.89 Other specified abnormal findings of blood chemistry (principal); R68.89 Other general symptoms and signs

== ENCOUNTER → 2017-10-11 | Outpatient (CLI) | payer OTHER, BC ==
[2017-10-11 09:18] LABS: HEMATOCRIT 31.4 % (37-47); HEMOGLOBIN 10.6 g/dL (12.0-16.0); MEAN CELL VOLUME 102.3 fL (80-100); MEAN CORPUSCULAR HEMOGLOBIN 34.5 pg (25-34); MEAN CORPUSCULAR HGB CONC 33.8 g/dl (32-36); RED CELL DISTRIBUTION WIDTH CV 14.5 % (11.5-14.5); WHITE BLOOD COUNT 3.84 K/uL (4.8-10.8)
== END ==
LOC: C.LABUPNIT 08:13
PROVIDERS: ATTEND Nurse Practitioner Family
DX: I25.10 Atherosclerotic heart disease of native coronary artery without angina pectoris (principal)

== ENCOUNTER → 2017-10-13 | Outpatient (CLI) | payer OTHER, BC ==
[2017-10-13 10:15] LABS: HEMATOCRIT 30.2 % (37-47); MEAN CELL VOLUME 104.1 fL (80-100); MEAN CORPUSCULAR HEMOGLOBIN 34.5 pg (25-34); MEAN CORPUSCULAR HGB CONC 33.1 g/dl (32-36); RED CELL DISTRIBUTION WIDTH CV 14.5 % (11.5-14.5); RED CELL DISTRIBUTION WIDTH SD 55.7 fL (36.4-46.3); WHITE BLOOD COUNT 3.23 K/uL (4.8-10.8)
[2017-10-13 10:16] LABS: BASO % 0.9 %; BASO ABS # 0.03 K/uL (0-0.2); EOS % 5.6 %; EOS ABS # 0.18 K/uL (0-0.5); LYMPH % 34.1 %; MONO % 17.6 %; MONO ABS # 0.57 K/uL (0.11-0.59); NEUT % 41.8 %; NEUT ABS # 1.35 K/uL (1.4-6.5)
== END | disposition home or self-care (01) ==
LOC: C.LABUPNIT 08:49
PROVIDERS: ATTEND Nurse Practitioner Family
DX: R68.89 Other general symptoms and signs (principal)

== ENCOUNTER → 2017-10-17 | Outpatient (CLI) | payer OTHER, BC ==
[2017-10-17 08:47] LABS: HEMATOCRIT 30.8 % (37-47); HEMOGLOBIN 10.5 g/dL (12.0-16.0); MEAN CELL VOLUME 102.3 fL (80-100); MEAN CORPUSCULAR HEMOGLOBIN 34.9 pg (25-34); MEAN CORPUSCULAR HGB CONC 34.1 g/dl (32-36); MEAN PLATELET VOLUME 11.7 fL (7.4-10.4); PLATELET COUNT 118 K/uL (130-400); RED CELL DISTRIBUTION WIDTH CV 14.2 % (11.5-14.5); RED CELL DISTRIBUTION WIDTH SD 53.1 fL (36.4-46.3); WHITE BLOOD COUNT 4.12 K/uL (4.8-10.8)
[2017-10-17 08:55] LABS: BASO % 0.7 %; BASO ABS # 0.03 K/uL (0-0.2); EOS % 5.3 %; EOS ABS # 0.22 K/uL (0-0.5); IG# 0.01 K/uL (0.00-0.02); LYMPH % 39.8 %; LYMPH ABS # 1.64 K/uL (1.2-3.4); MONO % 15.3 %; MONO ABS # 0.63 K/uL (0.11-0.59); NEUT % 38.7 %; NEUT ABS # 1.59 K/uL (1.4-6.5)
== END ==
LOC: C.LABUPNIT 07:39
PROVIDERS: ATTEND Nurse Practitioner Family
DX: I10 Essential (primary) hypertension (principal)

== ENCOUNTER → 2017-10-20 | Outpatient (CLI) | payer OTHER, BC | LOC: C.LABUPNIT 16:53 | PROVIDERS: ATTEND Nurse Practitioner Family | DX: N39.0 Urinary tract infection, site not specified (principal) ==

== ENCOUNTER 2017-10-31 14:56 | Emergency (ER) | payer OTHER, BC ==
[~2017-10-31] VITALS: Ht 149.9 cm; Wt 53.5 kg
[2017-10-31] MEDS ORDERED: SODIUM CHLORIDE 0.9% 1000ML 1,000 ML IV STA (15:05)
[2017-10-31 15:07] VITALS: TEMP 36.7; Ht 149.9 cm; Wt 53.5 kg
--- NOTE | 2017-10-31 15:13 | EMERGENCY ROOM VISIT NOTE ---
History Report prepared by eSrena: Shala Avelar Under the Supervision of: Dr. Marcellus Frye M.D. First contact with patient: 15:02 Stated Complaint: UNABLE TO STAND, ILLNESS History of Present Illness The patient is a 72 year old female who presents to the Emergency Room with complaints of persistent generalized weakness that began today. The patient used to be a resident at senior care, noting that she had to leave due to insurance reasons. She began receiving 28/03 at home care for two days ago. According to her nursing staff, the patient has been very weak and unable to walk today, which is not baseline for her. They also report that she had a subjective fever and low blood pressure. The patient states that she thinks she might have a urinary tract infection. She denies any abdominal pain. Source of History: patient Onset: today Position: other (generalized) Quality: other (generalized weakness) Timing: other (persistent) Associated Symptoms: + fevers (subjective), No abdominal pain Note: Associated symptoms include: unable to walk and low blood pressure Review of Systems See HPI for pertinent positives and negatives. A total of ten systems were reviewed and were otherwise negative. Past Medical & Surgical Medical Problems: (1) Anxiety (2) Depressive Disorder Nec (3) Hypertension (4) Intestinal Infection Due To Clostridium Difficile (5) Lethargy (6) Macrocytic anemia (7) Osteoporosis (8) SBO (small bowel obstruction) (9) Seizure disorder (10) Stroke-like symptom (11) Syncope (12) UTI (urinary tract infection) Surgical Problems: (1) H/O ileostomy Family History Lung cancer Stroke Social History Smoking Status: Never Smoker Alcohol Use: none Drug Use: none Marital Status: Housing Status: lives with family Occupation Status: retired Current/Historical Medications Scheduled Aspirin (Aspirin), 81 MG PO DAILY Atorvastatin (Lipitor), 20 MG PO DAILY Calcium Carbonate-Vitamin D (Calcium 500 + D), 1 TAB PO DAILY Clonazepam (Klonopin), 0.5 MG PO BID Cyanocobalamin (Vitamin B-12), 1,000 MCG PO DAILY Divalproex Sodium (Depakote Sprinkle), 250 MG PO TID Docusate Sodium (Colace Clear), 50 MG PO DAILY Ferrous Sulfate (Ferrous Sulfate), 220 MG PO DAILY Folic Acid (Folic Acid), 1 MG PO DAILY Lactobacillus (Probiotic), 1 CAP PO DAILY Losartan Potassium (Cozaar), 100 MG PO DAILY Metoprolol Tartrate (Lopressor) (Lopressor), 25 MG PO BID Senna (Senokot), 8.6 MG PO DAILY [Lidocaine Patch 5%], 1 PATCH TD DAILY Scheduled PRN Hydrocodone/Acetaminophen 5MG/325MG ([place] 5MG/325MG), 1 TABLET PO Q4H PRN for Pain Allergies Coded Allergies: Fentanyl (Verified Adverse Reaction, Unknown, nausea, fearfulness, unsettled thoughts, 06/26/17) Lactose. (Verified Adverse Reaction, Unknown, GI SYMPTOMS, 08/06/17) Physical Exam Vital Signs Date Time Temp Pulse Resp B/P (MAP) Pulse Ox O2 Delivery O2 Flow Rate FiO2 10/31/17 21:06 85 18 165/89 98 10/31/17 19:54 78 18 151/90 97 Room Air 10/31/17 18:58 77 20 154/82 98 Room Air 10/31/17 17:38 73 20 162/96 100 Room Air 10/31/17 16:29 71 10/31/17 16:18 70 12 155/85 100 Room Air 10/31/17 15:07 36.7 78 18 162/72 Room Air Physical Exam GENERAL: Awake, alert, fatigued, chronically ill-appearing, in no distress HENT: Normocephalic, atraumatic. Oropharynx with dry mucous membranes and otherwise unremarkable. EYES: Normal conjunctiva. Sclera non-icteric. NECK: Supple. No nuchal rigidity. FROM. No JVD. RESPIRATORY: Clear to auscultation. CARDIAC: Regular rate, normal rhythm. Extremities warm and well perfused. Pulses equal. ABDOMEN: Soft, non-distended. No tenderness to palpation. No rebound or guarding. No masses. RECTAL: Deferred. MUSCULOSKELETAL: Chest examination reveals no tenderness. The back is symmetrical on inspection without obvious abnormality. There is no CVA tenderness to palpation. No joint edema. LOWER EXTREMITIES: Calves are equal size bilaterally and non-tender. No edema. No discoloration. NEURO: Alert to self. Moving all extremities. 4/5 generalized weakness. Expressive aphasia at baseline neurologic status. SKIN: No rash or jaundice noted. Medical Decision & Procedures ER Provider Diagnostic Interpretation: Radiology results as stated below per my review and radiologist interpretation: CHEST ONE VIEW PORTABLE CLINICAL HISTORY: Pain, radiating to the abdomen. COMPARISON STUDY: 08/05/2017 FINDINGS: The cardiac and mediastinal contours remain stable. There is no focal pulmonary consolidation. There are no pleural effusions. There is no free intraperitoneal air. There are postsurgical changes within the left shoulder.[ IMPRESSION: No active disease in the chest. Electronically signed by: Anthony Chavarria M.D. 10/31/2017 3:28 PM Dictated Date/Time: 10/31/2017 3:[address]AST CT DOSE: 614.27 mGy.cm HISTORY: weakness TECHNIQUE: Multiaxial CT images of the head were performed without the use of intravenous contrast. Automated exposure control was utilized for this study. A dose lowering technique was utilized adhering to the principles of ALARA. Comparison: Head CT 08/05/2017. Findings: The paranasal sinuses and mastoid air cells are clear. The calvarium and skull base are intact. There is no mass, hematoma, midline shift, acute infarct. White matter hypodensity is nonspecific but suggestive of microvascular ischemic change. The ventricles and sulci demonstrate mild age-related involutional changes. Old right-sided craniotomy. Encephalomalacia within the right posterior temporal lobe with dilatation of the right lateral ventricle remains unchanged. Impression: No significant change compared to the prior study. No acute intracranial abnormality. Electronically signed by: Lino Julian M.D. 10/31/2017 4:25 PM Dictated Date/Time: 10/31/2017 4:20 PM Laboratory Results 10/31/17 15:42 Red Blood Count 3.66, Mean Corpuscular Volume 100.8, Mean Corpuscular Hemoglobin 35.5, Mean Corpuscular Hemoglobin Concent 35.2, Mean Platelet Volume 11.3, Neutrophils (%) (Auto) 69.0, Lymphocytes (%) (Auto) 15.5, Monocytes (%) ( Auto) 13.1, Eosinophils (%) (Auto) 1.8, Basophils (%) (Auto) 0.4, Neutrophils # (Auto) 3.80, Lymphocytes # (Auto) 0.85, Monocytes # (Auto) 0.72, Eosinophils # ( Auto) 0.10, Basophils # (Auto) 0.02 10/31/17 15:42 Test 10/31/17 15:27 10/31/17 15:42 Influenza Type A Antigen Neg for Influ A (NEG) Influenza Type B Antigen Neg for Influ B (NEG) White Blood Count 5.50 K/uL (4.8-10.8) Red Blood Count 3.66 M/uL (4.2-5.4) Hemoglobin 13.0 g/dL (12.0-16.0) Hematocrit 36.9 % (37-47) Mean Corpuscular Volume 100.8 fL (80-100) Mean Corpuscular Hemoglobin 35.5 pg (25-34) Mean Corpuscular Hemoglobin Concent 35.2 g/dl (32-36) Platelet Count 193 K/uL (130-400) Mean Platelet Volume 11.3 fL (7.4-10.4) Neutrophils (%) (Auto) 69.0 % Lymphocytes (%) (Auto) 15.5 % Monocytes (%) (Auto) 13.1 % Eosinophils (%) (Auto) 1.8 % Basophils (%) (Auto) 0.4 % Neutrophils # (Auto) 3.80 K/uL (1.4-6.5) Lymphocytes # (Auto) 0.85 K/uL (1.2-3.4) Monocytes # (Auto) 0.72 K/uL (0.11-0.59) Eosinophils # (Auto) 0.10 K/uL (0-0.5) Basophils # (Auto) 0.02 K/uL (0-0.2) RDW Standard Deviation 50.0 fL (36.4-46.3) RDW Coefficient of Variation 13.5 % (11.5-14.5) Immature Granulocyte % (Auto) 0.2 % Immature Granulocyte # (Auto) 0.01 K/uL (0.00-0.02) Hypersegmented Polys 1+ Platelet Estimate NORMAL Macrocytosis PRESENT Urine Color YELLOW Urine Appearance CLEAR (CLEAR) Urine pH 7.0 (4.5-7.5) Urine Specific [place] 1.013 (1.000-1.030) Urine Protein NEG (NEG) Urine Glucose (UA) NEG (NEG) Urine Ketones TRACE (NEG) Urine Occult Blood 1+ (NEG) Urine Nitrite NEG (NEG) Urine Bilirubin NEG (NEG) Urine Urobilinogen NEG (NEG) Urine Leukocyte Esterase NEG (NEG) Urine WBC (Auto) 0 /hpf (0-5) Urine RBC (Auto) 5-10 /hpf (0-4) Urine Hyaline Casts (Auto) 0 /lpf (0-5) Urine Epithelial Cells (Auto) 0-5 /lpf (0-5) Urine Bacteria (Auto) NEG (NEG) Anion Gap 7.0 mmol/L (3-11) Est Creatinine Clear Calc Drug Dose 74.2 ml/min Estimated GFR () 111.4 Estimated GFR (Non- 96.1 BUN/Creatinine Ratio 22.1 (10-20) Calcium Level 8.6 mg/dl (8.5-10.1) Total Bilirubin 0.3 mg/dl (0.2-1) Direct Bilirubin < 0.1 mg/dl (0-0.2) Aspartate Amino Transf (AST/SGOT) 13 U/L (15-37) Alanine Aminotransferase (ALT/SGPT) 17 U/L (12-78) Alkaline Phosphatase 92 U/L (45-117) Troponin I < 0.015 ng/ml (0-0.045) Total Protein 8.1 gm/dl (6.4-8.2) Albumin 3.8 gm/dl (3.4-5.0) Lipase 194 U/L (73-393) Valproic Acid (Depakene) Level 102 mcg/ml (50-100) Laboratory results reviewed by me Medications Administered Medications (Trade) Dose Ordered Sig/Ba Route Start Time Stop Time Status Last Admin Dose Admin Sodium Chloride 1,000 ml @ 999 mls/hr Q1H1M STAT IV 10/31/17 15:05 10/31/17 16:05 DC 10/31/17 15:55 999 MLS/HR ECG Per My Interpretation Indication: weakness Rate (beats per minute): 74 Rhythm: normal sinus Findings: LBBB, no acute ischemic change Change: no significant change (08/06/17) ED Course 1503: The patient was evaluated in room A10. A complete history and physical exam was performed. 1726: I reevaluated the patient, who was resting and states she does not feel much better. I updated her and her daughter on test findings. Her daughter confirms that she was not doing great when she visited her 2 days ago. They both verbalized complete understanding of the treatment plan. The patient is ready for discharge and will be sent back to her senior care. Medical Decision I reviewed the patient's past medical history, medications, and the nursing notes as described above. Differential diagnosis: Etiologies such as metabolic, infection, hypo/hyperglycemia, electrolyte abnormalities, cardiac sources, intracerebral event, toxicologic, neurologic, as well as others were entertained. 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 Of note, there are report of low blood pressure and ?fever but patient is afebrile and hypertensive on arrival. On arrival, the patient is fatigued appearing but in no acute distress, afebrile with stable vital signs. She is moving all extremities with 4/5 strength. Labs unremarkable including WBC wnl. Depakote level marginally elevated at 102 but in the setting of dehydration with BUN/Cr > 20. Patient improved after IVF. CXR and CT head negative. Given reassuring w/u, no indication for admission at this time. Upon further discussion with the patient's daughter is at the patient at a similar decline in functioning prior to her discharge from her facility and this is only slightly different from from that. However she confirms that at this level of functional status she feels she is unable to care for her mother at home. CM assisting and patient was accepted to return to [facility]. Findings and plan for follow-up reviewed with patient and daughter. Patient and daughter agreeable and d/c'd per discharge instructions. Medication Reconcilliation Current Medication List: was personally reviewed by me Blood Pressure Screening Patient's blood pressure: Normal blood pressure Blood pressure disposition: Did not require urgent referral Impression Primary Impression: Dehydration Additional Impression: Weakness generalized Scribe Attestation The scribe's documentation has been prepared under my direction and personally reviewed by me in its entirety. I confirm that the note above accurately reflects all work, treatment, procedures, and medical decision making performed by me. Departure Information Dispostion Home / Self-Care Referrals Halie Valdivia (PCP) Forms HOME CARE DOCUMENTATION FORM, IMPORTANT VISIT INFORMATION Patient Instructions ED Dehydration, ED Weakness Frida SCHAEFER [facility] Additional Instructions Please follow up with your primary care physician in the next 1-3 days for re- evaluation. Your weakness is most likely due to mild dehydration. Otherwise, your exam, EKG, chest xray, CT scan and lab results did not show signs of an emergent condition at this time. Acetaminophen or ibuprofen for pain and fevers as needed. Drink plenty of fluids to ensure hydration. Return to the emergency department for worsening symptoms as described in the accompanying instructions. Problem Qualifiers
[2017-10-31] MEDS ORDERED: CYAN10005 PO (15:22)
[2017-10-31] MEDS ORDERED: DIVA125C PO (15:24)
[2017-10-31] MEDS ORDERED: METO25TA56 PO (15:26)
[2017-10-31] MEDS ORDERED: LOSA100T65 PO (15:26)
--- NOTE | 2017-10-31 15:29 | DIAGNOSTIC IMAGING REPORT ---
CHEST ONE VIEW PORTABLE CLINICAL HISTORY: Pain, radiating to the abdomen. COMPARISON STUDY: 08/05/2017 FINDINGS: The cardiac and mediastinal contours remain stable. There is no focal pulmonary consolidation. There are no pleural effusions. There is no free intraperitoneal air. There are postsurgical changes within the left shoulder.[ IMPRESSION: No active disease in the chest. Electronically signed by: Anthony Chavarria M.D. 10/31/2017 3:28 PM Dictated Date/Time: 10/31/2017 3:27 PM
[2017-10-31] MEDS ORDERED: LIDOCAINE PATCH 5% TD (15:31)
[2017-10-31] MEDS ORDERED: DOCU50CA10 PO (15:35)
[2017-10-31] MEDS ORDERED: SENN-61 PO (15:36)
[2017-10-31] MEDS ORDERED: FERR220E9 PO (15:39)
[2017-10-31] MEDS ORDERED: HYDR-5688 PO (15:40)
[2017-10-31 16:24] LABS: HEMATOCRIT 36.9 % (37-47); MEAN CELL VOLUME 100.8 fL (80-100); MEAN CORPUSCULAR HEMOGLOBIN 35.5 pg (25-34); MEAN CORPUSCULAR HGB CONC 35.2 g/dl (32-36); RED CELL DISTRIBUTION WIDTH CV 13.5 % (11.5-14.5)
--- NOTE | 2017-10-31 16:27 | DIAGNOSTIC IMAGING REPORT ---
HEAD CT NONCONTRAST CT DOSE: 614.27 mGy.cm HISTORY: weakness TECHNIQUE: Multiaxial CT images of the head were performed without the use of intravenous contrast. Automated exposure control was utilized for this study. A dose lowering technique was utilized adhering to the principles of ALARA. Comparison: Head CT 08/05/2017. Findings: The paranasal sinuses and mastoid air cells are clear. The calvarium and skull base are intact. There is no mass, hematoma, midline shift, acute infarct. White matter hypodensity is nonspecific but suggestive of microvascular ischemic change. The ventricles and sulci demonstrate mild age-related involutional changes. Old right-sided craniotomy. Encephalomalacia within the right posterior temporal lobe with dilatation of the right lateral ventricle remains unchanged. Impression: No significant change compared to the prior study. No acute intracranial abnormality. Electronically signed by: Lino Julian M.D. 10/31/2017 4:25 PM Dictated Date/Time: 10/31/2017 4:20 PM
[2017-10-31 16:28] LABS: ALBUMIN 3.8 gm/dl (3.4-5.0); ALT/SGPT 17 U/L (12-78); BLOOD UREA NITROGEN 12 mg/dl (7-18); CALCIUM 8.6 mg/dl (8.5-10.1); CARBON DIOXIDE 29 mmol/L (21-32); CREATININE 0.52 mg/dl (0.60-1.20); GLUCOSE 84 mg/dl (70-99); LIPASE 194 U/L (73-393); POTASSIUM 4.1 mmol/L (3.5-5.1); SODIUM 132 mmol/L (136-145)
[2017-10-31 16:33] LABS: ALKALINE PHOSPHATASE 92 U/L (45-117); AST/SGOT 13 U/L (15-37); TOTAL PROTEIN 8.1 gm/dl (6.4-8.2)
[2017-10-31 16:41] LABS: MEAN PLATELET VOLUME 11.3 fL (7.4-10.4); PLATELET COUNT 193 K/uL (130-400)
[2017-10-31 16:47] LABS: BASO % 0.4 %; BASO ABS # 0.02 K/uL (0-0.2); EOS % 1.8 %; IG# 0.01 K/uL (0.00-0.02); LYMPH % 15.5 %; LYMPH ABS # 0.85 K/uL (1.2-3.4); MONO % 13.1 %; MONO ABS # 0.72 K/uL (0.11-0.59)
[2017-10-31 16:47] LABS: INFLUENZA B ANTIGEN Neg for Influ B (NEG)
[2017-10-31 21:06] VITALS: BP 165/89; PULSE 85; O2SAT 98
== END 2017-10-31 21:07 ==
LOC: EDBD 14:56 → C.EDA 14:57
DX: E86.0 Dehydration (principal); R53.1 Weakness; F41.8 Other specified anxiety disorders; I10 Essential (primary) hypertension; M81.0 Age-related osteoporosis without current pathological fracture; Z79.899 Other long term (current) drug therapy; Z88.8 Allergy status to other drugs, medicaments and biological substances

== ENCOUNTER → 2017-11-03 | Outpatient (CLI) | payer OTHER, BC ==
[~2017-11-03] MED LIST changes: -ASCO100061 PO; -BNC/40 PO; -CIPR250T3 PO; -CRAN1TAB4 PO; +CYAN10005 PO; +DIVA125C PO; -DIVA1CAP5 PO; +DOCU50CA10 PO; -FERR1TAB13 PO; +FERR220E9 PO; +HYDR-5688 PO; +LIDOCAINE PATCH 5% TD; +LOSA100T65 PO; -LPR25 PO; -MELO15TA10 PO; +METO25TA56 PO; +SENN-61 PO; -VTMB12 PO; -ZOLE5INJ INJ
[2017-11-03 10:35] LABS: BLOOD UREA NITROGEN 11 mg/dl (7-18); CREATININE 0.43 mg/dl (0.60-1.20); GLUCOSE 77 mg/dl (70-99)
[2017-11-03 10:36] LABS: ALBUMIN 2.8 gm/dl (3.4-5.0); ALT/SGPT 12 U/L (12-78); AST/SGOT 10 U/L (15-37); CALCIUM 8.3 mg/dl (8.5-10.1); CARBON DIOXIDE 25 mmol/L (21-32); POTASSIUM 3.7 mmol/L (3.5-5.1); SODIUM 133 mmol/L (136-145)
[2017-11-03 10:38] LABS: ALKALINE PHOSPHATASE 66 U/L (45-117); TOTAL PROTEIN 6.1 gm/dl (6.4-8.2)
[2017-11-03 10:46] LABS: HEMATOCRIT 31.1 % (37-47); HEMOGLOBIN 10.6 g/dL (12.0-16.0); MEAN CELL VOLUME 102.3 fL (80-100); MEAN CORPUSCULAR HEMOGLOBIN 34.9 pg (25-34); MEAN CORPUSCULAR HGB CONC 34.1 g/dl (32-36); MEAN PLATELET VOLUME 11.2 fL (7.4-10.4); PLATELET COUNT 168 K/uL (130-400); RED CELL DISTRIBUTION WIDTH CV 13.7 % (11.5-14.5); RED CELL DISTRIBUTION WIDTH SD 51.1 fL (36.4-46.3); WHITE BLOOD COUNT 3.51 K/uL (4.8-10.8)
== END ==
LOC: C.LABUPNIT 09:49
PROVIDERS: ATTEND Nurse Practitioner Family
DX: D64.9 Anemia, unspecified (principal); I10 Essential (primary) hypertension

== ENCOUNTER → 2017-11-13 | Outpatient (CLI) | payer OTHER, BC | END | disposition home or self-care (01) | LOC: C.LABUPNIT 09:49 | PROVIDERS: ATTEND Nurse Practitioner Family | DX: M54.5 Low back pain (principal) ==

== ENCOUNTER → 2017-11-14 | Outpatient (CLI) | payer OTHER, BC ==
[2017-11-14 08:43] LABS: HEMATOCRIT 31.1 % (37-47); HEMOGLOBIN 10.7 g/dL (12.0-16.0); MEAN CELL VOLUME 102.6 fL (80-100); MEAN CORPUSCULAR HEMOGLOBIN 35.3 pg (25-34); MEAN CORPUSCULAR HGB CONC 34.4 g/dl (32-36); MEAN PLATELET VOLUME 11.8 fL (7.4-10.4); PLATELET COUNT 133 K/uL (130-400); RED CELL DISTRIBUTION WIDTH CV 13.1 % (11.5-14.5); RED CELL DISTRIBUTION WIDTH SD 48.8 fL (36.4-46.3); WHITE BLOOD COUNT 3.78 K/uL (4.8-10.8)
[2017-11-14 08:51] LABS: BASO % 0.5 %; BASO ABS # 0.02 K/uL (0-0.2); EOS % 2.9 %; EOS ABS # 0.11 K/uL (0-0.5); IG# 0.01 K/uL (0.00-0.02); LYMPH % 18.8 %; LYMPH ABS # 0.71 K/uL (1.2-3.4); MONO % 20.6 %; MONO ABS # 0.78 K/uL (0.11-0.59); NEUT % 56.9 %; NEUT ABS # 2.15 K/uL (1.4-6.5)
== END ==
LOC: C.LABUPNIT 07:46
PROVIDERS: ATTEND Nurse Practitioner Family
DX: I10 Essential (primary) hypertension (principal)

== ENCOUNTER → 2017-11-16 | Outpatient (CLI) | payer OTHER, BC | END | disposition home or self-care (01) | LOC: C.LABUPNIT 09:14 | PROVIDERS: ATTEND Nurse Practitioner Family | DX: R30.9 Painful micturition, unspecified (principal) ==

== ENCOUNTER → 2017-12-02 | Outpatient (CLI) | payer OTHER, BC ==
[2017-12-02 09:14] LABS: BLOOD UREA NITROGEN 12 mg/dl (7-18); CALCIUM 8.6 mg/dl (8.5-10.1); CARBON DIOXIDE 27 mmol/L (21-32); CREATININE 0.55 mg/dl (0.60-1.20); GLUCOSE 75 mg/dl (70-99); POTASSIUM 4.1 mmol/L (3.5-5.1); SODIUM 129 mmol/L (136-145)
[2017-12-02 09:26] LABS: HEMATOCRIT 32.2 % (37-47); HEMOGLOBIN 11.2 g/dL (12.0-16.0); MEAN CELL VOLUME 101.3 fL (80-100); MEAN CORPUSCULAR HEMOGLOBIN 35.2 pg (25-34); MEAN CORPUSCULAR HGB CONC 34.8 g/dl (32-36); MEAN PLATELET VOLUME 11.1 fL (7.4-10.4); PLATELET COUNT 196 K/uL (130-400); RED CELL DISTRIBUTION WIDTH CV 12.6 % (11.5-14.5); RED CELL DISTRIBUTION WIDTH SD 46.5 fL (36.4-46.3); WHITE BLOOD COUNT 4.56 K/uL (4.8-10.8)
[2017-12-02 09:31] LABS: BASO % 1.1 %; BASO ABS # 0.05 K/uL (0-0.2); EOS % 4.6 %; EOS ABS # 0.21 K/uL (0-0.5); IG# 0.02 K/uL (0.00-0.02); LYMPH % 30.5 %; LYMPH ABS # 1.39 K/uL (1.2-3.4); MONO % 16.9 %; MONO ABS # 0.77 K/uL (0.11-0.59); NEUT % 46.5 %; NEUT ABS # 2.12 K/uL (1.4-6.5)
== END ==
LOC: C.LABUPNIT 08:45
PROVIDERS: ATTEND Nurse Practitioner Family
DX: D64.9 Anemia, unspecified (principal); R94.6 Abnormal results of thyroid function studies; I10 Essential (primary) hypertension; M62.81 Muscle weakness (generalized)

== ENCOUNTER → 2017-12-05 | Outpatient (CLI) | payer OTHER, BC ==
[2017-12-05 09:31] LABS: HEMATOCRIT 29.4 % (37-47); HEMOGLOBIN 10.1 g/dL (12.0-16.0); MEAN CELL VOLUME 102.8 fL (80-100); MEAN CORPUSCULAR HEMOGLOBIN 35.3 pg (25-34); MEAN CORPUSCULAR HGB CONC 34.4 g/dl (32-36); MEAN PLATELET VOLUME 11.7 fL (7.4-10.4); PLATELET COUNT 137 K/uL (130-400); RED CELL DISTRIBUTION WIDTH CV 12.5 % (11.5-14.5); RED CELL DISTRIBUTION WIDTH SD 46.7 fL (36.4-46.3); WHITE BLOOD COUNT 5.29 K/uL (4.8-10.8)
[2017-12-05 09:32] LABS: BASO % 0.8 %; BASO ABS # 0.04 K/uL (0-0.2); EOS % 3.2 %; EOS ABS # 0.17 K/uL (0-0.5); IG# 0.01 K/uL (0.00-0.02); LYMPH % 26.1 %; LYMPH ABS # 1.38 K/uL (1.2-3.4); MONO % 12.3 %; MONO ABS # 0.65 K/uL (0.11-0.59); NEUT % 57.4 %; NEUT ABS # 3.04 K/uL (1.4-6.5)
== END ==
LOC: C.LABUPNIT 08:28
PROVIDERS: ATTEND Nurse Practitioner Family
DX: N39.0 Urinary tract infection, site not specified (principal)

== ENCOUNTER → 2017-12-06 | Outpatient (CLI) | payer OTHER, BC ==
[2017-12-06 14:36] LABS: BLOOD UREA NITROGEN 12 mg/dl (7-18); CALCIUM 9.1 mg/dl (8.5-10.1); CARBON DIOXIDE 30 mmol/L (21-32); CREATININE 0.51 mg/dl (0.60-1.20); GLUCOSE 71 mg/dl (70-99); POTASSIUM 3.8 mmol/L (3.5-5.1); SODIUM 136 mmol/L (136-145)
== END ==
LOC: C.LABUPNIT 09:06
PROVIDERS: ATTEND Nurse Practitioner Family
DX: D64.9 Anemia, unspecified (principal); M62.81 Muscle weakness (generalized)

== ENCOUNTER → 2017-12-13 | Outpatient (CLI) | payer OTHER, BC ==
[2017-12-13 08:47] LABS: BLOOD UREA NITROGEN 10 mg/dl (7-18); CALCIUM 8.4 mg/dl (8.5-10.1); CARBON DIOXIDE 26 mmol/L (21-32); CREATININE 0.48 mg/dl (0.60-1.20); GLUCOSE 69 mg/dl (70-99); POTASSIUM 3.8 mmol/L (3.5-5.1); SODIUM 132 mmol/L (136-145)
== END ==
LOC: C.LABUPNIT 08:09
PROVIDERS: ATTEND Nurse Practitioner Family
DX: I10 Essential (primary) hypertension (principal)

== ENCOUNTER → 2017-12-15 | Outpatient (CLI) | payer OTHER, BC | LOC: C.LABUPNIT 08:39 | PROVIDERS: ATTEND Nurse Practitioner Family | DX: F44.5 Conversion disorder with seizures or convulsions (principal) ==

== ENCOUNTER → 2017-12-20 | Outpatient (CLI) | payer OTHER, BC | END | disposition home or self-care (01) | LOC: C.LABUPNIT 08:17 | PROVIDERS: ATTEND Nurse Practitioner Family | DX: E55.9 Vitamin D deficiency, unspecified (principal) ==

== ENCOUNTER → 2017-12-26 | Outpatient (CLI) | payer OTHER, BC ==
[2017-12-26 09:27] LABS: HEMATOCRIT 32.2 % (37-47); HEMOGLOBIN 10.8 g/dL (12.0-16.0)
== END ==
LOC: C.LABUPNIT 08:44
PROVIDERS: ATTEND Nurse Practitioner Family
DX: D64.9 Anemia, unspecified (principal)

== ENCOUNTER → 2018-01-10 | Outpatient (CLI) | payer OTHER, BC ==
[2018-01-10 09:11] LABS: HEMATOCRIT 31.2 % (37-47); HEMOGLOBIN 10.7 g/dL (12.0-16.0); MEAN CORPUSCULAR HEMOGLOBIN 35.3 pg (25-34); MEAN CORPUSCULAR HGB CONC 34.3 g/dl (32-36); MEAN PLATELET VOLUME 11.7 fL (7.4-10.4); PLATELET COUNT 144 K/uL (130-400); RED CELL DISTRIBUTION WIDTH CV 12.8 % (11.5-14.5); RED CELL DISTRIBUTION WIDTH SD 48.1 fL (36.4-46.3); WHITE BLOOD COUNT 4.47 K/uL (4.8-10.8)
== END ==
LOC: C.LABUPNIT 07:53
PROVIDERS: ATTEND Nurse Practitioner Family
DX: D64.9 Anemia, unspecified (principal)

== ENCOUNTER → 2018-01-12 | Outpatient (CLI) | payer OTHER, BC ==
[2018-01-12 10:23] LABS: HEMATOCRIT 32.5 % (37-47); MEAN CELL VOLUME 103.5 fL (80-100); MEAN CORPUSCULAR HGB CONC 33.8 g/dl (32-36); PLATELET COUNT 131 K/uL (130-400); RED CELL DISTRIBUTION WIDTH SD 48.7 fL (36.4-46.3); WHITE BLOOD COUNT 3.75 K/uL (4.8-10.8)
== END | disposition home or self-care (01) ==
LOC: C.LABUPNIT 09:32
PROVIDERS: ATTEND Nurse Practitioner Family
DX: D64.9 Anemia, unspecified (principal); T42.6X1A Poisoning by other antiepileptic and sedative-hypnotic drugs, accidental (unintentional), initial encounter